=== PATIENT | male | born 1945 | race Caucasian/White ===

== ENCOUNTER → 2021-01-20 | Outpatient (CLI) | payer MEDICARE ==
--- NOTE | 2021-01-20 11:51 | CT ---
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 Patient has urine from re ctum during micturition. CT DLP: 577.1 mGycm. Automated Exposure Control for Dose Reduction was Utilized. TECHNIQUE: CT scan of the abdomen and pelvis is performed with oral but without IV contrast. IV cont rast could not be given due to diminished renal function. COMPARISON: NONE at this institution. FINDINGS: Within the limitations of a non-contrast study, the following observations are made. LUNG BASES: Tiny right greater than left pleural effusions. Mild linear scarring anterior bases right greater than left. Small pericardial effusion noted up to 14 mm in thickness. LIVER/GB: There is 2.3 cm thin-walled cyst left hepatic lobe axial image 16. Multiple small rim calci fied gallstone filled gallbladder lumen. No surrounding inflammatory change. PANCREAS: No significant abnormality is seen. SPLEEN: No significant abnormality is seen. ADRENALS: No significant abnormality is seen. KIDNEYS: Asymmetric diminished size and cortical thinning to the left kidney with scattered simple ap pearing thin-walled cysts. Moderate right-sided hydronephrosis and hydroureter. Bladder has moderate to severe abnormal wall thickening including large lobulated mass along the post erior wall. Some intraluminal calculi are present. This mass or neoplasm has lobulated superior exten ephraim up to axial image 103 in the presacral space. Scattered bilateral pelvic phleboliths. BOWEL: Oral contrast does not reach level of terminal ileum making evaluation of distal bowel subopti mal. No suspicious small or large bowel dilatation. There is indistinct fat plane from the mid sigmoi d colon left pelvis from the adjacent superior urinary bladder where there is lobulated mass or neopl asm best seen near axial image 111 and coronal image 47. This is likely site of fistulous communicati on. Some scattered sigmoid colonic diverticulosis. No free air. GENITAL ORGANS: Enlarged prostate gland consistent with BPH. LYMPH NODES: No definitive greater than 1cm abdominal or pelvic lymph nodes are appreciated. Slightly suboptimal evaluation without IV contrast. OSSEOUS STRUCTURES: Facet arthropathy lower lumbar levels. OTHER: No significant additional abnormality is seen. IMPRESSION: Suboptimal study. Large lobulated bladder mass or neoplasm. Indistinct fat plane from the mid sigmoid colon left pelvis likely site of fistulous communication. Moderate to severe right-sided hydronephrosis likely from obstruction right UVJ from known bladder mass or neoplasm.
== END | disposition home or self-care (01) ==
LOC: RADCTMAIN 09:21
PROVIDERS: ATTEND Urology
DX: C67.9 Malignant neoplasm of bladder, unspecified (principal); N13.30 Unspecified hydronephrosis
CPT/HCPCS: 74176; 82565; 84520

== ENCOUNTER 2021-06-03 13:21 | Inpatient (IN) | payer MEDICARE ==
[2021-06-03] MEDS ORDERED: SODIUM CHLORIDE 0.9% 1,000 ML IV STA (13:40)
[2021-06-03] MEDS ORDERED: cefTRIAXone IN SWFI 1,000 MG/10 ML SYRINGE IVP STA ×3 (13:40→19:23)
--- NOTE | 2021-06-03 13:49 | ED ---
General Adult HPI - General Chief complaint: Weakness Stated complaint: Weakness Time Seen by Provider: 06/03/21 13:25 Source: patient, EMS, RN notes reviewed, old records reviewed Mode of arrival: EMS Limitations: no limitations - History of Present Illness Initial comments: This is a 75-year-old male who presents emergency Department complaining of ge neralized weakness. Further history is that he was given an antibiotic for what is believed to be a urinary tract infection. Patient has a urostomy and a colonoscopy. Patient denies any fever chills per patient's chest pain difficulty breathing shortness of breath per patient denies palpitation. Patient denies abdominal pain patient denies nausea vomiting diarrhea. Patient denies any recent injury or trauma. - Related Data Home Medications Medication Instructions Recorded Confirmed Acetaminophen Tab [Tylenol Tab] 1,000 mg PO Q6HR PRN 06/03/21 06/03/21 Famotidine [Pepcid] 20 mg PO BID PRN 06/03/21 06/03/21 Levofloxacin [Levaquin] 500 mg PO DAILY 06/03/21 06/03/21 Allergies Allergy/AdvReac Type Severity Reaction Status Date / Time No Known Allergies Allergy Verified 06/03/21 15:55 Review of Systems ROS Statement: Those systems with pertinent positive or pertinent negative responses have been documented in the HPI. ROS Other: All systems not noted in ROS Statement are negative. 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 Patient is nontoxic and well- hydrated and is in mild distress. Patient does appear fairly tired ENT: Neck is soft and supple. No significant lymphadenopathy is noted. Oropharynx is clear. Moist mucous membranes. Neck has full range of motion without eliciting any pain. EYES: The sclera were anicteric and conjunctiva were pink and moist. Extraocular movements were intact and pupils were equal round and reactive to light. Eyelids were unremarkable. PULMONARY: Unlabored respirations. Good breath sounds bilaterally. No audible rales rhonchi or wheezing was noted. CARDIOVASCULAR: There is a regular rate and rhythm without any murmurs gallops or rubs. ABDOMEN: Soft and nontender with normal bowel sounds. SKIN: Skin is clear with no lesions or rashes and otherwise unremarkable. NEUROLOGIC: Patient is alert and oriented x3. Cranial nerves II through XII are grossly intact. Motor and sensory are also intact. Normal speech, volume and content. Symmetrical smile. MUSCULOSKELETAL: Normal extremities with adequate strength and full range of motion. No lower extremity swelling or edema. No calf tenderness. LYMPHATICS: No significant lymphadenopathy is noted PSYCHIATRIC: Normal psychiatric evaluation. Limitations: no limitations Course Vital Signs 06/03/21 06/03/21 06/03/21 13:25 14:40 15:19 Temperature 98.6 F Pulse Rate 130 H 112 H Respiratory 18 20 16 Rate Blood Pressure 78/52 77/49 O2 Sat by Pulse 94 L 97 Oximetry 06/03/21 06/03/21 06/03/21 15:27 16:21 17:47 Temperature Pulse Rate 108 H 103 H 102 H Respiratory 20 20 20 Rate Blood Pressure 78/50 75/42 77/46 O2 Sat by Pulse 97 93 L 97 Oximetry Procedures - Central Line Placement Right Femoral Consent Obtained: verbal consent Prep: mask, gown, gloves Central Line Prep: Chlorhexidine scrub Local Anesthesia Used: Lidocaine 1% Ultrasound Used for Placement: Yes Central Line Lumen Inserted: triple Bloods Obtained for Lab: No Central Line Position: good blood return, all ports aspirated, flushed, capped, sutured in place with nylon Dressing Applied: Tegaderm Patient Tolerated Procedure: well Complications: none - Sepsis Sepsis Focused Exam #1 Time Sepsis Criteria Met: 15:55 Sepsis Focused Exam Date: 06/03/21 Sepsis Focused Exam Time: 18:04 Sepsis Focused Exam Complete: Yes Vital Signs & RN Notes Reviewed: Yes Capillary Refill: < 2 Seconds: Fingers Peripheral Pulses: Weak: Radial (R) Skin Color: Normal for Patient Respiratory Exam: normal lung sounds Cardiovascular Exam: tachycardia (105) Medical Decision Making - Medical Decision Making EKG shows sinus tachycardia at 107 bpm IL interval 176 dresses 94 QT interval 3:30 QTC is 451. Patient's EKG shows no ST segment elevation or depression. Patient was noted to have a urinary tract infection or 4:00. Patient received 3 L of fluid and antibiotics at this point time. I spoke with Dr. Hurtado he came down and saw the patient in the room. I spoke with some physicians he agreed to admit the patient I admitted the patient wrote admitting orders. Patient has acute renal failure and is also septic with a urinary tract infection After central line was placed patient had already received 4 L of fluid 3 sodium bicarb and hydrocortisone and his pressure was still systolic in the 70s so I started Levophed. Patient will be admitted to the ICU. - Lab Data Result diagrams: 06/03/21 14:06 06/03/21 14:06 Lab Results 06/03/21 06/03/21 06/03/21 Range/Units 14:06 14:06 14:06 WBC 40.9 H (3.8-10.6) k/uL RBC 3.52 L (4.30-5.90) m/uL Hgb 11.3 L (13.0-17.5) gm/dL Hct 35.1 L (39.0-53.0) % MCV 99.8 (80.0-100.0) fL MCH 32.2 (25.0-35.0) pg MCHC 32.3 (31.0-37.0) g/dL RDW 15.6 H (11.5-15.5) % Plt Count 428 (150-450) k/uL MPV 7.5 Neutrophils % 96 % Lymphocytes % 1 % Monocytes % 3 % Eosinophils % 0 % Basophils % 0 % Neutrophils # 39.1 H (1.3-7.7) k/uL Lymphocytes # 0.3 L (1.0-4.8) k/uL Monocytes # 1.4 H (0-1.0) k/uL Eosinophils # 0.0 (0-0.7) k/uL Basophils # 0.1 (0-0.2) k/uL Macrocytosis Slight PT 12.7 H (9.0-12.0) sec INR 1.2 H (<1.2) APTT 35.3 H (22.0-30.0) sec Sample Site ABG pH (7.35-7.45) ABG pCO2 (35-45) mmHg ABG pO2 (83-108) mmHg ABG HCO3 (21-25) mmol/L ABG Total CO2 (19-24) mmol/L ABG O2 Saturation (94-97) % Evangelist Test FiO2 % Sodium 130 L (137-145) mmol/L Potassium 5.3 H (3.5-5.1) mmol/L Chloride 115 H (98-107) mmol/L Carbon Dioxide <5 L* (22-30) mmol/L Anion Gap mmol/L BUN 77 H (9-20) mg/dL Creatinine 5.38 H (0.66-1.25) mg/dL Est GFR (CKD-EPI)AfAm 11 (>60 ml/min/1.73 sqM) Est GFR (CKD-EPI)NonAf 10 (>60 ml/min/1.73 sqM) Glucose 126 H (74-99) mg/dL Lactic Ac Sepsis Rflx Plasma Lactic Acid Og (0.7-2.0) mmol/L Calcium 10.8 H (8.4-10.2) mg/dL Magnesium 1.9 (1.6-2.3) mg/dL Total Bilirubin 2.0 H (0.2-1.3) mg/dL AST 91 H (17-59) U/L ALT 79 H (4-49) U/L Alkaline Phosphatase 208 H (38-126) U/L Troponin I (0.000-0.034) ng/mL Total Protein 6.8 (6.3-8.2) g/dL Albumin 2.9 L (3.5-5.0) g/dL TSH (0.465-4.680) mIU/L Urine Color Urine Appearance (Clear) Urine pH (5.0-8.0) Ur Specific [place] (1.001-1.035) Urine Protein (Negative) Urine Glucose (UA) (Negative) Urine Ketones (Negative) Urine Blood (Negative) Urine Nitrite (Negative) Urine Bilirubin (Negative) Urine Urobilinogen (<2.0) mg/dL Ur Leukocyte Esterase (Negative) Urine RBC (0-5) /hpf Urine WBC (0-5) /hpf Ur Squamous Epith Cells (0-4) /hpf Urine Bacteria (None) /hpf Coronavirus (PCR) (Not Detectd) 06/03/21 06/03/21 06/03/21 Range/Units 14:06 14:06 14:06 WBC (3.8-10.6) k/uL RBC (4.30-5.90) m/uL Hgb (13.0-17.5) gm/dL Hct (39.0-53.0) % MCV (80.0-100.0) fL MCH (25.0-35.0) pg MCHC (31.0-37.0) g/dL RDW (11.5-15.5) % Plt Count (150-450) k/uL MPV Neutrophils % % Lymphocytes % % Monocytes % % Eosinophils % % Basophils % % Neutrophils # (1.3-7.7) k/uL Lymphocytes # (1.0-4.8) k/uL Monocytes # (0-1.0) k/uL Eosinophils # (0-0.7) k/uL Basophils # (0-0.2) k/uL Macrocytosis PT (9.0-12.0) sec INR (<1.2) APTT (22.0-30.0) sec Sample Site ABG pH (7.35-7.45) ABG pCO2 (35-45) mmHg ABG pO2 (83-108) mmHg ABG HCO3 (21-25) mmol/L ABG Total CO2 (19-24) mmol/L ABG O2 Saturation (94-97) % Evangelist Test FiO2 % Sodium (137-145) mmol/L Potassium (3.5-5.1) mmol/L Chloride (98-107) mmol/L Carbon Dioxide (22-30) mmol/L Anion Gap mmol/L BUN (9-20) mg/dL Creatinine (0.66-1.25) mg/dL Est GFR (CKD-EPI)AfAm (>60 ml/min/1.73 sqM) Est GFR (CKD-EPI)NonAf (>60 ml/min/1.73 sqM) Glucose (74-99) mg/dL Lactic Ac Sepsis Rflx Plasma Lactic Acid Og 2.7 H* (0.7-2.0) mmol/L Calcium (8.4-10.2) mg/dL Magnesium (1.6-2.3) mg/dL Total Bilirubin (0.2-1.3) mg/dL AST (17-59) U/L ALT (4-49) U/L Alkaline Phosphatase (38-126) U/L Troponin I 0.062 H* (0.000-0.034) ng/mL Total Protein (6.3-8.2) g/dL Albumin (3.5-5.0) g/dL TSH 12.000 H (0.465-4.680) mIU/L Urine Color Urine Appearance (Clear) Urine pH (5.0-8.0) Ur Specific [place] (1.001-1.035) Urine Protein (Negative) Urine Glucose (UA) (Negative) Urine Ketones (Negative) Urine Blood (Negative) Urine Nitrite (Negative) Urine Bilirubin (Negative) Urine Urobilinogen (<2.0) mg/dL Ur Leukocyte Esterase (Negative) Urine RBC (0-5) /hpf Urine WBC (0-5) /hpf Ur Squamous Epith Cells (0-4) /hpf Urine Bacteria (None) /hpf Coronavirus (PCR) (Not Detectd) 06/03/21 06/03/21 06/03/21 Range/Units 14:32 15:26 16:37 WBC (3.8-10.6) k/uL RBC (4.30-5.90) m/uL Hgb (13.0-17.5) gm/dL Hct (39.0-53.0) % MCV (80.0-100.0) fL MCH (25.0-35.0) pg MCHC (31.0-37.0) g/dL RDW (11.5-15.5) % Plt Count (150-450) k/uL MPV Neutrophils % % Lymphocytes % % Monocytes % % Eosinophils % % Basophils % % Neutrophils # (1.3-7.7) k/uL Lymphocytes # (1.0-4.8) k/uL Monocytes # (0-1.0) k/uL Eosinophils # (0-0.7) k/uL Basophils # (0-0.2) k/uL Macrocytosis PT (9.0-12.0) sec INR (<1.2) APTT (22.0-30.0) sec Sample Site Left Radial ABG pH 7.26 L (7.35-7.45) ABG pCO2 <15 L* (35-45) mmHg ABG pO2 110 H (83-108) mmHg ABG HCO3 9 L* (21-25) mmol/L ABG Total CO2 27 H (19-24) mmol/L ABG O2 Saturation 98.4 H (94-97) % Evangelist Test Yes FiO2 21 % Sodium (137-145) mmol/L Potassium (3.5-5.1) mmol/L Chloride (98-107) mmol/L Carbon Dioxide (22-30) mmol/L Anion Gap mmol/L BUN (9-20) mg/dL Creatinine (0.66-1.25) mg/dL Est GFR (CKD-EPI)AfAm (>60 ml/min/1.73 sqM) Est GFR (CKD-EPI)NonAf (>60 ml/min/1.73 sqM) Glucose (74-99) mg/dL Lactic Ac Sepsis Rflx Y Plasma Lactic Acid Og (0.7-2.0) mmol/L Calcium (8.4-10.2) mg/dL Magnesium (1.6-2.3) mg/dL Total Bilirubin (0.2-1.3) mg/dL AST (17-59) U/L ALT (4-49) U/L Alkaline Phosphatase (38-126) U/L Troponin I (0.000-0.034) ng/mL Total Protein (6.3-8.2) g/dL Albumin (3.5-5.0) g/dL TSH (0.465-4.680) mIU/L Urine Color Yellow Urine Appearance Turbid (Clear) Urine pH 6.5 (5.0-8.0) Ur Specific [place] 1.019 (1.001-1.035) Urine Protein 2+ H (Negative) Urine Glucose (UA) Negative (Negative) Urine Ketones Negative (Negative) Urine Blood Moderate H (Negative) Urine Nitrite Negative (Negative) Urine Bilirubin Negative (Negative) Urine Urobilinogen <2.0 (<2.0) mg/dL Ur Leukocyte Esterase Large H (Negative) Urine RBC >182 H (0-5) /hpf Urine WBC >182 H (0-5) /hpf Ur Squamous Epith Cells 4 (0-4) /hpf Urine Bacteria Many H (None) /hpf Coronavirus (PCR) (Not Detectd) 06/03/21 Range/Units 17:50 WBC (3.8-10.6) k/uL RBC (4.30-5.90) m/uL Hgb (13.0-17.5) gm/dL Hct (39.0-53.0) % MCV (80.0-100.0) fL MCH (25.0-35.0) pg MCHC (31.0-37.0) g/dL RDW (11.5-15.5) % Plt Count (150-450) k/uL MPV Neutrophils % % Lymphocytes % % Monocytes % % Eosinophils % % Basophils % % Neutrophils # (1.3-7.7) k/uL Lymphocytes # (1.0-4.8) k/uL Monocytes # (0-1.0) k/uL Eosinophils # (0-0.7) k/uL Basophils # (0-0.2) k/uL Macrocytosis PT (9.0-12.0) sec INR (<1.2) APTT (22.0-30.0) sec Sample Site ABG pH (7.35-7.45) ABG pCO2 (35-45) mmHg ABG pO2 (83-108) mmHg ABG HCO3 (21-25) mmol/L ABG Total CO2 (19-24) mmol/L ABG O2 Saturation (94-97) % Evangelist Test FiO2 % Sodium (137-145) mmol/L Potassium (3.5-5.1) mmol/L Chloride (98-107) mmol/L Carbon Dioxide (22-30) mmol/L Anion Gap mmol/L BUN (9-20) mg/dL Creatinine (0.66-1.25) mg/dL Est GFR (CKD-EPI)AfAm (>60 ml/min/1.73 sqM) Est GFR (CKD-EPI)NonAf (>60 ml/min/1.73 sqM) Glucose (74-99) mg/dL Lactic Ac Sepsis Rflx Plasma Lactic Acid Og (0.7-2.0) mmol/L Calcium (8.4-10.2) mg/dL Magnesium (1.6-2.3) mg/dL Total Bilirubin (0.2-1.3) mg/dL AST (17-59) U/L ALT (4-49) U/L Alkaline Phosphatase (38-126) U/L Troponin I (0.000-0.034) ng/mL Total Protein (6.3-8.2) g/dL Albumin (3.5-5.0) g/dL TSH (0.465-4.680) mIU/L Urine Color Urine Appearance (Clear) Urine pH (5.0-8.0) Ur Specific [place] (1.001-1.035) Urine Protein (Negative) Urine Glucose (UA) (Negative) Urine Ketones (Negative) Urine Blood (Negative) Urine Nitrite (Negative) Urine Bilirubin (Negative) Urine Urobilinogen (<2.0) mg/dL Ur Leukocyte Esterase (Negative) Urine RBC (0-5) /hpf Urine WBC (0-5) /hpf Ur Squamous Epith Cells (0-4) /hpf Urine Bacteria (None) /hpf Coronavirus (PCR) Not Detected (Not Detectd) Critical Care Time Critical Care Time: Yes Total Critical Care Time: 35 Disposition Clinical Impression: Septic shock, Urinary tract infection, Acute renal failure Disposition: ADMITTED IP TO THIS [facility] Referrals: Franc Bundy MD [Primary Care Provider] - 1-2 days Time of Disposition: 18:03
[2021-06-03 14:31] LABS: Basophils # (A) 0.1 k/uL (0-0.2); Basophils % (A) 0 %; Eosinophils % (A) 0 %; HCT 35.1 % (39.0-53.0); HGB 11.3 gm/dL (13.0-17.5); Lymphocytes # (A) 0.3 k/uL (1.0-4.8); Lymphocytes % (A) 1 %; MCH 32.2 pg (25.0-35.0); MCHC 32.3 g/dL (31.0-37.0); MCV 99.8 fL (80.0-100.0); Macrocytosis Slight; Mean Platelet Volume 7.5; Monocytes # (A) 1.4 k/uL (0-1.0); Monocytes % (A) 3 %; Neutrophils # (A) 39.1 k/uL (1.3-7.7); Neutrophils % (A) 96 %; Platelet Count 428 k/uL (150-450); RBC 3.52 m/uL (4.30-5.90); RDW 15.6 % (11.5-15.5); WBC 40.9 k/uL (3.8-10.6)
[2021-06-03 14:32] LABS: INR 1.2 (<1.2); Partial Thromboplastin Time 35.3 sec (22.0-30.0); Prothrombin Time 12.7 sec (9.0-12.0)
[2021-06-03 14:35] LABS: ALT 79 U/L (4-49); AST 91 U/L (17-59); African American GFR (CKD) 11 (>60 ml/min/1.73 sqM); Albumin 2.9 g/dL (3.5-5.0); Alkaline Phosphatase 208 U/L (38-126); Blood Urea Nitrogen 77 mg/dL (9-20); Calcium 10.8 mg/dL (8.4-10.2); Chloride 115 mmol/L (98-107); Glucose 126 mg/dL (74-99); Magnesium 1.9 mg/dL (1.6-2.3); Non-African American GFR(CKD) 10 (>60 ml/min/1.73 sqM); Potassium 5.3 mmol/L (3.5-5.1); Sodium 130 mmol/L (137-145); Total Protein 6.8 g/dL (6.3-8.2)
[2021-06-03 14:57] LABS: Carbon Dioxide <5 mmol/L (22-30)
[2021-06-03 15:49] LABS: Appearance,Urine Turbid (Clear); Bacteria,Urine Many /hpf; Bilirubin,Urine Negative (Negative); Blood,Urine Moderate (Negative); Color,Urine Yellow; Glucose,Urine (UA) Negative (Negative); Ketones,Urine Negative (Negative); Leukocyte Esterase,Urine Large (Negative); Nitrite,Urine Negative (Negative); PH, Urine 6.5 (5.0-8.0); Protein,Urine 2+ (Negative); RBC,Urine >182 /hpf (0-5); Specific Gravity,Urine 1.019 (1.001-1.035); Squamous Epithelial Cell,Urine 4 /hpf (0-4); Urobilinogen,Urine <2.0 mg/dL (<2.0); WBC,Urine >182 /hpf (0-5)
[2021-06-03 16:42] LABS: ABG Oxygen Saturation 98.4 % (94-97); ABG PH 7.26 (7.35-7.45); ABG PO2 110 mmHg (83-108); Allen Test Performed? Yes
[2021-06-03 16:44] LABS: ABG PCO2 <15 mmHg (35-45)
[2021-06-03 16:45] LABS: ABG HCO3 9 mmol/L (21-25); ABG TCO2 27 mmol/L (19-24)
[2021-06-03] MEDS ORDERED: SODIUM BICARB 8.4% 50 ML SYR (1 MEQ/ML) IV STA (17:12)
[2021-06-03] MEDS ORDERED: HYDROCORTISONE SUCCINATE 100 MG/2 ML VIAL IV STA (17:12)
[2021-06-03] MEDS ORDERED: SODIUM CHLORIDE 0.9% 1,000 ML IV ONE (17:25)
[2021-06-03] MEDS: DEXTROSE 5% IN WATER 1,000 ML with SODIUM BICARB (1 MEQ/ML) 150 ML IV SCH (18:13)
--- NOTE | 2021-06-03 18:21 | P.CNPUL ---
History of Present Illness Consult date: 06/03/21 Chief complaint: Generalized weakness History of present illness: 75-year-old male patient presented emergency department because of generalized weakness. His suspected UTI as the patient was found to have change in the color of the urine that was being collected in the urostomy bag. The urine was becoming more cloudy and the suspected UTI. The patient will be contacted the urologist. A dose of Levaquin which she took yesterday on outpatient basis. The patient came into the ED. The patient denied having any shortness of aurelio ath. He has significant abnormalities in his blood work. The patient had severe leukocytosis with a white count of 14. The patient has severe metabolic acidosis with a combination of anion and non-anion gap metabolic acidosis with a lactic acid level of 2.7. The patient had acute kidney injury. Creatinine was elevated at 5.4. The patient had some mild transaminitis. He was already given a total of 3 L of IV fluid in the systolic blood pressure was in the mid 70s. The patient was given 2 mg of IV Rocephin in the emergency department. Pulmonary three dimensional art instructor services were consulted accordingly. No nausea. No vomiting. No diarrhea. No abdominal pain. The patient has a colostomy which is functional. 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 This was done in 2020. At [facility]. Review of Systems Constitutional: Reports fatigue, Reports weakness Eyes: denies as per HPI, denies blurred vision, denies bulging eye, denies decreased vision, denies diplopia, denies discharge, denies dry eye, denies irritation, denies itching, denies pain, denies photophobia, denies loss of peripheral vision, denies loss of vision, denies tunnel vision/blind spots Ears: deny: decreased hearing, ear discharge, earache, tinnitus Ears, nose, mouth and throat: Reports as per HPI Breasts: absent: as per HPI, gynecomastia Cardiovascular: Reports as per HPI Respiratory: Reports as per HPI Gastrointestinal: Reports as per HPI Genitourinary: Reports as per HPI Musculoskeletal: absent: ankle pain, ankle stiffness, ankle swelling, as per HPI, elbow pain, elbow stiffness, elbow swelling, foot pain, foot stiffness, foot swelling, hand pain, hand stiffness, hand swelling, hip pain, hip stiffness, hip swelling, knee pain, knee stiffness, knee swelling, shoulder pain, shoulder stiffness, shoulder swelling, wrist pain, wrist stiffness, wrist swelling Integumentary: Reports as per HPI Neurological: Reports weakness Psychiatric: Reports as per HPI Endocrine: Reports as per HPI, Reports fatigue Hematologic/Lymphatic: Reports as per HPI Allergic/Immunologic: Reports as per HPI 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, post colectomy and colostomy and a cystectomy jan 2021 History of Any Multi-Drug Resistant Organisms: None Reported Past Surgical History: Bladder Surgery, Bowel Resection Additional Past Surgical History / Comment(s): December [address] [facility] patient had a bladder/colon fistula repair resulting in a double ostomy- urostomy and colostomy Past Psychological History: No Psychological Hx Reported Smoking Status: Former smoker Past Alcohol Use History: None Reported Past Drug Use History: None Reported Medications and Allergies Home Medications Medication Instructions Recorded Confirmed Type Acetaminophen Tab [Tylenol Tab] 1,000 mg PO Q6HR PRN 06/03/21 06/03/21 History Famotidine [Pepcid] 20 mg PO BID PRN 06/03/21 06/03/21 History Levofloxacin [Levaquin] 500 mg PO DAILY 06/03/21 06/03/21 History Allergies Allergy/AdvReac Type Severity Reaction Status Date / Time No Known Allergies Allergy Verified 06/03/21 15:55 Physical Exam Vitals: Vital Signs Temp Pulse Resp BP Pulse Ox 06/03/21 16:21 103 H 20 75/42 93 L 06/03/21 15:27 108 H 20 78/50 97 06/03/21 15:19 16 06/03/21 14:40 112 H 20 77/49 97 06/03/21 13:25 98.6 F 130 H 18 78/52 94 L Intake and Output 06/03/21 06/03/21 06/03/21 06:59 14:59 22:59 Other: Weight 99.79 kg Patient is well-developed and well-nourished. Patient is nontoxic and well- hydrated and is in mild distress. Patient does appear fairly tired HENT: Neck is soft and supple. No significant lymphadenopathy is noted. Oropharynx is clear. Moist mucous membranes. Neck has full range of motion without eliciting any pain. EYES: The sclera were anicteric and conjunctiva were pink and moist. Extraocular movements were intact and pupils were equal round and reactive to light. Eyelids were unremarkable. PULMONARY: Unlabored respirations. Good breath sounds bilaterally. No audible rales r honchi or wheezing was noted. CARDIOVASCULAR: There is a regular rate and rhythm without any murmurs gallops or rubs. ABDOMEN: Soft and nontender with normal bowel sounds. The patient has a functioning colostomy. The patient also has a urostomy in the right upper quadrant. Output from the urine is yellowish and cloudy. There is positive output of this point in time. No abdominal distention. No direct tenderness. No rebound tenderness. No guarding. SKIN: Skin is clear with no lesions or rashes and otherwise unremarkable. NEUROLOGIC: Patient is alert and oriented x3. Cranial nerves II through XII are grossly intact. Motor and sensory are also intact. Normal speech, volume and content. Symmetrical smile. MUSCULOSKELETAL: Normal extremities with adequate strength and full range of motion. No lower extremity swelling or edema. No calf tenderness. LYMPHATICS: No significant lymphadenopathy is noted PSYCHIATRIC: Normal psychiatric evaluation. Results - Laboratory Findings CBC and BMP: 06/03/21 14:06 06/03/21 14:06 ABG ABG pH 7.26 (7.35-7.45) L 06/03/21 16:37 ABG pCO2 <15 mmHg (35-45) L* 06/03/21 16:37 ABG pO2 110 mmHg (83-108) H 06/03/21 16:37 ABG O2 Saturation 98.4 % (94-97) H 06/03/21 16:37 PT/INR, D-dimer PT 12.7 sec (9.0-12.0) H 06/03/21 14:06 INR 1.2 (<1.2) H 06/03/21 14:06 Abnormal lab findings: Abnormal Labs 06/03/21 06/03/21 06/03/21 14:06 14:06 14:06 WBC 40.9 H RBC 3.52 L Hgb 11.3 L Hct 35.1 L RDW 15.6 H Neutrophils # 39.1 H Lymphocytes # 0.3 L Monocytes # 1.4 H PT 12.7 H INR 1.2 H APTT 35.3 H ABG pH ABG pCO2 ABG pO2 ABG HCO3 ABG Total CO2 ABG O2 Saturation Sodium 130 L Potassium 5.3 H Chloride 115 H Carbon Dioxide <5 L* BUN 77 H Creatinine 5.38 H Glucose 126 H Plasma Lactic Acid Og Calcium 10.8 H Total Bilirubin 2.0 H AST 91 H ALT 79 H Alkaline Phosphatase 208 H Troponin I Albumin 2.9 L Urine Protein Urine Blood Ur Leukocyte Esterase Urine RBC Urine WBC Urine Bacteria 06/03/21 06/03/21 06/03/21 14:06 14:06 15:26 WBC RBC Hgb Hct RDW Neutrophils # Lymphocytes # Monocytes # PT INR APTT ABG pH ABG pCO2 ABG pO2 ABG HCO3 ABG Total CO2 ABG O2 Saturation Sodium Potassium Chloride Carbon Dioxide BUN Creatinine Glucose Plasma Lactic Acid Og 2.7 H* Calcium Total Bilirubin AST ALT Alkaline Phosphatase Troponin I 0.062 H* Albumin Urine Protein 2+ H Urine Blood Moderate H Ur Leukocyte Esterase Large H Urine RBC >182 H Urine WBC >182 H Urine Bacteria Many H 06/03/21 16:37 WBC RBC Hgb Hct RDW Neutrophils # Lymphocytes # Monocytes # PT INR APTT ABG pH 7.26 L ABG pCO2 <15 L* ABG pO2 110 H ABG HCO3 9 L* ABG Total CO2 27 H ABG O2 Saturation 98.4 H Sodium Potassium Chloride Carbon Dioxide BUN Creatinine Glucose Plasma Lactic Acid Og Calcium Total Bilirubin AST ALT Alkaline Phosphatase Troponin I Albumin Urine Protein Urine Blood Ur Leukocyte Esterase Urine RBC Urine WBC Urine Bacteria - Diagnostic Findings Chest x-ray: image reviewed Assessment and Plan Plan: 1 Septic shock, secondary to a complicated urinary tract infection. Patient is currently hypotensive, received a total of 3 L of IV fluids in the emergency d epartment. He is currently receiving this for sleep and the patient will be started on a bicarb infusion and possibly pressors if no response on the blood pressure. The patient was also covered with 2 mg of IV Rocephin in the emergency department. 2 acute kidney injury 3 severe metabolic acidosis secondary to above. The serum bicarbonate less than 5. Lactic acid level initially was at 2.7. Note that there is also a component of non-anion gap metabolic acidosis. 4 acute leukocytosis 5 history of bladder cancer with a colovesicular fistula. The patient underwent a cystectomy and colectomy with diverging colostomy and urostomy 6 mild transaminitis, probably related to sepsis/shock. Plan The patient received a total of 3 L of IV fluids. We'll give the fourth liter with normal saline and following that we'll start the patient on a bicarb infusion at the rate of 150 mL an hour. I would also suggest giving the patient 2 doses of sodium bicarbonate 50 mEq IV push. continue fluid resuscitation and use pressors if needed. We'll utilize norepinephrine infusion to maintain a mean arterial pressure above 60. continue IV Rocephin 2 g every 24 hours Check urine cultures and blood cultures Obtain ultrasound the kidneys Obtain nephrology consultation Monitor electrolytes. Monitor urine output. The patient has a urostomy bag at this point in time. IV Protonix. Subcu heparin for DVT prophylaxis. COVID 19 testing by PCR for screening purposes Admitted to the patient that I see if needed especially if he continues to be hypotensive procal level cortisol Tsh, ft4 We'll continue to follow.
[2021-06-03] MEDS ORDERED: NOREPINEPHRINE 32 MG in SODIUM CHLORIDE 0.9% 218 ML IV ONE (19:17)
[2021-06-03] MEDS ORDERED: NALOXONE 0.4 MG/ML 1 ML VIAL IV PRN (19:21)
[2021-06-03 19:35] LABS: T4, Free (Free Thyroxine) 1.63 ng/dL (0.78-2.19)
[2021-06-03] MEDS: PANTOPRAZOLE 40 MG/10 ML VIAL IVP SCH (21:07)
[2021-06-03] MEDS: HEPARIN SODIUM,PORCINE/PF 5,000 UNIT/0.5 ML SYRINGE SQ SCH (21:10)
--- NOTE | 2021-06-03 22:18 | XR ---
EXAMINATION TYPE: XR chest 1V portable DATE OF EXAM: 06/03/2021 COMPARISON: NONE HISTORY: 75 years Male. STUDY INDICATION GIVEN: Short of breath . TECHNIQUE: Upright AP chest radiograph IMPRESSION: No focal airspace disease, pneumothorax or pleural effusion. Prominent bilateral central hilum may be indicative of central vascular congestion. The cardiomediastinal silhouette is normal in appearance. No acute osseous abnormalities seen. Bilateral AC joint osteoarthrosis.
[2021-06-04 00:29] LABS: Glucose,Whole Blood 126 mg/dL (75-99)
--- NOTE | 2021-06-04 00:41 | P.HPIM ---
History of Present Illness H&P Date: 06/03/21 Chief Complaint: weakness, decrease PO intake 75 year old male with bladder cancer complicated by fistula to the colon , treated with cystectomy, diverting colostomy and urostomy 2020 patient initially was unable to provide any meaningful history , and reported decrease po intake over 4 days along with changes in mental status and generalized weakness, suspected UTI as urine was becoming more cloudy no report of bleeding or fevers. no URI symptoms in the ED , he was having refractory severe septic shock , and was started on pressors , he was also given one dose of antibiotics at time of my evaluation 2029, patient was becoming more awake , he is currently alert, interactive, reporting no pain , no trouble breathing, no bleeding , he feels hungry and eager to eat, he feels way better than when he came in . he admits that he was getting sick for the past 4 days but was too stubborn to come to the hospital , he denies fevers, but reports chills, no URI symptoms no chest pain , no SOB, no abd pain .denies any sick contact patient vaccinated against covid blood work showed, anion gap metabolic acidosis with GISELA and lactic acidosis , and septic shock Review of Systems Pertinent positives as noted in HPI. All other systems were reviewed and are negative 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, post colectomy and colostomy and a cystectomy jan 2021 History of Any Multi-Drug Resistant Organisms: None Reported Past Surgical History: Bladder Surgery, Bowel Resection Additional Past Surgical History / Comment(s): December 2020 at [facility] patient had a bladder/colon fistula repair resulting in a double ostomy- urostomy and colostomy Past Psychological History: No Psychological Hx Reported Smoking Status: Former smoker Past Alcohol Use History: None Reported Past Drug Use History: None Reported - Past Family History family Family Medical History: No Reported History Medications and Allergies Home Medications Medication Instructions Recorded Confirmed Type Acetaminophen Tab [Tylenol Tab] 1,000 mg PO Q6HR PRN 06/03/21 06/03/21 History Famotidine [Pepcid] 20 mg PO BID PRN 06/03/21 06/03/21 History Levofloxacin [Levaquin] 500 mg PO DAILY 06/03/21 06/03/21 History Allergies Allergy/AdvReac Type Severity Reaction Status Date / Time No Known Allergies Allergy Verified 06/03/21 15:55 Physical Exam Vitals: Vital Signs Temp Pulse Resp BP Pulse Ox 06/03/21 22:04 97 20 94/60 100 06/03/21 21:21 108 H 20 86/56 100 06/03/21 20:48 98 20 90/61 99 06/03/21 19:44 99 20 85/56 100 06/03/21 17:47 102 H 20 77/46 97 06/03/21 16:21 103 H 20 75/42 93 L 06/03/21 15:27 108 H 20 78/50 97 06/03/21 15:19 16 06/03/21 14:40 112 H 20 77/49 97 06/03/21 13:25 98.6 F 130 H 18 78/52 94 L Intake and Output 06/03/21 06/03/21 06/04/21 14:59 22:59 06:59 Other: Weight 99.79 kg Constitutional: No acute distress, conversant, pleasant, following commands, making good eye contact, interactive, Per RN he looks way better than when he came in earlier Eyes: Anicteric sclerae, moist conjunctiva, Pupils equal round reactive to light ENMT: NC/AT Oropharynx clear, no erythema, or exudates Neck: Supple, no masses, or JVD No carotid bruits No thyromegaly Lungs: good breath sounds, basal inspiratory rales bilaterally Clear to percussion Normal respiratory effort, no accessory muscle use Cardiovascular: Heart regular in rate and rhythm, No murmurs, gallops, or rubs No peripheral edema Abdominal: Soft, colostomy with well formed stool, urostomy with anna colored urine however cloudy with debris Nontender, no guarding, rebound or rigidity Abdomen moving with respiration Normoactive bowel sounds No hepatomegaly, No splenomegaly No palpable mass No abdominal wall hernia noted Skin: area of blanching macular erythema over the coccyx no ulcers, otherwise Normal temperature, tone, texture, turgor Extremities: No digital cyanosis No clubbing Pedal pulses intact and symmetrical Radial pulses intact and symmetrical No calf tenderness Psychiatric: Alert and oriented to person, place and time Appropriate affect fair judgement Neuro Muscles Strength 4/5 in all 4 extremities Sensation to light touch grossly present throughout Cranial nerves II-XII grossly intact No focal sensory deficits Lymphatics: no palpable cervical or supraclavicular , or inguinal lymph nodes Results CBC & Chem 7: 06/03/21 14:06 06/03/21 14:06 Labs: Abnormal Lab Results - Last 24 Hours (Table) 06/03/21 06/03/21 06/03/21 Range/Units 14:06 14:06 14:06 WBC 40.9 H (3.8-10.6) k/uL RBC 3.52 L (4.30-5.90) m/uL Hgb 11.3 L (13.0-17.5) gm/dL Hct 35.1 L (39.0-53.0) % RDW 15.6 H (11.5-15.5) % Neutrophils # 39.1 H (1.3-7.7) k/uL Lymphocytes # 0.3 L (1.0-4.8) k/uL Monocytes # 1.4 H (0-1.0) k/uL PT 12.7 H (9.0-12.0) sec INR 1.2 H (<1.2) APTT 35.3 H (22.0-30.0) sec ABG pH (7.35-7.45) ABG pCO2 (35-45) mmHg ABG pO2 (83-108) mmHg ABG HCO3 (21-25) mmol/L ABG Total CO2 (19-24) mmol/L ABG O2 Saturation (94-97) % Sodium 130 L (137-145) mmol/L Potassium 5.3 H (3.5-5.1) mmol/L Chloride 115 H (98-107) mmol/L Carbon Dioxide <5 L* (22-30) mmol/L BUN 77 H (9-20) mg/dL Creatinine 5.38 H (0.66-1.25) mg/dL Glucose 126 H (74-99) mg/dL POC Glucose (mg/dL) (75-99) mg/dL Plasma Lactic Acid Og (0.7-2.0) mmol/L Calcium 10.8 H (8.4-10.2) mg/dL Total Bilirubin 2.0 H (0.2-1.3) mg/dL AST 91 H (17-59) U/L ALT 79 H (4-49) U/L Alkaline Phosphatase 208 H (38-126) U/L Troponin I (0.000-0.034) ng/mL Albumin 2.9 L (3.5-5.0) g/dL TSH (0.465-4.680) mIU/L Urine Protein (Negative) Urine Blood (Negative) Ur Leukocyte Esterase (Negative) Urine RBC (0-5) /hpf Urine WBC (0-5) /hpf Urine Bacteria (None) /hpf 06/03/21 06/03/21 06/03/21 Range/Units 14:06 14:06 14:06 WBC (3.8-10.6) k/uL RBC (4.30-5.90) m/uL Hgb (13.0-17.5) gm/dL Hct (39.0-53.0) % RDW (11.5-15.5) % Neutrophils # (1.3-7.7) k/uL Lymphocytes # (1.0-4.8) k/uL Monocytes # (0-1.0) k/uL PT (9.0-12.0) sec INR (<1.2) APTT (22.0-30.0) sec ABG pH (7.35-7.45) ABG pCO2 (35-45) mmHg ABG pO2 (83-108) mmHg ABG HCO3 (21-25) mmol/L ABG Total CO2 (19-24) mmol/L ABG O2 Saturation (94-97) % Sodium (137-145) mmol/L Potassium (3.5-5.1) mmol/L Chloride (98-107) mmol/L Carbon Dioxide (22-30) mmol/L BUN (9-20) mg/dL Creatinine (0.66-1.25) mg/dL Glucose (74-99) mg/dL POC Glucose (mg/dL) (75-99) mg/dL Plasma Lactic Acid Og 2.7 H* (0.7-2.0) mmol/L Calcium (8.4-10.2) mg/dL Total Bilirubin (0.2-1.3) mg/dL AST (17-59) U/L ALT (4-49) U/L Alkaline Phosphatase (38-126) U/L Troponin I 0.062 H* (0.000-0.034) ng/mL Albumin (3.5-5.0) g/dL TSH 12.000 H (0.465-4.680) mIU/L Urine Protein (Negative) Urine Blood (Negative) Ur Leukocyte Esterase (Negative) Urine RBC (0-5) /hpf Urine WBC (0-5) /hpf Urine Bacteria (None) /hpf 06/03/21 06/03/21 06/03/21 Range/Units 15:26 16:37 19:37 WBC (3.8-10.6) k/uL RBC (4.30-5.90) m/uL Hgb (13.0-17.5) gm/dL Hct (39.0-53.0) % RDW (11.5-15.5) % Neutrophils # (1.3-7.7) k/uL Lymphocytes # (1.0-4.8) k/uL Monocytes # (0-1.0) k/uL PT (9.0-12.0) sec INR (<1.2) APTT (22.0-30.0) sec ABG pH 7.26 L (7.35-7.45) ABG pCO2 <15 L* (35-45) mmHg ABG pO2 110 H (83-108) mmHg ABG HCO3 9 L* (21-25) mmol/L ABG Total CO2 27 H (19-24) mmol/L ABG O2 Saturation 98.4 H (94-97) % Sodium (137-145) mmol/L Potassium (3.5-5.1) mmol/L Chloride (98-107) mmol/L Carbon Dioxide (22-30) mmol/L BUN (9-20) mg/dL Creatinine (0.66-1.25) mg/dL Glucose (74-99) mg/dL POC Glucose (mg/dL) (75-99) mg/dL Plasma Lactic Acid Og 2.4 H* (0.7-2.0) mmol/L Calcium (8.4-10.2) mg/dL Total Bilirubin (0.2-1.3) mg/dL AST (17-59) U/L ALT (4-49) U/L Alkaline Phosphatase (38-126) U/L Troponin I (0.000-0.034) ng/mL Albumin (3.5-5.0) g/dL TSH (0.465-4.680) mIU/L Urine Protein 2+ H (Negative) Urine Blood Moderate H (Negative) Ur Leukocyte Esterase Large H (Negative) Urine RBC >182 H (0-5) /hpf Urine WBC >182 H (0-5) /hpf Urine Bacteria Many H (None) /hpf 06/03/21 06/04/21 Range/Units 23:10 00:27 WBC (3.8-10.6) k/uL RBC (4.30-5.90) m/uL Hgb (13.0-17.5) gm/dL Hct (39.0-53.0) % RDW (11.5-15.5) % Neutrophils # (1.3-7.7) k/uL Lymphocytes # (1.0-4.8) k/uL Monocytes # (0-1.0) k/uL PT (9.0-12.0) sec INR (<1.2) APTT (22.0-30.0) sec ABG pH (7.35-7.45) ABG pCO2 (35-45) mmHg ABG pO2 (83-108) mmHg ABG HCO3 (21-25) mmol/L ABG Total CO2 (19-24) mmol/L ABG O2 Saturation (94-97) % Sodium (137-145) mmol/L Potassium (3.5-5.1) mmol/L Chloride (98-107) mmol/L Carbon Dioxide (22-30) mmol/L BUN (9-20) mg/dL Creatinine (0.66-1.25) mg/dL Glucose (74-99) mg/dL POC Glucose (mg/dL) 126 H (75-99) mg/dL Plasma Lactic Acid Og 4.0 H* (0.7-2.0) mmol/L Calcium (8.4-10.2) mg/dL Total Bilirubin (0.2-1.3) mg/dL AST (17-59) U/L ALT (4-49) U/L Alkaline Phosphatase (38-126) U/L Troponin I (0.000-0.034) ng/mL Albumin (3.5-5.0) g/dL TSH (0.465-4.680) mIU/L Urine Protein (Negative) Urine Blood (Negative) Ur Leukocyte Esterase (Negative) Urine RBC (0-5) /hpf Urine WBC (0-5) /hpf Urine Bacteria (None) /hpf Microbiology - Last 24 Hours (Table) 06/03/21 15:26 Urine Culture - Preliminary Urine,Voided Assessment and Plan Assessment: severe refractory septic shock possible UTI GISELA anion gap metabolic acidosis lactic acidosis plan ICU admit s/p 4 L normal saline continue with bicarb drip initiate IV pressors due to refractory hypotension and worsening lactic acidosis follow up cultures s/p 2 g rocephine , continue daily supportive care monitor urine output monitor vital signs follow up lactic acid level follow up labs critical care consult nephro consult avoid nephrotoxic meds tylenol for fever elevated TSH , normal FT4, acute phase reactant follow up TSH mild transaminitis , monitor liver enzymes hypercalcemia , follow up after proper IVF hydration covid test negative GI PPX lovenox dvt ppx full code anticipated length of stay > 2 midnights
[2021-06-04] MEDS: HEPARIN SODIUM,PORCINE/PF 5,000 UNIT/0.5 ML SYRINGE SQ SCH ×3 (00:48→16:53)
[2021-06-04] MEDS: SODIUM CHLORIDE 0.9% 50 ML with VASOPRESSIN 20 UNIT IVPB SCH ×4 (05:13→13:05)
[2021-06-04 06:04] LABS: HCT 31.5 % (39.0-53.0); HGB 10.3 gm/dL (13.0-17.5); MCH 31.2 pg (25.0-35.0); MCHC 32.7 g/dL (31.0-37.0); MCV 95.4 fL (80.0-100.0); Mean Platelet Volume 8.3; Platelet Count 279 k/uL (150-450); RDW 15.3 % (11.5-15.5)
[2021-06-04 06:29] LABS: Albumin 2.6 g/dL (3.5-5.0); Calcium 9.8 mg/dL (8.4-10.2); Potassium 4.9 mmol/L (3.5-5.1); Total Bilirubin 1.4 mg/dL (0.2-1.3); Total Protein 5.9 g/dL (6.3-8.2)
[2021-06-04] MEDS: DEXTROSE 5% IN WATER 1,000 ML with SODIUM BICARB (1 MEQ/ML) 150 ML IV SCH ×3 (06:40→21:04)
[2021-06-04 06:44] LABS: Band Neutrophils % 7 %; Metamyelocytes # (M) 1.44 k/uL (0); Metamyelocytes % 3 %; Monocytes # (M) 0.48 k/uL (0-1.0); Neutrophils % (M) 84 %; Nucleated Red Blood Cells 0 /100 WBC (0-0); Poikilocytosis (M) Present; Total Cells Counted 100
--- NOTE | 2021-06-04 07:19 | P.PN ---
Subjective Progress Note Date: 06/04/21 75-year-old male patient presented emergency department because of generalized weakness. His suspected UTI as the patient was found to have change in the color of the urine that was being collected in the urostomy bag. The urine was becoming more cloudy and the suspected UTI. The patient will be contacted the urologist. A dose of Levaquin which she took yesterday on outpatient basis. The patient came into the ED. The patient denied having any shortness of aurelio ath. He has significant abnormalities in his blood work. The patient had severe leukocytosis with a white count of 14. The patient has severe metabolic acidosis with a combination of anion and non-anion gap metabolic acidosis with a lactic acid level of 2.7. The patient had acute kidney injury. Creatinine was elevated at 5.4. The patient had some mild transaminitis. He was already given a total of 3 L of IV fluid in the systolic blood pressure was in the mid 70s. The patient was given 2 mg of IV Rocephin in the emergency department. Pulmonary head batcher services were consulted accordingly. No nausea. No vomiting. No diarrhea. No abdominal pain. The patient has a colostomy which is functional. 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 This was done in 2020. At [facility]. His evaluation of 06/04/2021, the patient is being seen in follow-up in the intensive care unit. The patient got admitted to the ICU as the patient was quite hypotensive. He was in septic shock and he was seen in emergency department. He was resuscitated aggressively with IV fluids. He was given a total of 4 L of normal saline bolus and the patient was started on bicarb drip at the rate of 150 mL an hour. His urine output is improved. Creatinine is slightly improved compared to yesterday. Serum bicarbs up to 12. Lactic acid level is also improved. Cultures are still pending for now. Meanwhile, the patient remains on 2 g of IV Rocephin on a daily basis. Overnight, the passes were titrated. The patient was started on vasopressin drip physiologic dose of the 0.03 units / min. The patient is also on norepinephrine infusion running at 0.15 mcg/kg per minute. He is on room air oxygen. Is awake and alert. No signs of any respiratory distress. Cardiac rhythm is sinus. No nausea. No vomiting. No abdominal pain. No chest pain. No other significant events overnight otherwise. White cell count remains elevated and is up to 46. Objective - Vital Signs Vital signs: Vital Signs Temp 99 F 06/04/21 00:00 Pulse 98 06/04/21 06:00 Resp 18 06/04/21 06:00 BP 107/71 06/04/21 06:00 Pulse Ox 97 06/04/21 06:00 Intake & Output 06/03/21 06/04/21 06/04/21 18:59 06:59 18:59 Intake Total 1066.177 Output Total 480 Balance 586.177 Weight 99.79 kg 88.3 kg Intake: IV 1050 Dextrose 5% in Water 1, 1050 000 ml @ 150 mls/hr IV . Q7H40M ESMER with Sodium Bicarb (1 Meq/ml) 150 ml Rx#:[id number] Intake, IV Titration 16.177 Amount Norepinephrine 32 mg In 16.177 Sodium Chloride 0.9% 218 ml @ 0.05 MCG/KG/MIN 2. 339 mls/hr IV .Q24H ONE Rx#:[id number] Output: Urine 480 - Exam Patient is well-developed and well-nourished. Patient is nontoxic and well- hydrated and is in mild distress. Patient does appear fairly tired HENT: Neck is soft and supple. No significant lymphadenopathy is noted. Oropharynx is clear. Moist mucous membranes. Neck has full range of motion without eliciting any pain. EYES: The sclera were anicteric and conjunctiva were pink and moist. Extraocular movements were intact and pupils were equal round and reactive to light. Eyelids were unremarkable. PULMONARY: Unlabored respirations. Good breath sounds bilaterally. No audible rales rhon chi or wheezing was noted. CARDIOVASCULAR: There is a regular rate and rhythm without any murmurs gallops or rubs. ABDOMEN: Soft and nontender with normal bowel sounds. The patient has a functioning colostomy. The patient also has a urostomy in the right upper quadrant. Output from the urine is yellowish and cloudy. There is positive output of this point in time. No abdominal distention. No direct tenderness. No rebound tenderness. No guarding. SKIN: Skin is clear with no lesions or rashes and otherwise unremarkable. NEUROLOGIC: Patient is alert and oriented x3. Cranial nerves II through XII are grossly intact. Motor and sensory are also intact. Normal speech, volume and content. Symmetrical smile. MUSCULOSKELETAL: Normal extremities with adequate strength and full range of motion. No lower extremity swelling or edema. No calf tenderness. LYMPHATICS: No significant lymphadenopathy is noted PSYCHIATRIC: Normal psychiatric evaluation. - Labs CBC & Chem 7: 06/04/21 05:50 06/04/21 05:50 Labs: Abnormal Lab Results - Last 24 Hours (Table) 06/03/21 06/03/21 06/03/21 Range/Units 14:06 14:06 14:06 WBC 40.9 H (3.8-10.6) k/uL RBC 3.52 L (4.30-5.90) m/uL Hgb 11.3 L (13.0-17.5) gm/dL Hct 35.1 L (39.0-53.0) % RDW 15.6 H (11.5-15.5) % Neutrophils # 39.1 H (1.3-7.7) k/uL Neutrophils # (Manual) (1.3-7.7) k/uL Lymphocytes # 0.3 L (1.0-4.8) k/uL Monocytes # 1.4 H (0-1.0) k/uL Metamyelocytes # (Man) (0) k/uL PT 12.7 H (9.0-12.0) sec INR 1.2 H (<1.2) APTT 35.3 H (22.0-30.0) sec ABG pH (7.35-7.45) ABG pCO2 (35-45) mmHg ABG pO2 (83-108) mmHg ABG HCO3 (21-25) mmol/L ABG Total CO2 (19-24) mmol/L ABG O2 Saturation (94-97) % Sodium 130 L (137-145) mmol/L Potassium 5.3 H (3.5-5.1) mmol/L Chloride 115 H (98-107) mmol/L Carbon Dioxide <5 L* (22-30) mmol/L BUN 77 H (9-20) mg/dL Creatinine 5.38 H (0.66-1.25) mg/dL Glucose 126 H (74-99) mg/dL POC Glucose (mg/dL) (75-99) mg/dL Plasma Lactic Acid Og (0.7-2.0) mmol/L Calcium 10.8 H (8.4-10.2) mg/dL Total Bilirubin 2.0 H (0.2-1.3) mg/dL AST 91 H (17-59) U/L ALT 79 H (4-49) U/L Alkaline Phosphatase 208 H (38-126) U/L Troponin I (0.000-0.034) ng/mL Total Protein (6.3-8.2) g/dL Albumin 2.9 L (3.5-5.0) g/dL Procalcitonin (0.02-0.09) ng/mL TSH (0.465-4.680) mIU/L Urine Protein (Negative) Urine Blood (Negative) Ur Leukocyte Esterase (Negative) Urine RBC (0-5) /hpf Urine WBC (0-5) /hpf Urine Bacteria (None) /hpf 06/03/21 06/03/21 06/03/21 Range/Units 14:06 14:06 14:06 WBC (3.8-10.6) k/uL RBC (4.30-5.90) m/uL Hgb (13.0-17.5) gm/dL Hct (39.0-53.0) % RDW (11.5-15.5) % Neutrophils # (1.3-7.7) k/uL Neutrophils # (Manual) (1.3-7.7) k/uL Lymphocytes # (1.0-4.8) k/uL Monocytes # (0-1.0) k/uL Metamyelocytes # (Man) (0) k/uL PT (9.0-12.0) sec INR (<1.2) APTT (22.0-30.0) sec ABG pH (7.35-7.45) ABG pCO2 (35-45) mmHg ABG pO2 (83-108) mmHg ABG HCO3 (21-25) mmol/L ABG Total CO2 (19-24) mmol/L ABG O2 Saturation (94-97) % Sodium (137-145) mmol/L Potassium (3.5-5.1) mmol/L Chloride (98-107) mmol/L Carbon Dioxide (22-30) mmol/L BUN (9-20) mg/dL Creatinine (0.66-1.25) mg/dL Glucose (74-99) mg/dL POC Glucose (mg/dL) (75-99) mg/dL Plasma Lactic Acid Og 2.7 H* (0.7-2.0) mmol/L Calcium (8.4-10.2) mg/dL Total Bilirubin (0.2-1.3) mg/dL AST (17-59) U/L ALT (4-49) U/L Alkaline Phosphatase (38-126) U/L Troponin I 0.062 H* (0.000-0.034) ng/mL Total Protein (6.3-8.2) g/dL Albumin (3.5-5.0) g/dL Procalcitonin >100.00 H (0.02-0.09) ng/mL TSH (0.465-4.680) mIU/L Urine Protein (Negative) Urine Blood (Negative) Ur Leukocyte Esterase (Negative) Urine RBC (0-5) /hpf Urine WBC (0-5) /hpf Urine Bacteria (None) /hpf 06/03/21 06/03/21 06/03/21 Range/Units 14:06 15:26 16:37 WBC (3.8-10.6) k/uL RBC (4.30-5.90) m/uL Hgb (13.0-17.5) gm/dL Hct (39.0-53.0) % RDW (11.5-15.5) % Neutrophils # (1.3-7.7) k/uL Neutrophils # (Manual) (1.3-7.7) k/uL Lymphocytes # (1.0-4.8) k/uL Monocytes # (0-1.0) k/uL Metamyelocytes # (Man) (0) k/uL PT (9.0-12.0) sec INR (<1.2) APTT (22.0-30.0) sec ABG pH 7.26 L (7.35-7.45) ABG pCO2 <15 L* (35-45) mmHg ABG pO2 110 H (83-108) mmHg ABG HCO3 9 L* (21-25) mmol/L ABG Total CO2 27 H (19-24) mmol/L ABG O2 Saturation 98.4 H (94-97) % Sodium (137-145) mmol/L Potassium (3.5-5.1) mmol/L Chloride (98-107) mmol/L Carbon Dioxide (22-30) mmol/L BUN (9-20) mg/dL Creatinine (0.66-1.25) mg/dL Glucose (74-99) mg/dL POC Glucose (mg/dL) (75-99) mg/dL Plasma Lactic Acid Og (0.7-2.0) mmol/L Calcium (8.4-10.2) mg/dL Total Bilirubin (0.2-1.3) mg/dL AST (17-59) U/L ALT (4-49) U/L Alkaline Phosphatase (38-126) U/L Troponin I (0.000-0.034) ng/mL Total Protein (6.3-8.2) g/dL Albumin (3.5-5.0) g/dL Procalcitonin (0.02-0.09) ng/mL TSH 12.000 H (0.465-4.680) mIU/L Urine Protein 2+ H (Negative) Urine Blood Moderate H (Negative) Ur Leukocyte Esterase Large H (Negative) Urine RBC >182 H (0-5) /hpf Urine WBC >182 H (0-5) /hpf Urine Bacteria Many H (None) /hpf 06/03/21 06/03/21 06/04/21 Range/Units 19:37 23:10 00:27 WBC (3.8-10.6) k/uL RBC (4.30-5.90) m/uL Hgb (13.0-17.5) gm/dL Hct (39.0-53.0) % RDW (11.5-15.5) % Neutrophils # (1.3-7.7) k/uL Neutrophils # (Manual) (1.3-7.7) k/uL Lymphocytes # (1.0-4.8) k/uL Monocytes # (0-1.0) k/uL Metamyelocytes # (Man) (0) k/uL PT (9.0-12.0) sec INR (<1.2) APTT (22.0-30.0) sec ABG pH (7.35-7.45) ABG pCO2 (35-45) mmHg ABG pO2 (83-108) mmHg ABG HCO3 (21-25) mmol/L ABG Total CO2 (19-24) mmol/L ABG O2 Saturation (94-97) % Sodium (137-145) mmol/L Potassium (3.5-5.1) mmol/L Chloride (98-107) mmol/L Carbon Dioxide (22-30) mmol/L BUN (9-20) mg/dL Creatinine (0.66-1.25) mg/dL Glucose (74-99) mg/dL POC Glucose (mg/dL) 126 H (75-99) mg/dL Plasma Lactic Acid Og 2.4 H* 4.0 H* (0.7-2.0) mmol/L Calcium (8.4-10.2) mg/dL Total Bilirubin (0.2-1.3) mg/dL AST (17-59) U/L ALT (4-49) U/L Alkaline Phosphatase (38-126) U/L Troponin I (0.000-0.034) ng/mL Total Protein (6.3-8.2) g/dL Albumin (3.5-5.0) g/dL Procalcitonin (0.02-0.09) ng/mL TSH (0.465-4.680) mIU/L Urine Protein (Negative) Urine Blood (Negative) Ur Leukocyte Esterase (Negative) Urine RBC (0-5) /hpf Urine WBC (0-5) /hpf Urine Bacteria (None) /hpf 06/04/21 06/04/21 06/04/21 Range/Units 02:42 05:50 05:50 WBC 48.0 H (3.8-10.6) k/uL RBC 3.30 L (4.30-5.90) m/uL Hgb 10.3 L (13.0-17.5) gm/dL Hct 31.5 L (39.0-53.0) % RDW (11.5-15.5) % Neutrophils # (1.3-7.7) k/uL Neutrophils # (Manual) 43.60 H (1.3-7.7) k/uL Lymphocytes # (1.0-4.8) k/uL Monocytes # (0-1.0) k/uL Metamyelocytes # (Man) 1.44 H (0) k/uL PT (9.0-12.0) sec INR (<1.2) APTT (22.0-30.0) sec ABG pH (7.35-7.45) ABG pCO2 (35-45) mmHg ABG pO2 (83-108) mmHg ABG HCO3 (21-25) mmol/L ABG Total CO2 (19-24) mmol/L ABG O2 Saturation (94-97) % Sodium 135 L (137-145) mmol/L Potassium (3.5-5.1) mmol/L Chloride 110 H (98-107) mmol/L Carbon Dioxide 12 L (22-30) mmol/L BUN 81 H (9-20) mg/dL Creatinine 5.12 H (0.66-1.25) mg/dL Glucose 134 H (74-99) mg/dL POC Glucose (mg/dL) (75-99) mg/dL Plasma Lactic Acid Og 2.7 H* (0.7-2.0) mmol/L Calcium (8.4-10.2) mg/dL Total Bilirubin 1.4 H (0.2-1.3) mg/dL AST 77 H (17-59) U/L ALT 77 H (4-49) U/L Alkaline Phosphatase 151 H (38-126) U/L Troponin I (0.000-0.034) ng/mL Total Protein 5.9 L (6.3-8.2) g/dL Albumin 2.6 L (3.5-5.0) g/dL Procalcitonin (0.02-0.09) ng/mL TSH (0.465-4.680) mIU/L Urine Protein (Negative) Urine Blood (Negative) Ur Leukocyte Esterase (Negative) Urine RBC (0-5) /hpf Urine WBC (0-5) /hpf Urine Bacteria (None) /hpf 06/04/21 Range/Units 05:50 WBC (3.8-10.6) k/uL RBC (4.30-5.90) m/uL Hgb (13.0-17.5) gm/dL Hct (39.0-53.0) % RDW (11.5-15.5) % Neutrophils # (1.3-7.7) k/uL Neutrophils # (Manual) (1.3-7.7) k/uL Lymphocytes # (1.0-4.8) k/uL Monocytes # (0-1.0) k/uL Metamyelocytes # (Man) (0) k/uL PT (9.0-12.0) sec INR (<1.2) APTT (22.0-30.0) sec ABG pH (7.35-7.45) ABG pCO2 (35-45) mmHg ABG pO2 (83-108) mmHg ABG HCO3 (21-25) mmol/L ABG Total CO2 (19-24) mmol/L ABG O2 Saturation (94-97) % Sodium (137-145) mmol/L Potassium (3.5-5.1) mmol/L Chloride (98-107) mmol/L Carbon Dioxide (22-30) mmol/L BUN (9-20) mg/dL Creatinine (0.66-1.25) mg/dL Glucose (74-99) mg/dL POC Glucose (mg/dL) (75-99) mg/dL Plasma Lactic Acid Og 2.3 H* (0.7-2.0) mmol/L Calcium (8.4-10.2) mg/dL Total Bilirubin (0.2-1.3) mg/dL AST (17-59) U/L ALT (4-49) U/L Alkaline Phosphatase (38-126) U/L Troponin I (0.000-0.034) ng/mL Total Protein (6.3-8.2) g/dL Albumin (3.5-5.0) g/dL Procalcitonin (0.02-0.09) ng/mL TSH (0.465-4.680) mIU/L Urine Protein (Negative) Urine Blood (Negative) Ur Leukocyte Esterase (Negative) Urine RBC (0-5) /hpf Urine WBC (0-5) /hpf Urine Bacteria (None) /hpf Microbiology - Last 24 Hours (Table) 06/03/21 15:26 Urine Culture - Preliminary Urine,Voided Assessment and Plan Plan: 1 Septic shock, secondary to a complicated urinary tract infection. Patient is currently hypotensive, received a total of 4 L of IV fluids in the emergency department. He is currently receiving this for sleep and the patient will be started on a bicarb infusion and pressors the patient is currently on a combination of physiologic dose vasopressin and norepinephrine running at 0.15 mcg/kg per minute.. The patient is also on a bicarb infusion. The patient is on IV Rocephin 2 g every 24 hours pending further cultures. 2 acute kidney injury, renal function is improved slightly compared to yesterday, awaiting ultrasound the kidneys 3 severe metabolic acidosis secondary to above, improving on a bicarb infusion 4 acute leukocytosis 5 history of bladder cancer with a colovesicular fistula. The patient underwent a cystectomy and colectomy with diverging colostomy and urostomy 6 mild transaminitis, probably related to sepsis/shock. Plan The patient received a total of 4 L of IV fluids. bicarb infusion at the rate of 150 mL an hour. Vasopressin physiologic dose We'll utilize norepinephrine infusion to maintain a mean arterial pressure above 60. continue IV Rocephin 2 g every 24 hours Check urine cultures and blood cultures Obtain ultrasound the kidneys Obtain nephrology consultation Monitor electrolytes. Monitor urine output. The patient has a urostomy bag at this point in time. IV Protonix. Subcu heparin for DVT prophylaxis. COVID 19 testing by PCR for screening purposes, COVID 19 was negative procal level is high cortisol is high Tsh, ft4 noted We'll continue to follow.
[2021-06-04] MEDS: PANTOPRAZOLE 40 MG/10 ML VIAL IVP SCH (09:06)
--- NOTE | 2021-06-04 11:01 | P.PN ---
Subjective Progress Note Date: 06/04/21 Pt reports improvement from admission. Denies pain. WBC is still quite elevated. On ceftriaxone for UTI. Still with lactic acidosis and mild gap. PC was quite high > 100. TSH noted, FT4 within normal limits. Cortisol level > 123. Cr is improving but still quite elevated. Objective - Vital Signs Vital signs: Vital Signs Temp 97.5 F L 06/04/21 08:00 Pulse 90 06/04/21 10:00 Resp 17 06/04/21 10:00 BP 105/72 06/04/21 10:00 Pulse Ox 94 L 06/04/21 10:00 Intake & Output 06/03/21 06/04/21 06/04/21 18:59 06:59 18:59 Intake Total 1066.177 570 Output Total 480 100 Balance 586.177 470 Weight 99.79 kg 88.3 kg Intake: IV 1050 450 Dextrose 5% in Water 1, 1050 450 000 ml @ 150 mls/hr IV . Q7H40M ESMER with Sodium Bicarb (1 Meq/ml) 150 ml Rx#:[id number] Intake, IV Titration 16.177 Amount Norepinephrine 32 mg In 16.177 Sodium Chloride 0.9% 218 ml @ 0.05 MCG/KG/MIN 2. 339 mls/hr IV .Q24H ONE Rx#:[id number] Oral 120 Output: Urine 480 100 - Exam Gen: awake, alert HEENT: normocephalic, atraumatic, good hearing acuity, moist mucous membranes Resp: good air exchange, breathing comfortably with no accessory muscle use CVS: good distal perfusion x 4, GI: soft, NTTP, ND : no SPT, no CVAT, alvarenga catheter is present MSK: no pitting edema, no clubbing Neuro: non-focal, moving all extremities Psych: cooperative, euthymic mood - Labs CBC & Chem 7: 06/04/21 05:50 06/04/21 05:50 Labs: Abnormal Lab Results - Last 24 Hours (Table) 06/03/21 06/03/21 06/03/21 Range/Units 14:06 14:06 14:06 WBC 40.9 H (3.8-10.6) k/uL RBC 3.52 L (4.30-5.90) m/uL Hgb 11.3 L (13.0-17.5) gm/dL Hct 35.1 L (39.0-53.0) % RDW 15.6 H (11.5-15.5) % Neutrophils # 39.1 H (1.3-7.7) k/uL Neutrophils # (Manual) (1.3-7.7) k/uL Lymphocytes # 0.3 L (1.0-4.8) k/uL Monocytes # 1.4 H (0-1.0) k/uL Metamyelocytes # (Man) (0) k/uL PT 12.7 H (9.0-12.0) sec INR 1.2 H (<1.2) APTT 35.3 H (22.0-30.0) sec ABG pH (7.35-7.45) ABG pCO2 (35-45) mmHg ABG pO2 (83-108) mmHg ABG HCO3 (21-25) mmol/L ABG Total CO2 (19-24) mmol/L ABG O2 Saturation (94-97) % Sodium 130 L (137-145) mmol/L Potassium 5.3 H (3.5-5.1) mmol/L Chloride 115 H (98-107) mmol/L Carbon Dioxide <5 L* (22-30) mmol/L BUN 77 H (9-20) mg/dL Creatinine 5.38 H (0.66-1.25) mg/dL Glucose 126 H (74-99) mg/dL POC Glucose (mg/dL) (75-99) mg/dL Plasma Lactic Acid Og (0.7-2.0) mmol/L Calcium 10.8 H (8.4-10.2) mg/dL Total Bilirubin 2.0 H (0.2-1.3) mg/dL AST 91 H (17-59) U/L ALT 79 H (4-49) U/L Alkaline Phosphatase 208 H (38-126) U/L Troponin I (0.000-0.034) ng/mL Total Protein (6.3-8.2) g/dL Albumin 2.9 L (3.5-5.0) g/dL Procalcitonin (0.02-0.09) ng/mL TSH (0.465-4.680) mIU/L Urine Protein (Negative) Urine Blood (Negative) Ur Leukocyte Esterase (Negative) Urine RBC (0-5) /hpf Urine WBC (0-5) /hpf Urine Bacteria (None) /hpf 06/03/21 06/03/21 06/03/21 Range/Units 14:06 14:06 14:06 WBC (3.8-10.6) k/uL RBC (4.30-5.90) m/uL Hgb (13.0-17.5) gm/dL Hct (39.0-53.0) % RDW (11.5-15.5) % Neutrophils # (1.3-7.7) k/uL Neutrophils # (Manual) (1.3-7.7) k/uL Lymphocytes # (1.0-4.8) k/uL Monocytes # (0-1.0) k/uL Metamyelocytes # (Man) (0) k/uL PT (9.0-12.0) sec INR (<1.2) APTT (22.0-30.0) sec ABG pH (7.35-7.45) ABG pCO2 (35-45) mmHg ABG pO2 (83-108) mmHg ABG HCO3 (21-25) mmol/L ABG Total CO2 (19-24) mmol/L ABG O2 Saturation (94-97) % Sodium (137-145) mmol/L Potassium (3.5-5.1) mmol/L Chloride (98-107) mmol/L Carbon Dioxide (22-30) mmol/L BUN (9-20) mg/dL Creatinine (0.66-1.25) mg/dL Glucose (74-99) mg/dL POC Glucose (mg/dL) (75-99) mg/dL Plasma Lactic Acid Og 2.7 H* (0.7-2.0) mmol/L Calcium (8.4-10.2) mg/dL Total Bilirubin (0.2-1.3) mg/dL AST (17-59) U/L ALT (4-49) U/L Alkaline Phosphatase (38-126) U/L Troponin I 0.062 H* (0.000-0.034) ng/mL Total Protein (6.3-8.2) g/dL Albumin (3.5-5.0) g/dL Procalcitonin >100.00 H (0.02-0.09) ng/mL TSH (0.465-4.680) mIU/L Urine Protein (Negative) Urine Blood (Negative) Ur Leukocyte Esterase (Negative) Urine RBC (0-5) /hpf Urine WBC (0-5) /hpf Urine Bacteria (None) /hpf 06/03/21 06/03/21 06/03/21 Range/Units 14:06 15:26 16:37 WBC (3.8-10.6) k/uL RBC (4.30-5.90) m/uL Hgb (13.0-17.5) gm/dL Hct (39.0-53.0) % RDW (11.5-15.5) % Neutrophils # (1.3-7.7) k/uL Neutrophils # (Manual) (1.3-7.7) k/uL Lymphocytes # (1.0-4.8) k/uL Monocytes # (0-1.0) k/uL Metamyelocytes # (Man) (0) k/uL PT (9.0-12.0) sec INR (<1.2) APTT (22.0-30.0) sec ABG pH 7.26 L (7.35-7.45) ABG pCO2 <15 L* (35-45) mmHg ABG pO2 110 H (83-108) mmHg ABG HCO3 9 L* (21-25) mmol/L ABG Total CO2 27 H (19-24) mmol/L ABG O2 Saturation 98.4 H (94-97) % Sodium (137-145) mmol/L Potassium (3.5-5.1) mmol/L Chloride (98-107) mmol/L Carbon Dioxide (22-30) mmol/L BUN (9-20) mg/dL Creatinine (0.66-1.25) mg/dL Glucose (74-99) mg/dL POC Glucose (mg/dL) (75-99) mg/dL Plasma Lactic Acid Og (0.7-2.0) mmol/L Calcium (8.4-10.2) mg/dL Total Bilirubin (0.2-1.3) mg/dL AST (17-59) U/L ALT (4-49) U/L Alkaline Phosphatase (38-126) U/L Troponin I (0.000-0.034) ng/mL Total Protein (6.3-8.2) g/dL Albumin (3.5-5.0) g/dL Procalcitonin (0.02-0.09) ng/mL TSH 12.000 H (0.465-4.680) mIU/L Urine Protein 2+ H (Negative) Urine Blood Moderate H (Negative) Ur Leukocyte Esterase Large H (Negative) Urine RBC >182 H (0-5) /hpf Urine WBC >182 H (0-5) /hpf Urine Bacteria Many H (None) /hpf 06/03/21 06/03/21 06/04/21 Range/Units 19:37 23:10 00:27 WBC (3.8-10.6) k/uL RBC (4.30-5.90) m/uL Hgb (13.0-17.5) gm/dL Hct (39.0-53.0) % RDW (11.5-15.5) % Neutrophils # (1.3-7.7) k/uL Neutrophils # (Manual) (1.3-7.7) k/uL Lymphocytes # (1.0-4.8) k/uL Monocytes # (0-1.0) k/uL Metamyelocytes # (Man) (0) k/uL PT (9.0-12.0) sec INR (<1.2) APTT (22.0-30.0) sec ABG pH (7.35-7.45) ABG pCO2 (35-45) mmHg ABG pO2 (83-108) mmHg ABG HCO3 (21-25) mmol/L ABG Total CO2 (19-24) mmol/L ABG O2 Saturation (94-97) % Sodium (137-145) mmol/L Potassium (3.5-5.1) mmol/L Chloride (98-107) mmol/L Carbon Dioxide (22-30) mmol/L BUN (9-20) mg/dL Creatinine (0.66-1.25) mg/dL Glucose (74-99) mg/dL POC Glucose (mg/dL) 126 H (75-99) mg/dL Plasma Lactic Acid Og 2.4 H* 4.0 H* (0.7-2.0) mmol/L Calcium (8.4-10.2) mg/dL Total Bilirubin (0.2-1.3) mg/dL AST (17-59) U/L ALT (4-49) U/L Alkaline Phosphatase (38-126) U/L Troponin I (0.000-0.034) ng/mL Total Protein (6.3-8.2) g/dL Albumin (3.5-5.0) g/dL Procalcitonin (0.02-0.09) ng/mL TSH (0.465-4.680) mIU/L Urine Protein (Negative) Urine Blood (Negative) Ur Leukocyte Esterase (Negative) Urine RBC (0-5) /hpf Urine WBC (0-5) /hpf Urine Bacteria (None) /hpf 06/04/21 06/04/21 06/04/21 Range/Units 02:42 05:50 05:50 WBC 48.0 H (3.8-10.6) k/uL RBC 3.30 L (4.30-5.90) m/uL Hgb 10.3 L (13.0-17.5) gm/dL Hct 31.5 L (39.0-53.0) % RDW (11.5-15.5) % Neutrophils # (1.3-7.7) k/uL Neutrophils # (Manual) 43.60 H (1.3-7.7) k/uL Lymphocytes # (1.0-4.8) k/uL Monocytes # (0-1.0) k/uL Metamyelocytes # (Man) 1.44 H (0) k/uL PT (9.0-12.0) sec INR (<1.2) APTT (22.0-30.0) sec ABG pH (7.35-7.45) ABG pCO2 (35-45) mmHg ABG pO2 (83-108) mmHg ABG HCO3 (21-25) mmol/L ABG Total CO2 (19-24) mmol/L ABG O2 Saturation (94-97) % Sodium 135 L (137-145) mmol/L Potassium (3.5-5.1) mmol/L Chloride 110 H (98-107) mmol/L Carbon Dioxide 12 L (22-30) mmol/L BUN 81 H (9-20) mg/dL Creatinine 5.12 H (0.66-1.25) mg/dL Glucose 134 H (74-99) mg/dL POC Glucose (mg/dL) (75-99) mg/dL Plasma Lactic Acid Og 2.7 H* (0.7-2.0) mmol/L Calcium (8.4-10.2) mg/dL Total Bilirubin 1.4 H (0.2-1.3) mg/dL AST 77 H (17-59) U/L ALT 77 H (4-49) U/L Alkaline Phosphatase 151 H (38-126) U/L Troponin I (0.000-0.034) ng/mL Total Protein 5.9 L (6.3-8.2) g/dL Albumin 2.6 L (3.5-5.0) g/dL Procalcitonin (0.02-0.09) ng/mL TSH (0.465-4.680) mIU/L Urine Protein (Negative) Urine Blood (Negative) Ur Leukocyte Esterase (Negative) Urine RBC (0-5) /hpf Urine WBC (0-5) /hpf Urine Bacteria (None) /hpf 06/04/21 06/04/21 Range/Units 05:50 08:44 WBC (3.8-10.6) k/uL RBC (4.30-5.90) m/uL Hgb (13.0-17.5) gm/dL Hct (39.0-53.0) % RDW (11.5-15.5) % Neutrophils # (1.3-7.7) k/uL Neutrophils # (Manual) (1.3-7.7) k/uL Lymphocytes # (1.0-4.8) k/uL Monocytes # (0-1.0) k/uL Metamyelocytes # (Man) (0) k/uL PT (9.0-12.0) sec INR (<1.2) APTT (22.0-30.0) sec ABG pH (7.35-7.45) ABG pCO2 (35-45) mmHg ABG pO2 (83-108) mmHg ABG HCO3 (21-25) mmol/L ABG Total CO2 (19-24) mmol/L ABG O2 Saturation (94-97) % Sodium (137-145) mmol/L Potassium (3.5-5.1) mmol/L Chloride (98-107) mmol/L Carbon Dioxide (22-30) mmol/L BUN (9-20) mg/dL Creatinine (0.66-1.25) mg/dL Glucose (74-99) mg/dL POC Glucose (mg/dL) (75-99) mg/dL Plasma Lactic Acid Og 2.3 H* 2.4 H* (0.7-2.0) mmol/L Calcium (8.4-10.2) mg/dL Total Bilirubin (0.2-1.3) mg/dL AST (17-59) U/L ALT (4-49) U/L Alkaline Phosphatase (38-126) U/L Troponin I (0.000-0.034) ng/mL Total Protein (6.3-8.2) g/dL Albumin (3.5-5.0) g/dL Procalcitonin (0.02-0.09) ng/mL TSH (0.465-4.680) mIU/L Urine Protein (Negative) Urine Blood (Negative) Ur Leukocyte Esterase (Negative) Urine RBC (0-5) /hpf Urine WBC (0-5) /hpf Urine Bacteria (None) /hpf Microbiology - Last 24 Hours (Table) 06/03/21 15:26 Urine Culture - Preliminary Urine,Voided Assessment and Plan Assessment: Septic Shock Complicated UTI [facility] ICU admit, pulmonary consult s/p 4 L normal saline, now on bicarb drip nephrology consult on levophed and vasopressin ceftriaxone 2g daily f/u UCx, BCx pending renal US to rule out abscess strict ins and outs avoid nephrotoxins Subclinical Hypothyroidism No indication for levothyroxine at this time repeat labs once patient is more stable and sepsis resolves GI PPX lovenox dvt ppx full code anticipated length of stay > 2 midnights
--- NOTE | 2021-06-04 12:09 | US ---
EXAMINATION TYPE: US kidneys/renal and bladder DATE OF EXAM: 06/04/2021 COMPARISON: CT A&P 2020 CLINICAL HISTORY: UTI, GISELA, sepsis. EXAM MEASUREMENTS: Right Kidney: 13.3 x 6.3 x 6.8 cm Left Kidney: 9.8 x 5.4 x 4.6 cm Difficult exam due to patient immobility Right Kidney: Multiple cyst-like areas; probable peripelvic cysts measuring 4.5 cm and 4.4 cm. Left Kidney: Multiple cyst-like areas; largest measuring 2.5 x 2.0 x 2.0 cm. Bladder: Fisher catheter noted Persistent moderate to severe right-sided hydronephrosis with additional scattered partially exophyti c parapelvic cysts along the periphery. Left kidney less well seen. Cannot exclude mild hydronephrosi s at this level. Fisher catheter decompresses bladder making evaluation suboptimal IMPRESSION: Moderate to severe right-sided hydronephrosis remains present. Cannot exclude mild left-s ided hydronephrosis.
--- NOTE | 2021-06-04 17:02 | CONS ---
CONSULTATION REASON FOR CONSULT: Acute kidney injury. HISTORY OF PRESENT ILLNESS: The patient is a 75-year-old male who was admitted to the hospital yesterday with a history of increased weakness and confusion. He was found to be significantly hypotensive and in septic shock, currently maintained on pressors. He did receive IV fluid boluses initially. The patient's lactic acid was elevated as well. 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 Patient's serum creatinine was 5.38 on admission, it is now down to 5.1. Previous creatinine on 01/20/2021 was 2.27. Lactic acid peaked at 4.0 now down to 2.4. Currently maintained on Levophed which is now decreasing down to 0.03. The patient was also on vasopressin along with the Levophed and Levophed is currently almost off. He was acidotic and is maintained on a bicarb drip. CO2 was less than 5 and now it is at 12. Overall, patient is feeling better. No history of use of NSAIDs prior to admission. PAST MEDICAL HISTORY: Significant for bladder cancer status post cystectomy and colostomy as patient had a fistulous connection into the colon. PAST SURGICAL HISTORY: As mentioned bladder surgery, bowel resection, urostomy and colostomy. SOCIAL HISTORY: Patient is a former smoker. No history of drug abuse or alcohol abuse. MEDICATIONS: Medications prior to admission included Pepcid, Levaquin, Tylenol. ALLERGIES: None. PHYSICAL EXAMINATION: On examination today, the patient is awake, comfortable, he is not in any acute distress. Blood pressure was 103/71, heart rate 86 per minute, he is afebrile. Examination of the heart S1, S2. Examination of the lungs, decreased breath sounds at the bases. Abdomen is soft, nontender. Examination lower extremities shows no evidence of edema. HEALTH SERVICES MANAGER exam grossly intact. LAB: Show sodium 135, potassium 4.9, chloride 110, CO2 is 12, BUN 81, creatinine 5.1. Lactic acid 2.3-2.4. ALT, AST elevated at 77. UA shows 2+ protein, moderate blood, WBCs more than 182. Urine culture and blood cultures are all pending. Ultrasound of the kidneys shows left kidney 9.8, right kidney 13.3 cm, moderate to severe right hydronephrosis is noted with mild left hydronephrosis as well. ASSESSMENT: 1. Acute kidney injury, ATN as well as obstructive uropathy, currently with Fisher catheter with bilateral hydronephrosis noted. Will proceed with urology consult. Continue with the IV fluids in the meantime as well. Avoid nephrotoxic medications. Continue with the pressors, currently being weaned off. 2. Metabolic acidosis associated with GI fluid loss, lactic acidosis, worsening renal failure, currently improving. Continue with the bicarb drip. 3. History of chronic kidney disease. Previous creatinine was elevated at 2.2 in December of 2020. No other labs available. I am not sure if that was an acute kidney injury at that time. It is likely stage IV if it was not an acute kidney injury. 4. History of bladder cancer with fistulous connection, status post cystectomy and urostomy. 5. Hypotension secondary to sepsis from UTI. PLAN: Continue with the bicarb drip. Consult Urology. Repeat labs in a.m. Thank you for this consultation. Will continue to follow the patient with you during his hospitalization. MMODL / IJN: [id number] /
[2021-06-04] MEDS ORDERED: VANCOMYCIN IV PER PHARMACY 1 EACH MISC MISCELLANE PRN (18:58)
[2021-06-04] MEDS ORDERED: VANCOMYCIN 1,500 MG in SODIUM CHLORIDE 0.9% 250 ML IVPB ONE (20:00)
--- NOTE | 2021-06-04 20:27 | P.GSCN ---
History of Present Illness Consult date: 06/04/21 Reason for Consult: Hydronephrosis Requesting physician: Reina Johnson History of present illness: The patient is a 75-year-old white male well known to me. 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 This was demonstrated on computed tomography scan in December 2020, also revealing moderate to severe right hydronephrosis. He was referred to [facility] and underwent a radical cystoprostatectomy with en bloc resection of the colon 02/04/2021. Surgical margins were negative. He has recently experienced mental status changes and significant weakness, and his urine was noted to be malodorous. He was placed on oral antibiotics on June 02, but his condition worsened and he presented to the emergency room yesterday at which time he was noted to be in septic shock. He was treated with vasopressors, antibiotics, and fluid resuscitation. Review of Systems - Constitutional Reports fatigue, Reports weakness, Denies fever - Genitourinary Denies flank pain, Denies hematuria 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, post colectomy and colostomy and a cystectomy jan 2021 History of Any Multi-Drug Resistant Organisms: None Reported Past Surgical History: Bladder Surgery, Bowel Resection Additional Past Surgical History / Comment(s): December 2020 at [facility] patient had a bladder/colon fistula repair resulting in a double ostomy- urostomy and colostomy Past Anesthesia/Blood Transfusion Reactions: No Reported Reaction Additional Past Anesthesia/Blood Transfusion Reaction / Comm: No transfusion Past Psychological History: No Psychological Hx Reported Smoking Status: Former smoker Past Alcohol Use History: None Reported Past Drug Use History: None Reported - Past Family History family Family Medical History: No Reported History Medications and Allergies Home Medications Medication Instructions Recorded Confirmed Type Acetaminophen Tab [Tylenol Tab] 1,000 mg PO Q6HR PRN 06/03/21 06/03/21 History Famotidine [Pepcid] 20 mg PO BID PRN 06/03/21 06/03/21 History Levofloxacin [Levaquin] 500 mg PO DAILY 06/03/21 06/03/21 History Allergies Allergy/AdvReac Type Severity Reaction Status Date / Time No Known Allergies Allergy Verified 06/03/21 15:55 Surgical - Exam Vital Signs Temp Pulse Resp BP Pulse Ox 98.6 F 130 H 18 78/52 94 L 06/03/21 13:25 06/03/21 13:25 06/03/21 13:25 06/03/21 13:25 06/03/21 13:25 - General well developed, well nourished, no distress - Respiratory normal respiratory effort - Abdomen Soft, non-tender, non-distended. Right-sided urostomy, nicely budded. Left- sided colostomy. - Genitourinary Mucus and possibly pus is noted within the right groin at the scrotal neck. No areas of fluctuance or drainage are seen. Normal phallus and urethral meatus. Normal scrotum and testes. - Psychiatric oriented to time, oriented to person, oriented to place, speech is normal, memory intact Results - Labs 06/04/21 05:50 06/04/21 05:50 Abnormal Lab Results - Last 24 Hours (Table) 06/03/21 06/03/21 06/03/21 Range/Units 14:06 14:06 16:37 WBC (3.8-10.6) k/uL RBC (4.30-5.90) m/uL Hgb (13.0-17.5) gm/dL Hct (39.0-53.0) % Neutrophils # (Manual) (1.3-7.7) k/uL Metamyelocytes # (Man) (0) k/uL ABG pH 7.26 L (7.35-7.45) ABG pCO2 <15 L* (35-45) mmHg ABG pO2 110 H (83-108) mmHg ABG HCO3 9 L* (21-25) mmol/L ABG Total CO2 27 H (19-24) mmol/L ABG O2 Saturation 98.4 H (94-97) % Sodium (137-145) mmol/L Chloride (98-107) mmol/L Carbon Dioxide (22-30) mmol/L BUN (9-20) mg/dL Creatinine (0.66-1.25) mg/dL Glucose (74-99) mg/dL POC Glucose (mg/dL) (75-99) mg/dL Plasma Lactic Acid Og (0.7-2.0) mmol/L Total Bilirubin (0.2-1.3) mg/dL AST (17-59) U/L ALT (4-49) U/L Alkaline Phosphatase (38-126) U/L Total Protein (6.3-8.2) g/dL Albumin (3.5-5.0) g/dL Procalcitonin >100.00 H (0.02-0.09) ng/mL TSH 12.000 H (0.465-4.680) mIU/L 06/03/21 06/03/21 06/04/21 Range/Units 19:37 23:10 00:27 WBC (3.8-10.6) k/uL RBC (4.30-5.90) m/uL Hgb (13.0-17.5) gm/dL Hct (39.0-53.0) % Neutrophils # (Manual) (1.3-7.7) k/uL Metamyelocytes # (Man) (0) k/uL ABG pH (7.35-7.45) ABG pCO2 (35-45) mmHg ABG pO2 (83-108) mmHg ABG HCO3 (21-25) mmol/L ABG Total CO2 (19-24) mmol/L ABG O2 Saturation (94-97) % Sodium (137-145) mmol/L Chloride (98-107) mmol/L Carbon Dioxide (22-30) mmol/L BUN (9-20) mg/dL Creatinine (0.66-1.25) mg/dL Glucose (74-99) mg/dL POC Glucose (mg/dL) 126 H (75-99) mg/dL Plasma Lactic Acid Og 2.4 H* 4.0 H* (0.7-2.0) mmol/L Total Bilirubin (0.2-1.3) mg/dL AST (17-59) U/L ALT (4-49) U/L Alkaline Phosphatase (38-126) U/L Total Protein (6.3-8.2) g/dL Albumin (3.5-5.0) g/dL Procalcitonin (0.02-0.09) ng/mL TSH (0.465-4.680) mIU/L 06/04/21 06/04/21 06/04/21 Range/Units 02:42 05:50 05:50 WBC 48.0 H (3.8-10.6) k/uL RBC 3.30 L (4.30-5.90) m/uL Hgb 10.3 L (13.0-17.5) gm/dL Hct 31.5 L (39.0-53.0) % Neutrophils # (Manual) 43.60 H (1.3-7.7) k/uL Metamyelocytes # (Man) 1.44 H (0) k/uL ABG pH (7.35-7.45) ABG pCO2 (35-45) mmHg ABG pO2 (83-108) mmHg ABG HCO3 (21-25) mmol/L ABG Total CO2 (19-24) mmol/L ABG O2 Saturation (94-97) % Sodium 135 L (137-145) mmol/L Chloride 110 H (98-107) mmol/L Carbon Dioxide 12 L (22-30) mmol/L BUN 81 H (9-20) mg/dL Creatinine 5.12 H (0.66-1.25) mg/dL Glucose 134 H (74-99) mg/dL POC Glucose (mg/dL) (75-99) mg/dL Plasma Lactic Acid Og 2.7 H* (0.7-2.0) mmol/L Total Bilirubin 1.4 H (0.2-1.3) mg/dL AST 77 H (17-59) U/L ALT 77 H (4-49) U/L Alkaline Phosphatase 151 H (38-126) U/L Total Protein 5.9 L (6.3-8.2) g/dL Albumin 2.6 L (3.5-5.0) g/dL Procalcitonin (0.02-0.09) ng/mL TSH (0.465-4.680) mIU/L 06/04/21 06/04/21 Range/Units 05:50 08:44 WBC (3.8-10.6) k/uL RBC (4.30-5.90) m/uL Hgb (13.0-17.5) gm/dL Hct (39.0-53.0) % Neutrophils # (Manual) (1.3-7.7) k/uL Metamyelocytes # (Man) (0) k/uL ABG pH (7.35-7.45) ABG pCO2 (35-45) mmHg ABG pO2 (83-108) mmHg ABG HCO3 (21-25) mmol/L ABG Total CO2 (19-24) mmol/L ABG O2 Saturation (94-97) % Sodium (137-145) mmol/L Chloride (98-107) mmol/L Carbon Dioxide (22-30) mmol/L BUN (9-20) mg/dL Creatinine (0.66-1.25) mg/dL Glucose (74-99) mg/dL POC Glucose (mg/dL) (75-99) mg/dL Plasma Lactic Acid Og 2.3 H* 2.4 H* (0.7-2.0) mmol/L Total Bilirubin (0.2-1.3) mg/dL AST (17-59) U/L ALT (4-49) U/L Alkaline Phosphatase (38-126) U/L Total Protein (6.3-8.2) g/dL Albumin (3.5-5.0) g/dL Procalcitonin (0.02-0.09) ng/mL TSH (0.465-4.680) mIU/L Microbiology - Last 24 Hours (Table) 06/03/21 19:37 Blood Culture Gram Stain - Preliminary Blood 06/03/21 19:27 Blood Culture Gram Stain - Preliminary Blood 06/03/21 19:37 Blood Culture - Final Blood 06/03/21 19:37 Blood Culture - Final Blood 06/03/21 15:26 Urine Culture - Preliminary Urine,Voided Diabetes panel 06/04/21 Range/Units 05:50 Sodium 135 L (137-145) mmol/L Potassium 4.9 (3.5-5.1) mmol/L Chloride 110 H (98-107) mmol/L Carbon Dioxide 12 L (22-30) mmol/L BUN 81 H (9-20) mg/dL Creatinine 5.12 H (0.66-1.25) mg/dL Glucose 134 H (74-99) mg/dL Calcium 9.8 (8.4-10.2) mg/dL AST 77 H (17-59) U/L ALT 77 H (4-49) U/L Alkaline Phosphatase 151 H (38-126) U/L Total Protein 5.9 L (6.3-8.2) g/dL Albumin 2.6 L (3.5-5.0) g/dL Thyroid panel 06/03/21 Range/Units 14:06 TSH 12.000 H (0.465-4.680) mIU/L Calcium panel 06/04/21 Range/Units 05:50 Calcium 9.8 (8.4-10.2) mg/dL Albumin 2.6 L (3.5-5.0) g/dL Pituitary panel 06/03/21 06/04/21 Range/Units 14:06 05:50 Sodium 135 L (137-145) mmol/L Potassium 4.9 (3.5-5.1) mmol/L Chloride 110 H (98-107) mmol/L Carbon Dioxide 12 L (22-30) mmol/L BUN 81 H (9-20) mg/dL Creatinine 5.12 H (0.66-1.25) mg/dL Glucose 134 H (74-99) mg/dL Calcium 9.8 (8.4-10.2) mg/dL TSH 12.000 H (0.465-4.680) mIU/L Adrenal panel 06/04/21 Range/Units 05:50 Sodium 135 L (137-145) mmol/L Potassium 4.9 (3.5-5.1) mmol/L Chloride 110 H (98-107) mmol/L Carbon Dioxide 12 L (22-30) mmol/L BUN 81 H (9-20) mg/dL Creatinine 5.12 H (0.66-1.25) mg/dL Glucose 134 H (74-99) mg/dL Calcium 9.8 (8.4-10.2) mg/dL Total Bilirubin 1.4 H (0.2-1.3) mg/dL AST 77 H (17-59) U/L ALT 77 H (4-49) U/L Alkaline Phosphatase 151 H (38-126) U/L Total Protein 5.9 L (6.3-8.2) g/dL Albumin 2.6 L (3.5-5.0) g/dL - Imaging US - kidney/bladder: report reviewed Assessment and Plan (1) Unspecified hydronephrosis Current Visit: Yes Status: Acute Code(s): N13.30 - UNSPECIFIED HYDRONEPHROSIS SNOMED Code(s): 31640758 Plan: The patient appears to have sepsis of urinary origin. A urine culture performed at [facility] on 06/02/2021 showed multiple organisms. Renal ultrasound shows evidence of right hydronephrosis, which was present prior to the cystectomy due to the patient's bladder cancer and may be chronic. There is also evidence of mild left hydronephrosis, not uncommon in patients with an ileal conduit. I would recommend that he continue to be treated with broad- spectrum antibiotics. I do not feel that any intervention for the hydronephrosis is warranted at this time. Time with Patient: Greater than 30
[2021-06-05] MEDS: HEPARIN SODIUM,PORCINE/PF 5,000 UNIT/0.5 ML SYRINGE SQ SCH ×4 (04:55→22:46)
[2021-06-05] MEDS: SODIUM CHLORIDE 0.9% 50 ML with VASOPRESSIN 20 UNIT IVPB SCH ×4 (04:56→18:27)
[2021-06-05 05:07] LABS: HGB 9.5 gm/dL (13.0-17.5); MCH 31.9 pg (25.0-35.0); MCV 93.7 fL (80.0-100.0); Mean Platelet Volume 8.6; RBC 2.99 m/uL (4.30-5.90); RDW 15.3 % (11.5-15.5); WBC 37.8 k/uL (3.8-10.6)
[2021-06-05 05:13] LABS: Platelet Count 138 k/uL (150-450)
[2021-06-05 05:20] LABS: Albumin 2.2 g/dL (3.5-5.0); Calcium 8.9 mg/dL (8.4-10.2); Potassium 4.1 mmol/L (3.5-5.1); Total Bilirubin 0.6 mg/dL (0.2-1.3); Total Protein 5.4 g/dL (6.3-8.2)
[2021-06-05 06:19] LABS: Band Neutrophils % 9 %; Lymphocytes # (M) 3.02 k/uL (1.0-4.8); Monocytes # (M) 0.76 k/uL (0-1.0); Neutrophils % (M) 81 %; Nucleated Red Blood Cells 0 /100 WBC (0-0); Total Cells Counted 100
--- NOTE | 2021-06-05 08:32 | P.PN ---
Progress Note - Text Progress Note Date: 06/05/21 The patient is resting comfortably. He is afebrile, and his blood pressure is somewhat improved. His WBC count and serum creatinine level are both improved, 37.8 and 4.58 respectively. The urine culture shows mixed daniel. Blood cultures show staph epidermidis, the significance of which is unclear. I would suggest he continue to be treated with broad-spectrum antibiotics. My expectation is that his creatinine level will gradually improved to baseline. I will continue to follow him with you.
[2021-06-05] MEDS: PANTOPRAZOLE 40 MG/10 ML VIAL IVP SCH (08:35)
[2021-06-05] MEDS: DEXTROSE 5% IN WATER 1,000 ML with SODIUM BICARB (1 MEQ/ML) 150 ML IV SCH (08:44)
--- NOTE | 2021-06-05 09:01 | XR ---
EXAMINATION TYPE: XR chest 1V portable DATE OF EXAM: 06/05/2021 Comparison: 06/03/2021 Clinical History: 75-year-old male Central vascular congestion Findings: Heart normal size. Aorta and pulmonary vasculature within normal limits. Mild patchy density has deve loped at the left base. Lung volumes are slightly more diminished compared to prior exam. Impression: Interval development of some mild patchy atelectasis or early infiltrate at the left base. The former is favored given lower lung volumes compared to prior.
--- NOTE | 2021-06-05 09:14 | P.PN ---
Subjective Progress Note Date: 06/05/21 75-year-old male patient presented emergency department because of generalized weakness. His suspected UTI as the patient was found to have change in the color of the urine that was being collected in the urostomy bag. The urine was becoming more cloudy and the suspected UTI. The patient will be contacted the urologist. A dose of Levaquin which she took yesterday on outpatient basis. The patient came into the ED. The patient denied having any shortness of aurelio ath. He has significant abnormalities in his blood work. The patient had severe leukocytosis with a white count of 14. The patient has severe metabolic acidosis with a combination of anion and non-anion gap metabolic acidosis with a lactic acid level of 2.7. The patient had acute kidney injury. Creatinine was elevated at 5.4. The patient had some mild transaminitis. He was already given a total of 3 L of IV fluid in the systolic blood pressure was in the mid 70s. The patient was given 2 mg of IV Rocephin in the emergency department. Pulmonary mixer pigment services were consulted accordingly. No nausea. No vomiting. No diarrhea. No abdominal pain. The patient has a colostomy which is functional. 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 This was done in 2020. At [facility]. His evaluation of 06/04/2021, the patient is being seen in follow-up in the intensive care unit. The patient got admitted to the ICU as the patient was quite hypotensive. He was in septic shock and he was seen in emergency department. He was resuscitated aggressively with IV fluids. He was given a total of 4 L of normal saline bolus and the patient was started on bicarb drip at the rate of 150 mL an hour. His urine output is improved. Creatinine is slightly improved compared to yesterday. Serum bicarbs up to 12. Lactic acid level is also improved. Cultures are still pending for now. Meanwhile, the patient remains on 2 g of IV Rocephin on a daily basis. Overnight, the passes were titrated. The patient was started on vasopressin drip physiologic dose of the 0.03 units / min. The patient is also on norepinephrine infusion running at 0.15 mcg/kg per minute. He is on room air oxygen. Is awake and alert. No signs of any respiratory distress. Cardiac rhythm is sinus. No nausea. No vomiting. No abdominal pain. No chest pain. No other significant events overnight otherwise. White cell count remains elevated and is up to 46. On 06/05/2021, seeing the patient for a follow-up. The patient this morning is hemodynamically stable and the patient is currently off pressors. The patient was admitted to the ICU because of a septic shock that was thought to be related to a urinary tract infection. The cultures are still negative. I do have a blood culture that showed gram-positive cocci and for that reason vancomycin was added. Nevertheless, this ends up being a staph epidermidis. The patient remains on a combination of antibiotics that she remains on IV Rocephin 2 g every 24 hours and IV vancomycin pending further cultures. The patient is doing well. The patient is on room air oxygen. Chest x-rays clear. The white cell count today is at 37.8 which is improved compared to yesterday. Creatinine is also improving is down to 4.5 with a BUN of 89. Sodium is at 134 and a serum bicarb is 21. IV fluids are currently in the form of a bicarb infusion at the rate of 150 mL an hour and this will be switched to normal saline. No fever. No chills. He has a urostomy and she has also a diverting colostomy which is functional at this point in time. He is known to have bladder cancer. Objective - Vital Signs Vital signs: Vital Signs Temp 97.7 F 06/05/21 03:00 Pulse 93 06/05/21 07:00 Resp 17 06/05/21 07:00 BP 83/61 06/05/21 07:00 Pulse Ox 93 L 06/05/21 07:00 Intake & Output 06/04/21 06/05/21 06/05/21 18:59 06:59 18:59 Intake Total 2207.941 1900 150 Output Total 675 880 75 Balance 7310.961 8348 75 Weight 89.2 kg Intake: IV 1800 1900 150 Dextrose 5% in Water 1799 1650 150 000 ml @ 150 mls/hr IV . Q7H40M ESMRE with Sodium Bicarb (1 Meq/ml) 150 ml Rx#:[id number] Vancomycin 1,500 mg In 250 Sodium Chloride 0.9% 250 ml @ 125 mls/hr IVPB ONCE ONE Rx#:[id number] Intake, IV Titration 47.941 Amount Norepinephrine 32 mg In 47.941 Sodium Chloride 0.9% 218 ml @ 0.05 MCG/KG/MIN 2. 339 mls/hr IV .Q24H ONE Rx#:[id number] Oral 360 Output: Urine 675 880 75 Other: # Bowel Movements 1 - Exam Patient is well-developed and well-nourished. Patient is nontoxic and well- hydrated and is in mild distress. Patient does appear fairly tired HENT: Neck is soft and supple. No significant lymphadenopathy is noted. Oropharynx is clear. Moist mucous membranes. Neck has full range of motion without eliciting any pain. EYES: The sclera were anicteric and conjunctiva were pink and moist. Extraocular move ments were intact and pupils were equal round and reactive to light. Eyelids were unremarkable. PULMONARY: Unlabored respirations. Good breath sounds bilaterally. No audible rales rhonchi or wheezing was noted. CARDIOVASCULAR: There is a regular rate and rhythm without any murmurs gallops or rubs. ABDOMEN: Soft and nontender with normal bowel sounds. The patient has a functioning colostomy. The patient also has a urostomy in the right upper quadrant. Output from the urine is yellowish and cloudy. There is positive output of this point in time. No abdominal distention. No direct tenderness. No rebound tenderness. No guarding. SKIN: Skin is clear with no lesions or rashes and otherwise unremarkable. NEUROLOGIC: Patient is alert and oriented x3. Cranial nerves II through XII are grossly intact. Motor and sensory are also intact. Normal speech, volume and content. Symmetrical smile. MUSCULOSKELETAL: Normal extremities with adequate strength and full range of motion. No lower extremity swelling or edema. No calf tenderness. LYMPHATICS: No significant lymphadenopathy is noted PSYCHIATRIC: Normal psychiatric evaluation. - Labs CBC & Chem 7: 06/05/21 04:37 06/05/21 04:37 Labs: Abnormal Lab Results - Last 24 Hours (Table) 06/04/21 06/05/21 06/05/21 Range/Units 08:44 04:37 04:37 WBC 37.8 H (3.8-10.6) k/uL RBC 2.99 L (4.30-5.90) m/uL Hgb 9.5 L (13.0-17.5) gm/dL Hct 28.0 L (39.0-53.0) % Plt Count 138 L D (150-450) k/uL Neutrophils # (Manual) 34.00 H (1.3-7.7) k/uL Sodium 134 L (137-145) mmol/L Carbon Dioxide 21 L (22-30) mmol/L BUN 89 H (9-20) mg/dL Creatinine 4.58 H (0.66-1.25) mg/dL Glucose 110 H (74-99) mg/dL Plasma Lactic Acid Og 2.4 H* (0.7-2.0) mmol/L ALT 59 H (4-49) U/L Alkaline Phosphatase 137 H (38-126) U/L Total Protein 5.4 L (6.3-8.2) g/dL Albumin 2.2 L (3.5-5.0) g/dL Microbiology - Last 24 Hours (Table) 06/03/21 19:37 Blood Culture Gram Stain - Preliminary Blood Blood Culture - Preliminary Staphylococcus epidermidis 06/03/21 15:26 Urine Culture - Final Urine,Voided 06/03/21 19:27 Blood Culture Gram Stain - Preliminary Blood 06/03/21 19:37 Blood Culture - Final Blood 06/03/21 19:37 Blood Culture - Final Blood Assessment and Plan Plan: 1 Septic shock, secondary to a complicated urinary tract infection. Is profoundly hypotensive in shock state, resuscitated with IV fluids and pressors. The patient is currently off vasopressin and the patient is also off norepinephrine infusion. The patient is on bicarb infusion and the rest metabolic acidosis is improved. 2 acute kidney injury, renal function is improved slightly compared to yesterday, the renal function is improving and the patient is producing adequate amount of urine output. Ultrasound of the kidney showed moderate to severe right-sided hydronephrosis which was present in addition to possibility of a mild left-sided hydronephrosis. Nephrology is on the case. This is probably chronic and related to his previous bladder cancer. 3 severe metabolic acidosis secondary to above, improving on a bicarb infusion, improving 4 acute leukocytosis, improving 5 history of bladder cancer with a colovesicular fistula. The patient underwent a cystectomy and colectomy with diverging colostomy and urostomy 6 mild transaminitis, probably related to sepsis/shock. 7 coagulase-negative staph in the blood, staph epidermidis. Plan Change this patient a normal saline at the rate of 150 mL an hour for another 24 hours Continue vancomycin pending further cultures continue IV Rocephin 2 g every 24 hours Check urine cultures and blood cultures Obtain ultrasound the kidneys showing hydronephrosis, likely chronic Obtain nephrology consultation Monitor electrolytes. Monitor urine output. The patient has a urostomy bag at this point in time. IV Protonix. Subcu heparin for DVT prophylaxis. COVID 19 testing by PCR for screening purposes, COVID 19 was negative procal level is high cortisol is high Tsh, ft4 noted We'll continue to follow. Transfer outside the ICU
[2021-06-05] MEDS: SODIUM CHLORIDE 0.9% 1,000 ML IV SCH ×3 (09:42→22:46)
--- NOTE | 2021-06-05 10:58 | CDI ---
Documentation Clarification Form Date: 06/05/2021 10:45:12 AM From: Mandi WoodwardSalazarMACKENZIE sen, CCDS Admit Date: 06/03/2021 07:21:00 PM Patient Name: Trent Hung Visit Number: [id number] Discharge Date: ATTENTION: The Clinical Documentation Specialists (CDI) and [facility] Coding Staff appreciate your assistance in clarifying documentation. Please respond to the clarification below the line at the bottom and electronically sign. The CDI & [facility] Coding staff will review the response and follow-up if needed. Please note: Queries are made part of the Legal Health Record. If you have any questions, please contact the author of this message via ITS. Dr. Christian Bray or Dr. 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 The patient is admitted to ICU with Severe Sepsis with Septic Shock, UTI, GISELA and Metabolic and Lactic Acidosis. Per the 06/03 Pulmonary/Critical Care Consult, the 06/03 H/P and subsequent Progress Notes the patient is diagnosed with a Complicated UTI. Additional clarification regarding the etiology of the UTI is requested. 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 Clinical Indicators: Presented to the ED on 06/03 via EMS with generalized weakness, was previously given an antibiotic for a UTI. patient has a Urostomy & Colonoscopy. Admit with Septic Shock, UTI and GISELA. Central Line placed for Vasopressors, admitted to ICU. Infectious Disease has not been consulted. 06/03 UA: Turbid, 2+ Protein, Moderate Blood, Large Esterase, RBC >182, WBC >182 06/03 Urine Culture (final): negative 06/03 Blood Culture neg x3. Repeat Blood culture w/gram stain (Preliminary): Staphylococcus epidermidis Treatment 06/03: Central Line for Vasopressors, IV Rocephin, IV Na Cl 1,000 mls @ 999 mls/hr q1H x2, IV Solu-Cortef, IV NaBicarb, Heparin nsq, IV Protonix. IV Vancomycin started 06/04. Please clarify the etiology of the UTI, if known: [ ] UTI related to Urostomy [ ] UTI not related to Urostomy [ ] Other condition, please specify: [ ] Unable to determine (Template Last Revised: July 2020) UTI related to Urostomy MTDD
--- NOTE | 2021-06-05 11:14 | P.PN ---
Subjective Progress Note Date: 06/05/21 Principal diagnosis: Patient feels okay no chest pain no complaints of vomiting Constitutional: No acute distress, conversant, pleasant Eyes: Anicteric sclerae, moist conjunctiva, no lid-lag PERRLA ENMT: NC/AT Oropharynx clear, no erythema, exudates Neck: Supple, FROM, no masses, or JVD No carotid bruits No thyromegaly Lungs: Clear to auscultation Clear to percussion Normal respiratory effort, no accessory muscle use Cardiovascular: Heart regular in rate and rhythm, No murmurs, gallops, or rubs No peripheral edema Abdominal: Soft Nontender, no guarding, rebound or rigidity Abdomen moving with respiration Normoactive bowel sounds No hepatomegaly, No splenomegaly No palpa ble mass No abdominal wall hernia noted Skin: Normal temperature, tone, texture, turgor No induration No subcutaneous nodules No rash, lesions No ulcers Extremities: No digital cyanosis No clubbing Pedal pulses intact and symmetrical Radial pulses intact and symmetrical Normal gait and station No calf tenderness Psychiatric:Alert and oriented to person, place and time Appropriate affect Intact judgement Neuro: Muscles Strength 5/5 in all 4 extremities Sensation to light touch grossly present throughout Cranial nerves II-XII grossly intact No focal sensory deficits Septic Shock Complicated UTI GISELA ICU admit, pulmonary consult s/p 4 L normal saline, now on bicarb drip nephrology consult on levophed and vasopressin wean as ICU ceftriaxone 2g daily f/u UCx, BCx pending renal US to rule out abscess strict ins and outs avoid nephrotoxins Subclinical Hypothyroidism No indication for levothyroxine at this time repeat labs once patient is more stable and sepsis resolves Continue management as better ICU team overall appears to be stable Laboratory and objective meeting 45 GI PPX lovenox dvt ppx full code Objective - Vital Signs Vital signs: Vital Signs Temp 97.7 F 06/05/21 03:00 Pulse 85 06/05/21 10:00 Resp 13 06/05/21 10:00 BP 115/74 06/05/21 10:00 Pulse Ox 96 06/05/21 10:00 Intake & Output 06/04/21 06/05/21 06/05/21 18:59 06:59 18:59 Intake Total 2207.941 1900 1010 Output Total 675 880 325 Balance 9148.120 6719 685 Weight 89.2 kg Intake: IV 1800 1900 300 Dextrose 5% in Water 1, 1800 1650 300 000 ml @ 150 mls/hr IV . Q7H40M [facility] with Sodium Bicarb (1 Meq/ml) 150 ml Rx#:[id number] Vancomycin 1,500 mg In 250 Sodium Chloride 0.9% 250 ml @ 125 mls/hr IVPB ONCE ONE Rx#:[id number] Intake, IV Titration 47.941 350 Amount Norepinephrine 32 mg In 47.941 Sodium Chloride 0.9% 218 ml @ 0.05 MCG/KG/MIN 2. 339 mls/hr IV .Q24H ONE Rx#:[id number] Sodium Chloride 0.9% 1, 300 000 ml @ 150 mls/hr IV . Q6H40M [facility] Rx#:[id number] cefTRIAXone 2 gm In 50 Sodium Chloride 0.9% 50 ml @ 100 mls/hr IVPB Q24HR [facility] Rx#:[id number] Oral 360 360 Output: Urine 675 880 325 Other: # Bowel Movements 1 - Labs CBC & Chem 7: 06/05/21 04:37 06/05/21 04:37 Labs: Abnormal Lab Results - Last 24 Hours (Table) 06/05/21 06/05/21 Range/Units 04:37 04:37 WBC 37.8 H (3.8-10.6) k/uL RBC 2.99 L (4.30-5.90) m/uL Hgb 9.5 L (13.0-17.5) gm/dL Hct 28.0 L (39.0-53.0) % Plt Count 138 L D (150-450) k/uL Neutrophils # (Manual) 34.00 H (1.3-7.7) k/uL Sodium 134 L (137-145) mmol/L Carbon Dioxide 21 L (22-30) mmol/L BUN 89 H (9-20) mg/dL Creatinine 4.58 H (0.66-1.25) mg/dL Glucose 110 H (74-99) mg/dL ALT 59 H (4-49) U/L Alkaline Phosphatase 137 H (38-126) U/L Total Protein 5.4 L (6.3-8.2) g/dL Albumin 2.2 L (3.5-5.0) g/dL Microbiology - Last 24 Hours (Table) 06/03/21 19:27 Blood Culture Gram Stain - Preliminary Blood Blood Culture - Preliminary Coagulase Negative Staph 06/03/21 19:37 Blood Culture Gram Stain - Preliminary Blood Blood Culture - Preliminary Staphylococcus epidermidis 06/03/21 15:26 Urine Culture - Final Urine,Voided 06/03/21 19:37 Blood Culture - Final Blood 06/03/21 19:37 Blood Culture - Final Blood
--- NOTE | 2021-06-05 12:04 | PN ---
PROGRESS NOTE Patient is seen for followup for acute kidney injury. Patient's renal function has been improving. Urine output has improved. His creatinine is down to 4.4 today. He is currently off of pressors. IV fluids changed to sodium chloride. On examination today, blood pressure 88/59, heart rate 91 per minute. Patient is afebrile. EXAMINATION OF THE HEART: S1 and S2. EXAMINATION OF LUNGS: Bilateral breath sounds are heard. Decreased breath sounds at the bases. Abdomen is soft, non-tender. Examination of lower extremities shows no significant edema. Labs show sodium 134, potassium 4.1, chloride 103, BUN 89, creatinine 4.58, hemoglobin 9.5 g/dL. ASSESSMENT: 1. Acute kidney injury associated with hypotension, currently improving. Patient also has obstructive uropathy with bilateral hydronephrosis. 2. Chronic kidney disease with previous creatinine of 2.2 in December of 2020. Possibly this was an acute kidney injury at that time. We will continue to monitor renal function for further improvement. 3. History of bladder cancer with fistulous connection, status post cystectomy and urostomy. 4. Hypotension secondary to sepsis from urinary tract infection. 5. Metabolic acidosis associated with severe renal failure, lactic acidosis, gastrointestinal fluid loss, status post bicarb drip. PLAN: Continue with IV fluids. Repeat labs in a.m. Avoid nephrotoxic medications. MMODL / IJN: [id number] /
[2021-06-05] MEDS ORDERED: VANCOMYCIN 1,500 MG in SODIUM CHLORIDE 0.9% 250 ML IVPB ONE (20:00)
[2021-06-05] MEDS ORDERED: polyethylene glycoL 3350 17 GM POWD.PACK PO STA (23:18)
[2021-06-05] MEDS: MORPHINE SULFATE 4 MG/ML SYRINGE IVP PRN (23:29)
[2021-06-06] MEDS: MORPHINE SULFATE 4 MG/ML SYRINGE IVP PRN ×4 (05:01→23:29)
[2021-06-06] MEDS: SODIUM CHLORIDE 0.9% 1,000 ML IV SCH ×4 (05:02→23:30)
[2021-06-06] MEDS: HEPARIN SODIUM,PORCINE/PF 5,000 UNIT/0.5 ML SYRINGE SQ SCH ×3 (07:45→23:29)
[2021-06-06] MEDS: PANTOPRAZOLE 40 MG/10 ML VIAL IVP SCH (07:46)
[2021-06-06 07:59] LABS: Basophils % (A) 0 %; Eosinophils % (A) 0 %; HCT 33.9 % (39.0-53.0); HGB 10.9 gm/dL (13.0-17.5); Lymphocytes # (A) 0.8 k/uL (1.0-4.8); Lymphocytes % (A) 3 %; MCH 30.9 pg (25.0-35.0); MCHC 32.1 g/dL (31.0-37.0); Mean Platelet Volume 8.9; Monocytes # (A) 0.5 k/uL (0-1.0); Monocytes % (A) 2 %; Neutrophils # (A) 26.8 k/uL (1.3-7.7); Neutrophils % (A) 95 %; Platelet Count 137 k/uL (150-450); RBC 3.53 m/uL (4.30-5.90); WBC 28.4 k/uL (3.8-10.6)
--- NOTE | 2021-06-06 08:54 | P.PN ---
Progress Note - Text Progress Note Date: 06/06/21 Mr. Hung reports abdominal discomfort. His blood pressure has normalized, and his WBC count has decreased to 28.4. He may have a paralytic ileus as a result of his sepsis. Examination reveals the abdomen to be soft, non-distended, and non-tender. I anticipate continued improvement.
--- NOTE | 2021-06-06 09:16 | P.PN ---
Subjective Progress Note Date: 06/06/21 Patient commands of abdominal pain today Constitutional: No acute distress, conversant, pleasant Eyes: Anicteric sclerae, moist conjunctiva, no lid-lag PERRLA ENMT: NC/AT Oropharynx clear, no erythema, exudates Neck: Supple, FROM, no masses, or JVD No carotid bruits No thyromegaly Lungs: Clear to auscultation Clear to percussion Normal respiratory effort, no accessory muscle use Cardiovascular: Heart regular in rate and rhythm, No murmurs, gallops, or rubs No peripheral edema Abdominal: Soft Nontender, no guarding, rebound or rigidity Abdomen moving with respiration Normoactive bowel sounds No hepatomegaly, No splenomegaly No palpable mass No abdominal wall hernia noted Skin: Normal temperature, tone, texture, turgor No induration No subcutaneous nodules No rash, lesions No ulcers Extremities: No digital cyanosis No clubbing Pedal pulses intact and symmetrical Radial pulses intact and symmetrical Normal gait and station No calf tenderness Psychiatric:Alert and oriented to person, place and time Appropriate affect Intact judgement Neuro: Muscles Strength 5/5 in all 4 extremities Sensation to light touch grossly present throughout Cranial nerves II-XII grossly intact No focal sensory deficits Septic Shock Complicated UTI GISELA I s/p 4 L normal saline, now on bicarb drip nephrology consult on levophed and vasopressin wean as ICU ceftriaxone 2g daily f/u UCx, BCx pending renal US to rule out abscess strict ins and outs avoid nephrotoxins Subclinical Hypothyroidism No indication for levothyroxine at this time repeat labs once patient is more stable and sepsis resolves Continue management as better ICU team overall appears to be stable Overall slowly improving patient off pressors leukocytosis slowly improving Nonspecific abdominal pain currently stable no tenderness we'll consider computed tomography scan of the abdomen if the pain persists Laboratory and objective meeting 45 GI PPX lovenox dvt ppx full code Objective - Vital Signs Vital signs: Vital Signs Temp 97.8 F 06/06/21 04:47 Pulse 89 06/06/21 04:47 Resp 20 06/06/21 04:47 BP 127/73 06/06/21 04:47 Pulse Ox 96 06/06/21 04:47 Intake & Output 06/05/21 06/06/21 06/06/21 18:59 06:59 18:59 Intake Total 2390 Output Total 800 1000 Balance 1590 -1000 Intake: IV 300 Dextrose 5% in Water 1, 300 000 ml @ 150 mls/hr IV . Q7H40M [facility] with Sodium Bicarb (1 Meq/ml) 150 ml Rx#:[id number] Intake, IV Titration 1250 Amount Sodium Chloride 0.9% 1, 1200 000 ml @ 150 mls/hr IV . Q6H40M [facility] Rx#:[id number] cefTRIAXone 2 gm In 50 Sodium Chloride 0.9% 50 ml @ 100 mls/hr IVPB Q24HR [facility] Rx#:[id number] Oral 840 Output: Urine 800 1000 - Labs CBC & Chem 7: 06/06/21 07:11 06/05/21 04:37 Labs: Abnormal Lab Results - Last 24 Hours (Table) 06/06/21 Range/Units 07:11 WBC 28.4 H (3.8-10.6) k/uL RBC 3.53 L (4.30-5.90) m/uL Hgb 10.9 L (13.0-17.5) gm/dL Hct 33.9 L (39.0-53.0) % RDW 16.0 H (11.5-15.5) % Plt Count 137 L (150-450) k/uL Microbiology - Last 24 Hours (Table) 06/03/21 19:27 Blood Culture Gram Stain - Preliminary Blood Blood Culture - Preliminary Coagulase Negative Staph
[2021-06-06 11:04] LABS: African American GFR (CKD) 14.3 (60.0-200.0); Albumin 2.4 g/dL (3.8-4.9); Albumin/Globulin Ratio 0.86 (1.60-3.17); Anion Gap 11.8 mmol/L (10.00-18.00); BUN/Creat Ratio 19.7 Ratio (12.00-20.00); Blood Urea Nitrogen 86.7 mg/dL (9.0-27.0); Calcium 8.8 mg/dL (8.7-10.3); Carbon Dioxide 20.2 mmol/L (20.0-27.5); Globulin 2.8 g/dL (1.6-3.3); Non-African American GFR(CKD) 12.3 (60.0-200.0); Potassium 4.6 mmol/L (3.5-5.5); Total Bilirubin 0.3 mg/dL (0.30-1.20); Total Protein 5.2 g/dL (6.2-8.2)
--- NOTE | 2021-06-06 11:24 | XR ---
EXAMINATION TYPE: XR chest 1V portable DATE OF EXAM: 06/06/2021 COMPARISON: 06/05/2021 INDICATION: Vascular congestion TECHNIQUE: Single frontal view of the chest is obtained. FINDINGS: The heart size is normal. The pulmonary vasculature is normal. Left lower lobe infiltrate is improving. IMPRESSION: 1. Residual left lower lobe infiltrate. Follow-up can be performed.
[2021-06-06] MEDS: ACETAMINOPHEN TAB 500 MG TAB PO PRN ×2 (12:00→19:46)
--- NOTE | 2021-06-06 13:27 | P.PN ---
Subjective Progress Note Date: 06/06/21 75-year-old male patient presented emergency department because of generalized weakness. His suspected UTI as the patient was found to have change in the color of the urine that was being collected in the urostomy bag. The urine was becoming more cloudy and the suspected UTI. The patient will be contacted the urologist. A dose of Levaquin which she took yesterday on outpatient basis. The patient came into the ED. The patient denied having any shortness of breath. He has significant abnormalities in his blood work. The patient had severe leukocytosis with a white count of 14. The patient has severe metabolic acidosis with a combination of anion and non-anion gap metabolic acidosis with a lactic acid level of 2.7. The patient had acute kidney injury. Creatinine was elevated at 5.4. The patient had some mild transaminitis. He was already given a total of 3 L of IV fluid in the systolic blood pressure was in the mid 70s. The patient was given 2 mg of IV Rocephin in the emergency department. Pulmonary [employer] marker services were consulted accordingly. No nausea. No vomi ting. No diarrhea. No abdominal pain. The patient has a colostomy which is functional. 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 This was done in 2020. At [facility]. His evaluation of 06/04/2021, the patient is being seen in follow-up in the intensive care unit. The patient got admitted to the ICU as the patient was quite hypotensive. He was in septic shock and he was seen in emergency department. He was resuscitated aggressively with IV fluids. He was given a total of 4 L of normal saline bolus and the patient was started on bicarb drip at the rate of 150 mL an hour. His urine output is improved. Creatinine is slightly improved compared to yesterday. Serum bicarbs up to 12. Lactic acid level is also improved. Cultures are still pending for now. Meanwhile, the patient remains on 2 g of IV Rocephin on a daily basis. Overnight, the passes were titrated. The patient was started on vasopressin drip physiologic dose of the 0.03 units / min. The patient is also on norepinephrine infusion running at 0.15 mcg/kg per minute. He is on room air oxygen. Is awake and alert. No signs of any respiratory distress. Cardiac rhythm is sinus. No nausea. No vomiting. No abdominal pain. No chest pain. No other significant events overnight otherwise. White cell count remains elevated and is up to 46. On 06/05/2021, seeing the patient for a follow-up. The patient this morning is hemodynamically stable and the patient is currently off pressors. The patient was admitted to the ICU because of a septic shock that was thought to be related to a urinary tract infection. The cultures are still negative. I do have a blood culture that showed gram-positive cocci and for that reason vancomycin was added. Nevertheless, this ends up being a staph epidermidis. The patient remains on a combination of antibiotics that she remains on IV Rocephin 2 g every 24 hours and IV vancomycin pending further cultures. The patient is doing well. The patient is on room air oxygen. Chest x-rays clear. The white cell count today is at 37.8 which is improved compared to yesterday. Creatinine is also improving is down to 4.5 with a BUN of 89. Sodium is at 134 and a serum bicarb is 21. IV fluids are currently in the form of a bicarb infusion at the rate of 150 mL an hour and this will be switched to normal saline. No fever. No chills. He has a urostomy and she has also a diverting colostomy which is functional at this point in time. He is known to have bladder cancer. The patient is seen today 06/06/2021 in follow-up on the regular medical floor. He is currently resting comfortably in bed. No acute distress. Maintaining O2 saturations in the 90s on room air. He is afebrile. Hemodynamically stable. His x-ray reveals a residual left lower lobe infiltrate. Otherwise clear. White count 28.4. Hemoglobin 10.9. Platelet count 137. Sodium 136. Potassium 4.6. Creatinine 4.4. BUN 87. AST 49. ALT 70. Alk phos 154. He is continued on ceftriaxone. Heparin for DVT prophylaxis. Objective - Vital Signs Vital signs: Vital Signs Temp 97.3 F L 06/06/21 12:42 Pulse 86 06/06/21 12:42 Resp 17 06/06/21 12:42 BP 147/82 06/06/21 12:42 Pulse Ox 96 06/06/21 12:42 Intake & Output 06/05/21 06/06/21 06/06/21 18:59 06:59 18:59 Intake Total 2390 Output Total 800 1000 Balance 1590 -1000 Intake: IV 300 Dextrose 5% in Water 1, 300 000 ml @ 150 mls/hr IV . Q7H40M [facility] with Sodium Bicarb (1 Meq/ml) 150 ml Rx#:[id number] Intake, IV Titration 1250 Amount Sodium Chloride 0.9% 1, 1200 000 ml @ 150 mls/hr IV . Q6H40M [facility] Rx#:[id number] cefTRIAXone 2 gm In 50 Sodium Chloride 0.9% 50 ml @ 100 mls/hr IVPB Q24HR [facility] Rx#:[id number] Oral 840 Output: Urine 800 1000 Other: Voiding Method Indwelling Catheter - Exam The patient is well-developed and well-nourished 75-year-old male. Nontoxic and well-hydrated and is in mild distress. Patient does appear fairly tired HENT: Neck is soft and supple. No significant lymphadenopathy is noted. Oropharynx is clear. Moist mucous membranes. Neck has full range of motion without e liciting any pain. EYES: The sclera were anicteric and conjunctiva were pink and moist. Extraocular movements were intact and pupils were equal round and reactive to light. Eyelids were unremarkable. PULMONARY: Unlabored respirations. Good breath sounds bilaterally. Crackles in the left lung base. CARDIOVASCULAR: There is a regular rate and rhythm without any murmurs gallops or rubs. ABDOMEN: Soft and nontender with normal bowel sounds. The patient has a functioning colostomy. The patient also has a urostomy in the right upper quadrant. Output from the urine is yellowish and cloudy. There is positive output of this point in time. No abdominal distention. No direct tenderness. No rebound tenderness. No guarding. SKIN: Skin is clear with no lesions or rashes and otherwise unremarkable. NEUROLOGIC: Patient is alert and oriented x3. Cranial nerves II through XII are grossly intact. Motor and sensory are also intact. Normal speech, volume and content. Symmetrical smile. MUSCULOSKELETAL: Normal extremities with adequate strength and full range of motion. No lower extremity swelling or edema. No calf tenderness. LYMPHATICS: No significant lymphadenopathy is noted PSYCHIATRIC: Normal psychiatric evaluation. - Labs CBC & Chem 7: 01/14/22 07:11 06/06/21 07:11 Labs: Abnormal Lab Results - Last 24 Hours (Table) 06/06/21 06/06/21 Range/Units 07:11 07:11 WBC 28.4 H (3.8-10.6) k/uL RBC 3.53 L (4.30-5.90) m/uL Hgb 10.9 L (13.0-17.5) gm/dL Hct 33.9 L (39.0-53.0) % RDW 16.0 H (11.5-15.5) % Plt Count 137 L (150-450) k/uL Neutrophils # 26.8 H (1.3-7.7) k/uL Lymphocytes # 0.8 L (1.0-4.8) k/uL BUN 86.7 H (9.0-27.0) mg/dL Creatinine 4.4 H (0.6-1.5) mg/dL Est GFR (CKD-EPI)AfAm 14.3 L (60.0-200.0) Est GFR (CKD-EPI)NonAf 12.3 L (60.0-200.0) AST 49 H (14-35) U/L ALT 70 H (10-49) U/L Alkaline Phosphatase 154 H (41-126) U/L Total Protein 5.2 L (6.2-8.2) g/dL Albumin 2.4 L (3.8-4.9) g/dL Albumin/Globulin Ratio 0.86 L (1.60-3.17) g/dL Microbiology - Last 24 Hours (Table) 06/03/21 19:27 Blood Culture Gram Stain - Preliminary Blood Blood Culture - Preliminary Coagulase Negative Staph Assessment and Plan Assessment: 1 Septic shock, secondary to a complicated urinary tract infection. Treated wit h ceftriaxone. Recovered and seen on the regular medical floor. Hemodynamically stable. On room air oxygen. 2 acute kidney injury, renal function is improved slightly compared to yesterday, the renal function is improving and the patient is producing adequate amount of urine output. Ultrasound of the kidney showed moderate to severe right-sided hydronephrosis which was present in addition to possibility of a mild left-sided hydronephrosis. Nephrology is on the case. This is probably chronic and related to his previous bladder cancer. 3 severe metabolic acidosis secondary to above, improving on a bicarb infusion, improving 4 acute leukocytosis, improving 5 history of bladder cancer with a colovesicular fistula. The patient underwent a cystectomy and colectomy with diverging colostomy and urostomy 6 mild transaminitis, probably related to sepsis/shock. 7 coagulase-negative staph in the blood, staph epidermidis. Plan: The patient was seen and evaluated Chest x-ray and labs reviewed Stable from the pulmonary and critical care standpoint We will see as needed I, the cosigning physician, performed a history & physical examination of the patient. Lungs sounds crackles in the left lung base. Maintaining good O2 saturations in the 90s on room air. I discussed the assessment and plan of care with my nurse practitioner, Helena Bowen. I attest to the above note as dictated by her.
--- NOTE | 2021-06-06 18:44 | PN ---
PROGRESS NOTE Patient is seen for followup for acute kidney injury. Patient's renal function has improved since admission with creatinine down to 4.4, but not significantly further improved. His admission creatinine was 5.38 and prior to that creatinine was 2.27 in December of 2020. The patient had been profoundly hypotensive and in the ICU. Currently he is transferred out. He is off pressors, maintained on IV fluids. He is not currently eating much. Looks like patient received one dose of vancomycin. PHYSICAL EXAMINATION: On examination today, blood pressure is 147/82, heart rate 86 per minute, he is afebrile. Examination of the heart S1, S2. Examination of the lungs, bilateral breath sounds are heard. Abdomen is soft, nontender. Examination of lower extremities shows no significant edema. LAB: Show sodium of 136, potassium 4.6, chloride 104, CO2 is 20, BUN 86, and serum creatinine 4.4, hemoglobin 10.9 g/dL. ASSESSMENT: 1. Acute kidney injury secondary to hypotension, currently nonoliguric, ATN, slowly improving, although creatinine still remains quite elevated. 2. Severe metabolic acidosis associated with hypotension, sepsis. 3. Moderate to severe bilateral hydronephrosis, being followed by Urology, currently status post Fisher catheter. 4. History of bladder cancer with fistulous connection, status post cystectomy and urostomy. 5. CKD. Previous creatinine 2.2 in December of 2020, possibly acute kidney injury at that time. We do not have any other previous labs available for comparison. 6. Coagulase-negative Staph bacteremia. PLAN: Continue with IV fluids. Repeat labs in a.m. Avoid nephrotoxic agents. Continue Fisher catheter. MMODL / IJN: [id number] /
[2021-06-07] MEDS: MORPHINE SULFATE 4 MG/ML SYRINGE IVP PRN ×2 (04:45→19:41)
[2021-06-07] MEDS: SODIUM CHLORIDE 0.9% 1,000 ML IV SCH ×3 (04:46→19:42)
[2021-06-07 06:39] LABS: Basophils # (A) 0.1 k/uL (0-0.2); Basophils % (A) 0 %; Eosinophils # (A) 0.1 k/uL (0-0.7); Eosinophils % (A) 1 %; HCT 32.2 % (39.0-53.0); HGB 10.6 gm/dL (13.0-17.5); Lymphocytes # (A) 0.9 k/uL (1.0-4.8); Lymphocytes % (A) 4 %; MCH 31.8 pg (25.0-35.0); MCV 96.5 fL (80.0-100.0); Mean Platelet Volume 9.2; Monocytes # (A) 0.6 k/uL (0-1.0); Monocytes % (A) 3 %; Neutrophils # (A) 18.8 k/uL (1.3-7.7); Neutrophils % (A) 91 %; Platelet Count 98 k/uL (150-450); RBC 3.34 m/uL (4.30-5.90); RDW 15.7 % (11.5-15.5); WBC 20.8 k/uL (3.8-10.6)
--- NOTE | 2021-06-07 06:58 | XR ---
EXAMINATION TYPE: XR chest 1V portable DATE OF EXAM: 06/07/2021 COMPARISON: 06/06/2021 HISTORY: Shortness of breath TECHNIQUE: Single frontal view of the chest is obtained. FINDINGS: There has been interval development of a small bandlike opacity left lung base consistent with atelectasis. Remainder the lungs are clear. There is no pneumothorax or large pleural effusion. Heart size normal and the vasculature is not congested. The osseous structures are intact IMPRESSION: Interval development of mild left lower lobe atelectasis with no other significant abnor mality seen.
[2021-06-07] MEDS: HEPARIN SODIUM,PORCINE/PF 5,000 UNIT/0.5 ML SYRINGE SQ SCH ×3 (08:19→23:59)
[2021-06-07] MEDS: PANTOPRAZOLE 40 MG/10 ML VIAL IVP SCH (08:19)
[2021-06-07 09:27] LABS: African American GFR (CKD) 15.5 (60.0-200.0); Albumin 2.4 g/dL (3.8-4.9); Albumin/Globulin Ratio 0.86 (1.60-3.17); Anion Gap 5.2 mmol/L (10.00-18.00); BUN/Creat Ratio 18.85 Ratio (12.00-20.00); Blood Urea Nitrogen 77.3 mg/dL (9.0-27.0); Calcium 8.4 mg/dL (8.7-10.3); Carbon Dioxide 23.8 mmol/L (20.0-27.5); Globulin 2.8 g/dL (1.6-3.3); Non-African American GFR(CKD) 13.4 (60.0-200.0); Potassium 4.4 mmol/L (3.5-5.5); Total Bilirubin 0.3 mg/dL (0.30-1.20); Total Protein 5.2 g/dL (6.2-8.2)
--- NOTE | 2021-06-07 11:00 | P.PN ---
Progress Note - Text Progress Note Date: 06/07/21 Mr. Hung reports that his abdominal discomfort is improved. His WBC count continues to improve and today was 20.8. Likewise, his serum creatinine level is gradually improving (4.1). Impression: Overall condition improving. Plan: Continue current management.
--- NOTE | 2021-06-07 11:11 | P.PN ---
Subjective Progress Note Date: 06/07/21 Patient feels better Overall still having abdominal pain improved. Overall the condition of the patient improving leukocytosis improving we'll continue to monitor Patient commands of abdominal pain today Constitutional: No acute distress, conversant, pleasant Eyes: Anicteric sclerae, moist conjunctiva, no lid-lag PERRLA ENMT: NC/AT Oropharynx clear, no erythema, exudates Neck: Supple, FROM, no masses, or JVD No carotid bruits No thyromegaly Lungs: Clear to auscultation Clear to percussion Normal respiratory effort, no accessory muscle use Cardiovascular: Heart regular in rate and rhythm, No murmurs, gallops, or rubs No peripheral edema Abdominal: Soft Nontender, no guarding, rebound or rigidity Abdomen moving with respiration Normoactive bowel sounds No hepatomegaly, No splenomegaly No palpabl e mass No abdominal wall hernia noted Skin: Normal temperature, tone, texture, turgor No induration No subcutaneous nodules No rash, lesions No ulcers Extremities: No digital cyanosis No clubbing Pedal pulses intact and symmetrical Radial pulses intact and symmetrical Normal gait and station No calf tenderness Psychiatric:Alert and oriented to person, place and time Appropriate affect Intact judgement Neuro: Muscles Strength 5/5 in all 4 extremities Sensation to light touch grossly present throughout Cranial nerves II-XII grossly intact No focal sensory deficits Septic Shock Complicated UTI GISELA I s/p 4 L normal saline, now on bicarb drip nephrology consult on levophed and vasopressin wean as ICU ceftriaxone 2g daily f/u UCx, BCx pending renal US to rule out abscess strict ins and outs avoid nephrotoxins Subclinical Hypothyroidism No indication for levothyroxine at this time repeat labs once patient is more stable and sepsis resolves Continue management as better ICU team overall appears to be stable Overall slowly improving patient off pressors leukocytosis slowly improving Nonspecific abdominal pain currently stable no tenderness we'll consider computed tomography scan of the abdomen if the pain persists Laboratory and objective meeting 45 GI PPX lovenox dvt ppx full code Objective - Vital Signs Vital signs: Vital Signs Temp 98.4 F 06/07/21 04:48 Pulse 89 06/07/21 04:48 Resp 18 06/07/21 04:48 BP 156/86 06/07/21 04:48 Pulse Ox 96 06/07/21 04:48 Intake & Output 06/06/21 06/07/2106/07/22 18:59 06:59 18:59 Intake Total 2880 1800 Output Total 800 1000 Balance 2080 800 Intake: Intake, IV Titration 1700 1500 Amount Sodium Chloride 0.9% 1, 1650 1500 000 ml @ 150 mls/hr IV . [id number] [facility] Rx#:[id number] cefTRIAXone 2 gm In 50 Sodium Chloride 0.9% 50 ml @ 100 mls/hr IVPB Q24HR [facility] Rx#:[id number] Oral 1180 300 Output: Urine 800 1000 Other: Voiding Method Indwelling Catheter Indwelling Catheter Indwelling Catheter # Voids 1 - Labs CBC & Chem 7: 06/07/21 06:03 06/07/21 06:03 Labs: Abnormal Lab Results - Last 24 Hours (Table) 06/06/21 06/07/21 06/07/21 Range/Units 07:11 06:03 06:03 WBC 20.8 H (3.8-10.6) k/uL RBC 3.34 L (4.30-5.90) m/uL Hgb 10.6 L (13.0-17.5) gm/dL Hct 32.2 L (39.0-53.0) % RDW 15.7 H (11.5-15.5) % Plt Count 98 L (150-450) k/uL Neutrophils # 26.8 H 18.8 H (1.3-7.7) k/uL Lymphocytes # 0.8 L 0.9 L (1.0-4.8) k/uL Anion Gap 5.20 L (10.00-18.00) mmol/L BUN 77.3 H (9.0-27.0) mg/dL Creatinine 4.1 H (0.6-1.5) mg/dL Est GFR (CKD-EPI)AfAm 15.5 L (60.0-200.0) Est GFR (CKD-EPI)NonAf 13.4 L (60.0-200.0) Calcium 8.4 L (8.7-10.3) mg/dL Alkaline Phosphatase 137 H (41-126) U/L Total Protein 5.2 L (6.2-8.2) g/dL Albumin 2.4 L (3.8-4.9) g/dL Albumin/Globulin Ratio 0.86 L (1.60-3.17) g/dL Microbiology - Last 24 Hours (Table) 06/03/21 19:27 Blood Culture Gram Stain - Final Blood Blood Culture - Final Coagulase Negative Staph Coagulase Negative Staph#2 06/03/21 19:37 Blood Culture Gram Stain - Final Blood Blood Culture - Final Staphylococcus epidermidis Coagulase Negative Staph
--- NOTE | 2021-06-07 16:33 | PN ---
PROGRESS NOTE Patient is seen for followup for acute kidney injury. Renal function continues to improve, although slowly. Serum creatinine is down to 4.1 from 5.3 on initial admission. Previous creatinine 2.27 in December of 2020. The patient is currently comfortable, awake, states he is feeling much better. PHYSICAL EXAMINATION: Blood pressure 143/82, heart rate 92 per minute, he is afebrile. Examination of the heart S1, S2. Examination of the lungs, bilateral breath sounds are heard. Abdomen is soft, nontender. Examination of lower extremities shows no significant edema. AUDIOLOGY DIRECTOR exam grossly intact. LAB: Show sodium 135, potassium 4.4, chloride 106, BUN 77, creatinine 4.1, hemoglobin 10.6 g/dL. ASSESSMENT: 1. Acute kidney injury, ATN, associated with hypotension, sepsis, as well as obstructive uropathy, currently improving although slowly. 2. Chronic kidney disease, previous creatinine 2.2 in December of 2020. I am not sure this was an acute kidney injury. No other labs available for comparison. 3. History of bladder cancer with fistulous connections, status post cystectomy and urostomy. 4. Moderate to severe bilateral hydronephrosis, currently with indwelling Fisher catheter. 5. Coagulase-negative Staph bacteremia. PLAN: Continue to encourage increased oral intake. Decrease IV fluids. MMODL / IJN: [id number] /
[2021-06-07] MEDS: polyethylene glycoL 3350 17 GM POWD.PACK PO SCH (17:33)
[2021-06-08] MEDS: MORPHINE SULFATE 4 MG/ML SYRINGE IVP PRN ×3 (05:57→23:43)
[2021-06-08 07:03] LABS: Basophils % (A) 0 %; Eosinophils # (A) 0.1 k/uL (0-0.7); Eosinophils % (A) 1 %; HGB 10.4 gm/dL (13.0-17.5); Lymphocytes # (A) 0.6 k/uL (1.0-4.8); Lymphocytes % (A) 4 %; MCH 31.6 pg (25.0-35.0); MCHC 32.5 g/dL (31.0-37.0); MCV 97.2 fL (80.0-100.0); Mean Platelet Volume 8.7; Monocytes # (A) 0.9 k/uL (0-1.0); Monocytes % (A) 6 %; Neutrophils % (A) 87 %; Platelet Count 104 k/uL (150-450); RBC 3.29 m/uL (4.30-5.90); RDW 15.9 % (11.5-15.5); WBC 14.9 k/uL (3.8-10.6)
--- NOTE | 2021-06-08 07:58 | P.PN ---
Subjective Progress Note Date: 06/08/21 Patient feels better Complains ofsomeabdominalpainandspasmsalthoughimprovingr Patient commands of abdominal pain today Constitutional: No acute distress, conversant, pleasant Eyes: Anicteric sclerae, moist conjunctiva, no lid-lag PERRLA ENMT: NC/AT Oropharynx clear, no erythema, exudates Neck: Supple, FROM, no masses, or JVD No carotid bruits No thyromegaly Lungs: Clear to auscultation Clear to percussion Normal respiratory effort, no accessory muscle use Cardiovascular: Heart regular in rate and rhythm, No murmurs, gallops, or rubs No peripheral edema Abdominal: Soft Nontender, no guarding, rebound or rigidity Abdomen moving with respiration Normoactive bowel sounds No hepatomegaly, No splenomegaly No palpable mass No abdominal wall hernia noted Skin: Normal temperature, tone, texture, turgor No induration No subcutaneous nodules No rash, lesions No ulcers Extremities: No digital cyanosis No clubbing Pedal pulses intact and symmetrical Radial pulses intact and symmetrical Normal gait and station No calf tenderness Psychiatric:Alert and oriented to person, place and time Appropriate affect Intact judgement Neuro: Muscles Strength 5/5 in all 4 extremities Sensation to light touch grossly present throughout Cranial nerves II-XII grossly intact No focal sensory deficits Septic Shock Complicated UTI GISELA I s/p 4 L normal saline, now on bicarb drip nephrology consult on levophed and vasopressin wean as ICU ceftriaxone 2g daily f/u UCx, BCx pending renal US to rule out abscess strict ins and outs avoid nephrotoxins Subclinical Hypothyroidism Sepsis overall improving quite blood cells overall improving we'll continue IV antibiotics for a few days No indication for levothyroxine at this time repeat labs once patient is more stable and sepsis resolves Continue management as better ICU team overall appears to be stable Overall slowly improving patient off pressors leukocytosis slowly improving Nonspecific abdominal pain currently stable no tenderness we'll consider co mputed tomography scan of the abdomen if the pain persists Laboratory and objective meeting 45 GI PPX lovenox dvt ppx full code Objective - Vital Signs Vital signs: Vital Signs Temp 98.4 F 06/08/21 06:00 Pulse 102 H 06/08/21 06:00 Resp 20 06/08/21 06:00 BP 153/85 06/08/21 06:00 Pulse Ox 95 06/08/21 06:00 Intake & Output 06/07/21 06/08/21 06/08/21 18:59 06:59 18:59 Intake Total 900 600 Output Total 1000 1300 Balance -100 600 -1300 Intake: Intake, IV Titration 900 600 Amount Sodium Chloride 0.9% 1, 900 600 000 ml @ 75 mls/hr IV . [id number] [facility] Rx#:[id number] Output: Urine 1000 1300 Other: Voiding Method Indwelling Catheter Ileal Conduit (Right) - Labs CBC & Chem 7: 06/08/21 06:21 06/07/21 06:03 Labs: Abnormal Lab Results - Last 24 Hours (Table) 06/07/21 06/08/21 Range/Units 06:03 06:21 WBC 14.9 H (3.8-10.6) k/uL RBC 3.29 L (4.30-5.90) m/uL Hgb 10.4 L (13.0-17.5) gm/dL Hct 32.0 L (39.0-53.0) % RDW 15.9 H (11.5-15.5) % Plt Count 104 L (150-450) k/uL Neutrophils # 13.0 H (1.3-7.7) k/uL Lymphocytes # 0.6 L (1.0-4.8) k/uL Anion Gap 5.20 L (10.00-18.00) mmol/L BUN 77.3 H (9.0-27.0) mg/dL Creatinine 4.1 H (0.6-1.5) mg/dL Est GFR (CKD-EPI)AfAm 15.5 L (60.0-200.0) Est GFR (CKD-EPI)NonAf 13.4 L (60.0-200.0) Calcium 8.4 L (8.7-10.3) mg/dL Alkaline Phosphatase 137 H (41-126) U/L Total Protein 5.2 L (6.2-8.2) g/dL Albumin 2.4 L (3.8-4.9) g/dL Albumin/Globulin Ratio 0.86 L (1.60-3.17) g/dL
[2021-06-08] MEDS: PANTOPRAZOLE 40 MG/10 ML VIAL IVP SCH (08:45)
[2021-06-08] MEDS: HEPARIN SODIUM,PORCINE/PF 5,000 UNIT/0.5 ML SYRINGE SQ SCH ×3 (08:45→23:43)
[2021-06-08] MEDS: polyethylene glycoL 3350 17 GM POWD.PACK PO SCH (08:45)
[2021-06-08 09:13] LABS: Albumin 2.4 g/dL (3.8-4.9); Albumin/Globulin Ratio 0.8 (1.60-3.17); Anion Gap 12.7 mmol/L (10.00-18.00); BUN/Creat Ratio 17.75 Ratio (12.00-20.00); Calcium 8.5 mg/dL (8.7-10.3); Carbon Dioxide 15.3 mmol/L (20.0-27.5); Non-African American GFR(CKD) 13.8 (60.0-200.0); Potassium 4.7 mmol/L (3.5-5.5); Total Bilirubin 0.6 mg/dL (0.30-1.20); Total Protein 5.4 g/dL (6.2-8.2)
--- NOTE | 2021-06-08 10:31 | P.PN ---
Progress Note - Text Progress Note Date: 06/08/21 Mr. Hung reports that his abdominal discomfort is improved and occurs primarily after eating. His WBC count continues to improve and today was 14.9. His creatinine level continues to gradually improve (4.0). Impression: Overall condition improving. Plan: Continue current management.
[2021-06-08] MEDS: SODIUM CHLORIDE 0.9% 1,000 ML IV SCH (12:42)
[2021-06-08] MEDS: LACTATED RINGERS 1,000 ML IV SCH (12:48)
--- NOTE | 2021-06-08 13:46 | PN ---
PROGRESS NOTE The patient is seen for followup for acute kidney injury. The renal function has improved with creatinine down to 4.0 from 5.3 on initial admission. However, it is not significantly improved over the past 2-3 days. The patient's initial creatinine was 2.27 on 01/20/2021. He was admitted with significant hypotension, sepsis. The patient also has underlying obstructive uropathy and has an indwelling Fisher catheter. 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 PHYSICAL EXAMINATION: On examination today, blood pressure was 138/80, heart rate 92 per minute. He is afebrile. Examination of the heart S1, S2. Examination of the lungs, bilateral breath sounds are heard. Abdomen is soft, nontender. Examination of lower extremities shows no significant edema. ROLFER exam grossly intact. LAB: Show sodium 131, potassium 4.7, BUN of 71, creatinine 4.0, CO2 is 15.3, hemoglobin 10.4. ASSESSMENT: 1. Acute kidney injury ATN associated with severe hypotension and sepsis currently improving. 2. Bilateral hydronephrosis, being followed by Urology. 3. History of bladder cancer status post cystectomy. The patient had colovesical fistula as well. 4. Chronic kidney disease. Previous creatinine 2.2 NKF stage 3B to 4. I am not sure this is his baseline or another episode of acute kidney injury. 5. Coagulase-negative Staph bacteremia. 6. Metabolic acidosis. Add oral sodium bicarb. PLAN: Change IV fluids to Ringer lactate and add oral sodium bicarb. Repeat labs in a.m. MMODL / IJN: [id number] /
[2021-06-08] MEDS: SODIUM BICARBONATE TAB 650 MG TAB PO SCH (19:44)
[2021-06-09 06:55] LABS: Basophils % (A) 0 %; Eosinophils # (A) 0.2 k/uL (0-0.7); Eosinophils % (A) 1 %; HCT 29.9 % (39.0-53.0); HGB 9.9 gm/dL (13.0-17.5); Lymphocytes # (A) 0.9 k/uL (1.0-4.8); Lymphocytes % (A) 9 %; MCV 96.9 fL (80.0-100.0); Mean Platelet Volume 9.2; Monocytes # (A) 0.7 k/uL (0-1.0); Monocytes % (A) 7 %; Neutrophils # (A) 8.2 k/uL (1.3-7.7); Neutrophils % (A) 80 %; Platelet Count 104 k/uL (150-450); RBC 3.09 m/uL (4.30-5.90); RDW 15.5 % (11.5-15.5); WBC 10.3 k/uL (3.8-10.6)
--- NOTE | 2021-06-09 08:23 | P.PN ---
Subjective Patient is seen in follow-up for acute kidney injury on chronic kidney disease. Creatinine 4.0 yesterday. Nonoliguric. Oral intake fair. No vomiting or diarrhea. Vital signs are stable. General: The patient appeared well nourished and normally developed. HEENT: Head exam is unremarkable. LUNGS: Breath sounds decreased. HEART: Rate and Rhythm are regular. ABDOMEN: Soft, no distention. Urostomy noted. EXTREMITITES: No edema. Objective - Vital Signs Vital signs: Vital Signs Temp 98.6 F 06/09/21 05:04 Pulse 93 06/09/21 05:04 Resp 16 06/09/21 05:04 BP 133/71 06/09/21 05:04 Pulse Ox 97 06/09/21 05:04 Intake & Output 06/08/21 06/09/21 06/09/21 18:59 06:59 18:59 Intake Total 900 1400 Output Total 2700 1725 Balance -1800 -325 Intake: Intake, IV Titration 900 900 Amount Lactated Ringers 1,000 ml 900 900 @ 75 mls/hr IV .[id number] [facility] Rx#:[id number] Oral 500 Output: Urine 2700 1725 Other: Voiding Method Ileal Conduit (Right) Ileal Conduit (Right) - Labs CBC & Chem 7: 06/09/21 06:02 06/08/21 06:21 Labs: Abnormal Lab Results - Last 24 Hours (Table) 06/08/21 06/09/21 Range/Units 06:21 06:02 RBC 3.09 L (4.30-5.90) m/uL Hgb 9.9 L (13.0-17.5) gm/dL Hct 29.9 L (39.0-53.0) % Plt Count 104 L (150-450) k/uL Neutrophils # 8.2 H (1.3-7.7) k/uL Lymphocytes # 0.9 L (1.0-4.8) k/uL Sodium 131 L (135-145) mmol/L Carbon Dioxide 15.3 L (20.0-27.5) mmol/L BUN 71.0 H (9.0-27.0) mg/dL Creatinine 4.0 H (0.6-1.5) mg/dL Est GFR (CKD-EPI)AfAm 16.0 L (60.0-200.0) Est GFR (CKD-EPI)NonAf 13.8 L (60.0-200.0) Calcium 8.5 L (8.7-10.3) mg/dL Alkaline Phosphatase 134 H (41-126) U/L Total Protein 5.4 L (6.2-8.2) g/dL Albumin 2.4 L (3.8-4.9) g/dL Albumin/Globulin Ratio 0.80 L (1.60-3.17) g/dL Assessment and Plan Plan: Assessment: 1. Acute kidney injury secondary to ATN secondary to sepsis and obstructive uropathy. Creatinine 4.0 yesterday. 2. Bilateral hydronephrosis. Patient has a urostomy due to history of bladder cancer. Urology following. 3. Chronic kidney disease stage IIIB/4 with creatinine of 2.2 in December 2020. 4. Coag-negative staph bacteremia. 5. Metabolic acidosis secondary to acute kidney injury maintain on oral bicarbonate. Plan: Maintain IV fluids. Encouraged oral intake. Follow-up morning labs. Check magnesium level as well.
[2021-06-09] MEDS: polyethylene glycoL 3350 17 GM POWD.PACK PO SCH (08:32)
[2021-06-09] MEDS: PANTOPRAZOLE 40 MG/10 ML VIAL IVP SCH (08:32)
[2021-06-09] MEDS: HEPARIN SODIUM,PORCINE/PF 5,000 UNIT/0.5 ML SYRINGE SQ SCH ×2 (08:32→15:29)
[2021-06-09] MEDS: MORPHINE SULFATE 4 MG/ML SYRINGE IVP PRN (08:32)
[2021-06-09] MEDS: SODIUM BICARBONATE TAB 650 MG TAB PO SCH ×2 (08:32→21:16)
[2021-06-09] MEDS: LACTATED RINGERS 1,000 ML IV SCH ×2 (09:02→15:32)
[2021-06-09 09:18] LABS: African American GFR (CKD) 15.9 (60.0-200.0); Albumin 2.3 g/dL (3.8-4.9); Albumin/Globulin Ratio 0.85 (1.60-3.17); Anion Gap 10.1 mmol/L (10.00-18.00); BUN/Creat Ratio 16.73 Ratio (12.00-20.00); Blood Urea Nitrogen 66.9 mg/dL (9.0-27.0); Calcium 8.4 mg/dL (8.7-10.3); Carbon Dioxide 17.9 mmol/L (20.0-27.5); Globulin 2.7 g/dL (1.6-3.3); Non-African American GFR(CKD) 13.7 (60.0-200.0); Potassium 5.1 mmol/L (3.5-5.5); Total Bilirubin 0.6 mg/dL (0.30-1.20)
--- NOTE | 2021-06-09 12:55 | P.CON ---
Consult Note - . Assessment/Plan:: Complains ofsomeabdominalpainandspasmsalthoughimprovingr Patient commands of abdominal pain today Constitutional: No acute distress, conversant, pleasant Eyes: Anicteric sclerae, moist conjunctiva, no lid-lag PERRLA ENMT: NC/AT Oropharynx clear, no erythema, exudates Neck: Supple, FROM, no masses, or JVD No carotid bruits No thyromegaly Lungs: Clear to auscultation Clear to percussion Normal respiratory effort, no accessory muscle use Cardiovascular: Heart regular in rate and rhythm, No murmurs, gallops, or rubs No peripheral edema Abdominal: Soft Nontender, no guarding, rebound or rigidity Abdomen moving with respiration Normoactive bowel sounds No hepatomegaly, No splenomegaly No palpable mass No abdominal wall hernia noted Skin: Normal temperature, tone, texture, turgor No induration No subcutaneous nodules No rash, lesions No ulcers Extremities: No digital cyanosis No clubbing Pedal pulses intact and symmetrical Radial pulses intact and symmetrical Normal gait and station No calf tenderness Psychiatric:Alert and oriented to person, place and time Appropriate affect Intact judgement Neuro: Muscles Strength 5/5 in all 4 extremities Sensation to light touch grossly present throughout Cranial nerves II-XII grossly intact No focal sensory deficits Septic Shock Complicated UTI GISELA I s/p 4 L normal saline, now on bicarb drip nephrology consult on levophed and vasopressin wean as ICU ceftriaxone 2g daily f/u UCx, BCx pending renal US to rule out abscess strict ins and outs avoid nephrotoxins Subclinical Hypothyroidism Patient still complaining of abdominal pain and decreased output of this time he will consult surgery overall improving Sepsis overall improving quite blood cells overall improving we'll continue IV antibiotics for a few days No indication for levothyroxine at this time repeat labs once patient is more stable and sepsis resolves Continue management as better ICU team overall appears to be stable Overall slowly improving patient off pressors leukocytosis slowly improving Nonspecific abdominal pain currently stable no tenderness we'll consider computed tomography scan of the abdomen if the pain persists Laboratory and objective meeting 45 GI PPX lovenox dvt ppx full code
--- NOTE | 2021-06-09 13:38 | P.GSCN ---
<Emily Barba - Last Filed: 06/09/21 13:26> History of Present Illness Consult date: 06/09/21 Reason for Consult: Decreased output from colostomy Requesting physician: Faustina Roland History of present illness: CHIEF COMPLAINT: Urinary tract infection HISTORY OF PRESENT ILLNESS: This is 76-year-old male who presented to the emergency department on 06/03/2021 with complaints of generalized weakness and was recently given an antibiotic for a urinary tract infection. He was admitted with septic shock, complicated urinary tract infection and acute kidney injury. The patient has a history of bladder cancer with a large tumor which he underwent surgery in January 2021 at the [facility] with a colos bren and urostomy creation. Patient states he had a fistula and he underwent a bowel resection. He states he normally has good output however sometimes he will have decreased output depending on what he eats. He has not had much to eat states he has not been eating the food due to the taste. He states yesterday was the first time he really had anything to eat since his daughter brought him in a couple cheeseburgers. He denies any nausea or vomiting. Denies any blood in his stool. States he has had some lower abdominal pelvic pain which has been improving. He denies any bloating. He is passing gas. His been afebrile. 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 ALLERGIES: See list. SOCIAL HISTORY: No illicit drug use. REVIEW OF SYSTEMS: CONSTITUTIONAL: Denies fever or chills. HEENT: Denies blurred vision, vision changes, or eye pain. Denies hemoptysis CARDIOVASCULAR: Denies chest pain or pressure. RESPIRATORY: No shortness of breath. GASTROINTESTINAL: See HPI for pertinent findings HEMATOLOGIC: Denies bleeding disorders. GENITOURINARY: Denies any blood in urine or increased urinary frequency. SKIN: Denies pruitis. Denies rash. PHYSICAL EXAM: VITAL SIGNS: Reviewed GENERAL: Well-developed in no acute distress. HEENT: No sclera icterus. Extraocular movements grossly intact. Moist buccal mucosa. Head is atraumatic, normocephalic. No nasal drainage. ABDOMEN: Soft. Nontender. Nondistended. Urostomy right lower abdomen with clear yellow urine, left abdomen with colostomy with scant amount of brown stool. NEUROLOGIC: Alert and oriented. Cranial nerves II through XII grossly intact. LABORATORY DATA: WBC 10.3 hemoglobin 9.9 hematocrit 29 platelet count 104,000 Sodium 132 potassium 5.1 BUN 66.9 creatinine 4.0 glucose 86 Total bilirubin 0.6 AST 17 ALT 24 alk phos 124 total protein 5.0 albumin 2.3 IMAGING: Chest x-ray shows interval development of mild left lower lobe atelectasis with no other significant abnormality Ultrasound kidneys/renal and bladder shows moderate to severe right-sided hydronephrosis remains present. Cannot exclude mild left-sided hydronephrosis ASSESSMENT: PLAN: 1. Continue MiraLAX, may titrate up to twice a day 2. Encourage ambulation 3. Recommend discontinuing narcotics 4. Abdominal x-ray ordered 5. Further recommendations forthcoming per surgeon The impression and plan of care has been dictated as directed. Dr. Melendez I performed a history and examination of this patient, discussed the same with the dictator. I agree with the dictator's note ,documented as a scribe. Any additional findings or plans will be noted. 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, post colectomy and colostomy and a cystectomy jan 2021 History of Any Multi-Drug Resistant Organisms: None Reported Past Surgical History: Bladder Surgery, Bowel Resection Additional Past Surgical History / Comment(s): December 2020 at [facility] patient had a bladder/colon fistula repair resulting in a double ostomy- urostomy and colostomy Past Anesthesia/Blood Transfusion Reactions: No Reported Reaction Additional Past Anesthesia/Blood Transfusion Reaction / Comm: No transfusion Past Psychological History: No Psychological Hx Reported Smoking Status: Former smoker Past Alcohol Use History: None Reported Past Drug Use History: None Reported - Past Family History family Family Medical History: No Reported History Medications and Allergies Home Medications Medication Instructions Recorded Confirmed Type Acetaminophen Tab [Tylenol Tab] 1,000 mg PO Q6HR PRN 06/03/21 06/03/21 History Famotidine [Pepcid] 20 mg PO BID PRN 06/03/21 06/03/21 History Levofloxacin [Levaquin] 500 mg PO DAILY 06/03/21 06/03/21 History Allergies Allergy/AdvReac Type Severity Reaction Status Date / Time No Known Allergies Allergy Verified 06/03/21 15:55 Surgical - Exam Vital Signs Temp Pulse Resp BP Pulse Ox 98.6 F 130 H 18 78/52 94 L 06/03/21 13:25 06/03/21 13:25 06/03/21 13:25 06/03/21 13:25 06/03/21 13:25 Results - Labs 06/09/21 06:02 06/09/21 06:02 Abnormal Lab Results - Last 24 Hours (Table) 06/09/21 06/09/21 Range/Units 06:02 06:02 RBC 3.09 L (4.30-5.90) m/uL Hgb 9.9 L (13.0-17.5) gm/dL Hct 29.9 L (39.0-53.0) % Plt Count 104 L (150-450) k/uL Neutrophils # 8.2 H (1.3-7.7) k/uL Lymphocytes # 0.9 L (1.0-4.8) k/uL Sodium 132 L (135-145) mmol/L Carbon Dioxide 17.9 L (20.0-27.5) mmol/L BUN 66.9 H (9.0-27.0) mg/dL Creatinine 4.0 H (0.6-1.5) mg/dL Est GFR (CKD-EPI)AfAm 15.9 L (60.0-200.0) Est GFR (CKD-EPI)NonAf 13.7 L (60.0-200.0) Calcium 8.4 L (8.7-10.3) mg/dL Total Protein 5.0 L (6.2-8.2) g/dL Albumin 2.3 L (3.8-4.9) g/dL Albumin/Globulin Ratio 0.85 L (1.60-3.17) g/dL Diabetes panel 06/09/21 Range/Units 06:02 Sodium 132 L (135-145) mmol/L Potassium 5.1 (3.5-5.5) mmol/L Chloride 104 (96-109) mmol/L Carbon Dioxide 17.9 L (20.0-27.5) mmol/L BUN 66.9 H (9.0-27.0) mg/dL Creatinine 4.0 H (0.6-1.5) mg/dL Glucose 86 (70-110) mg/dL Calcium 8.4 L (8.7-10.3) mg/dL AST 17 (14-35) U/L ALT 24 (10-49) U/L Alkaline Phosphatase 124 (41-126) U/L Total Protein 5.0 L (6.2-8.2) g/dL Albumin 2.3 L (3.8-4.9) g/dL Calcium panel 06/09/21 Range/Units 06:02 Calcium 8.4 L (8.7-10.3) mg/dL Albumin 2.3 L (3.8-4.9) g/dL Pituitary panel 06/09/21 Range/Units 06:02 Sodium 132 L (135-145) mmol/L Potassium 5.1 (3.5-5.5) mmol/L Chloride 104 (96-109) mmol/L Carbon Dioxide 17.9 L (20.0-27.5) mmol/L BUN 66.9 H (9.0-27.0) mg/dL Creatinine 4.0 H (0.6-1.5) mg/dL Glucose 86 (70-110) mg/dL Calcium 8.4 L (8.7-10.3) mg/dL Adrenal panel 06/09/21 Range/Units 06:02 Sodium 132 L (135-145) mmol/L Potassium 5.1 (3.5-5.5) mmol/L Chloride 104 (96-109) mmol/L Carbon Dioxide 17.9 L (20.0-27.5) mmol/L BUN 66.9 H (9.0-27.0) mg/dL Creatinine 4.0 H (0.6-1.5) mg/dL Glucose 86 (70-110) mg/dL Calcium 8.4 L (8.7-10.3) mg/dL Total Bilirubin 0.60 (0.30-1.20) mg/dL AST 17 (14-35) U/L ALT 24 (10-49) U/L Alkaline Phosphatase 124 (41-126) U/L Total Protein 5.0 L (6.2-8.2) g/dL Albumin 2.3 L (3.8-4.9) g/dL <Markel Melendez - Last Filed: 06/09/21 15:59> History of Present Illness History of present illness: I have personally seen and examined the patient, reviewed the CALL CENTER SUPERVISOR /PAs history, exam and MDM and agree with the assessment and plan as written. Based on total visit time, I have performed more than 50% of the visit. As above. Patient describes anorexia and possibly some nausea prior to admission. Abdominal x-rays reviewed and shows some small bowel dilation. Will order CT abdomen and pelvis at this time to evaluate for ileus versus small dominic wel obstruction. This was discussed with the patient. He is not excited about the fact that he is having any further testing done however the patient would like to continue eating and I notified him that if an obstruction is present he is at risk for aspiration or further complications. Surgical - Exam Vital Signs Temp Pulse Resp BP Pulse Ox 98.6 F 130 H 18 78/52 94 L 06/03/21 13:25 06/03/21 13:25 06/03/21 13:25 06/03/21 13:25 06/03/21 13:25 Results - Labs 06/09/21 06:02 06/09/21 06:02 Abnormal Lab Results - Last 24 Hours (Table) 06/09/21 06/09/21 Range/Units 06:02 06:02 RBC 3.09 L (4.30-5.90) m/uL Hgb 9.9 L (13.0-17.5) gm/dL Hct 29.9 L (39.0-53.0) % Plt Count 104 L (150-450) k/uL Neutrophils # 8.2 H (1.3-7.7) k/uL Lymphocytes # 0.9 L (1.0-4.8) k/uL Sodium 132 L (135-145) mmol/L Carbon Dioxide 17.9 L (20.0-27.5) mmol/L BUN 66.9 H (9.0-27.0) mg/dL Creatinine 4.0 H (0.6-1.5) mg/dL Est GFR (CKD-EPI)AfAm 15.9 L (60.0-200.0) Est GFR (CKD-EPI)NonAf 13.7 L (60.0-200.0) Calcium 8.4 L (8.7-10.3) mg/dL Total Protein 5.0 L (6.2-8.2) g/dL Albumin 2.3 L (3.8-4.9) g/dL Albumin/Globulin Ratio 0.85 L (1.60-3.17) g/dL Diabetes panel 06/09/21 Range/Units 06:02 Sodium 132 L (135-145) mmol/L Potassium 5.1 (3.5-5.5) mmol/L Chloride 104 (96-109) mmol/L Carbon Dioxide 17.9 L (20.0-27.5) mmol/L BUN 66.9 H (9.0-27.0) mg/dL Creatinine 4.0 H (0.6-1.5) mg/dL Glucose 86 (70-110) mg/dL Calcium 8.4 L (8.7-10.3) mg/dL AST 17 (14-35) U/L ALT 24 (10-49) U/L Alkaline Phosphatase 124 (41-126) U/L Total Protein 5.0 L (6.2-8.2) g/dL Albumin 2.3 L (3.8-4.9) g/dL Calcium panel 06/09/21 Range/Units 06:02 Calcium 8.4 L (8.7-10.3) mg/dL Albumin 2.3 L (3.8-4.9) g/dL Pituitary panel 06/09/21 Range/Units 06:02 Sodium 132 L (135-145) mmol/L Potassium 5.1 (3.5-5.5) mmol/L Chloride 104 (96-109) mmol/L Carbon Dioxide 17.9 L (20.0-27.5) mmol/L BUN 66.9 H (9.0-27.0) mg/dL Creatinine 4.0 H (0.6-1.5) mg/dL Glucose 86 (70-110) mg/dL Calcium 8.4 L (8.7-10.3) mg/dL Adrenal panel 06/09/21 Range/Units 06:02 Sodium 132 L (135-145) mmol/L Potassium 5.1 (3.5-5.5) mmol/L Chloride 104 (96-109) mmol/L Carbon Dioxide 17.9 L (20.0-27.5) mmol/L BUN 66.9 H (9.0-27.0) mg/dL Creatinine 4.0 H (0.6-1.5) mg/dL Glucose 86 (70-110) mg/dL Calcium 8.4 L (8.7-10.3) mg/dL Total Bilirubin 0.60 (0.30-1.20) mg/dL AST 17 (14-35) U/L ALT 24 (10-49) U/L Alkaline Phosphatase 124 (41-126) U/L Total Protein 5.0 L (6.2-8.2) g/dL Albumin 2.3 L (3.8-4.9) g/dL
--- NOTE | 2021-06-09 14:05 | XR ---
EXAMINATION TYPE: XR abdomen 2V DATE OF EXAM: 06/09/2021 COMPARISON: None INDICATION: Abdomen pain TECHNIQUE: Abdomen is examined in the supine and upright views. FINDINGS: There are dilated small bowel loops within the mid and left mid abdomen. Air is within the stomach. C olonic bowel gas is not identified. Clinical consideration for obstruction is recommended. Ileus coul d be considered. Psoas margins are poorly visualized No organomegaly is present. Surgical sutures in the mid lower pelvis. Surgical clips in the right lower quadrant over the sacral alae. IMPRESSION: 1. Dilated air-filled small bowel loops in the left mid abdomen. Correlate for obstruction or ileus. Follow-up is recommended. A Red level critical message alert has been initiated for Emily Barba via the [employer] on 06/09/2021 2:03 PM. This message alert has been sent to Emily Barba via the preferences provided by the clinician for the receipt of Radiology Critical Findings. Message ID [id number].
[2021-06-09] MEDS: IOPAMIDOL CONTRAST (ORAL USE) VIAL PO PRN ×2 (14:22→15:29)
--- NOTE | 2021-06-09 16:37 | CT ---
EXAMINATION TYPE: CT abdomen pelvis wo con DATE OF EXAM: 06/09/2021 HISTORY: SBO and pain. CT DLP: 889.50 mGycm. Automated Exposure Control for Dose Reduction was Utilized. TECHNIQUE: CT scan of the abdomen and pelvis is performed with oral but without IV contrast. COMPARISON: CT abdomen and pelvis January 20, 2021. Abdominal x-ray 2 view earlier today. FINDINGS: Within the limitations of a non-contrast study, the following observations are made. LUNG BASES: Small left greater than right pleural effusions with associated compressive atelectasis i ncreased in size and more prominent from prior CT. Mild bibasilar linear scarring redemonstrated. Sma ll to moderate-sized pericardial effusion slightly larger from prior CT. LIVER/GB: Stable 2.0 cm lateral left hepatic dome lesion axial image 20 favored benign thin-walled cy st. New nonspecific vague 2.1 cm peripheral right hepatic lobe low dense lesion axial image 36 requir es follow-up. Multiple dependent small gallstones within gallbladder redemonstrated. No new surroundi ng fat stranding. PANCREAS: No significant abnormality is seen. SPLEEN: No significant abnormality is seen. ADRENALS: No significant abnormality is seen. KIDNEYS: Asymmetric diminished size and cortical thinning to the left kidney with scattered simple ap pearing thin-walled cysts. Moderate to severe right-sided hydronephrosis and hydroureter redemonstrated. [place] bladder not well visualized current study perhaps surgically absent or decompressed. Moderate amount of free fluid in the pelvis axial image 86 current study . Scattered bilateral pelvic phleboli ths redemonstrated. BOWEL: Oral contrast only reaches jejunal loops in the left mid abdomen making evaluation of bowel álvarez boptimal. Contrast mildly distended stomach current study. Contrast prominent duodenal sweep extends into dilated contrast filled jejunal loops. There are air-fluid levels in small bowel loops throughou t the abdomen. There is upper to mid left-sided colostomy on current study which is new from the prio r. There is new right mid sided ostomy suspect ileal conduit after bladder resection. Moderate fecal prominence throughout visualized colon nearly to site of ostomy. Distal colonic diverticula. A few fl uid-filled small bowel loops in the pelvis are less prominent in size. Fecal filled terminal ileum consistent with delayed passage of ingested material to colonic level GENITAL ORGANS: Prostate gland is prominent in size versus prior thought at least partially resected. LYMPH NODES: No definitive greater than 1cm abdominal or pelvic lymph nodes are appreciated. Suboptim al evaluation without IV contrast. OSSEOUS STRUCTURES: [id number] multilevel spurring in the spine. Facet arthropathy lower lumbar levels. OTHER: For calcified plaque of the aorta extends into branch vessels. IMPRESSION: Suboptimal study. Likely degree of ileus is present. Partial small bowel obstruction monika ot be excluded. Further details as noted above.
[2021-06-10] MEDS: HEPARIN SODIUM,PORCINE/PF 5,000 UNIT/0.5 ML SYRINGE SQ SCH ×3 (00:22→16:25)
[2021-06-10 06:54] LABS: Basophils % (A) 0 %; Eosinophils # (A) 0.2 k/uL (0-0.7); Eosinophils % (A) 2 %; HCT 29.5 % (39.0-53.0); HGB 9.9 gm/dL (13.0-17.5); Lymphocytes % (A) 10 %; MCH 32.1 pg (25.0-35.0); MCHC 33.6 g/dL (31.0-37.0); MCV 95.6 fL (80.0-100.0); Mean Platelet Volume 8.4; Monocytes # (A) 0.6 k/uL (0-1.0); Monocytes % (A) 6 %; Neutrophils # (A) 7.7 k/uL (1.3-7.7); Neutrophils % (A) 79 %; Platelet Count 155 k/uL (150-450); RBC 3.09 m/uL (4.30-5.90); RDW 15.7 % (11.5-15.5); WBC 9.8 k/uL (3.8-10.6)
[2021-06-10] MEDS: LACTATED RINGERS 1,000 ML IV SCH ×2 (07:40→21:46)
--- NOTE | 2021-06-10 08:29 | P.PN ---
Subjective Progress Note Date: 06/10/21 Principal diagnosis: Patient feels better today did have a bowel movement Complains ofsomeabdominalpainandspasmsalthoughimprovingr Patient commands of abdominal pain today Constitutional: No acute distress, conversant, pleasant Eyes: Anicteric sclerae, moist conjunctiva, no lid-lag PERRLA ENMT: NC/AT Oropharynx clear, no erythema, exudates Neck: Supple, FROM, no masses, or JVD No carotid bruits No thyromegaly Lungs: Clear to auscultation Clear to percussion Normal respiratory effort, no accessory muscle use Cardiovascular: Heart regular in rate and rhythm, No murmurs, gallops, or rubs No peripheral edema Abdominal: Soft Nontender, no guarding, rebound or rigidity Abdomen moving with respiration Normoactive bowel sounds No hepatomegaly, No splenomegaly No palpable mass No abdominal wall hernia noted Skin: Normal temperature, tone, texture, turgor No induration No subcutaneous nodules No rash, lesions No ulcers Extremities: No digital cyanosis No clubbing Pedal pulses intact and symmetrical Radial pulses intact and symmetrical Normal gait and station No calf tenderness Psychiatric:Alert and oriented to person, place and time Appropriate affect Intact judgement Neuro: Muscles Strength 5/5 in all 4 extremities Sensation to light touch grossly present throughout Cranial nerves II-XII grossly intact No focal sensory deficits Septic Shock Complicated UTI GISELA I s/p 4 L normal saline, now on bicarb drip nephrology consult on levophed and vasopressin wean as ICU ceftriaxone 2g daily f/u UCx, BCx pending renal US to rule out abscess strict ins and outs avoid nephrotoxins Subclinical Hypothyroidism Patient still complaining of abdominal pain Did have a bowel movement Continue following as per surgery consider computed tomography scan of the abdomen Sepsis overall improving quite blood cells overall improving we'll continue IV antibiotics for a few days No indication for levothyroxine at this time repeat labs once patient is more stable and sepsis resolves Continue management as better ICU team overall appears to be stable Overall slowly improving patient off pressors leukocytosis slowly improving Nonspecific abdominal pain currently stable no tenderness w GI PPX Objective - Vital Signs Vital signs: Vital Signs Temp 97.9 F 06/10/21 05:00 Pulse 90 06/10/21 05:00 Resp 16 06/10/21 05:00 BP 157/71 06/10/21 05:00 Pulse Ox 97 06/10/21 05:00 Intake & Output 06/09/21 06/10/21 06/10/21 18:59 06:59 18:59 Intake Total 900 Output Total 1500 Balance -600 Intake: Intake, IV Titration 900 Amount Lactated Ringers 1,000 ml 900 @ 75 mls/hr IV .[id number] [facility] Rx#:[id number] Output: Urine 1500 Other: Voiding Method Ileal Conduit (Right) Ileal Conduit (Right) - Labs CBC & Chem 7: 06/10/21 06:05 06/09/21 06:02 Labs: Abnormal Lab Results - Last 24 Hours (Table) 06/09/21 06/10/21 Range/Units 06:02 06:05 RBC 3.09 L (4.30-5.90) m/uL Hgb 9.9 L (13.0-17.5) gm/dL Hct 29.5 L (39.0-53.0) % RDW 15.7 H (11.5-15.5) % Sodium 132 L (135-145) mmol/L Carbon Dioxide 17.9 L (20.0-27.5) mmol/L BUN 66.9 H (9.0-27.0) mg/dL Creatinine 4.0 H (0.6-1.5) mg/dL Est GFR (CKD-EPI)AfAm 15.9 L (60.0-200.0) Est GFR (CKD-EPI)NonAf 13.7 L (60.0-200.0) Calcium 8.4 L (8.7-10.3) mg/dL Total Protein 5.0 L (6.2-8.2) g/dL Albumin 2.3 L (3.8-4.9) g/dL Albumin/Globulin Ratio 0.85 L (1.60-3.17) g/dL
[2021-06-10] MEDS: SODIUM BICARBONATE TAB 650 MG TAB PO SCH ×2 (08:42→21:44)
[2021-06-10] MEDS: polyethylene glycoL 3350 17 GM POWD.PACK PO SCH (08:44)
[2021-06-10 09:52] LABS: African American GFR (CKD) 15.4 (60.0-200.0); Albumin 2.3 g/dL (3.8-4.9); Albumin/Globulin Ratio 0.84 (1.60-3.17); Anion Gap 13.9 mmol/L (10.00-18.00); BUN/Creat Ratio 15.61 Ratio (12.00-20.00); Calcium 8.4 mg/dL (8.7-10.3); Carbon Dioxide 15.6 mmol/L (20.0-27.5); Globulin 2.8 g/dL (1.6-3.3); Magnesium 1.8 mg/dL (1.5-2.4); Non-African American GFR(CKD) 13.3 (60.0-200.0); Potassium 4.9 mmol/L (3.5-5.5); Total Bilirubin 0.6 mg/dL (0.30-1.20); Total Protein 5.1 g/dL (6.2-8.2)
--- NOTE | 2021-06-10 10:46 | P.PN ---
Subjective Patient is seen in follow-up for acute kidney injury on chronic kidney disease. Renal function stable. Nonoliguric. Oral intake fair. No vomiting. Low output from ostomy. Vital signs are stable. General: The patient appeared well nourished and normally developed. HEENT: Head exam is unremarkable. LUNGS: Breath sounds decreased. HEART: Rate and Rhythm are regular. ABDOMEN: Soft, no distention. Urostomy noted. EXTREMITITES: No edema. Objective - Vital Signs Vital signs: Vital Signs Temp 97.9 F 06/10/21 05:00 Pulse 90 06/10/21 05:00 Resp 16 06/10/21 05:00 BP 157/71 06/10/21 05:00 Pulse Ox 97 06/10/21 05:00 Intake & Output 06/09/21 06/10/21 06/10/21 18:59 06:59 18:59 Intake Total 900 Output Total 1500 300 Balance -600 -300 Intake: Intake, IV Titration 900 Amount Lactated Ringers 1,000 ml 900 @ 75 mls/hr IV .[id number] [facility] Rx#:[id number] Output: Urine 1500 Stool 300 Other: Voiding Method Ileal Conduit (Right) Ileal Conduit (Right) - Labs CBC & Chem 7: 06/10/21 06:05 06/10/21 06:05 Labs: Abnormal Lab Results - Last 24 Hours (Table) 06/10/21 06/10/21 Range/Units 06:05 06:05 RBC 3.09 L (4.30-5.90) m/uL Hgb 9.9 L (13.0-17.5) gm/dL Hct 29.5 L (39.0-53.0) % RDW 15.7 H (11.5-15.5) % Sodium 133 L (135-145) mmol/L Carbon Dioxide 15.6 L (20.0-27.5) mmol/L BUN 64.0 H (9.0-27.0) mg/dL Creatinine 4.1 H (0.6-1.5) mg/dL Est GFR (CKD-EPI)AfAm 15.4 L (60.0-200.0) Est GFR (CKD-EPI)NonAf 13.3 L (60.0-200.0) Calcium 8.4 L (8.7-10.3) mg/dL Total Protein 5.1 L (6.2-8.2) g/dL Albumin 2.3 L (3.8-4.9) g/dL Albumin/Globulin Ratio 0.84 L (1.60-3.17) g/dL Assessment and Plan Plan: Assessment: 1. Acute kidney injury secondary to ATN secondary to sepsis and obstructive uropathy. Creatinine stable at 4.1. Nonoliguric. 2. Bilateral hydronephrosis. Patient has a urostomy due to history of bladder cancer. Urology following. 3. Chronic kidney disease stage IIIB/4 with creatinine of 2.2 in December 2020. 4. Coag-negative staph bacteremia. 5. Metabolic acidosis secondary to acute kidney injury maintain on oral bicarbonate. 6. Abdominal pain. Ileus versus bowel obstruction. Surgery following. Plan: Patient currently doesn't have an IV access. Encouraged oral intake. Increase dose of oral bicarbonate. Avoid nephrotoxins. Continue to assess daily for need for renal replacement therapy. No urgency at this time. Follow-up outpatient 1 week post discharge.
[2021-06-10] MEDS: PANTOPRAZOLE 40 MG/10 ML VIAL IVP SCH (11:41)
--- NOTE | 2021-06-10 11:48 | P.PN ---
<Freda,Renee - Last Filed: 06/10/21 11:42> Subjective Progress Note Date: 06/10/21 CHIEF COMPLAINT: Urinary tract infection, decreased output from colostomy HISTORY OF PRESENT ILLNESS: This is 76-year-old male who was seen and evaluated today as a follow-up. Yesterday surgery was asked to see the patient regarding decreased output from his colostomy. An x-ray was obtained that showed dilated air-filled small bowel loops in the left mid abdomen. Correlate for obstruction or ileus. A CT of the abdomen and pelvis was ordered that shows there was likely degree of ileus present. Partial small bowel obstruction cannot be excluded. However the patient today has had 2 moderate size soft brown bowel movements through his ostomy. His ostomy bag was emptied once ready this morning. He is denying any abdominal pain, nausea, or vomiting. He is tolerating his regular diet. PHYSICAL EXAM: VITAL SIGNS: Reviewed. GENERAL: Well-developed in no acute distress. HEENT: No sclera icterus. Extraocular movements grossly intact. Moist buccal mucosa. Head is atraumatic, normocephalic. ABDOMEN: Soft. Nondistended. Nontender. NEUROLOGIC: Alert and oriented. Cranial nerves II through XII grossly intact. ASSESSMENT: 1. Decreased output from ostomy, x-ray and CT of abdomen showing likely degree of ileus. 2. Urinary tract infection 3. History of bladder cancer with tumor status post urostomy and colostomy creation January 2021 PLAN: 1. CT abdomen and pelvis reviewed 2. Continue regular diet 3. Patient is now having good colostomy output. At this time there is no tali cation for any surgical intervention. The impression and plan of care has been dictated as directed. Dr. Melendez I performed a history and examination of this patient, discussed the same with the dictator. I agree with the dictator's note ,documented as a scribe. Any additional findings or plans will be noted. Objective - Vital Signs Vital signs: Vital Signs Temp 97.9 F 06/10/21 05:00 Pulse 90 06/10/21 05:00 Resp 16 06/10/21 05:00 BP 157/71 06/10/21 05:00 Pulse Ox 97 06/10/21 05:00 Intake & Output 01/17/22 01/18/22 01/18/22 18:59 06:59 18:59 Intake Total 900 Output Total 1500 300 Balance -600 -300 Intake: Intake, IV Titration 900 Amount Lactated Ringers 1,000 ml 900 @ 75 mls/hr IV .[id number] [facility] Rx#:[id number] Output: Urine 1500 Stool 300 Other: Voiding Method Ileal Conduit (Right) Ileal Conduit (Right) - Labs CBC & Chem 7: 06/10/21 06:05 06/10/21 06:05 Labs: Abnormal Lab Results - Last 24 Hours (Table) 06/09/21 06/10/21 Range/Units 06:02 06:05 RBC 3.09 L (4.30-5.90) m/uL Hgb 9.9 L (13.0-17.5) gm/dL Hct 29.5 L (39.0-53.0) % RDW 15.7 H (11.5-15.5) % Sodium 132 L (135-145) mmol/L Carbon Dioxide 17.9 L (20.0-27.5) mmol/L BUN 66.9 H (9.0-27.0) mg/dL Creatinine 4.0 H (0.6-1.5) mg/dL Est GFR (CKD-EPI)AfAm 15.9 L (60.0-200.0) Est GFR (CKD-EPI)NonAf 13.7 L (60.0-200.0) Calcium 8.4 L (8.7-10.3) mg/dL Total Protein 5.0 L (6.2-8.2) g/dL Albumin 2.3 L (3.8-4.9) g/dL Albumin/Globulin Ratio 0.85 L (1.60-3.17) g/dL <Markel Melendez - Last Filed: 06/10/21 13:23> Subjective I have personally seen and examined the patient, reviewed the MOBILE APPLICATION ENGINEER /PAs history, exam and MDM and agree with the assessment and plan as written. Based on total visit time, I have performed more than 50% of the visit. As above. Patient with a large volume of stool overnight. Likely the oral contrast from CAT scan helped with this. Films reviewed. Cannot rule out a mild PSBO versus ileus. Continue regular diet but will switch to low fiber. Increase activity as tolerated. Will follow for now. Objective - Vital Signs Vital signs: Vital Signs Temp 97.7 F 06/10/21 11:28 Pulse 90 06/10/21 11:28 Resp 18 06/10/21 11:28 BP 135/71 06/10/21 11:28 Pulse Ox 98 06/10/21 11:28 Intake & Output 06/09/21 06/10/21 06/10/21 18:59 06:59 18:59 Intake Total 900 Output Total 1500 1200 Balance -600 -1200 Intake: Intake, IV Titration 900 Amount Lactated Ringers 1,000 ml 900 @ 75 mls/hr IV .[id number] [facility] Rx#:[id number] Output: Urine 1500 900 Stool 300 Other: Voiding Method Ileal Conduit (Right) Ileal Conduit (Right) Ileal Conduit (Right) - Labs CBC & Chem 7: 06/10/21 06:05 06/10/21 06:05 Labs: Abnormal Lab Results - Last 24 Hours (Table) 06/10/21 06/10/21 Range/Units 06:05 06:05 RBC 3.09 L (4.30-5.90) m/uL Hgb 9.9 L (13.0-17.5) gm/dL Hct 29.5 L (39.0-53.0) % RDW 15.7 H (11.5-15.5) % Sodium 133 L (135-145) mmol/L Carbon Dioxide 15.6 L (20.0-27.5) mmol/L BUN 64.0 H (9.0-27.0) mg/dL Creatinine 4.1 H (0.6-1.5) mg/dL Est GFR (CKD-EPI)AfAm 15.4 L (60.0-200.0) Est GFR (CKD-EPI)NonAf 13.3 L (60.0-200.0) Calcium 8.4 L (8.7-10.3) mg/dL Total Protein 5.1 L (6.2-8.2) g/dL Albumin 2.3 L (3.8-4.9) g/dL Albumin/Globulin Ratio 0.84 L (1.60-3.17) g/dL
[2021-06-10 13:45] VITALS: BMI 24.5
[2021-06-11] MEDS: HEPARIN SODIUM,PORCINE/PF 5,000 UNIT/0.5 ML SYRINGE SQ SCH ×4 (00:34→23:59)
[2021-06-11 06:21] LABS: Basophils % (A) 0 %; Eosinophils # (A) 0.2 k/uL (0-0.7); Eosinophils % (A) 2 %; HCT 29.1 % (39.0-53.0); HGB 9.5 gm/dL (13.0-17.5); Lymphocytes # (A) 0.9 k/uL (1.0-4.8); Lymphocytes % (A) 9 %; MCH 31.2 pg (25.0-35.0); MCHC 32.8 g/dL (31.0-37.0); MCV 95.2 fL (80.0-100.0); Mean Platelet Volume 8.6; Monocytes # (A) 0.5 k/uL (0-1.0); Monocytes % (A) 5 %; Neutrophils # (A) 8.8 k/uL (1.3-7.7); Neutrophils % (A) 84 %; Platelet Count 205 k/uL (150-450); RBC 3.06 m/uL (4.30-5.90); RDW 15.3 % (11.5-15.5); WBC 10.5 k/uL (3.8-10.6)
--- NOTE | 2021-06-11 09:48 | P.PN ---
Subjective Patient is seen in follow-up for acute kidney injury on chronic kidney disease. Renal function stable. Nonoliguric. Oral intake fair. No vomiting. Output from the ostomy also improved. Vital signs are stable. General: The patient appeared well nourished and normally developed. HEENT: Head exam is unremarkable. LUNGS: Breath sounds decreased. HEART: Rate and Rhythm are regular. ABDOMEN: Soft, no distention. Urostomy noted. EXTREMITITES: No edema. Objective - Vital Signs Vital signs: Vital Signs Temp 98.1 F 06/11/21 08:00 Pulse 91 06/11/21 08:00 Resp 18 06/11/21 08:00 BP 145/66 06/11/21 08:00 Pulse Ox 97 06/10/21 19:36 Intake & Output 06/10/21 06/11/21 06/11/21 18:59 06:59 18:59 Intake Total 900 Output Total 2500 2550 Balance -1600 -2550 Weight 89.2 kg Intake: Intake, IV Titration 900 Amount Lactated Ringers 1,000 ml 900 @ 75 mls/hr IV .[id number] [facility] Rx#:[id number] Output: Urine 1700 1800 Stool 800 750 Other: Voiding Method Ileal Conduit (Right) Ileal Conduit (Right) - Labs CBC & Chem 7: 06/11/21 05:19 06/10/21 06:05 Labs: Abnormal Lab Results - Last 24 Hours (Table) 06/10/21 06/11/21 Range/Units 06:05 05:19 RBC 3.06 L (4.30-5.90) m/uL Hgb 9.5 L (13.0-17.5) gm/dL Hct 29.1 L (39.0-53.0) % Neutrophils # 8.8 H (1.3-7.7) k/uL Lymphocytes # 0.9 L (1.0-4.8) k/uL Sodium 133 L (135-145) mmol/L Carbon Dioxide 15.6 L (20.0-27.5) mmol/L BUN 64.0 H (9.0-27.0) mg/dL Creatinine 4.1 H (0.6-1.5) mg/dL Est GFR (CKD-EPI)AfAm 15.4 L (60.0-200.0) Est GFR (CKD-EPI)NonAf 13.3 L (60.0-200.0) Calcium 8.4 L (8.7-10.3) mg/dL Total Protein 5.1 L (6.2-8.2) g/dL Albumin 2.3 L (3.8-4.9) g/dL Albumin/Globulin Ratio 0.84 L (1.60-3.17) g/dL Assessment and Plan Plan: Assessment: 1. Acute kidney injury secondary to ATN secondary to sepsis and obstructive uropathy. Creatinine stable at 4.1 yesterday. Nonoliguric. 2. Bilateral hydronephrosis. Patient has a urostomy due to history of bladder cancer. Urology following. 3. Chronic kidney disease stage IIIB/4 with creatinine of 2.2 in December 2020. 4. Coag-negative staph bacteremia. 5. Metabolic acidosis secondary to acute kidney injury maintain on oral bicarbonate. 6. Abdominal pain. Ileus versus bowel obstruction. Surgery following. Plan: Encouraged oral intake. Avoid nephrotoxins. Continue to assess daily for need for renal replacement therapy. No urgency at this time. Follow-up outpatient 1 week post discharge. Morning labs pending.
--- NOTE | 2021-06-11 10:24 | P.PN ---
Subjective Progress Note Date: 06/11/21 Principal diagnosis: Patient is still very weak Patient feels better today did have a bowel movement Complains ofsomeabdominalpainandspasmsalthoughimprovingr Patient commands of abdominal pain today Constitutional: No acute distress, conversant, pleasant Eyes: Anicteric sclerae, moist conjunctiva, no lid-lag PERRLA ENMT: NC/AT Oropharynx clear, no erythema, exudates Neck: Supple, FROM, no masses, or JVD No carotid bruits No thyromegaly Lungs: Clear to auscultation Clear to percussion Normal respiratory effort, no accessory muscle use Cardiovascular: Heart regular in rate and rhythm, No murmurs, gallops, or rubs No peripheral edema Abdominal: Soft Nontender, no guarding, rebound or rigidity Abdomen moving with respiration Normoactive bowel sounds No hepatomegaly, No splenomegaly No palpable mass No abdominal wall hernia noted Skin: Normal temperature, tone, texture, turgor No induration No subcutaneous nodules No rash, lesions No ulcers Extremities: No digital cyanosis No clubbing Pedal pulses intact and symmetrical Radial pulses intact and symmetrical Normal gait and station No calf tenderness Psychiatric:Alert and oriented to person, place and time Appropriate affect Intact judgement Neuro: Muscles Strength 5/5 in all 4 extremities Sensation to light touch grossly present throughout Cranial nerves II-XII grossly intact No focal sensory deficits Septic Shock Complicated UTI GISELA I s/p 4 L normal saline, now on bicarb drip nephrology consult on levophed and vasopressin wean as ICU ceftriaxone 2g daily f/u UCx, BCx pending renal US to rule out abscess strict ins and outs avoid nephrotoxins Subclinical Hypothyroidism Patient still complaining of abdominal pain Did have a bowel movement Sepsis overall improving quite blood cells overall improving we'll continue IV antibiotics for a few days No indication for levothyroxine at this time repeat labs once patient is more stable and sepsis resolves Continue management as better ICU team overall appears to be stable Overall slowly improving patient off pressors leukocytosis slowly improving Nonspecific abdominal pain currently stable no tenderness w No evidence of OBSTRUCTION PATIENT HAVING BETTER OUTPUT IN THE stoma Overall slowly improving hopefully senior care in a day or 2 Objective - Vital Signs Vital signs: Vital Signs Temp 98.1 F 06/11/21 08:00 Pulse 91 06/11/21 08:00 Resp 18 01/19/22 08:00 BP 145/66 06/11/21 08:00 Pulse Ox 97 06/10/21 19:36 Intake & Output 06/10/21 06/11/21 06/11/21 18:59 06:59 18:59 Intake Total 900 Output Total 2500 2550 Balance -1600 -2550 Weight 89.2 kg Intake: Intake, IV Titration 900 Amount Lactated Ringers 1,000 ml 900 @ 75 mls/hr IV .[id number] [facility] Rx#:[id number] Output: Urine 1700 1800 Stool 800 750 Other: Voiding Method Ileal Conduit (Right) Ileal Conduit (Right) - Labs CBC & Chem 7: 06/11/21 05:19 06/10/21 06:05 Labs: Abnormal Lab Results - Last 24 Hours (Table) 06/11/21 Range/Units 05:19 RBC 3.06 L (4.30-5.90) m/uL Hgb 9.5 L (13.0-17.5) gm/dL Hct 29.1 L (39.0-53.0) % Neutrophils # 8.8 H (1.3-7.7) k/uL Lymphocytes # 0.9 L (1.0-4.8) k/uL
[2021-06-11] MEDS: LACTATED RINGERS 1,000 ML IV SCH ×2 (10:30→22:28)
[2021-06-11] MEDS: PANTOPRAZOLE 40 MG/10 ML VIAL IVP SCH (11:03)
[2021-06-11] MEDS: polyethylene glycoL 3350 17 GM POWD.PACK PO SCH (11:05)
[2021-06-11] MEDS: SODIUM BICARBONATE TAB 650 MG TAB PO SCH ×2 (11:05→20:17)
[2021-06-11 11:36] LABS: African American GFR (CKD) 15.4 (60.0-200.0); Albumin 2.4 g/dL (3.8-4.9); Albumin/Globulin Ratio 0.86 (1.60-3.17); Anion Gap 11.1 mmol/L (10.00-18.00); BUN/Creat Ratio 14.61 Ratio (12.00-20.00); Blood Urea Nitrogen 59.9 mg/dL (9.0-27.0); Calcium 8.1 mg/dL (8.7-10.3); Carbon Dioxide 16.9 mmol/L (20.0-27.5); Globulin 2.8 g/dL (1.6-3.3); Non-African American GFR(CKD) 13.3 (60.0-200.0); Potassium 5.2 mmol/L (3.5-5.5); Total Bilirubin 0.4 mg/dL (0.30-1.20); Total Protein 5.2 g/dL (6.2-8.2)
--- NOTE | 2021-06-11 15:04 | FL ---
Loopogram HISTORY: Hydronephrosis 7 images were obtained documenting the procedure. 53 seconds fluoroscopy time. Following informed consent patient is ostomy site was prepped. 14 [place] Fisher catheter was introduce d without difficulty, the balloon was insufflated. Gentle hand-injection of contrast material was per formed. Spot images were obtained. Catheter was subsequently removed following deflation of the ballo on. Patient remained stable condition without complication. The patient's lobe shows diverticular changes. There is reflux noted on the left from the loop into t he proximal ureter on the left. No reflux is identified on the right however into the ureter. IMPRESSION: Unilateral ureteral filling on the left.
--- NOTE | 2021-06-11 15:26 | P.PN ---
<Emily Barba - Last Filed: 06/11/21 15:24> Subjective Progress Note Date: 06/11/21 CHIEF COMPLAINT: Urinary tract infection, decreased output from colostomy HISTORY OF PRESENT ILLNESS: This is 76-year-old male who was seen and evaluated today as a follow-up. Yesterday surgery was asked to see the patient regarding decreased output from his colostomy. An x-ray was obtained that showed dilated air-filled small bowel loops in the left mid abdomen. Correlate for obstruction or ileus. A CT of the abdomen and pelvis was ordered that shows there was likely degree of ileus present. Partial small bowel obstruction cannot be excluded. Patient was seen today as a follow-up. He denies any abdominal pain, nausea, or vomiting. He continues to tolerate a regular diet. He continues to have good output from his ostomy which is soft and brown. PHYSICAL EXAM: VITAL SIGNS: Reviewed. GENERAL: Well-developed in no acute distress. HEENT: No sclera icterus. Extraocular movements grossly intact. Moist buccal mucosa. Head is atraumatic, normocephalic. ABDOMEN: Soft. Nondistended. Nontender. Ostomy with good soft brown output. NEUROLOGIC: Alert and oriented. Cranial nerves II through XII grossly intact. ASSESSMENT: 1. Decreased output from ostomy, x-ray and CT of abdomen showing likely degree of ileus. Resolved. 2. Urinary tract infection 3. History of bladder cancer with tumor status post urostomy and colostomy creation January 2021 PLAN: 1. Continue regular diet 2. Patient is now having good colostomy output. At this time there is no indication for any surgical intervention 3. Patient is cleared by general surgery for discharge once otherwise medically stable. We will sign off at this time The impression and plan of care has been dictated as directed. Dr. Melendez I performed a history and examination of this patient, discussed the same with the dictator. I agree with the dictator's note ,documented as a scribe. Any additional findings or plans will be noted. Objective - Vital Signs Vital signs: Vital Signs Temp 97.7 F 06/11/21 12:58 Pulse 90 06/11/21 12:58 Resp 18 06/11/21 12:58 BP 145/74 06/11/21 12:58 Pulse Ox 97 06/10/21 19:36 Intake & Output 06/10/21 06/11/21 06/11/21 18:59 06:59 18:59 Intake Total 900 Output Total 2500 2550 50 Balance -1600 -2550 -50 Weight 89.2 kg Intake: Intake, IV Titration 900 Amount Lactated Ringers 1,000 ml 900 @ 75 mls/hr IV .[id number] [facility] Rx#:[id number] Output: Urine 1700 1800 50 Stool 800 750 Other: Voiding Method Ileal Conduit (Right) Ileal Conduit (Right) - Labs CBC & Chem 7: 06/11/21 05:19 06/11/21 05:19 Labs: Abnormal Lab Results - Last 24 Hours (Table) 06/11/21 06/11/21 Range/Units 05:19 05:19 RBC 3.06 L (4.30-5.90) m/uL Hgb 9.5 L (13.0-17.5) gm/dL Hct 29.1 L (39.0-53.0) % Neutrophils # 8.8 H (1.3-7.7) k/uL Lymphocytes # 0.9 L (1.0-4.8) k/uL Sodium 130 L (135-145) mmol/L Carbon Dioxide 16.9 L (20.0-27.5) mmol/L BUN 59.9 H (9.0-27.0) mg/dL Creatinine 4.1 H (0.6-1.5) mg/dL Est GFR (CKD-EPI)AfAm 15.4 L (60.0-200.0) Est GFR (CKD-EPI)NonAf 13.3 L (60.0-200.0) Calcium 8.1 L (8.7-10.3) mg/dL Total Protein 5.2 L (6.2-8.2) g/dL Albumin 2.4 L (3.8-4.9) g/dL Albumin/Globulin Ratio 0.86 L (1.60-3.17) g/dL <Markel Melendez - Last Filed: 06/11/21 19:18> Subjective I have personally seen and examined the patient, reviewed the WAD COMPRESSOR OPERATOR ADJUSTER /PAs history, exam and MDM and agree with the assessment and plan as written. Based on total visit time, I have performed more than 50% of the visit. As above. Patient doing better today. Tolerating diet. No nausea or vomiting. Good ostomy function. Continue low fiber diet. No further surgical plans. We'll sign off. Objective - Vital Signs Vital signs: Vital Signs Temp 97.7 F 06/11/21 12:58 Pulse 90 06/11/21 12:58 Resp 18 06/11/21 12:58 BP 145/74 06/11/21 12:58 Pulse Ox 97 06/10/21 19:36 Intake & Output 06/11/21 06/11/21 06/12/21 06:59 18:59 06:59 Intake Total 600 Output Total 2550 50 Balance -2550 550 Intake: Intake, IV Titration 600 Amount Lactated Ringers 1,000 ml 550 @ 50 mls/hr IV .Q20H [facility] Rx#:[id number] cefTRIAXone 2 gm In 50 Sodium Chloride 0.9% 50 ml @ 100 mls/hr IVPB Q24HR [facility] Rx#:[id number] Output: Urine 1800 50 Stool 750 Other: Voiding Method Ileal Conduit (Right) - Labs CBC & Chem 7: 06/11/21 05:19 06/11/21 05:19 Labs: Abnormal Lab Results - Last 24 Hours (Table) 06/11/21 06/11/21 Range/Units 05:19 05:19 RBC 3.06 L (4.30-5.90) m/uL Hgb 9.5 L (13.0-17.5) gm/dL Hct 29.1 L (39.0-53.0) % Neutrophils # 8.8 H (1.3-7.7) k/uL Lymphocytes # 0.9 L (1.0-4.8) k/uL Sodium 130 L (135-145) mmol/L Carbon Dioxide 16.9 L (20.0-27.5) mmol/L BUN 59.9 H (9.0-27.0) mg/dL Creatinine 4.1 H (0.6-1.5) mg/dL Est GFR (CKD-EPI)AfAm 15.4 L (60.0-200.0) Est GFR (CKD-EPI)NonAf 13.3 L (60.0-200.0) Calcium 8.1 L (8.7-10.3) mg/dL Total Protein 5.2 L (6.2-8.2) g/dL Albumin 2.4 L (3.8-4.9) g/dL Albumin/Globulin Ratio 0.86 L (1.60-3.17) g/dL
[2021-06-11] MEDS ORDERED: SODIUM BICARB 8.4% 50 ML SYR (1 MEQ/ML) IV STA (16:49)
--- NOTE | 2021-06-11 19:53 | P.PN ---
Subjective Progress Note Date: 06/11/21 Creat continue to be elevated at 4.1, denies any flank pain, Underwent loopgram which showed reflux on the left side, but no reflux on the right. Objective - Vital Signs Vital signs: Vital Signs Temp 97.7 F 06/11/21 12:58 Pulse 90 06/11/21 12:58 Resp 18 06/11/21 12:58 BP 145/74 06/11/21 12:58 Pulse Ox 97 06/10/21 19:36 Intake & Output 06/11/21 06/11/21 06/12/21 06:59 18:59 06:59 Intake Total 600 Output Total 2550 50 Balance -2550 550 Intake: Intake, IV Titration 600 Amount Lactated Ringers 1,000 ml 550 @ 50 mls/hr IV .Q20H [facility] Rx#:[id number] cefTRIAXone 2 gm In 50 Sodium Chloride 0.9% 50 ml @ 100 mls/hr IVPB Q24HR [facility] Rx#:[id number] Output: Urine 1800 50 Stool 750 Other: Voiding Method Ileal Conduit (Right) - Labs CBC & Chem 7: 06/11/21 05:19 06/11/21 05:19 Labs: Abnormal Lab Results - Last 24 Hours (Table) 06/11/21 06/11/21 Range/Units 05:19 05:19 RBC 3.06 L (4.30-5.90) m/uL Hgb 9.5 L (13.0-17.5) gm/dL Hct 29.1 L (39.0-53.0) % Neutrophils # 8.8 H (1.3-7.7) k/uL Lymphocytes # 0.9 L (1.0-4.8) k/uL Sodium 130 L (135-145) mmol/L Carbon Dioxide 16.9 L (20.0-27.5) mmol/L BUN 59.9 H (9.0-27.0) mg/dL Creatinine 4.1 H (0.6-1.5) mg/dL Est GFR (CKD-EPI)AfAm 15.4 L (60.0-200.0) Est GFR (CKD-EPI)NonAf 13.3 L (60.0-200.0) Calcium 8.1 L (8.7-10.3) mg/dL Total Protein 5.2 L (6.2-8.2) g/dL Albumin 2.4 L (3.8-4.9) g/dL Albumin/Globulin Ratio 0.86 L (1.60-3.17) g/dL Assessment and Plan Assessment: 75-year-old male patient of Dr Sanchez. Hx of bladder cancer S/P cystectomy in December 2020, Admitted to hospital with sepsis, slight improvement of creat with hydration. Creat now 4.1, creat was 2.2 in 12/2020. Underwent loopogram review of image showed reflux on left, but no reflux on the right. Given finding on loopgram right sided hydronephrosis most likely secondary to obstruction rather than reflux. Well discuss with him tomorrow option of right nephrostomy tube.
[2021-06-11] MEDS: ACETAMINOPHEN TAB 500 MG TAB PO PRN (20:17)
[2021-06-11] MEDS: MORPHINE SULFATE 4 MG/ML SYRINGE IVP PRN (22:22)
[2021-06-12 06:53] LABS: Basophils % (A) 0 %; Eosinophils # (A) 0.1 k/uL (0-0.7); Eosinophils % (A) 1 %; HCT 32.3 % (39.0-53.0); HGB 10.7 gm/dL (13.0-17.5); Lymphocytes # (A) 0.9 k/uL (1.0-4.8); Lymphocytes % (A) 6 %; MCH 31.5 pg (25.0-35.0); MCHC 33.1 g/dL (31.0-37.0); MCV 95.1 fL (80.0-100.0); Monocytes # (A) 0.6 k/uL (0-1.0); Monocytes % (A) 4 %; Neutrophils % (A) 88 %; Platelet Count 299 k/uL (150-450); RBC 3.39 m/uL (4.30-5.90); RDW 15.3 % (11.5-15.5); WBC 14.8 k/uL (3.8-10.6)
[2021-06-12] MEDS: PANTOPRAZOLE 40 MG/10 ML VIAL IVP SCH (09:10)
[2021-06-12] MEDS: HEPARIN SODIUM,PORCINE/PF 5,000 UNIT/0.5 ML SYRINGE SQ SCH ×3 (09:10→22:50)
[2021-06-12] MEDS: polyethylene glycoL 3350 17 GM POWD.PACK PO SCH (09:10)
[2021-06-12] MEDS: SODIUM BICARBONATE TAB 650 MG TAB PO SCH ×2 (09:10→20:59)
[2021-06-12] MEDS: MORPHINE SULFATE 4 MG/ML SYRINGE IVP PRN ×2 (09:14→21:00)
[2021-06-12] MEDS ORDERED: ONDANSETRON 4 MG/2 ML VIAL IVP PRN (09:24)
--- NOTE | 2021-06-12 10:25 | P.PN ---
Subjective Progress Note Date: 06/12/21 Principal diagnosis: Patient is complaining of nausea Patient is still very weak Patient feels better today did have a bowel movement Complains ofsomeabdominalpainandspasmsalthoughimprovingr Patient commands of abdominal pain today Constitutional: No acute distress, conversant, pleasant Eyes: Anicteric sclerae, moist conjunctiva, no lid-lag PERRLA ENMT: NC/AT Oropharynx clear, no erythema, exudates Neck: Supple, FROM, no masses, or JVD No carotid bruits No thyromegaly Lungs: Clear to auscultation Clear to percussion Normal respiratory effort, no accessory muscle use Cardiovascular: Heart regular in rate and rhythm, No murmurs, gallops, or rubs No peripheral edema Abdominal: Soft Nontender, no guarding, rebound or rigidity Abdomen moving with respiration Normoactive bowel sounds No hepatomegaly, No splenomegaly No palpable mass No abdominal wall hernia noted Skin: Normal temperature, tone, texture, turgor No induration No subcutaneous nodules No rash, lesions No ulcers Extremities: No digital cyanosis No clubbing Pedal pulses intact and symmetrical Radial pulses intact and symmetrical Normal gait and station No calf tenderness Psychiatric:Alert and oriented to person, place and time Appropriate affect Intact judgement Neuro: Muscles Strength 5/5 in all 4 extremities Sensation to light touch grossly present throughout Cranial nerves II-XII grossly intact No focal sensory deficits Septic Shock Complicated UTI GISELA I s/p 4 L normal saline, now on bicarb drip nephrology consult on levophed and vasopressin wean as ICU ceftriaxone 2g daily f/u UCx, BCx pending renal US to rule out abscess strict ins and outs avoid nephrotoxins Subclinical Hypothyroidism Patient still complaining of abdominal pain Did have a bowel movement Sepsis overall improving quite blood cells overall improving we'll continue IV antibiotics for a few days No indication for levothyroxine at this time repeat labs once patient is more stable and sepsis resolves Continue management as better ICU team overall appears to be stable Overall slowly improving patient off pressors leukocytosis slowly improving Nonspecific abdominal pain currently stable no tenderness w No evidence of OBSTRUCTION PATIENT HAVING BETTER OUTPUT IN THE stoma For possible nephrostomy placement Objective - Vital Signs Vital signs: Vital Signs Temp 98.1 F 06/12/21 05:45 Pulse 90 06/12/21 05:45 Resp 20 01/20/22 05:45 BP 134/53 06/12/21 05:45 Pulse Ox 96 06/12/21 09:20 Intake & Output 06/11/21 06/12/21 06/12/21 18:59 06:59 18:59 Intake Total 600 700 Output Total 50 1300 Balance 550 -600 Intake: Intake, IV Titration 600 700 Amount Lactated Ringers 1,000 ml 550 600 @ 50 mls/hr IV .Q20H [facility] Rx#:[id number] cefTRIAXone 2 gm In 50 100 Sodium Chloride 0.9% 50 ml @ 100 mls/hr IVPB Q24HR [facility] Rx#:[id number] Output: Urine 50 1300 Other: Voiding Method Ileal Conduit (Right) Ileal Conduit (Right) # Voids 3 # Bowel Movements 2 - Labs CBC & Chem 7: 06/12/21 06:31 06/11/21 05:19 Labs: Abnormal Lab Results - Last 24 Hours (Table) 06/11/21 06/12/21 Range/Units 05:19 06:31 WBC 14.8 H (3.8-10.6) k/uL RBC 3.39 L (4.30-5.90) m/uL Hgb 10.7 L (13.0-17.5) gm/dL Hct 32.3 L (39.0-53.0) % Neutrophils # 13.0 H (1.3-7.7) k/uL Lymphocytes # 0.9 L (1.0-4.8) k/uL Sodium 130 L (135-145) mmol/L Carbon Dioxide 16.9 L (20.0-27.5) mmol/L BUN 59.9 H (9.0-27.0) mg/dL Creatinine 4.1 H (0.6-1.5) mg/dL Est GFR (CKD-EPI)AfAm 15.4 L (60.0-200.0) Est GFR (CKD-EPI)NonAf 13.3 L (60.0-200.0) Calcium 8.1 L (8.7-10.3) mg/dL Total Protein 5.2 L (6.2-8.2) g/dL Albumin 2.4 L (3.8-4.9) g/dL Albumin/Globulin Ratio 0.86 L (1.60-3.17) g/dL
[2021-06-12 10:28] LABS: Albumin 2.6 g/dL (3.8-4.9); Albumin/Globulin Ratio 0.81 (1.60-3.17); Anion Gap 12.9 mmol/L (10.00-18.00); BUN/Creat Ratio 13.14 Ratio (12.00-20.00); Blood Urea Nitrogen 55.2 mg/dL (9.0-27.0); Calcium 8.5 mg/dL (8.7-10.3); Carbon Dioxide 20.1 mmol/L (20.0-27.5); Globulin 3.2 g/dL (1.6-3.3); Magnesium 1.8 mg/dL (1.5-2.4); Non-African American GFR(CKD) 12.9 (60.0-200.0); Total Bilirubin 0.4 mg/dL (0.30-1.20); Total Protein 5.8 g/dL (6.2-8.2)
--- NOTE | 2021-06-12 10:54 | P.PN ---
Subjective Patient is seen in follow-up for acute kidney injury on chronic kidney disease. Renal function stable. Nonoliguric. Oral intake fair. No vomiting. Output from the ostomy also improved. Vital signs are stable. General: The patient appeared well nourished and normally developed. HEENT: Head exam is unremarkable. LUNGS: Breath sounds decreased. HEART: Rate and Rhythm are regular. ABDOMEN: Soft, no distention. Urostomy noted. EXTREMITITES: No edema. Objective - Vital Signs Vital signs: Vital Signs Temp 98.1 F 06/12/21 05:45 Pulse 90 06/12/21 05:45 Resp 20 06/12/21 05:45 BP 134/53 06/12/21 05:45 Pulse Ox 96 06/12/21 09:20 Intake & Output 06/11/21 06/12/21 06/12/21 18:59 06:59 18:59 Intake Total 600 700 Output Total 50 1300 Balance 550 -600 Intake: Intake, IV Titration 600 700 Amount Lactated Ringers 1,000 ml 550 600 @ 50 mls/hr IV .Q20H [facility] Rx#:[id number] cefTRIAXone 2 gm In 50 100 Sodium Chloride 0.9% 50 ml @ 100 mls/hr IVPB Q24HR [facility] Rx#:[id number] Output: Urine 50 1300 Other: Voiding Method Ileal Conduit (Right) Ileal Conduit (Right) # Voids 3 # Bowel Movements 2 - Labs CBC & Chem 7: 06/12/21 06:31 06/12/21 06:31 Labs: Abnormal Lab Results - Last 24 Hours (Table) 06/11/21 06/12/21 06/12/21 Range/Units 05:19 06:31 06:31 WBC 14.8 H (3.8-10.6) k/uL RBC 3.39 L (4.30-5.90) m/uL Hgb 10.7 L (13.0-17.5) gm/dL Hct 32.3 L (39.0-53.0) % Neutrophils # 13.0 H (1.3-7.7) k/uL Lymphocytes # 0.9 L (1.0-4.8) k/uL Sodium 130 L (135-145) mmol/L Carbon Dioxide 16.9 L (20.0-27.5) mmol/L BUN 59.9 H 55.2 H (9.0-27.0) mg/dL Creatinine 4.1 H 4.2 H (0.6-1.5) mg/dL Est GFR (CKD-EPI)AfAm 15.4 L 15.0 L (60.0-200.0) Est GFR (CKD-EPI)NonAf 13.3 L 12.9 L (60.0-200.0) Calcium 8.1 L 8.5 L (8.7-10.3) mg/dL Alkaline Phosphatase 127 H (41-126) U/L Total Protein 5.2 L 5.8 L (6.2-8.2) g/dL Albumin 2.4 L 2.6 L (3.8-4.9) g/dL Albumin/Globulin Ratio 0.86 L 0.81 L (1.60-3.17) g/dL Assessment and Plan Plan: Assessment: 1. Acute kidney injury secondary to ATN secondary to sepsis and obstructive uropathy. Renal function stable. Nonoliguric. 2. Bilateral hydronephrosis. Patient has a urostomy due to history of bladder cancer. Urology following. Right nephrostomy tube being considered. 3. Chronic kidney disease stage IIIB/4 with creatinine of 2.2 in December 2020. 4. Coag-negative staph bacteremia. On antibiotics. 5. Metabolic acidosis secondary to acute kidney injury and GI losses maintained on oral bicarbonate. Improved. 6. Abdominal pain. Surgery following. Good output from the ostomy now. Plan: Encouraged oral intake. Avoid nephrotoxins. Continue to assess daily for need for renal replacement therapy. No urgency at this time. Possible right nephrostomy tube this admission. Follow-up outpatient 1 week post discharge.
[2021-06-12 11:51] LABS: Prothrombin Time 10.9 sec (9.0-12.0)
--- NOTE | 2021-06-12 12:51 | P.PN ---
Subjective Creat continue to be elevated at 4.2, denies any flank pain, Underwent loopgram which showed reflux on the left side, but no reflux on the right. Given this finding I recommend proceeding with the nephrostomy tube placement Objective - Vital Signs Vital signs: Vital Signs Temp 98.1 F 06/12/21 05:45 Pulse 90 06/12/21 05:45 Resp 20 06/12/21 05:45 BP 134/53 06/12/21 05:45 Pulse Ox 96 06/12/21 09:20 Intake & Output 06/11/21 06/12/21 06/12/21 18:59 06:59 18:59 Intake Total 600 700 Output Total 50 1300 Balance 550 -600 Intake: Intake, IV Titration 600 700 Amount Lactated Ringers 1,000 ml 550 600 @ 50 mls/hr IV .Q20H [facility] Rx#:[id number] cefTRIAXone 2 gm In 50 100 Sodium Chloride 0.9% 50 ml @ 100 mls/hr IVPB Q24HR [facility] Rx#:[id number] Output: Urine 50 1300 Other: Voiding Method Ileal Conduit (Right) Ileal Conduit (Right) # Voids 3 # Bowel Movements 2 - Labs CBC & Chem 7: 06/12/21 06:31 06/12/21 06:31 Labs: Abnormal Lab Results - Last 24 Hours (Table) 06/12/21 06/12/21 Range/Units 06:31 06:31 WBC 14.8 H (3.8-10.6) k/uL RBC 3.39 L (4.30-5.90) m/uL Hgb 10.7 L (13.0-17.5) gm/dL Hct 32.3 L (39.0-53.0) % Neutrophils # 13.0 H (1.3-7.7) k/uL Lymphocytes # 0.9 L (1.0-4.8) k/uL BUN 55.2 H (9.0-27.0) mg/dL Creatinine 4.2 H (0.6-1.5) mg/dL Est GFR (CKD-EPI)AfAm 15.0 L (60.0-200.0) Est GFR (CKD-EPI)NonAf 12.9 L (60.0-200.0) Calcium 8.5 L (8.7-10.3) mg/dL Alkaline Phosphatase 127 H (41-126) U/L Total Protein 5.8 L (6.2-8.2) g/dL Albumin 2.6 L (3.8-4.9) g/dL Albumin/Globulin Ratio 0.81 L (1.60-3.17) g/dL Assessment and Plan Assessment: 75-year-old male patient of Dr Sanchez. Hx of bladder cancer S/P cystectomy in December 2020, Admitted to hospital with sepsis, slight improvement of creat with hydration. Creat now 4.2, creat was 2.2 in 12/2020. Underwent loopogram review of image showed reflux on left, but no reflux on the right. Given finding on loopgram right sided hydronephrosis most likely secondary to obstruction rather than reflux. -NPO past MN -Well undergo right sided nephrostomy tube placement tomorrow with IR
[2021-06-12] MEDS: LACTATED RINGERS 1,000 ML IV SCH (20:59)
[2021-06-13] MEDS: MORPHINE SULFATE 4 MG/ML SYRINGE IVP PRN ×2 (01:21→20:01)
[2021-06-13 06:41] LABS: Basophils # (A) 0.1 k/uL (0-0.2); Basophils % (A) 0 %; Eosinophils # (A) 0.1 k/uL (0-0.7); Eosinophils % (A) 1 %; HCT 30.2 % (39.0-53.0); HGB 9.9 gm/dL (13.0-17.5); Lymphocytes % (A) 7 %; MCH 31.5 pg (25.0-35.0); MCHC 32.6 g/dL (31.0-37.0); MCV 96.3 fL (80.0-100.0); Monocytes # (A) 0.7 k/uL (0-1.0); Monocytes % (A) 5 %; Neutrophils # (A) 11.6 k/uL (1.3-7.7); Neutrophils % (A) 85 %; Platelet Count 360 k/uL (150-450); RBC 3.13 m/uL (4.30-5.90); RDW 15.9 % (11.5-15.5); WBC 13.8 k/uL (3.8-10.6)
[2021-06-13] MEDS: PANTOPRAZOLE 40 MG/10 ML VIAL IVP SCH (07:43)
[2021-06-13] MEDS ORDERED: ceFAZolin 1 GM in SODIUM CHLORIDE 0.9% 100 ML IVPB SCH (08:00)
[2021-06-13] MEDS ORDERED: IV FLUID CONTINUATION 700 ML IV ONE (09:05)
[2021-06-13] MEDS ORDERED: fentaNYL (PF) 50 MCG/ML 2 ML AMP IV ONE (09:10)
[2021-06-13] MEDS ORDERED: MIDAZOLAM 2 MG/2 ML VIAL IV ONE (09:10)
[2021-06-13] MEDS: HEPARIN SODIUM,PORCINE/PF 5,000 UNIT/0.5 ML SYRINGE SQ SCH ×3 (09:12→21:49)
[2021-06-13] MEDS ORDERED: LIDOCAINE 1% INJ 10MG/ML (20 ML MDV) SQ ONE (09:15)
[2021-06-13] MEDS ORDERED: IOPAMIDOL-250 50ML BTL IV ONE (09:39)
--- NOTE | 2021-06-13 10:08 | P.PN ---
Subjective Patient is seen in follow-up for acute kidney injury on chronic kidney disease. Renal function stable. Nonoliguric. Oral intake fair. No vomiting. Scheduled for nephrostomy tube placement today. Vital signs are stable. General: The patient appeared well nourished and normally developed. HEENT: Head exam is unremarkable. LUNGS: Breath sounds decreased. HEART: Rate and Rhythm are regular. ABDOMEN: Soft, no distention. Urostomy noted. EXTREMITITES: No edema. Objective - Vital Signs Vital signs: Vital Signs Temp 97.9 F 06/13/21 10:05 Pulse 92 06/13/21 08:23 Resp 17 06/13/21 10:05 BP 137/70 06/13/21 10:05 Pulse Ox 95 06/13/21 10:05 Intake & Output 06/12/21 06/13/21 06/13/21 18:59 06:59 18:59 Intake Total 500 600 75 Output Total 900 1500 Balance -400 -900 75 Intake: IV 75 Intake, IV Titration 600 Amount Lactated Ringers 1,000 ml 600 @ 50 mls/hr IV .Q20H [facility] Rx#:[id number] Oral 500 Output: Urine 900 1500 Other: Voiding Method Ileal Conduit (Right) Ileal Conduit (Right) Ileal Conduit (Right) # Bowel Movements 1 - Labs CBC & Chem 7: 06/13/21 06:10 06/12/21 06:31 Labs: Abnormal Lab Results - Last 24 Hours (Table) 06/12/21 06/13/21 Range/Units 06:31 06:10 WBC 13.8 H (3.8-10.6) k/uL RBC 3.13 L (4.30-5.90) m/uL Hgb 9.9 L (13.0-17.5) gm/dL Hct 30.2 L (39.0-53.0) % RDW 15.9 H (11.5-15.5) % Neutrophils # 11.6 H (1.3-7.7) k/uL BUN 55.2 H (9.0-27.0) mg/dL Creatinine 4.2 H (0.6-1.5) mg/dL Est GFR (CKD-EPI)AfAm 15.0 L (60.0-200.0) Est GFR (CKD-EPI)NonAf 12.9 L (60.0-200.0) Calcium 8.5 L (8.7-10.3) mg/dL Alkaline Phosphatase 127 H (41-126) U/L Total Protein 5.8 L (6.2-8.2) g/dL Albumin 2.6 L (3.8-4.9) g/dL Albumin/Globulin Ratio 0.81 L (1.60-3.17) g/dL Assessment and Plan Plan: Assessment: 1. Acute kidney injury secondary to ATN secondary to sepsis and obstructive uropathy. Renal function stable. Nonoliguric. 2. Bilateral hydronephrosis. Patient has a urostomy due to history of bladder cancer. Urology following. Right nephrostomy tube scheduled for today. 3. Chronic kidney disease stage IIIB/4 with creatinine of 2.2 in December 2020. 4. Coag-negative staph bacteremia. s/p antibiotics. 5. Metabolic acidosis secondary to acute kidney injury and GI losses maintained on oral bicarbonate. Improved. 6. Abdominal pain. Surgery following. Good output from the ostomy now. Plan: Encouraged oral intake. Avoid nephrotoxins. Continue to assess daily for need for renal replacement therapy. No urgency at this time. Nephrostomy tube placement scheduled for today. Follow-up outpatient 1 week post discharge.
[2021-06-13 10:16] LABS: African American GFR (CKD) 15.7 (60.0-200.0); Albumin 2.5 g/dL (3.8-4.9); Albumin/Globulin Ratio 0.83 (1.60-3.17); Anion Gap 9.8 mmol/L (10.00-18.00); BUN/Creat Ratio 13.46 Ratio (12.00-20.00); Blood Urea Nitrogen 54.5 mg/dL (9.0-27.0); Calcium 8.3 mg/dL (8.7-10.3); Carbon Dioxide 23.3 mmol/L (20.0-27.5); Non-African American GFR(CKD) 13.5 (60.0-200.0); Potassium 5.9 mmol/L (3.5-5.5); Total Bilirubin 0.4 mg/dL (0.30-1.20); Total Protein 5.4 g/dL (6.2-8.2)
--- NOTE | 2021-06-13 10:40 | P.PN ---
Subjective No acute overnight event taylor to undergo nephrostomy tube placement today. Objective - Vital Signs Vital signs: Vital Signs Temp 97.9 F 06/13/21 10:05 Pulse 92 06/13/21 08:23 Resp 17 06/13/21 10:05 BP 137/70 06/13/21 10:05 Pulse Ox 95 06/13/21 10:05 Intake & Output 06/12/21 06/13/21 06/13/21 18:59 06:59 18:59 Intake Total 500 600 75 Output Total 900 1500 Balance -400 -900 75 Intake: IV 75 Intake, IV Titration 600 Amount Lactated Ringers 1,000 ml 600 @ 50 mls/hr IV .Q20H [facility] Rx#:[id number] Oral 500 Output: Urine 900 1500 Other: Voiding Method Ileal Conduit (Right) Ileal Conduit (Right) Ileal Conduit (Right) # Bowel Movements 1 - Labs CBC & Chem 7: 06/13/21 06:10 06/13/21 06:10 Labs: Abnormal Lab Results - Last 24 Hours (Table) 06/13/21 06/13/21 Range/Units 06:10 06:10 WBC 13.8 H (3.8-10.6) k/uL RBC 3.13 L (4.30-5.90) m/uL Hgb 9.9 L (13.0-17.5) gm/dL Hct 30.2 L (39.0-53.0) % RDW 15.9 H (11.5-15.5) % Neutrophils # 11.6 H (1.3-7.7) k/uL Sodium 133 L (135-145) mmol/L Potassium 5.9 H (3.5-5.5) mmol/L Anion Gap 9.80 L (10.00-18.00) mmol/L BUN 54.5 H (9.0-27.0) mg/dL Creatinine 4.1 H (0.6-1.5) mg/dL Est GFR (CKD-EPI)AfAm 15.7 L (60.0-200.0) Est GFR (CKD-EPI)NonAf 13.5 L (60.0-200.0) Calcium 8.3 L (8.7-10.3) mg/dL Total Protein 5.4 L (6.2-8.2) g/dL Albumin 2.5 L (3.8-4.9) g/dL Albumin/Globulin Ratio 0.83 L (1.60-3.17) g/dL Assessment and Plan Assessment: 75-year-old male patient of Dr Sanchez. Hx of bladder cancer S/P cystectomy in December 2020, Admitted to hospital with sepsis, slight improvement of creat with hydration. Creat now 4.2, creat was 2.2 in 12/2020. Underwent loopogram review of image showed reflux on left, but no reflux on the right. Given finding on loopgram right sided hydronephrosis most likely secondary to obstruction rather than reflux. -Well undergo right sided nephrostomy tube placement today with IR
[2021-06-13] MEDS: SODIUM BICARBONATE TAB 650 MG TAB PO SCH ×2 (11:10→21:52)
[2021-06-13] MEDS: polyethylene glycoL 3350 17 GM POWD.PACK PO SCH (11:11)
--- NOTE | 2021-06-13 11:27 | P.PN ---
Subjective Progress Note Date: 06/13/21 Principal diagnosis: Feels okay no chest pain no shortness of breath Patient is still very weak Patient feels better today did have a bowel movement Complains ofsomeabdominalpainandspasmsalthoughimprovingr Patient commands of abdominal pain today Constitutional: No acute distress, conversant, pleasant Eyes: Anicteric sclerae, moist conjunctiva, no lid-lag PERRLA ENMT: NC/AT Oropharynx clear, no erythema, exudates Neck: Supple, FROM, no masses, or JVD No carotid bruits No thyromegaly Lungs: Clear to auscultation Clear to percussion Normal respiratory effort, no accessory muscle use Cardiovascular: Heart regular in rate and rhythm, No murmurs, gallops, or rubs No peripheral edema Abdominal: Soft Nontender, no guarding, rebound or rigidity Abdomen moving with respiration Normoactive bowel sounds No hepatomegaly, No splenomegaly No palpable mass No abdominal wall hernia noted Skin: Normal temperature, tone, texture, turgor No induration No subcutaneous nodules No rash, lesions No ulcers Extremities: No digital cyanosis No clubbing Pedal pulses intact and symmetrical Radial pulses intact and symmetrical Normal gait and station No calf tenderness Psychiatric:Alert and oriented to person, place and time Appropriate affect Intact judgement Neuro: Muscles Strength 5/5 in all 4 extremities Sensation to light touch grossly present throughout Cranial nerves II-XII grossly intact No focal sensory deficits Septic Shock Complicated UTI GISELA I s/p 4 L normal saline, now on bicarb drip nephrology consult on levophed and vasopressin wean as ICU ceftriaxone 2g daily f/u UCx, BCx pending renal US to rule out abscess strict ins and outs avoid nephrotoxins Subclinical Hypothyroidism Patient still complaining of abdominal pain Did have a bowel movement Sepsis overall improving quite blood cells overall improving we'll continue IV antibiotics for a few days No indication for levothyroxine at this time repeat labs once patient is more stable and sepsis resolves Continue management as better ICU team overall appears to be stable Overall slowly improving patient off pressors leukocytosis slowly improving Nonspecific abdominal pain currently stable no tenderness w No evidence of OBSTRUCTION PATIENT HAVING BETTER OUTPUT IN THE stoma Status post nephrostomy will continue to monitor will continue to monitor creatinine closely Objective - Vital Signs Vital signs: Vital Signs Temp 97.9 F 06/13/21 10:05 Pulse 92 06/13/21 08:23 Resp 17 06/13/21 10:05 BP 137/70 06/13/21 10:05 Pulse Ox 95 06/13/21 10:05 Intake & Output 06/12/21 06/13/21 06/13/21 18:59 06:59 18:59 Intake Total 500 600 75 Output Total 900 1500 700 Balance -400 -900 -625 Intake: IV 75 Intake, IV Titration 600 Amount Lactated Ringers 1,000 ml 600 @ 50 mls/hr IV .Q20H [facility] Rx#:[id number] Oral 500 Output: Urine 900 1500 700 Other: Voiding Method Ileal Conduit (Right) Ileal Conduit (Right) Ileal Conduit (Right) # Bowel Movements 1 - Labs CBC & Chem 7: 06/13/21 06:10 06/13/21 06:10 Labs: Abnormal Lab Results - Last 24 Hours (Table) 06/13/21 06/13/21 Range/Units 06:10 06:10 WBC 13.8 H (3.8-10.6) k/uL RBC 3.13 L (4.30-5.90) m/uL Hgb 9.9 L (13.0-17.5) gm/dL Hct 30.2 L (39.0-53.0) % RDW 15.9 H (11.5-15.5) % Neutrophils # 11.6 H (1.3-7.7) k/uL Sodium 133 L (135-145) mmol/L Potassium 5.9 H (3.5-5.5) mmol/L Anion Gap 9.80 L (10.00-18.00) mmol/L BUN 54.5 H (9.0-27.0) mg/dL Creatinine 4.1 H (0.6-1.5) mg/dL Est GFR (CKD-EPI)AfAm 15.7 L (60.0-200.0) Est GFR (CKD-EPI)NonAf 13.5 L (60.0-200.0) Calcium 8.3 L (8.7-10.3) mg/dL Total Protein 5.4 L (6.2-8.2) g/dL Albumin 2.5 L (3.8-4.9) g/dL Albumin/Globulin Ratio 0.83 L (1.60-3.17) g/dL
--- NOTE | 2021-06-13 12:30 | US ---
EXAMINATION TYPE: US guidance for procedure, IR nephrostomy DATE OF EXAM: 06/13/2021 COMPARISON: CT scan 06/09/2021, M1 2021 HISTORY: Hydronephrosis, ureteral obstruction PROCEDURE: Maximal barrier technique was utilized. The skin overlying the right kidney was localized using ultrasound and the overlying skin prepped and draped. Ultrasound was utilized with sterile te chnique. Lidocaine used for local anesthesia. Skin zeny was made with a scalpel. Access was gained under ultrasound with a 21-gauge needle to the posterior right kidney. Urine, cloudy layne in charact er returned in the hub of the needle. 0.018 inch wire was advanced. The access site was dilated and subsequently an 8.5 Portuguese catheter was advanced over wire in the renal pelvis and fixed in place. Herotainment hand-injection of contrast material verified placement within the renal collecting system. Urine returned in the hub of the catheter. Catheter was fixed to the skin with 2-0 silk and a sterile dalton ssing was placed. The patient remained in stable condition without complication. The patient was di scharged to observation. Catheter was attached to gravity drainage. 26 minutes of conscious sedation time was supplied by 18 independent trained observer. 5.5 minutes fl uoroscopy time. 384 intraoperative C-arm images document the procedure. IMPRESSION: STATUS post right NEPHROSTOMY TUBE PLACEMENT WITH ULTRASOUND AND FLUOROSCOPIC GUIDANCE. THIS PROCEDURE WAS PERFORMED BY THE UNDERSIGNED.
[2021-06-13] MEDS ORDERED: DEXTROSE 50% SYRINGE 50 ML IVP STA (14:00)
[2021-06-13] MEDS ORDERED: SODIUM ZIRCONIUM CYCLOSILICATE 10 GM PACKET PO ONE (14:00)
[2021-06-13] MEDS ORDERED: INSULIN REGULAR 100 UNIT/ML VIAL (IV) IV ONE (14:00)
[2021-06-13] MEDS: LACTATED RINGERS 1,000 ML IV SCH (15:20)
[2021-06-13 15:45] LABS: Glucose,Whole Blood 90 mg/dL (75-99)
[2021-06-14] MEDS ORDERED: SODIUM ZIRCONIUM CYCLOSILICATE 10 GM PACKET PO ONE (00:23)
[2021-06-14] MEDS: MORPHINE SULFATE 4 MG/ML SYRINGE IVP PRN ×3 (01:25→23:33)
[2021-06-14 08:59] LABS: African American GFR (CKD) 16.9 (60.0-200.0); Albumin 2.4 g/dL (3.8-4.9); Albumin/Globulin Ratio 0.8 (1.60-3.17); Anion Gap 9.7 mmol/L (10.00-18.00); BUN/Creat Ratio 12.63 Ratio (12.00-20.00); Calcium 8.7 mg/dL (8.7-10.3); Carbon Dioxide 22.3 mmol/L (20.0-27.5); Magnesium 1.8 mg/dL (1.5-2.4); Non-African American GFR(CKD) 14.6 (60.0-200.0); Potassium 5.3 mmol/L (3.5-5.5); Total Bilirubin 0.4 mg/dL (0.30-1.20); Total Protein 5.4 g/dL (6.2-8.2)
[2021-06-14 09:09] LABS: Basophils # (A) 0.09 X 10*3/uL (0.00-0.10); Basophils % (A) 0.6 %; Eosinophils # (A) 0.15 X 10*3/uL (0.04-0.35); Eosinophils % (A) 1.1 %; HCT 27.1 % (39.6-50.0); HGB 8.7 g/dL (13.0-17.0); Lymphocytes # (A) 1.25 X 10*3/uL (0.90-5.00); Lymphocytes % (A) 8.9 %; MCH 30.6 pg (27.0-32.0); MCHC 32.1 g/dL (32.0-37.0); MCV 95.4 fL (80.0-97.0); Mean Platelet Volume 10.5 fL (9.5-12.2); Monocytes # (A) 1.06 X 10*3/uL (0.20-1.00); Monocytes % (A) 7.6 %; Neutrophils % (A) 81.3 %; Platelet Count 351 X 10*3/uL (140-440); RBC 2.84 X 10*6/uL (4.40-5.60); RDW 15.3 % (11.5-14.5); WBC 14.02 X 10*3/uL (4.50-10.00)
--- NOTE | 2021-06-14 09:19 | P.PN ---
Subjective Progress Note Date: 06/14/21 Principal diagnosis: No chest pain feels okay Feels okay no chest pain no shortness of breath Patient is still very weak Patient feels better today did have a bowel movement Complains ofsomeabdominalpainandspasmsalthoughimprovingr Patient commands of abdominal pain today Constitutional: No acute distress, conversant, pleasant Eyes: Anicteric sclerae, moist conjunctiva, no lid-lag PERRLA ENMT: NC/AT Oropharynx clear, no erythema, exudates Neck: Supple, FROM, no masses, or JVD No carotid bruits No thyromegaly Lungs: Clear to auscultation Clear to percussion Normal respiratory effort, no accessory muscle use Cardiovascular: Heart regular in rate and rhythm, No murmurs, gallops, or rubs No peripheral edema Abdominal: Soft Nontender, no guarding, rebound or rigidity Abdomen moving with respiration Normoactive bowel sounds No hepatomegaly, No splenomegaly No palpable mass No abdominal wall hernia noted Skin: Normal temperature, tone, texture, turgor No induration No subcutaneous nodules No rash, lesions No ulcers Extremities: No digital cyanosis No clubbing Pedal pulses intact and symmetrical Radial pulses intact and symmetrical Normal gait and station No calf tenderness Psychiatric:Alert and oriented to person, place and time Appropriate affect Intact judgement Neuro: Muscles Strength 5/5 in all 4 extremities Sensation to light touch grossly present throughout Cranial nerves II-XII grossly intact No focal sensory deficits Septic Shock Complicated UTI GISELA I s/p 4 L normal saline, now on bicarb drip nephrology consult on levophed and vasopressin wean as ICU ceftriaxone 2g daily f/u UCx, BCx pending renal US to rule out abscess strict ins and outs avoid nephrotoxins Subclinical Hypothyroidism Patient still complaining of abdominal pain Did have a bowel movement Sepsis overall improving quite blood cells overall improving we'll continue IV antibiotics for a few days No indication for levothyroxine at this time repeat labs once patient is more stable and sepsis resolves Continue management as better ICU team overall appears to be stable Overall slowly improving patient off pressors leukocytosis slowly improving Nonspecific abdominal pain currently stable no tenderness w No evidence of OBSTRUCTION PATIENT HAVING BETTER OUTPUT IN THE stoma Status post nephrostomy will continue to monitor will continue to monitor creatinine closely Creatinine continues to improve today Patient is on a to go to a rehab hopefully Wednesday or Wednesday Objective - Vital Signs Vital signs: Vital Signs Temp 98.3 F 06/14/21 05:00 Pulse 84 06/14/21 05:00 Resp 18 06/14/21 05:00 BP 127/76 06/14/21 05:00 Pulse Ox 97 06/14/21 05:00 Intake & Output 06/13/21 06/14/21 06/14/21 18:59 06:59 18:59 Intake Total 75 Output Total 700 2701 Balance -181 -2705 Intake: IV 75 Output: Drainage 1200 Right 1200 Urine 700 1500 Stool 1 Other: Voiding Method Ileal Conduit (Right) Ileal Conduit (Right) # Bowel Movements 1 - Labs CBC & Chem 7: 06/14/21 06:22 06/14/21 06:22 Labs: Abnormal Lab Results - Last 24 Hours (Table) 06/13/21 06/13/21 06/14/21 Range/Units 06:10 17:15 06:22 WBC (4.50-10.00) X 10*3/uL RBC (4.40-5.60) X 10*6/uL Hgb (13.0-17.0) g/dL Hct (39.6-50.0) % RDW (11.5-14.5) % Immature Gran # (0.00-0.04) X 10*3/uL Neutrophils # (1.80-7.70) X 10*3/uL Monocytes # (0.20-1.00) X 10*3/uL Sodium 133 L 131 L (135-145) mmol/L Potassium 5.9 H 5.7 H (3.5-5.5) mmol/L Anion Gap 9.80 L 9.70 L (10.00-18.00) mmol/L BUN 54.5 H 48.0 H (9.0-27.0) mg/dL Creatinine 4.1 H 3.8 H (0.6-1.5) mg/dL Est GFR (CKD-EPI)AfAm 15.7 L 16.9 L (60.0-200.0) Est GFR (CKD-EPI)NonAf 13.5 L 14.6 L (60.0-200.0) Calcium 8.3 L (8.7-10.3) mg/dL AST 12 L (14-35) U/L Total Protein 5.4 L 5.4 L (6.2-8.2) g/dL Albumin 2.5 L 2.4 L (3.8-4.9) g/dL Albumin/Globulin Ratio 0.83 L 0.80 L (1.60-3.17) g/dL 06/14/21 Range/Units 06:22 WBC 14.02 H (4.50-10.00) X 10*3/uL RBC 2.84 L (4.40-5.60) X 10*6/uL Hgb 8.7 L (13.0-17.0) g/dL Hct 27.1 L (39.6-50.0) % RDW 15.3 H (11.5-14.5) % Immature Gran # 0.07 H (0.00-0.04) X 10*3/uL Neutrophils # 11.40 H (1.80-7.70) X 10*3/uL Monocytes # 1.06 H (0.20-1.00) X 10*3/uL Sodium (135-145) mmol/L Potassium (3.5-5.5) mmol/L Anion Gap (10.00-18.00) mmol/L BUN (9.0-27.0) mg/dL Creatinine (0.6-1.5) mg/dL Est GFR (CKD-EPI)AfAm (60.0-200.0) Est GFR (CKD-EPI)NonAf (60.0-200.0) Calcium (8.7-10.3) mg/dL AST (14-35) U/L Total Protein (6.2-8.2) g/dL Albumin (3.8-4.9) g/dL Albumin/Globulin Ratio (1.60-3.17) g/dL Microbiology - Last 24 Hours (Table) 06/13/21 09:35 Urine Culture - Preliminary Urine,Catheterized
[2021-06-14] MEDS: PANTOPRAZOLE 40 MG/10 ML VIAL IVP SCH (09:20)
[2021-06-14] MEDS: HEPARIN SODIUM,PORCINE/PF 5,000 UNIT/0.5 ML SYRINGE SQ SCH ×3 (09:20→23:33)
[2021-06-14] MEDS: polyethylene glycoL 3350 17 GM POWD.PACK PO SCH (09:20)
[2021-06-14] MEDS: SODIUM BICARBONATE TAB 650 MG TAB PO SCH ×2 (09:20→20:41)
--- NOTE | 2021-06-14 16:32 | P.PN ---
Subjective Progress Note Date: 06/14/21 Follow for acute kidney injury. Had nephrostomy tube placed yesterday. Objective - Vital Signs Vital signs: Vital Signs Temp 98.3 F 06/14/21 05:00 Pulse 80 06/14/21 13:00 Resp 18 06/14/21 08:35 BP 124/80 06/14/21 13:00 Pulse Ox 97 06/14/21 05:00 Intake & Output 06/13/21 06/14/21 06/14/21 18:59 06:59 18:59 Intake Total 75 500 Output Total 700 9806 9912 Balance -083 -4731 -0626 Intake: IV 75 Oral 500 Output: Drainage 1200 400 Right 1200 400 Urine 700 1500 1950 Stool 1 2 Other: Voiding Method Ileal Conduit (Right) Ileal Conduit (Right) Ileal Conduit (Right) # Voids 3 # Bowel Movements 1 - Exam No acute distress S1-S2 heard Decreased breath sounds Trace edema - Labs CBC & Chem 7: 06/14/21 06:22 06/14/21 06:22 Labs: Abnormal Lab Results - Last 24 Hours (Table) 06/13/21 06/14/21 06/14/21 Range/Units 17:15 06:22 06:22 WBC 14.02 H (4.50-10.00) X 10*3/uL RBC 2.84 L (4.40-5.60) X 10*6/uL Hgb 8.7 L (13.0-17.0) g/dL Hct 27.1 L (39.6-50.0) % RDW 15.3 H (11.5-14.5) % Immature Gran # 0.07 H (0.00-0.04) X 10*3/uL Neutrophils # 11.40 H (1.80-7.70) X 10*3/uL Monocytes # 1.06 H (0.20-1.00) X 10*3/uL Sodium 131 L (135-145) mmol/L Potassium 5.7 H (3.5-5.1) mmol/L Anion Gap 9.70 L (10.00-18.00) mmol/L BUN 48.0 H (9.0-27.0) mg/dL Creatinine 3.8 H (0.6-1.5) mg/dL Est GFR (CKD-EPI)AfAm 16.9 L (60.0-200.0) Est GFR (CKD-EPI)NonAf 14.6 L (60.0-200.0) AST 12 L (14-35) U/L Total Protein 5.4 L (6.2-8.2) g/dL Albumin 2.4 L (3.8-4.9) g/dL Albumin/Globulin Ratio 0.80 L (1.60-3.17) g/dL Microbiology - Last 24 Hours (Table) 06/13/21 09:35 Urine Culture - Final Urine,Catheterized Assessment and Plan Assessment: #1 acute kidney injury nonoliguric secondary to hemodynamic ATN and obstructive uropathy. #2 bilateral hydronephrosis status post nephrostomy tube on the right side. #3 chronic kidney disease stage IIIB/4 with a baseline creatinine of 2.2 MG per DL. #4 metabolic acidosis secondary to acute kidney injury #5 hyperkalemia secondary to obstructive uropathy/acute kidney injury, better Plan: #1 renal function still high. Continue to monitor. #2 no acute indication for [employer] at this time. #3 daily labs
[2021-06-15] MEDS: PANTOPRAZOLE 40 MG/10 ML VIAL IVP SCH (09:12)
[2021-06-15] MEDS: SODIUM BICARBONATE TAB 650 MG TAB PO SCH ×2 (09:12→20:09)
[2021-06-15] MEDS: polyethylene glycoL 3350 17 GM POWD.PACK PO SCH (09:12)
[2021-06-15] MEDS: HEPARIN SODIUM,PORCINE/PF 5,000 UNIT/0.5 ML SYRINGE SQ SCH ×2 (09:12→15:35)
[2021-06-15 11:16] LABS: Basophils % (A) 0.9 %; Eosinophils # (A) 0.15 X 10*3/uL (0.04-0.35); Eosinophils % (A) 1.3 %; HCT 26.6 % (39.6-50.0); HGB 8.4 g/dL (13.0-17.0); Lymphocytes # (A) 1.12 X 10*3/uL (0.90-5.00); Lymphocytes % (A) 9.9 %; MCH 30.2 pg (27.0-32.0); MCHC 31.6 g/dL (32.0-37.0); MCV 95.7 fL (80.0-97.0); Mean Platelet Volume 10.1 fL (9.5-12.2); Monocytes # (A) 0.81 X 10*3/uL (0.20-1.00); Monocytes % (A) 7.1 %; Neutrophils # (A) 9.11 X 10*3/uL (1.80-7.70); Neutrophils % (A) 80.3 %; Platelet Count 370 X 10*3/uL (140-440); RBC 2.78 X 10*6/uL (4.40-5.60); RDW 15.2 % (11.5-14.5); WBC 11.35 X 10*3/uL (4.50-10.00)
[2021-06-15 11:22] LABS: African American GFR (CKD) 18.2 (60.0-200.0); Albumin 2.5 g/dL (3.8-4.9); Albumin/Globulin Ratio 0.85 (1.60-3.17); Anion Gap 10.7 mmol/L (10.00-18.00); BUN/Creat Ratio 11.68 Ratio (12.00-20.00); Blood Urea Nitrogen 41.7 mg/dL (9.0-27.0); Calcium 8.8 mg/dL (8.7-10.3); Carbon Dioxide 22.8 mmol/L (20.0-27.5); Globulin 2.9 g/dL (1.6-3.3); Non-African American GFR(CKD) 15.7 (60.0-200.0); Potassium 5.3 mmol/L (3.5-5.5); Total Bilirubin 0.4 mg/dL (0.30-1.20); Total Protein 5.4 g/dL (6.2-8.2)
--- NOTE | 2021-06-15 12:29 | P.PN ---
Subjective Progress Note Date: 06/15/21 Pt reports improvement from admission. Denies pain. WBC is almost returned to normal. Completed ceftriaxone for UTI. Cr still elevated but improving. Objective - Vital Signs Vital signs: Vital Signs Temp 98.2 F 06/15/21 04:00 Pulse 92 06/15/21 08:50 Resp 16 06/15/21 08:50 BP 115/65 06/15/21 04:00 Pulse Ox 95 06/15/21 04:00 Intake & Output 06/14/21 06/15/21 06/15/21 18:59 06:59 18:59 Intake Total 500 Output Total 3152 2501 1 Balance -2652 -2501 -1 Intake: Oral 500 Output: Drainage 700 1300 Right 700 1300 Urine 2450 1200 Stool 2 1 1 Other: Voiding Method Ileal Conduit (Right) Ileal Conduit (Right) Ileal Conduit (Right) # Voids 3 - Exam Gen: awake, alert HEENT: normocephalic, atraumatic, good hearing acuity, moist mucous membranes Resp: good air exchange, breathing comfortably with no accessory muscle use CVS: good distal perfusion x 4, GI: soft, NTTP, ND : no SPT, no CVAT, alvarenga catheter is present MSK: no pitting edema, no clubbing Neuro: non-focal, moving all extremities Psych: cooperative, euthymic mood - Labs CBC & Chem 7: 06/15/21 07:32 06/15/21 07:32 Labs: Abnormal Lab Results - Last 24 Hours (Table) 06/15/21 06/15/21 Range/Units 07:32 07:32 WBC 11.35 H (4.50-10.00) X 10*3/uL RBC 2.78 L (4.40-5.60) X 10*6/uL Hgb 8.4 L (13.0-17.0) g/dL Hct 26.6 L (39.6-50.0) % MCHC 31.6 L (32.0-37.0) g/dL RDW 15.2 H (11.5-14.5) % Immature Gran # 0.06 H (0.00-0.04) X 10*3/uL Neutrophils # 9.11 H (1.80-7.70) X 10*3/uL Sodium 134 L (135-145) mmol/L BUN 41.7 H (9.0-27.0) mg/dL Creatinine 3.6 H (0.6-1.5) mg/dL Est GFR (CKD-EPI)AfAm 18.2 L (60.0-200.0) Est GFR (CKD-EPI)NonAf 15.7 L (60.0-200.0) BUN/Creatinine Ratio 11.68 L (12.00-20.00) Ratio AST 11 L (14-35) U/L Total Protein 5.4 L (6.2-8.2) g/dL Albumin 2.5 L (3.8-4.9) g/dL Albumin/Globulin Ratio 0.85 L (1.60-3.17) g/dL Microbiology - Last 24 Hours (Table) 06/13/21 09:35 Urine Culture - Final Urine,Catheterized Assessment and Plan Assessment: Septic Shock Complicated UTI GISELA superimposed on CKD III ICU admit, pulmonary consult, downgraded to floor 06/05 nephrology consult f/u UCx were NGTD, BCx grew CoNS renal US showed hydronephrosis, had loopogram with urology on 06/11, subsequently had nephrostomy inserted 06/13 strict ins and outs avoid nephrotoxins Subclinical Hypothyroidism No indication for levothyroxine at this time repeat labs outpatient GI PPX lovenox dvt ppx full code anticipated length of stay > 2 midnights
--- NOTE | 2021-06-15 13:14 | P.PN ---
Subjective Progress Note Date: 06/15/21 Follow for acute kidney injury. Good urine output. 5.6 L of urine output in the last 24 hours. Objective - Vital Signs Vital signs: Vital Signs Temp 98.2 F 06/15/21 04:00 Pulse 92 06/15/21 08:50 Resp 16 06/15/21 08:50 BP 115/65 06/15/21 04:00 Pulse Ox 95 06/15/21 04:00 Intake & Output 06/14/21 06/15/21 06/15/21 18:59 06:59 18:59 Intake Total 500 Output Total 3152 2501 1 Balance -2652 -2501 -1 Intake: Oral 500 Output: Drainage 700 1300 Right 700 1300 Urine 2450 1200 Stool 2 1 1 Other: Voiding Method Ileal Conduit (Right) Ileal Conduit (Right) Ileal Conduit (Right) # Voids 3 - Exam No acute distress S1-S2 heard Decreased breath sounds Trace edema Right nephrostomy tube, right lower quadrant urostomy bag - Labs CBC & Chem 7: 06/15/21 07:32 06/15/21 07:32 Labs: Abnormal Lab Results - Last 24 Hours (Table) 06/15/21 06/15/21 Range/Units 07:32 07:32 WBC 11.35 H (4.50-10.00) X 10*3/uL RBC 2.78 L (4.40-5.60) X 10*6/uL Hgb 8.4 L (13.0-17.0) g/dL Hct 26.6 L (39.6-50.0) % MCHC 31.6 L (32.0-37.0) g/dL RDW 15.2 H (11.5-14.5) % Immature Gran # 0.06 H (0.00-0.04) X 10*3/uL Neutrophils # 9.11 H (1.80-7.70) X 10*3/uL Sodium 134 L (135-145) mmol/L BUN 41.7 H (9.0-27.0) mg/dL Creatinine 3.6 H (0.6-1.5) mg/dL Est GFR (CKD-EPI)AfAm 18.2 L (60.0-200.0) Est GFR (CKD-EPI)NonAf 15.7 L (60.0-200.0) BUN/Creatinine Ratio 11.68 L (12.00-20.00) Ratio AST 11 L (14-35) U/L Total Protein 5.4 L (6.2-8.2) g/dL Albumin 2.5 L (3.8-4.9) g/dL Albumin/Globulin Ratio 0.85 L (1.60-3.17) g/dL Microbiology - Last 24 Hours (Table) 06/13/21 09:35 Urine Culture - Final Urine,Catheterized Assessment and Plan Assessment: #1 acute kidney injury nonoliguric secondary to hemodynamic ATN and obstructive uropathy. #2 bilateral hydronephrosis status post nephrostomy tube on the right side. #3 chronic kidney disease stage IIIB/4 with a baseline creatinine of 2.2 MG per DL. #4 metabolic acidosis secondary to acute kidney injury #5 hyperkalemia secondary to obstructive uropathy/acute kidney injury, better Plan: #1 renal function stable, improving. #2 no acute indication for INTERVENTION SPECIALIST at this time. #3 daily labs #4 stable from nephrology for discharge to be followed up in the office in 2 weeks.
[2021-06-15] MEDS: MORPHINE SULFATE 4 MG/ML SYRINGE IVP PRN (15:36)
--- NOTE | 2021-06-15 18:30 | P.PN ---
Subjective Progress Note Date: 06/15/21 No acute overnight Creat 3.6 post PCN placement Objective - Vital Signs Vital signs: Vital Signs Temp 98.5 F 06/15/21 12:00 Pulse 95 06/15/21 12:00 Resp 17 06/15/21 12:00 BP 121/73 06/15/21 12:00 Pulse Ox 95 06/15/21 12:00 Intake & Output 06/14/21 06/15/21 06/15/21 18:59 06:59 18:59 Intake Total 500 Output Total 3152 2501 1 Balance -2652 -2501 -1 Intake: Oral 500 Output: Drainage 700 1300 Right 700 1300 Urine 2450 1200 Stool 2 1 1 Other: Voiding Method Ileal Conduit (Right) Ileal Conduit (Right) Ileal Conduit (Right) # Voids 3 - Constitutional General appearance: Present: no acute distress - Psychiatric Psychiatric: Present: A&O x's 3 - Labs CBC & Chem 7: 06/15/21 07:32 06/15/21 07:32 Labs: Abnormal Lab Results - Last 24 Hours (Table) 06/15/21 06/15/21 Range/Units 07:32 07:32 WBC 11.35 H (4.50-10.00) X 10*3/uL RBC 2.78 L (4.40-5.60) X 10*6/uL Hgb 8.4 L (13.0-17.0) g/dL Hct 26.6 L (39.6-50.0) % MCHC 31.6 L (32.0-37.0) g/dL RDW 15.2 H (11.5-14.5) % Immature Gran # 0.06 H (0.00-0.04) X 10*3/uL Neutrophils # 9.11 H (1.80-7.70) X 10*3/uL Sodium 134 L (135-145) mmol/L BUN 41.7 H (9.0-27.0) mg/dL Creatinine 3.6 H (0.6-1.5) mg/dL Est GFR (CKD-EPI)AfAm 18.2 L (60.0-200.0) Est GFR (CKD-EPI)NonAf 15.7 L (60.0-200.0) BUN/Creatinine Ratio 11.68 L (12.00-20.00) Ratio AST 11 L (14-35) U/L Total Protein 5.4 L (6.2-8.2) g/dL Albumin 2.5 L (3.8-4.9) g/dL Albumin/Globulin Ratio 0.85 L (1.60-3.17) g/dL Microbiology - Last 24 Hours (Table) 06/13/21 09:35 Urine Culture - Final Urine,Catheterized Assessment and Plan Assessment: 75-year-old male patient of Dr Sanchez. Hx of bladder cancer S/P cystectomy in December 2020, Admitted to hospital with sepsis, slight improvement of creat with hydration. Creat down to 3.6 from 4.1 post PCN placement - Ok for discharge from urology standpoint -Can f/u 2 weeks as an outpatient with Dr Sanchez
[2021-06-16] MEDS: HEPARIN SODIUM,PORCINE/PF 5,000 UNIT/0.5 ML SYRINGE SQ SCH ×2 (01:01→08:07)
[2021-06-16] MEDS: MORPHINE SULFATE 4 MG/ML SYRINGE IVP PRN (01:23)
[2021-06-16] MEDS: polyethylene glycoL 3350 17 GM POWD.PACK PO SCH (08:07)
[2021-06-16] MEDS: SODIUM BICARBONATE TAB 650 MG TAB PO SCH (08:07)
[2021-06-16] MEDS: PANTOPRAZOLE 40 MG/10 ML VIAL IVP SCH (08:08)
[2021-06-16 09:24] LABS: Basophils % (A) 0.8 %; Eosinophils # (A) 0.14 X 10*3/uL (0.04-0.35); Eosinophils % (A) 1.1 %; HCT 28.7 % (39.6-50.0); HGB 9.2 g/dL (13.0-17.0); Lymphocytes # (A) 1.27 X 10*3/uL (0.90-5.00); MCH 31.1 pg (27.0-32.0); MCHC 32.1 g/dL (32.0-37.0); Monocytes # (A) 0.95 X 10*3/uL (0.20-1.00); Monocytes % (A) 7.5 %; Neutrophils # (A) 10.14 X 10*3/uL (1.80-7.70); Neutrophils % (A) 80.1 %; Platelet Count 421 X 10*3/uL (140-440); RBC 2.96 X 10*6/uL (4.40-5.60); RDW 15.1 % (11.5-14.5); WBC 12.66 X 10*3/uL (4.50-10.00)
[2021-06-16 09:39] LABS: African American GFR (CKD) 19.9 (60.0-200.0); Anion Gap 10.6 mmol/L (10.00-18.00); BUN/Creat Ratio 11.23 Ratio (12.00-20.00); Blood Urea Nitrogen 37.3 mg/dL (9.0-27.0); Calcium 9.1 mg/dL (8.7-10.3); Carbon Dioxide 24.9 mmol/L (20.0-27.5); Magnesium 1.6 mg/dL (1.5-2.4); Non-African American GFR(CKD) 17.2 (60.0-200.0); Potassium 5.1 mmol/L (3.5-5.5)
--- NOTE | 2021-06-16 10:18 | P.DS ---
Providers Date of admission: 06/03/21 19:21 Expected date of discharge: 06/16/21 Attending physician: Emile Sin MD Consults: 06/03/21 19:21 Consult Physician Routine Consulting Provider: Reina Johnson Consult Reason/Comments: Acute renal failure Do you want consulting provider notified?: Yes Consult Physician Stat Consulting Provider: Jasmin Hurtado Consult Reason/Comments: Critical care management Do you want consulting provider notified?: Yes 06/04/21 15:09 Consult Physician Routine Consulting Provider: Allen Sanchez Consult Reason/Comments: bilateral hydro Do you want consulting provider notified?: Yes Primary care physician: Franc Rodrigues [facility] Course: Septic Shock Complicated UTI GISELA superimposed on CKD III Patient was admitted to the ICU initially with septic shock, pulmonary consulted, and he was eventually downgraded to floor 06/05, then discharged on 06/16. Initial lab work returned concerning for UTI causing septic shock requiring pressors and acute kidney injury. Bladder/Renal US demonstrated b/l hydronephrosis. Nephrology and Urology engaged in the patient's care at this point. Pt underwent loopogram with urology on 06/11 which demonstrated reflux into the left ureter. Patient was subsequently taken to interventional suite and IR placed a nephrostomy tube on 06/13. During the course of hospitalization, patient had completed a course of ceftriaxone for UTI, and patient's kidney function gradually improved, and was improving still on day of discharge, with a not yet determined new baseline. He will be followed up by nephrology in clinic. Pt was evaluated by PT who recommended SNF for rehab. He will f/u with urology and PCP as well. Subclinical Hypothyroidism No indication for levothyroxine at this time repeat labs outpatient in 6 weeks. I spent 45 minutes coordinating this complex discharge. Patient Condition at Discharge: Good Plan - Discharge Summary Discharge Rx Participant: Yes New Discharge Prescriptions: New Pantoprazole [Protonix] 40 mg PO DAILY #30 tab polyethylene glycoL 3350 [Miralax] 17 gm PO DAILY packet Sodium Bicarbonate Tab 1,300 mg PO BID tab Continue Famotidine [Pepcid] 20 mg PO BID PRN PRN Reason: ACID REFLUX Acetaminophen Tab [Tylenol] 1,000 mg PO Q6HR PRN PRN Reason: Pain Or Fever > 100.5 Discontinued Levofloxacin [Levaquin] 500 mg PO DAILY Discharge Medication List Acetaminophen Tab [Tylenol] 1,000 mg PO Q6HR PRN 06/03/21 [History] Famotidine [Pepcid] 20 mg PO BID PRN 06/03/21 [History] Pantoprazole [Protonix] 40 mg PO DAILY #30 tab 06/16/21 [Rx] Sodium Bicarbonate Tab 1,300 mg PO BID tab 06/16/21 [Rx] polyethylene glycoL 3350 [Miralax] 17 gm PO DAILY packet 06/16/21 [Rx] Follow up Appointment(s)/Referral(s): Allen Sanchez MD [STAFF PHYSICIAN] - 4 Weeks Franc Bundy MD [Primary Care Provider] - 1-2 days Patient Instructions/Handouts: Pantoprazole (By mouth), Acute Kidney Injury (DC), Urinary Tract Infection in Men (DC), Sepsis (GEN) Discharge Disposition: TRANSFER TO SNF/ECF
[2021-06-16 11:42] VITALS: BP 102/63; PULSE 125; RESP 18; TEMP 98.3
--- NOTE | 2021-06-16 15:00 | P.PN ---
Subjective Principal diagnosis: Pt is seen for f/u for GISELA. Renal function has improved. Cr however remains elevated at 3.3 mg/dL Good UOP. No complaints. Objective - Vital Signs Vital signs: Vital Signs Temp 98.3 F 06/16/21 11:27 Pulse 125 H 06/16/21 11:27 Resp 18 06/16/21 11:27 BP 102/63 06/16/21 11:27 Pulse Ox 95 06/16/21 11:27 Intake & Output 06/15/21 06/16/21 06/16/21 18:59 06:59 18:59 Intake Total 240 Output Total 1301 1100 400 Balance -1301 -860 -400 Intake: Oral 240 Output: Drainage 600 500 400 Right 600 500 400 Urine 700 600 Stool 1 Other: Voiding Method Ileal Conduit (Right) Ileal Conduit (Right) Ileal Conduit (Right) # Bowel Movements 300 - Exam Awake, comfortable. No acute distress. Lugs are clear. CVS S1 and S2 Examination of the lower extremities shows no edema [employer] exam is grossly inact Right nephrostomy Urostomy is intact. - Labs CBC & Chem 7: 06/16/21 06:58 06/16/21 06:58 Labs: Abnormal Lab Results - Last 24 Hours (Table) 06/16/21 06/16/21 Range/Units 06:58 06:58 WBC 12.66 H (4.50-10.00) X 10*3/uL RBC 2.96 L (4.40-5.60) X 10*6/uL Hgb 9.2 L (13.0-17.0) g/dL Hct 28.7 L (39.6-50.0) % RDW 15.1 H (11.5-14.5) % Immature Gran # 0.06 H (0.00-0.04) X 10*3/uL Neutrophils # 10.14 H (1.80-7.70) X 10*3/uL BUN 37.3 H (9.0-27.0) mg/dL Creatinine 3.3 H (0.6-1.5) mg/dL Est GFR (CKD-EPI)AfAm 19.9 L (60.0-200.0) Est GFR (CKD-EPI)NonAf 17.2 L (60.0-200.0) BUN/Creatinine Ratio 11.23 L (12.00-20.00) Ratio Assessment and Plan Assessment: #1 acute kidney injury nonoliguric secondary to hemodynamic ATN and obstructive uropathy. #2 bilateral hydronephrosis status post nephrostomy tube on the right side. #3 chronic kidney disease stage IIIB/4 with a baseline creatinine of 2.2 MG per DL. #4 metabolic acidosis secondary to acute kidney injury #5 hyperkalemia secondary to obstructive uropathy/acute kidney injury, better Plan: F/u as out pt in 1 week post discharge. F/u with urology as well.
== END 2021-06-16 13:39 | DRG 698 ==
LOC: EC 13:21 → 2SICU 19:21 → 5NMEDONC 06-05 17:02
PROVIDERS: ADMIT Internal Medicine; ATTEND Internal Medicine
PROC: 06HM33Z Insertion of Infusion Device into Right Femoral Vein, Percutaneous Approach (ICD-10-PCS; principal; 2021-06-03)
PROC: 3E043XZ Introduction of Vasopressor into Central Vein, Percutaneous Approach (ICD-10-PCS; 2021-06-03)
PROC: 05HB33Z Insertion of Infusion Device into Right Basilic Vein, Percutaneous Approach (ICD-10-PCS; 2021-06-10)
PROC: 0T9030Z Drainage of Right Kidney with Drainage Device, Percutaneous Approach (ICD-10-PCS; 2021-06-13)
DX: T83.598A Infection and inflammatory reaction due to other prosthetic device, implant and graft in urinary system, initial encounter (principal); R65.21 Severe sepsis with septic shock; N17.0 Acute kidney failure with tubular necrosis; A41.9 Sepsis, unspecified organism; E87.2 Acidosis; N13.6 Pyonephrosis; K56.7 Ileus, unspecified; N13.70 Vesicoureteral-reflux, unspecified; Z43.3 Encounter for attention to colostomy; N18.32 Chronic kidney disease, stage 3b; Z20.822 Contact with and (suspected) exposure to COVID-19; Z90.6 Acquired absence of other parts of urinary tract; E03.8 Other specified hypothyroidism; E83.52 Hypercalcemia; E87.5 Hyperkalemia; E86.9 Volume depletion, unspecified; R74.01 Elevation of levels of liver transaminase levels; R91.8 Other nonspecific abnormal finding of lung field; Z79.899 Other long term (current) drug therapy; Z87.891 Personal history of nicotine dependence; Z90.49 Acquired absence of other specified parts of digestive tract; Z87.19 Personal history of other diseases of the digestive system; Z87.448 Personal history of other diseases of urinary system; Y83.3 Surgical operation with formation of external stoma as the cause of abnormal reaction of the patient, or of later complication, without mention of misadventure at the time of the procedure; Z98.890 Other specified postprocedural states; Z85.51 Personal history of malignant neoplasm of bladder
CPT/HCPCS: 36410; 36415; 36556; 50431; 50432; 71045; 74019; 74176; 76770; 76937; 76942; 80048; 80053; 81001; 82533; 82805; 83605; 83735; 84132; 84145; 84439; 84443; 84484; 85025; 85610; 85730; 87040; 87086; 87635; 93005; 94760; 96361; 96374; 96375; 96376; 99291

== ENCOUNTER 2021-07-10 14:16 | Inpatient (IN) | payer MEDICARE ==
[2021-07-10] MEDS ORDERED: SODIUM CHLORIDE 0.9% 500 ML 500 ML IV STA (14:55)
[2021-07-10 15:50] LABS: Basophils # (A) 0.1 k/uL (0-0.2); Basophils % (A) 0 %; Eosinophils # (A) 0.1 k/uL (0-0.7); Eosinophils % (A) 1 %; HCT 27.6 % (39.0-53.0); HGB 9.9 gm/dL (13.0-17.5); Lymphocytes # (A) 0.8 k/uL (1.0-4.8); Lymphocytes % (A) 5 %; MCH 35.8 pg (25.0-35.0); MCHC 35.9 g/dL (31.0-37.0); MCV 99.6 fL (80.0-100.0); Macrocytosis Slight; Mean Platelet Volume 6.9; Monocytes # (A) 0.4 k/uL (0-1.0); Monocytes % (A) 3 %; Neutrophils # (A) 12.8 k/uL (1.3-7.7); Neutrophils % (A) 90 %; Platelet Count 460 k/uL (150-450); RBC 2.77 m/uL (4.30-5.90); RDW 15.4 % (11.5-15.5); WBC 14.2 k/uL (3.8-10.6)
[2021-07-10 15:54] LABS: Albumin 3.7 g/dL (3.5-5.0); Calcium 9.9 mg/dL (8.4-10.2); Potassium 4.9 mmol/L (3.5-5.1); Total Bilirubin 0.9 mg/dL (0.2-1.3); Total Protein 7.4 g/dL (6.3-8.2)
--- NOTE | 2021-07-10 16:58 | ED ---
Abdominal Pain HPI - General Source: patient, family Mode of arrival: wheelchair Limitations: no limitations <Jacklyn Quintero - Last Filed: 07/10/21 16:55> <Kem Cadet - Last Filed: 07/10/21 18:05> - General Chief Complaint: Abdominal Pain Stated Complaint: C diff and infection Time Seen by Provider: 07/10/21 14:43 - History of Present Illness Initial Comments: 76-year-old male patient who has colostomy and urostomy after surgery in January for bladder cancer presents for evaluation of increased abdominal pain and decreased output from his colostomy. Patient states that he was recently admitted for several days for urinary tract infection and C. difficile infection. Patient states his abdominal pain feels similar to when he had C. diff. Denies any fever or chills. States he did have some mild nausea yesterday. Denies any vomiting. CT has been able to eat and drink without difficulty. States he did decrease the amount of MiraLAX he been taking which could be contributing to the decreased output from his colostomy. He was seen at recently with [facility] and put on antibiotics for urinary tract infection again. He did have CT of the abdomen which showed partial bowel obstruction. Patient was discharged home but returns here because he is having worsening symptoms. Patient denies any recent rash, cough, shortness of breath, chest pain, back pain, numbness, tingling, dizziness, weakness, headache, visual changes, or any other complaints. (Jacklyn Quintero) - Related Data Home Medications Medication Instructions Recorded Confirmed Acetaminophen Tab [Tylenol] 1,000 mg PO Q6HR PRN 06/03/21 07/10/21 Famotidine [Pepcid] 20 mg PO BID PRN 06/03/21 07/10/21 Cephalexin [Keflex] 500 mg PO TID 07/10/21 07/10/21 Mag Hydrox/Aluminum Hyd/Simeth 10 - 20 ml PO TID PRN 07/10/21 07/10/21 [Mylanta Maximum Strength Liq] polyethylene glycoL 3350 [Miralax] 17 gm PO DAILY PRN 07/10/21 07/10/21 Previous Rx's Medication Instructions Recorded Pantoprazole [Protonix] 40 mg PO DAILY #30 tab 06/16/21 Sodium Bicarbonate Tab 1,300 mg PO BID tab 06/16/21 Allergies Allergy/AdvReac Type Severity Reaction Status Date / Time No Known Allergies Allergy Verified 07/10/21 16:07 Review of Systems ROS Other: All systems not noted in ROS Statement are negative. <Jacklyn Quintero - Last Filed: 07/10/21 16:55> ROS Other: All systems not noted in ROS Statement are negative. <HelioKem Opal - Last Filed: 07/10/21 18:05> ROS Statement: Those systems with pertinent positive or pertinent negative responses have been documented in the HPI. 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, post colectomy and colostomy and a cystectomy jan 2021 History of Any Multi-Drug Resistant Organisms: C-DIFF Date of last positivie culture/infection: 07/15 MDRO Source:: stool Past Surgical History: Bladder Surgery, Bowel Resection Additional Past Surgical History / Comment(s): December 2020 at [facility] patient had a bladder/colon fistula repair resulting in a double ostomy- urostomy and colostomy Past Anesthesia/Blood Transfusion Reactions: No Reported Reaction Additional Past Anesthesia/Blood Transfusion Reaction / Comment(s): No transfusion Past Psychological History: No Psychological Hx Reported Smoking Status: Former smoker Past Alcohol Use History: None Reported Past Drug Use History: None Reported - Past Family History family Family Medical History: No Reported History <Jacklyn Quintero - Last Filed: 07/10/21 16:55> General Exam Limitations: no limitations General appearance: alert, in no apparent distress, other (This is a well- developed, well-nourished adult male in no acute distress.) ENT exam: Present: normal exam, normal oropharynx, mucous membranes moist Respiratory exam: Present: normal lung sounds bilaterally. Absent: respiratory distress, wheezes, rales, rhonchi, stridor Cardiovascular Exam: Present: normal rhythm, tachycardia, normal heart sounds. Absent: systolic murmur, diastolic murmur, rubs, gallop, clicks GI/Abdominal exam: Present: soft, tenderness (Suprapubic abdominal tenderness), normal bowel sounds. Absent: distended, guarding, rebound, rigid Neurological exam: Present: alert, oriented X3, CN II-XII intact Psychiatric exam: Present: normal affect, normal mood Skin exam: Present: warm, dry, intact, normal color. Absent: rash <Jacklyn Quintero - Last Filed: 07/10/21 16:55> Course Vital Signs 07/10/21 14:27 Temperature 98.9 F Pulse Rate 111 H Respiratory 22 Rate Blood Pressure 109/76 O2 Sat by Pulse 100 Oximetry Medical Decision Making - Lab Data Result diagrams: 07/10/21 15:16 07/10/21 15:16 <Jacklyn Quintero - Last Filed: 07/10/21 16:55> - Lab Data Result diagrams: 07/10/21 15:16 07/10/21 15:16 <Kem Cadet - Last Filed: 07/10/21 18:05> - Medical Decision Making 76-year-old male presenting for evaluation of abdominal pain. Patient has previous history of bladder cancer status post urostomy, and colostomy. He's had decreased stool output through his colostomy over the past several days. He was seen at outside hospital and told that he had likely developing bowel obstruction. He continues to have abdominal pain and decreased output. Additionally he was started on antibiotics for suspected UTI. Patty Canas is hemodynamically stable. Workup was initiated by physician assistant pressman awaiting CT imaging. CT imaging does show small bowel obstruction. NG tube will be placed in the emergency department. Patient will be kept nothing by mouth. IV antibiotics, pain medication and IV fluids will be continued. He will be admitted to [facility] emergency department physician group, case discussed with Dr. Roland. Who will accept admission. I did also discuss case with Dr. Sanchez who is familiar with this patient. (Kem Cadet) - Lab Data Lab Results 07/10/21 07/10/21 07/10/21 Range/Units 15:16 15:16 15:16 WBC 14.2 H (3.8-10.6) k/uL RBC 2.77 L (4.30-5.90) m/uL Hgb 9.9 L (13.0-17.5) gm/dL Hct 27.6 L (39.0-53.0) % MCV 99.6 (80.0-100.0) fL MCH 35.8 H (25.0-35.0) pg MCHC 35.9 (31.0-37.0) g/dL RDW 15.4 (11.5-15.5) % Plt Count 460 H (150-450) k/uL MPV 6.9 Neutrophils % 90 % Lymphocytes % 5 % Monocytes % 3 % Eosinophils % 1 % Basophils % 0 % Neutrophils # 12.8 H (1.3-7.7) k/uL Lymphocytes # 0.8 L (1.0-4.8) k/uL Monocytes # 0.4 (0-1.0) k/uL Eosinophils # 0.1 (0-0.7) k/uL Basophils # 0.1 (0-0.2) k/uL Macrocytosis Slight Sodium 137 (137-145) mmol/L Potassium 4.9 (3.5-5.1) mmol/L Chloride 105 (98-107) mmol/L Carbon Dioxide 20 L (22-30) mmol/L Anion Gap 12 mmol/L BUN 36 H (9-20) mg/dL Creatinine 1.92 H (0.66-1.25) mg/dL Est GFR (CKD-EPI)AfAm 39 (>60 ml/min/1.73 sqM) Est GFR (CKD-EPI)NonAf 33 (>60 ml/min/1.73 sqM) Glucose 113 H (74-99) mg/dL Plasma Lactic Acid Og 1.0 (0.7-2.0) mmol/L Calcium 9.9 (8.4-10.2) mg/dL Total Bilirubin 0.9 (0.2-1.3) mg/dL AST 19 (17-59) U/L ALT 15 (4-49) U/L Alkaline Phosphatase 100 (38-126) U/L Total Protein 7.4 (6.3-8.2) g/dL Albumin 3.7 (3.5-5.0) g/dL Lipase 68 (23-300) U/L Disposition <Jacklyn Quintero - Last Filed: 07/10/21 16:55> Is patient prescribed a controlled substance at d/c from ED?: No Decision to Admit Reason: Admit from EC Decision Date: 07/10/21 Decision Time: 18:05 <Kem Cadet - Last Filed: 07/10/21 18:05> Clinical Impression: SBO (small bowel obstruction), Bladder cancer Disposition: ADMITTED IP TO THIS HOSP Condition: Stable Referrals: Franc Bundy MD [Primary Care Provider] - 1-2 days
--- NOTE | 2021-07-10 17:10 | CT ---
EXAMINATION TYPE: CT abdomen pelvis wo con CT DLP: 701.2 mGycm, Automated exposure control for dose reduction was used. DATE OF EXAM: 07/10/2021 4:37 PM COMPARISON: CT abdomen pelvis most recent from 06/09/2021. CLINICAL INDICATION:Male, 76 years old with history of abdominal pain; Abdominal pain, history of UTI and c diff. TECHNIQUE: Standard CT of the abdomen and pelvis without IV or oral contrast. Lack of IV or oral co ntrast limits evaluation of solid and hollow organ viscera. Coronal and sagittal reformats were perfo rmed. FINDINGS: LOWER CHEST: Atherosclerosis of the coronary arteries ABDOMEN LIVER: Unremarkable GALLBLADDER AND BILE DUCTS: Layering increased densities within the lumen consistent with gallstones are present. PANCREAS: Unremarkable. SPLEEN: Unremarkable. ADRENAL GLANDS: Unremarkable. KIDNEYS AND URETERS: Right venous nephrostomy tube with pigtail in the right renal sinus. Bilateral r enal cysts as seen on prior. No evidence of obstructive uropathy. Gas seen within the right renal col lecting system likely secondary to percutaneous nephrostomy tube placement. Ileal conduit changes wit h right abdominal ostomy. PELVIS BLADDER: Ileal conduit changes. REPRODUCTIVE: Unremarkable. ABDOMEN & PELVIS STOMACH AND BOWEL: Ill-defined masslike area in the right lower quadrant measuring roughly 74 x 84 mm multiple surrounding loops of small bowel. Dilated small bowel loops are seen throughout the abdomen with relative nondistention of the right lower quadrant bowel loops and near the left upper quadrant ostomy. Small bowel dilation up to 4 mm. Least 2 ostomy sites in the anterior abdominal wall. Surgic al clips are seen in the right lower quadrant. PERITONEUM: No evidence of pneumoperitoneum or free fluid. VASCULATURE: Mild atherosclerotic calcifications are present throughout the abdominal aorta and its b ranches. MUSCULOSKELETAL: Mild disc degeneration changes are present throughout the thoracolumbar spine. LYMPH NODES: No gross evidence for lymphadenopathy. SOFT TISSUE/ABDOMINAL WALL: New anterior abdominal wall ostomies. IMPRESSION: 1. Findings suspicious for partial bowel obstruction versus early complete bowel obstruction with dil ated loops of small bowel throughout the abdomen. Ill-defined masslike area in the right lower abdome n/pelvis is suboptimally evaluated given lack of IV and oral contrast could represent location of obs truction. Given history of bladder cancer this may represent recurrent disease. Consider dedicated all bowel follow-through help rule out obstruction. 2. Nephrostomy tube pigtail tip in appropriate position. 3. Status post Cystectomy with ileal conduit. 4. Cholelithiasis.
[2021-07-10] MEDS ORDERED: PIPERACILLIN-TAZOBACTAM 3.375 GM in SODIUM CHLORIDE 0.9% 100 ML IVPB STA (17:55)
[2021-07-10] MEDS ORDERED: PANTOPRAZOLE 40 MG/10 ML VIAL IVP STA (17:55)
[2021-07-10] MEDS ORDERED: HYDROmorphone 1 MG/ML 1 ML SYRINGE IVP STA (17:55)
[2021-07-10] MEDS ORDERED: NALOXONE 0.4 MG/ML 1 ML VIAL IV PRN (18:00)
[2021-07-10] MEDS ORDERED: HYDROmorphone 1 MG/ML 1 ML SYRINGE IVP PRN (18:00)
[2021-07-10] MEDS: HYDROmorphone 1 MG/ML 1 ML SYRINGE IVP PRN (18:35)
[2021-07-10] MEDS: PANTOPRAZOLE 40 MG/10 ML VIAL IV SCH (18:36)
[2021-07-10] MEDS: ONDANSETRON 4 MG/2 ML VIAL IVP PRN (22:00)
[2021-07-10] MEDS: SODIUM CHLORIDE 0.9% 1,000 ML IV SCH (22:00)
[2021-07-11] MEDS: HYDROmorphone 1 MG/ML 1 ML SYRINGE IVP PRN ×7 (03:51→23:33)
--- NOTE | 2021-07-11 04:06 | P.HPIM ---
History of Present Illness H&P Date: 07/11/21 Patient is a 76-year-old male with a PMH of bladder cancer status post colostomy and urostomy placement (January 2021), chronic kidney disease, status post right nephrostomy tube placement one month ago, who presents to the emergency room with complaints of abdominal pain. The patient was recently admitted to the hospital on 06/03/21 for urosepsis with shock requiring pressors. The patient was subsequently discharged to a rehab facility where he reports being diagnosed with C. diff after several days of abdominal pain and diarrhea. The patient reports that he completed a course of oral antibiotics for the C. diff after which his diarrhea resolved. He notes that he was also seen at [facility] a few days ago where he underwent a computed tomography scan of the abdomen which revealed partial small bowel obstruction. The patient was also diagnosed with UTI and started on oral antibiotics (Keflex). The patient reports however that he continued having abdominal pain and thereby returned now to the emergency room. He reports the pain is 7 out of 10 in intensity, intermittent, radiating throughout his abdomen, without any alleviating or exacerbating features. He reports at the time of his interview that the pain had improved after receiving IV pain medications. He denied any additional complaints. Denied fever, chills, cough, nausea, vomiting. CT abdomen and pel vis revealed findings suspicious for partial small bowel obstruction. Laboratory evaluation revealed leukocytosis of 14.2, hemoglobin 9.9, platelets 460, BUN 36, creatinine 1.92. Review of systems: Pertinent positives and negatives as discussed in HPI, a complete review of systems was performed and all other systems are negative. Physical examination: General: non toxic, no distress, appears at stated age, normal weight Derm: no unusual rashes/lesions no unusual ecchymoses, warm, dry Head: atraumatic, normocephalic, symmetric Eyes: EOMI, no lid lag, anicteric sclera, pupils equal round reactive to light ENT: Nose and ears atraumatic, no thrush, no pharyngeal erythema Neck: No thyromegaly, no cervical lymphadenopathy, trachea midline, supple Mouth: no lip lesion, mucus membranes moist Cardiovascular: S1S2 reg, no murmur, positive posterior tibial pulse bilateral, no edema, capillary refill less than 2 seconds Lungs: CTA bilateral, no rhonchi, no rales , no accessory muscle use Abdominal: soft, minimal tenderness to palpation, no guarding, and she colostomy bag, urostomy bag with translucent yellow urine, no appreciable organomegaly, normal bowel sounds Ext: no gross muscle atrophy, muscle strength 5 out of 5 in all 4 extremities grossly, no contractures, Neuro: CN II-XI grossly intact, light touch intact all 4 extremities, finger to nose within normal limits, Psych: Alert, oriented, appropriate affect Assessment/plan Partial small bowel obstruction -Surgery consulted -Nothing by mouth for now -Multiple attempts were made to insert NGT which were unsuccessful -IV fluids UTI -Continue IV antibiotics -Follow cultures -Urology consult due to nephrostomy tube in place for over 30 days DVT prophylaxis -Lovenox The patient is admitted with an anticipated greater than 2 midnight stay for evaluation of SBO CODE STATUS: Full Code Discussed with: Patient Anticipated discharge date: 2-[address]: Home 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, post colectomy and colostomy and a cystectomy jan 2021 History of Any Multi-Drug Resistant Organisms: C-DIFF Date of last positivie culture/infection: 07/15 MDRO Source:: stool Past Surgical History: Bladder Surgery, Bowel Resection Additional Past Surgical History / Comment(s): December 2020 at [facility] patient had a bladder/colon fistula repair resulting in a double ostomy- urostomy and colostomy Past Anesthesia/Blood Transfusion Reactions: No Reported Reaction Additional Past Anesthesia/Blood Transfusion Reaction / Comment(s): No transfusion Past Psychological History: No Psychological Hx Reported Smoking Status: Former smoker Past Alcohol Use History: None Reported Past Drug Use History: None Reported - Past Family History family Family Medical History: No Reported History Medications and Allergies Home Medications Medication Instructions Recorded Confirmed Type Acetaminophen Tab [Tylenol] 1,000 mg PO Q6HR PRN 06/03/21 07/10/21 History Famotidine [Pepcid] 20 mg PO BID PRN 06/03/21 07/10/21 History Pantoprazole [Protonix] 40 mg PO DAILY #30 tab 06/16/21 07/10/21 Rx Sodium Bicarbonate Tab 1,300 mg PO BID tab 06/16/21 07/10/21 Rx Cephalexin [Keflex] 500 mg PO TID 07/10/21 07/10/21 History Mag Hydrox/Aluminum Hyd/Simeth 10 - 20 ml PO TID PRN 07/10/21 07/10/21 History [Mylanta Maximum Strength Liq] polyethylene glycoL 3350 [Miralax] 17 gm PO DAILY PRN 07/10/21 07/10/21 History Allergies Allergy/AdvReac Type Severity Reaction Status Date / Time No Known Allergies Allergy Verified 07/10/21 16:07 Physical Exam Vitals: Vital Signs Temp Pulse Pulse Resp BP BP Pulse Ox 07/10/21 20:00 98.7 F 95 18 132/63 98 07/10/21 18:59 68 18 119/87 99 07/10/21 14:27 98.9 F 111 H 22 109/76 100 Intake and Output 07/10/21 07/10/21 07/11/21 14:59 22:59 06:59 Other: Weight 81.647 kg 81.647 kg Results CBC & Chem 7: 07/10/21 15:16 07/10/21 15:16 Labs: Abnormal Lab Results - Last 24 Hours (Table) 07/10/21 07/10/21 Range/Units 15:16 15:16 WBC 14.2 H (3.8-10.6) k/uL RBC 2.77 L (4.30-5.90) m/uL Hgb 9.9 L (13.0-17.5) gm/dL Hct 27.6 L (39.0-53.0) % MCH 35.8 H (25.0-35.0) pg Plt Count 460 H (150-450) k/uL Neutrophils # 12.8 H (1.3-7.7) k/uL Lymphocytes # 0.8 L (1.0-4.8) k/uL Carbon Dioxide 20 L (22-30) mmol/L BUN 36 H (9-20) mg/dL Creatinine 1.92 H (0.66-1.25) mg/dL Glucose 113 H (74-99) mg/dL Thrombosis Risk Factor Assmnt - Choose All That Apply Any of the Below Risk Factors Present?: No Each Risk Factor Represents 2 Points: Age 61-74 years Thrombosis Risk Factor Assessment Total Risk Factor Score: 2 Thrombosis Risk Factor Assessment Level: Low Risk
[2021-07-11] MEDS: PIPERACILLIN-TAZOBACTAM 3.375 GM in SODIUM CHLORIDE 0.9% 100 ML IVPB SCH ×3 (05:10→21:39)
[2021-07-11] MEDS: SODIUM CHLORIDE 0.9% 1,000 ML IV SCH ×3 (05:11→23:37)
[2021-07-11] MEDS: ONDANSETRON 4 MG/2 ML VIAL IVP PRN (07:25)
[2021-07-11] MEDS: PANTOPRAZOLE 40 MG/10 ML VIAL IV SCH (07:25)
[2021-07-11 08:17] LABS: Appearance,Urine Clear (Clear); Bacteria,Urine Occasional /hpf; Bilirubin,Urine Negative (Negative); Blood,Urine Negative (Negative); Color,Urine Yellow; Glucose,Urine (UA) Negative (Negative); Ketones,Urine Negative (Negative); Leukocyte Esterase,Urine Large (Negative); Mucus,Urine Rare /hpf; Nitrite,Urine Positive (Negative); Protein,Urine Trace (Negative); RBC,Urine 3 /hpf (0-5); Specific Gravity,Urine 1.012 (1.001-1.035); Squamous Epithelial Cell,Urine <1 /hpf (0-4); Urobilinogen,Urine <2.0 mg/dL (<2.0); WBC,Urine 49 /hpf (0-5)
[2021-07-11 10:51] LABS: Basophils # (A) 0.05 X 10*3/uL (0.00-0.10); Basophils % (A) 0.5 %; Eosinophils # (A) 0.15 X 10*3/uL (0.04-0.35); Eosinophils % (A) 1.4 %; HGB 9.4 g/dL (13.0-17.0); Immature Grans, Automated 0.3 %; Lymphocytes # (A) 0.75 X 10*3/uL (0.90-5.00); Lymphocytes % (A) 6.8 %; MCH 31.8 pg (27.0-32.0); MCHC 31.3 g/dL (32.0-37.0); MCV 101.4 fL (80.0-97.0); Mean Platelet Volume 8.9 fL (9.5-12.2); Monocytes # (A) 0.64 X 10*3/uL (0.20-1.00); Monocytes % (A) 5.8 %; NRBC Per 100 WBC 0 /100 WBCS (0.0-0.0); Neutrophils # (A) 9.35 X 10*3/uL (1.80-7.70); Neutrophils % (A) 85.2 %; Platelet Count 449 X 10*3/uL (140-440); RBC 2.96 X 10*6/uL (4.40-5.60); WBC 10.97 X 10*3/uL (4.50-10.00)
--- NOTE | 2021-07-11 10:54 | P.GSCN ---
History of Present Illness Consult date: 07/11/21 Reason for Consult: Small bowel obstruction History of present illness: 76-year-old male known to our service. Patient was seen approximately 1 month ago. Patient was in the hospital and noticed decreased ostomy output. Patient has a history of bladder cancer. Had previous bladder resection with colostomy and urostomy. Since his discharge patient states he has been tolerating diet well and has had good ostomy function up until 2 days ago. Describes crampy abdominal pain. He has been belching a lot. No vomiting. Some nausea and d ecreased appetite. He had a CAT scan performed on admission which shows small bowel obstruction. The patient has a right lower abdominal mass seen on CAT scan as well. He has a right sided nephrostomy tube in place. White blood cell count was 14. Is improved today at 10. Attempts at nasogastric tube placement were unsuccessful yesterday. 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, post colectomy and colostomy and a cystectomy jan 2021 History of Any Multi-Drug Resistant Organisms: C-DIFF Year Discovered:: 07/15 MDRO Source:: stool Past Surgical History: Bladder Surgery, Bowel Resection Additional Past Surgical History / Comment(s): December 2020 at [facility] patient had a bladder/colon fistula repair resulting in a double ostomy- ur ostomy and colostomy Past Anesthesia/Blood Transfusion Reactions: No Reported Reaction Additional Past Anesthesia/Blood Transfusion Reaction / Comm: No transfusion Past Psychological History: No Psychological Hx Reported Smoking Status: Former smoker Past Alcohol Use History: None Reported Past Drug Use History: None Reported - Past Family History family Family Medical History: No Reported History Medications and Allergies Home Medications Medication Instructions Recorded Confirmed Type Acetaminophen Tab [Tylenol] 1,000 mg PO Q6HR PRN 06/03/21 07/10/21 History Famotidine [Pepcid] 20 mg PO BID PRN 06/03/21 07/10/21 History Pantoprazole [Protonix] 40 mg PO DAILY #30 tab 06/16/21 07/10/21 Rx Sodium Bicarbonate Tab 1,300 mg PO BID tab 06/16/21 07/10/21 Rx Cephalexin [Keflex] 500 mg PO TID 07/10/21 07/10/21 History Mag Hydrox/Aluminum Hyd/Simeth 10 - 20 ml PO TID PRN 07/10/21 07/10/21 History [Mylanta Maximum Strength Liq] polyethylene glycoL 3350 [Miralax] 17 gm PO DAILY PRN 07/10/21 07/10/21 History Allergies Allergy/AdvReac Type Severity Reaction Status Date / Time No Known Allergies Allergy Verified 07/10/21 16:07 Surgical - Exam Vital Signs Temp Pulse Resp BP Pulse Ox 98.9 F 111 H 22 109/76 100 07/10/21 14:27 07/10/21 14:27 07/10/21 14:27 07/10/21 14:27 07/10/21 14:27 Physical exam: General: Well-developed, well-nourished HEENT: Normocephalic, sclerae nonicteric Abdomen: Nontender, mild distention, right-sided urostomy, left-sided colostomy without any output, no palpable hernias Extremities: No edema Neuro: Alert and oriented Results - Labs 07/10/21 15:16 07/10/21 15:16 Abnormal Lab Results - Last 24 Hours (Table) 07/10/21 07/10/21 07/11/21 Range/Units 15:16 15:16 07:35 WBC 14.2 H (3.8-10.6) k/uL RBC 2.77 L (4.30-5.90) m/uL Hgb 9.9 L (13.0-17.5) gm/dL Hct 27.6 L (39.0-53.0) % MCH 35.8 H (25.0-35.0) pg Plt Count 460 H (150-450) k/uL Neutrophils # 12.8 H (1.3-7.7) k/uL Lymphocytes # 0.8 L (1.0-4.8) k/uL Carbon Dioxide 20 L (22-30) mmol/L BUN 36 H (9-20) mg/dL Creatinine 1.92 H (0.66-1.25) mg/dL Glucose 113 H (74-99) mg/dL Urine Protein Trace H (Negative) Ur Leukocyte Esterase Large H (Negative) Urine WBC 49 H (0-5) /hpf Urine Bacteria Occasional H (None) /hpf Urine Mucus Rare H (None) /hpf Diabetes panel 07/10/21 Range/Units 15:16 Sodium 137 (137-145) mmol/L Potassium 4.9 (3.5-5.1) mmol/L Chloride 105 (98-107) mmol/L Carbon Dioxide 20 L (22-30) mmol/L BUN 36 H (9-20) mg/dL Creatinine 1.92 H (0.66-1.25) mg/dL Glucose 113 H (74-99) mg/dL Calcium 9.9 (8.4-10.2) mg/dL AST 19 (17-59) U/L ALT 15 (4-49) U/L Alkaline Phosphatase 100 (38-126) U/L Total Protein 7.4 (6.3-8.2) g/dL Albumin 3.7 (3.5-5.0) g/dL Calcium panel 07/10/21 Range/Units 15:16 Calcium 9.9 (8.4-10.2) mg/dL Albumin 3.7 (3.5-5.0) g/dL Pituitary panel 07/10/21 Range/Units 15:16 Sodium 137 (137-145) mmol/L Potassium 4.9 (3.5-5.1) mmol/L Chloride 105 (98-107) mmol/L Carbon Dioxide 20 L (22-30) mmol/L BUN 36 H (9-20) mg/dL Creatinine 1.92 H (0.66-1.25) mg/dL Glucose 113 H (74-99) mg/dL Calcium 9.9 (8.4-10.2) mg/dL Adrenal panel 07/10/21 Range/Units 15:16 Sodium 137 (137-145) mmol/L Potassium 4.9 (3.5-5.1) mmol/L Chloride 105 (98-107) mmol/L Carbon Dioxide 20 L (22-30) mmol/L BUN 36 H (9-20) mg/dL Creatinine 1.92 H (0.66-1.25) mg/dL Glucose 113 H (74-99) mg/dL Calcium 9.9 (8.4-10.2) mg/dL Total Bilirubin 0.9 (0.2-1.3) mg/dL AST 19 (17-59) U/L ALT 15 (4-49) U/L Alkaline Phosphatase 100 (38-126) U/L Total Protein 7.4 (6.3-8.2) g/dL Albumin 3.7 (3.5-5.0) g/dL Assessment and Plan (1) SBO (small bowel obstruction) Narrative/Plan: 76-year-old male with small bowel obstruction on CAT scan. Patient with history of bladder cancer and currently has both colostomy and urostomy. Options reviewed with patient. We'll again try conservative measures in this case. Attempts at nasogastric tube placement will be made once again. Keep nothing by mouth. Repeat x-rays tomorrow. Current Visit: Yes Status: Acute Code(s): K56.609 - UNSP INTESTNL OBST, UNSP TO PARTIAL VERSUS COMPLETE OBST SNOMED Code(s): 212610931
[2021-07-11 11:02] LABS: African American GFR (CKD) 39.6 (60.0-200.0); Albumin 3.5 g/dL (3.8-4.9); Albumin/Globulin Ratio 1.14 (1.60-3.17); Anion Gap 13.2 mmol/L (10.00-18.00); BUN/Creat Ratio 17.18 Ratio (12.00-20.00); Blood Urea Nitrogen 32.3 mg/dL (9.0-27.0); Calcium 9.7 mg/dL (8.7-10.3); Carbon Dioxide 21.3 mmol/L (20.0-27.5); Globulin 3.1 g/dL (1.6-3.3); Non-African American GFR(CKD) 34.2 (60.0-200.0); Potassium 4.7 mmol/L (3.5-5.5); Total Bilirubin 0.7 mg/dL (0.30-1.20); Total Protein 6.6 g/dL (6.2-8.2)
--- NOTE | 2021-07-11 13:00 | FL ---
EXAMINATION TYPE: FL urography antegrade DATE OF EXAM: 07/11/2021 COMPARISON: NONE HISTORY: Right hydronephrosis TECHNIQUE: Fluoroscopy. FINDINGS: Decreased ostomy output, hx bladder CA, fistula into colon, bladder resection with ostomy 56 sec FL IMPRESSION: As Above.
--- NOTE | 2021-07-11 13:14 | P.PN ---
Subjective Progress Note Date: 07/11/21 Patient still have some abdominal pain today no chest pain no shortness of breath Patient is a 76-year-old male with a PMH of bladder cancer status post colostomy and urostomy placement (January 2021), chronic kidney disease, status post right nephrostomy tube placement one month ago, who presents to the emergency room with complaints of abdominal pain. The patient was recently admitted to the hospital on 06/03/21 for urosepsis with shock requiring pressors. The patient was subsequently discharged to a rehab facility where he reports being diagnosed with C. diff after several days of abdominal pain and diarrhea. The patient reports that he completed a course of oral antibiotics for the C. diff after which his diarrhea resolved. He notes that he was also seen at [facility] a few days ago where he underwent a computed tomography scan of the abdomen which revealed partial small bowel obstruction. The patient was also diagnosed with UTI and started on oral antibiotics (Keflex). The patient reports however that he continued having abdominal pain and thereby returned now to the emergency room. He reports the pain is 7 out of 10 in intensity, intermittent, radiating throughout his abdomen, without any alleviating or exacerbating features. He reports at the time of his interview that the pain had improved after receiving IV pain medications. He denied any additional comp laints. Denied fever, chills, cough, nausea, vomiting. CT abdomen and pelvis revealed findings suspicious for partial small bowel obstruction. Laboratory evaluation revealed leukocytosis of 14.2, hemoglobin 9.9, platelets 460, BUN 36, creatinine 1.92. Review of systems: Pertinent positives and negatives as discussed in HPI, a complete review of systems was performed and all other systems are negative. Physical examination: General: non toxic, no distress, appears at stated age, normal weight Derm: no unusual rashes/lesions no unusual ecchymoses, warm, dry Head: atraumatic, normocephalic, symmetric Eyes: EOMI, no lid lag, anicteric sclera, pupils equal round reactive to light ENT: Nose and ears atraumatic, no thrush, no pharyngeal erythema Neck: No thyromegaly, no cervical lymphadenopathy, trachea midline, supple Mouth: no lip lesion, mucus membranes moist Cardiovascular: S1S2 reg, no murmur, positive posterior tibial pulse bilateral, no edema, capillary refill less than 2 seconds Lungs: CTA bilateral, no rhonchi, no rales , no accessory muscle use Abdominal: soft, minimal tenderness to palpation, no guarding, and she colostomy bag, urostomy bag with translucent yellow urine, no appreciable organomegaly, normal bowel sounds Ext: no gross muscle atrophy, muscle strength 5 out of 5 in all 4 extremities grossly, no contractures, Neuro: CN II-XI grossly intact, light touch intact all 4 extremities, finger to nose within normal limits, Psych: Alert, oriented, appropriate affect Assessment/plan Partial small bowel obstruction -Surgery consulted -Nothing by mouth for now -Multiple attempts were made to insert NGT which were unsuccessful -IV fluids Continue management as per surgery overall stable continue UTI -Continue IV antibiotics -Follow cultures -Urology consult due to nephrostomy tube in place Overall appears to be stable continue management for obstructive Objective - Vital Signs Vital signs: Vital Signs Temp 98.2 F 07/11/21 11:31 Pulse 93 07/11/21 11:31 Resp 16 07/11/21 11:31 BP 103/70 07/11/21 11:31 Pulse Ox 94 L 07/11/21 11:31 Intake & Output 07/10/21 07/11/21 07/11/21 18:59 06:59 18:59 Output Total 2150 Balance -2150 Weight 81.647 kg 81.647 kg Output: Gastric Drainage 1100 Drainage 150 Right Back 150 Urine 900 Right Upper Abdomen 150 Other: Voiding Method Ileal Conduit (Right) Ileal Conduit (Right) - Labs CBC & Chem 7: 07/11/21 05:32 07/11/21 05:32 Labs: Abnormal Lab Results - Last 24 Hours (Table) 07/10/21 07/10/21 07/11/21 Range/Units 15:16 15:16 05:32 WBC 14.2 H 10.97 H (3.8-10.6) k/uL RBC 2.77 L 2.96 L (4.30-5.90) m/uL Hgb 9.9 L 9.4 L (13.0-17.5) gm/dL Hct 27.6 L 30.0 L (39.0-53.0) % MCV 101.4 H (80.0-97.0) fL MCH 35.8 H (25.0-35.0) pg MCHC 31.3 L (32.0-37.0) g/dL RDW 16.0 H (11.5-14.5) % Plt Count 460 H 449 H (150-450) k/uL MPV 8.9 L (9.5-12.2) fL Neutrophils # 12.8 H 9.35 H (1.3-7.7) k/uL Lymphocytes # 0.8 L 0.75 L (1.0-4.8) k/uL Carbon Dioxide 20 L (22-30) mmol/L BUN 36 H (9-20) mg/dL Creatinine 1.92 H (0.66-1.25) mg/dL Est GFR (CKD-EPI)AfAm (60.0-200.0) Est GFR (CKD-EPI)NonAf (60.0-200.0) Glucose 113 H (74-99) mg/dL AST (14-35) U/L Albumin (3.8-4.9) g/dL Albumin/Globulin Ratio (1.60-3.17) g/dL Urine Protein (Negative) Ur Leukocyte Esterase (Negative) Urine WBC (0-5) /hpf Urine Bacteria (None) /hpf Urine Mucus (None) /hpf 07/11/21/ Range/Units 05:32 07:35 WBC (3.8-10.6) k/uL RBC (4.30-5.90) m/uL Hgb (13.0-17.5) gm/dL Hct (39.0-53.0) % MCV (80.0-97.0) fL MCH (25.0-35.0) pg MCHC (32.0-37.0) g/dL RDW (11.5-14.5) % Plt Count (150-450) k/uL MPV (9.5-12.2) fL Neutrophils # (1.3-7.7) k/uL Lymphocytes # (1.0-4.8) k/uL Carbon Dioxide (22-30) mmol/L BUN 32.3 H (9-20) mg/dL Creatinine 1.9 H (0.66-1.25) mg/dL Est GFR (CKD-EPI)AfAm 39.6 L (60.0-200.0) Est GFR (CKD-EPI)NonAf 34.2 L (60.0-200.0) Glucose (74-99) mg/dL AST 13 L (14-35) U/L Albumin 3.5 L (3.8-4.9) g/dL Albumin/Globulin Ratio 1.14 L (1.60-3.17) g/dL Urine Protein Trace H (Negative) Ur Leukocyte Esterase Large H (Negative) Urine WBC 49 H (0-5) /hpf Urine Bacteria Occasional H (None) /hpf Urine Mucus Rare H (None) /hpf
--- NOTE | 2021-07-11 14:01 | P.GSCN ---
History of Present Illness Consult date: 07/11/21 Reason for Consult: Right hydronephrosis Requesting physician: Faustina Roland History of present illness: The patient is a 76-year-old white male well known to me. 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 This was demonstrated on CT scan in December 2020, also revealing moderate to severe right hydronephrosis. He was referred to [facility] and underwent a radical cystoprostatectomy with en bloc resection of the colon 02/04/2021. Surgical margins were negative. He was hospitalized last month with presumed sepsis of urinary origin. His serum creatinine level was noted to be elevated, and he was found to have hydronephrosis. A loopogram showed reflux of contrast into the left kidney, but none on the right. Therefore, he underwent placement of a left percutaneous nephrostomy tube. This week he has experienced nausea, diminished appetite, and decreased colostomy output. He was evaluated in the emergency room and felt to have a possible bowel obstruction, for which he was admitted. Review of Systems - Constitutional Denies chills, Denies fever - Gastrointestinal Reports loss of appetite, Reports nausea, Denies vomiting - Genitourinary Denies flank pain 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, post colectomy and colostomy and a cystectomy jan 2021 History of Any Multi-Drug Resistant Organisms: C-DIFF Year Discovered:: 07/15 MDRO Source:: stool Past Surgical History: Bladder Surgery, Bowel Resection Additional Past Surgical History / Comment(s): December 2020 at [facility] patient had a bladder/colon fistula repair resulting in a double ostomy- urostomy and colostomy Past Anesthesia/Blood Transfusion Reactions: No Reported Reaction Additional Past Anesthesia/Blood Transfusion Reaction / Comm: No transfusion Past Psychological History: No Psychological Hx Reported Smoking Status: Former smoker Past Alcohol Use History: None Reported Past Drug Use History: None Reported - Past Family History family Family Medical History: No Reported History Medications and Allergies Home Medications Medication Instructions Recorded Confirmed Type Acetaminophen Tab [Tylenol] 1,000 mg PO Q6HR PRN 06/03/21 07/10/21 History Famotidine [Pepcid] 20 mg PO BID PRN 06/03/21 07/10/21 History Pantoprazole [Protonix] 40 mg PO DAILY #30 tab 06/16/21 07/10/21 Rx Sodium Bicarbonate Tab 1,300 mg PO BID tab 06/16/21 07/10/21 Rx Cephalexin [Keflex] 500 mg PO TID 07/10/21 07/10/21 History Mag Hydrox/Aluminum Hyd/Simeth 10 - 20 ml PO TID PRN 07/10/21 07/10/21 History [Mylanta Maximum Strength Liq] polyethylene glycoL 3350 [Miralax] 17 gm PO DAILY PRN 07/10/21 07/10/21 History Allergies Allergy/AdvReac Type Severity Reaction Status Date / Time No Known Allergies Allergy Verified 07/10/21 16:07 Surgical - Exam Vital Signs Temp Pulse Resp BP Pulse Ox 98.9 F 111 H 22 109/76 100 07/10/21 14:27 07/10/21 14:27 07/10/21 14:27 07/10/21 14:27 07/10/21 14:27 - General well developed, well nourished, no distress - Neck no masses, trachea midline - Respiratory normal respiratory effort - Abdomen Soft, non-tender, mildly distended, no masses, no hernia. The colostomy stoma on the left and the urostomy stoma on the right are both adequately budded. The colostomy bag is empty. - Genitourinary normal penis with no external lesions, testicles non-tender - Psychiatric oriented to time, oriented to person, oriented to place, speech is normal, memory intact Results - Labs 07/11/21 05:32 07/11/21 05:32 Abnormal Lab Results - Last 24 Hours (Table) 07/10/21 07/10/21 07/11/21 Range/Units 15:16 15:16 05:32 WBC 14.2 H 10.97 H (3.8-10.6) k/uL RBC 2.77 L 2.96 L (4.30-5.90) m/uL Hgb 9.9 L 9.4 L (13.0-17.5) gm/dL Hct 27.6 L 30.0 L (39.0-53.0) % MCV 101.4 H (80.0-97.0) fL MCH 35.8 H (25.0-35.0) pg MCHC 31.3 L (32.0-37.0) g/dL RDW 16.0 H (11.5-14.5) % Plt Count 460 H 449 H (150-450) k/uL MPV 8.9 L (9.5-12.2) fL Neutrophils # 12.8 H 9.35 H (1.3-7.7) k/uL Lymphocytes # 0.8 L 0.75 L (1.0-4.8) k/uL Carbon Dioxide 20 L (22-30) mmol/L BUN 36 H (9-20) mg/dL Creatinine 1.92 H (0.66-1.25) mg/dL Est GFR (CKD-EPI)AfAm (60.0-200.0) Est GFR (CKD-EPI)NonAf (60.0-200.0) Glucose 113 H (74-99) mg/dL AST (14-35) U/L Albumin (3.8-4.9) g/dL Albumin/Globulin Ratio (1.60-3.17) g/dL Urine Protein (Negative) Ur Leukocyte Esterase (Negative) Urine WBC (0-5) /hpf Urine Bacteria (None) /hpf Urine Mucus (None) /hpf 07/11/21 07/11/21 Range/Units 05:32 07:35 WBC (3.8-10.6) k/uL RBC (4.30-5.90) m/uL Hgb (13.0-17.5) gm/dL Hct (39.0-53.0) % MCV (80.0-97.0) fL MCH (25.0-35.0) pg MCHC (32.0-37.0) g/dL RDW (11.5-14.5) % Plt Count (150-450) k/uL MPV (9.5-12.2) fL Neutrophils # (1.3-7.7) k/uL Lymphocytes # (1.0-4.8) k/uL Carbon Dioxide (22-30) mmol/L BUN 32.3 H (9-20) mg/dL Creatinine 1.9 H (0.66-1.25) mg/dL Est GFR (CKD-EPI)AfAm 39.6 L (60.0-200.0) Est GFR (CKD-EPI)NonAf 34.2 L (60.0-200.0) Glucose (74-99) mg/dL AST 13 L (14-35) U/L Albumin 3.5 L (3.8-4.9) g/dL Albumin/Globulin Ratio 1.14 L (1.60-3.17) g/dL Urine Protein Trace H (Negative) Ur Leukocyte Esterase Large H (Negative) Urine WBC 49 H (0-5) /hpf Urine Bacteria Occasional H (None) /hpf Urine Mucus Rare H (None) /hpf Diabetes panel 07/10/21 07/11/21 Range/Units 15:16 05:32 Sodium 137 137 (137-145) mmol/L Potassium 4.9 4.7 (3.5-5.1) mmol/L Chloride 105 103 (98-107) mmol/L Carbon Dioxide 20 L 21.3 (22-30) mmol/L BUN 36 H 32.3 H (9-20) mg/dL Creatinine 1.92 H 1.9 H (0.66-1.25) mg/dL Glucose 113 H 106 (74-99) mg/dL Calcium 9.9 9.7 (8.4-10.2) mg/dL AST 19 13 L (17-59) U/L ALT 15 14 (4-49) U/L Alkaline Phosphatase 100 89 (38-126) U/L Total Protein 7.4 6.6 (6.3-8.2) g/dL Albumin 3.7 3.5 L (3.5-5.0) g/dL Calcium panel 07/10/21 07/11/21 Range/Units 15:16 05:32 Calcium 9.9 9.7 (8.4-10.2) mg/dL Albumin 3.7 3.5 L (3.5-5.0) g/dL Pituitary panel 07/10/21 07/11/21 Range/Units 15:16 05:32 Sodium 137 137 (137-145) mmol/L Potassium 4.9 4.7 (3.5-5.1) mmol/L Chloride 105 103 (98-107) mmol/L Carbon Dioxide 20 L 21.3 (22-30) mmol/L BUN 36 H 32.3 H (9-20) mg/dL Creatinine 1.92 H 1.9 H (0.66-1.25) mg/dL Glucose 113 H 106 (74-99) mg/dL Calcium 9.9 9.7 (8.4-10.2) mg/dL Adrenal panel 07/10/21 07/11/21 Range/Units 15:16 05:32 Sodium 137 137 (137-145) mmol/L Potassium 4.9 4.7 (3.5-5.1) mmol/L Chloride 105 103 (98-107) mmol/L Carbon Dioxide 20 L 21.3 (22-30) mmol/L BUN 36 H 32.3 H (9-20) mg/dL Creatinine 1.92 H 1.9 H (0.66-1.25) mg/dL Glucose 113 H 106 (74-99) mg/dL Calcium 9.9 9.7 (8.4-10.2) mg/dL Total Bilirubin 0.9 0.70 (0.2-1.3) mg/dL AST 19 13 L (17-59) U/L ALT 15 14 (4-49) U/L Alkaline Phosphatase 100 89 (38-126) U/L Total Protein 7.4 6.6 (6.3-8.2) g/dL Albumin 3.7 3.5 L (3.5-5.0) g/dL Assessment and Plan (1) Unspecified hydronephrosis Current Visit: No Status: Acute Code(s): N13.30 - UNSPECIFIED HYDRONEPHROSIS SNOMED Code(s): 46089289 (2) Bladder cancer Current Visit: Yes Status: Acute Code(s): C67.9 - MALIGNANT NEOPLASM OF BLADDER, UNSPECIFIED SNOMED Code(s): 704959411 Plan: The CT scan shows no evidence of left hydronephrosis. A right nephrostogram was performed to determine whether or not the patient has a right ureteroileal anastomotic stricture. It appears that contrast does in fact passed into the ileal conduit, but I will await a final radiology report.
[2021-07-12] MEDS: HYDROmorphone 1 MG/ML 1 ML SYRINGE IVP PRN ×7 (02:37→21:29)
[2021-07-12] MEDS: PIPERACILLIN-TAZOBACTAM 3.375 GM in SODIUM CHLORIDE 0.9% 100 ML IVPB SCH ×3 (04:25→19:27)
[2021-07-12 08:58] LABS: Basophils # (A) 0.04 X 10*3/uL (0.00-0.10); Basophils % (A) 0.5 %; Eosinophils # (A) 0.27 X 10*3/uL (0.04-0.35); Eosinophils % (A) 3.5 %; HCT 25.6 % (39.6-50.0); HGB 7.9 g/dL (13.0-17.0); Immature Grans, Automated 0.3 %; Lymphocytes # (A) 1.29 X 10*3/uL (0.90-5.00); Lymphocytes % (A) 16.7 %; MCH 31.2 pg (27.0-32.0); MCHC 30.9 g/dL (32.0-37.0); MCV 101.2 fL (80.0-97.0); Mean Platelet Volume 8.8 fL (9.5-12.2); Monocytes # (A) 0.68 X 10*3/uL (0.20-1.00); Monocytes % (A) 8.8 %; NRBC Per 100 WBC 0 /100 WBCS (0.0-0.0); Neutrophils # (A) 5.41 X 10*3/uL (1.80-7.70); Neutrophils % (A) 70.2 %; Platelet Count 363 X 10*3/uL (140-440); RBC 2.53 X 10*6/uL (4.40-5.60); RDW 16.2 % (11.5-14.5); WBC 7.71 X 10*3/uL (4.50-10.00)
[2021-07-12 09:06] LABS: African American GFR (CKD) 34.6 (60.0-200.0); Albumin 3.3 g/dL (3.8-4.9); Albumin/Globulin Ratio 1.22 (1.60-3.17); Anion Gap 12.1 mmol/L (10.00-18.00); BUN/Creat Ratio 13.43 Ratio (12.00-20.00); Blood Urea Nitrogen 28.2 mg/dL (9.0-27.0); Calcium 9.1 mg/dL (8.7-10.3); Carbon Dioxide 21.9 mmol/L (20.0-27.5); Globulin 2.7 g/dL (1.6-3.3); Non-African American GFR(CKD) 29.9 (60.0-200.0); Total Bilirubin 0.7 mg/dL (0.30-1.20)
--- NOTE | 2021-07-12 09:38 | XR ---
EXAMINATION TYPE: XR abdomen 2V DATE OF EXAM: 07/12/2021 COMPARISON: 06/09/2021 HISTORY: 76 years Male. STUDY INDICATION GIVEN: Follow-up bowel obstruction . TECHNIQUE: Supine and upright abdominal radiographs IMPRESSION: Enteric tube courses into the stomach. Right-sided nephrostomy tube is now seen. Mild to moderate dilatation of multiple bowel loops. Multiple Air-fluid level seen on the upright daniel dy. No definite free air seen. Findings concerning for bowel obstruction with no significant change in appearance compared to CT. P lease refer to dedicated CT dated 07/10/2021 for further detail.
--- NOTE | 2021-07-12 10:58 | P.PN ---
Progress Note - Text Progress Note Date: 07/12/21 Mr. Hung is feeling somewhat better. He was contacted by [facility], stating that he had a positive blood culture. I have asked his nurse to have him sign a records release form so that those records can be faxed to us. 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 The right nephrostomy tube was placed on 06/13/2021. His renal function has gradually improved since that time. I have offered Mr. Hung 3 options: 1) Continue nephrostomy tube drainage, and change the nephrostomy tube every 3 months. 2) Attempt antegrade right ureteral stent insertion, in which case the ureteral stent can be changed every 3 months through the ileal conduit. 3) Percutaneous or open repair of the stricture. He prefers to undergo antegrade stent placement if possible. Appropriate arrangements will be made.
[2021-07-12] MEDS: SODIUM CHLORIDE 0.9% 1,000 ML IV SCH ×3 (12:02→21:27)
--- NOTE | 2021-07-12 13:31 | P.PN ---
Subjective Progress Note Date: 07/12/21 Principal diagnosis: Patient still feels weak no chest pain no shortness of breath Patient still have some abdominal pain today no chest pain no shortness of breath Patient is a 76-year-old male with a PMH of bladder cancer status post colostomy and urostomy placement (January 2021), chronic kidney disease, status post right nephrostomy tube placement one month ago, who presents to the emergency room with complaints of abdominal pain. The patient was recently admitted to [facility] on 06/03/21 for urosepsis with shock requiring pressors. The patient was subsequently discharged to a rehab facility where he reports being diagnosed with C. diff after several days of abdominal pain and diarrhea. The patient reports that he completed a course of oral antibiotics for the C. diff after which his diarrhea resolved. He notes that he was also seen at [facility] a few days ago where he underwent a computed tomography scan of the abdomen which revealed partial small bowel obstruction. The patient was also diagnosed with UTI and started on oral antibiotics (Keflex). The patient reports however that he continued having abdominal pain and thereby returned now to the emergency room. He reports the pain is 7 out of 10 in intensity, intermittent, radiating throughout his abdomen, without any alleviating or exacerbating features. He reports at the time of his interview that the pain had improved after receiving IV pain medications. He denied any additional complaints. Denied fever, chills, cough, nausea, vomiting. CT abdomen and pelvis revealed findings suspicious for partial small bowel obstruction. Laboratory evaluation revealed leukocytosis of 14.2, hemoglobin 9.9, platelets 460, BUN 36, creatinine 1.92. Review of systems: Pertinent positives and negatives as discussed in HPI, a complete review of systems was performed and all other systems are negative. Physical examination: General: non toxic, no distress, appears at stated age, normal weight Derm: no unusual rashes/lesions no unusual ecchymoses, warm, dry Head: atraumatic, normocephalic, symmetric Eyes: EOMI, no lid lag, anicteric sclera, pupils equal round reactive to light ENT: Nose and ears atraumatic, no thrush, no pharyngeal erythema Neck: No thyromegaly, no cervical lymphadenopathy, trachea midline, supple Mouth: no lip lesion, mucus membranes moist Cardiovascular: S1S2 reg, no murmur, positive posterior tibial pulse bilateral, no edema, capillary refill less than 2 seconds Lungs: CTA bilateral, no rhonchi, no rales , no accessory muscle use Abdominal: soft, minimal tenderness to palpation, no guarding, and she colostomy bag, urostomy bag with translucent yellow urine, no appreciable organomegaly, normal bowel sounds Ext: no gross muscle atrophy, muscle strength 5 out of 5 in all 4 extremities grossly, no contractures, Neuro: CN II-XI grossly intact, light touch intact all 4 extremities, finger to nose within normal limits, Psych: Alert, oriented, appropriate affect Assessment/plan NG tube placed we'll continue to monitor Partial small bowel obstruction -Surgery consulted -Nothing by mouth for now -Multiple attempts were made to insert NGT which were unsuccessful -IV fluids Continue management as per surgery overall stable continue UTI -Continue IV antibiotics -Follow cultures -Urology consult due to nephrostomy tube in place Overall appears to be stable continue management for obstructive Objective - Vital Signs Vital signs: Vital Signs Temp 98.3 F 07/12/21 13:00 Pulse 87 07/12/21 13:00 Resp 17 07/12/21 13:00 BP 118/65 07/12/21 13:00 Pulse Ox 96 07/12/21 13:00 Intake & Output 07/11/21 07/12/21 07/12/21 18:59 06:59 18:59 Intake Total 1300 Output Total 2850 1550 150 Balance -1550 -1550 -150 Intake: Intake, IV Titration 1300 Amount Piperacillin-Tazobactam 3 100 .375 gm In Sodium Chloride 0.9% 100 ml @ 25 mls/hr IVPB Q8H [facility] Rx#: [id number] Sodium Chloride 0.9% 1, 1200 000 ml @ 100 mls/hr IV . Q10H [facility] Rx#:[id number] Output: Gastric Drainage 1800 Drainage 150 700 150 Right Back 150 700 150 Urine 900 850 Right Upper Abdomen 150 200 Other: Voiding Method Ileal Conduit (Right) Ileal Conduit (Right) Ileal Conduit (Right) - Labs CBC & Chem 7: 07/12/21 06:16 07/12/21 06:16 Labs: Abnormal Lab Results - Last 24 Hours (Table) 07/12/21 07/12/21 Range/Units 06:16 06:16 RBC 2.53 L (4.40-5.60) X 10*6/uL Hgb 7.9 L (13.0-17.0) g/dL Hct 25.6 L (39.6-50.0) % MCV 101.2 H (80.0-97.0) fL MCHC 30.9 L (32.0-37.0) g/dL RDW 16.2 H (11.5-14.5) % MPV 8.8 L (9.5-12.2) fL BUN 28.2 H (9.0-27.0) mg/dL Creatinine 2.1 H (0.6-1.5) mg/dL Est GFR (CKD-EPI)AfAm 34.6 L (60.0-200.0) Est GFR (CKD-EPI)NonAf 29.9 L (60.0-200.0) AST 10 L (14-35) U/L Total Protein 6.0 L (6.2-8.2) g/dL Albumin 3.3 L (3.8-4.9) g/dL Albumin/Globulin Ratio 1.22 L (1.60-3.17) g/dL Microbiology - Last 24 Hours (Table) 07/11/21 07:35 Urine Culture - Preliminary Urine,Clean Catch
--- NOTE | 2021-07-12 15:29 | P.PN ---
Subjective Progress Note Date: 07/12/21 CHIEF COMPLAINT: Bowel obstruction HISTORY OF PRESENT ILLNESS: The patient is a 76-year-old male with prior history of urostomy including laparotomy presents with bowel obstruction. Nasogastric tube present. He reports his abdominal pain is unchanged. He reports this is his first event of bowel obstruction. ROS: No fevers or chills. No new chest pain. PHYSICAL EXAM: VITAL SIGNS: Reviewed CONSTITUTIONAL: Well developed and in no acute distress. EYES: Conjuctivae without sclera icterus. Extraocular movements grossly intact. HEAD, EARS, NOSE, THROAT: Moist buccal mucosa. Head is atraumatic, normocephalic. Hears conversational speech. No nasal drainage. RESPIRATORY: Non-labored respirations and equal bilateral excursions. CARDIOVASCULAR: Palpable 2+ radial pulses. ABDOMEN: Urostomy present. No peritonitis. Colostomy present with no flatus or stool. MUSCULOSKELETAL: No gross deformity of the lower extremities noted. No clubbing. No cyanosis. SKIN: Good skin turgor. Well perfused. NEUROLOGIC: Cranial nerves II through XII grossly intact. No focal or lateralizing signs. PSYCH: Appropriate affect. Alert and oriented to person, place and time. CLINICAL LABS: Reviewed. WBC normal 7.7. Hemoglobin down 9.4-7.9 with anemia. Creatinine elevated 1.9-2.1 STUDIES: Abdominal x-ray review demonstrates multiple air-fluid levels including nasogastric tube within the stomach. This is my independent interpretation. ASSESSMENT: 1. Bowel obstruction due to adhesions 2. Colostomy present 3. Urostomy present PLAN: 1. Continue nasogastric tube. 2. Ambulation encouraged 3. May need additional studies of small bowel follow through due to complicated surgical history. Objective - Vital Signs Vital signs: Vital Signs Temp 98.3 F 07/12/21 13:00 Pulse 87 07/12/21 13:00 Resp 17 07/12/21 13:00 BP 118/65 07/12/21 13:00 Pulse Ox 96 07/12/21 13:00 Intake & Output 07/11/21 07/12/21 07/12/21 18:59 06:59 18:59 Intake Total 1300 Output Total 2850 1550 150 Balance -1550 -1550 -150 Intake: Intake, IV Titration 1300 Amount Piperacillin-Tazobactam 3 100 .375 gm In Sodium Chloride 0.9% 100 ml @ 25 mls/hr IVPB Q8H [facility] Rx#: [id number] Sodium Chloride 0.9% 1, 1200 000 ml @ 100 mls/hr IV . Q10H [facility] Rx#:[id number] Output: Gastric Drainage 1800 Drainage 150 700 150 Right Back 150 700 150 Urine 900 850 Right Upper Abdomen 150 200 Other: Voiding Method Ileal Conduit (Right) Ileal Conduit (Right) Ileal Conduit (Right) - Labs CBC & Chem 7: 07/12/21 06:16 07/12/21 06:16 Labs: Abnormal Lab Results - Last 24 Hours (Table) 07/12/21 07/12/21 Range/Units 06:16 06:16 RBC 2.53 L (4.40-5.60) X 10*6/uL Hgb 7.9 L (13.0-17.0) g/dL Hct 25.6 L (39.6-50.0) % MCV 101.2 H (80.0-97.0) fL MCHC 30.9 L (32.0-37.0) g/dL RDW 16.2 H (11.5-14.5) % MPV 8.8 L (9.5-12.2) fL BUN 28.2 H (9.0-27.0) mg/dL Creatinine 2.1 H (0.6-1.5) mg/dL Est GFR (CKD-EPI)AfAm 34.6 L (60.0-200.0) Est GFR (CKD-EPI)NonAf 29.9 L (60.0-200.0) AST 10 L (14-35) U/L Total Protein 6.0 L (6.2-8.2) g/dL Albumin 3.3 L (3.8-4.9) g/dL Albumin/Globulin Ratio 1.22 L (1.60-3.17) g/dL Microbiology - Last 24 Hours (Table) 07/11/21 07:35 Urine Culture - Preliminary Urine,Clean Catch
[2021-07-13] MEDS: HYDROmorphone 1 MG/ML 1 ML SYRINGE IVP PRN ×9 (00:30→23:49)
[2021-07-13] MEDS: PIPERACILLIN-TAZOBACTAM 3.375 GM in SODIUM CHLORIDE 0.9% 100 ML IVPB SCH ×3 (03:51→19:01)
[2021-07-13] MEDS: SODIUM CHLORIDE 0.9% 1,000 ML IV SCH ×2 (08:38→16:35)
[2021-07-13] MEDS: PANTOPRAZOLE 40 MG/10 ML VIAL IV SCH (08:45)
[2021-07-13 10:57] LABS: Basophils # (A) 0.06 X 10*3/uL (0.00-0.10); Basophils % (A) 0.5 %; Eosinophils % (A) 2.6 %; HGB 8.7 g/dL (13.0-17.0); Immature Grans, Automated 0.6 %; Lymphocytes # (A) 1.14 X 10*3/uL (0.90-5.00); Lymphocytes % (A) 9.7 %; MCH 31.9 pg (27.0-32.0); MCHC 31.1 g/dL (32.0-37.0); MCV 102.6 fL (80.0-97.0); Monocytes # (A) 0.75 X 10*3/uL (0.20-1.00); Monocytes % (A) 6.4 %; NRBC Per 100 WBC 0 /100 WBCS (0.0-0.0); Neutrophils # (A) 9.39 X 10*3/uL (1.80-7.70); Neutrophils % (A) 80.2 %; Platelet Count 387 X 10*3/uL (140-440); RBC 2.73 X 10*6/uL (4.40-5.60); RDW 16.3 % (11.5-14.5); WBC 11.71 X 10*3/uL (4.50-10.00)
--- NOTE | 2021-07-13 11:18 | P.PN ---
Subjective Progress Note Date: 07/13/21 Principal diagnosis: Continues to have abdominal pain Patient still feels weak no chest pain no shortness of breath Patient still have some abdominal pain today no chest pain no shortness of breath Patient is a 76-year-old male with a PMH of bladder cancer status post colostomy and urostomy placement (January 2021), chronic kidney disease, status post right nephrostomy tube placement one month ago, who presents to the emergency room with complaints of abdominal pain. The patient was recently admitted to the hospital on 06/03/21 for urosepsis with shock requiring pressors. The patient was subsequently discharged to a rehab facility where he reports being diagnosed with C. diff after several days of abdominal pain and diarrhea. The patient reports that he completed a course of oral antibiotics for the C. diff after which his diarrhea resolved. He notes that he was also seen at [facility] a few days ago where he underwent a computed tomography scan of the abdomen which revealed partial small bowel obstruction. The patient was also diagnosed with UTI and started on oral antibiotics (Keflex). The patient reports however that he continued having abdominal pain and thereby returned now to the emergency room. He reports the pain is 7 out of 10 in intensity, intermittent, radiating throughout his abdomen, without any alleviating or exacerbating features. He reports at the time of his interview that the pain had improved after receiving IV pain medications. He denied any additional complaints. Denied fever, chills, cough, nausea, vomiting. CT abdomen and pelvis revealed findings suspicious for partial small bowel obstruction. Laboratory evaluation revealed leukocytosis of 14.2, hemoglobin 9.9, platelets 460, BUN 36, creatinine 1.92. Review of systems: Pertinent positives and negatives as discussed in HPI, a complete review of systems was performed and all other systems are negative. Physical examination: General: non toxic, no distress, appears at stated age, normal weight Derm: no unusual rashes/lesions no unusual ecchymoses, warm, dry Head: atraumatic, normocephalic, symmetric Eyes: EOMI, no lid lag, anicteric sclera, pupils equal round reactive to light ENT: Nose and ears atraumatic, no thrush, no pharyngeal erythema Neck: No thyromegaly, no cervical lymphadenopathy, trachea midline, supple Mouth: no lip lesion, mucus membranes moist Cardiovascular: S1S2 reg, no murmur, positive posterior tibial pulse bilateral, no edema, capillary refill less than 2 seconds Lungs: CTA bilateral, no rhonchi, no rales , no accessory muscle use Abdominal: soft, minimal tenderness to palpation, no guarding, and she colostomy bag, urostomy bag with translucent yellow urine, no appreciable organomegaly, normal bowel sounds Ext: no gross muscle atrophy, muscle strength 5 out of 5 in all 4 extremities grossly, no contractures, Neuro: CN II-XI grossly intact, light touch intact all 4 extremities, finger to nose within normal limits, Psych: Alert, oriented, appropriate affect Assessment/plan NG tube placed we'll continue to monitor Partial small bowel obstruction -Surgery consulted -Nothing by mouth for now -Multiple attempts were made to insert NGT which were unsuccessful -IV fluids Continue management as per surgery overall stable continue UTI -Continue IV antibiotics -Follow cultures -Urology consult due to nephrostomy tube in place Overall stable bowel obstruction due to adhesions Objective - Vital Signs Vital signs: Vital Signs Temp 98.8 F 07/13/21 04:50 Pulse 88 07/13/21 04:50 Resp 16 07/13/21 04:50 BP 111/65 07/13/21 04:50 Pulse Ox 96 07/13/21 04:50 Intake & Output 07/12/21 07/13/21 07/13/21 18:59 06:59 18:59 Intake Total 1300 1200 Output Total 600 200 700 Balance 700 1000 -700 Intake: Intake, IV Titration 1300 1200 Amount Piperacillin-Tazobactam 3 100 .375 gm In Sodium Chloride 0.9% 100 ml @ 25 mls/hr IVPB Q8H [facility] Rx#: [id number] Sodium Chloride 0.9% 1, 1200 1200 000 ml @ 100 mls/hr IV . Q10H [facility] Rx#:[id number] Output: Gastric Drainage 200 Drainage 350 Right Back 350 Urine 250 700 Right Upper Abdomen 250 Other: Voiding Method Ileal Conduit (Right) Ileal Conduit (Right) # Voids 2 - Labs CBC & Chem 7: 07/13/21 07:27 07/12/21 06:16 Labs: Abnormal Lab Results - Last 24 Hours (Table) 07/13/21 Range/Units 07:27 WBC 11.71 H (4.50-10.00) X 10*3/uL RBC 2.73 L (4.40-5.60) X 10*6/uL Hgb 8.7 L (13.0-17.0) g/dL Hct 28.0 L (39.6-50.0) % MCV 102.6 H (80.0-97.0) fL MCHC 31.1 L (32.0-37.0) g/dL RDW 16.3 H (11.5-14.5) % MPV 9.0 L (9.5-12.2) fL Immature Gran # 0.07 H (0.00-0.04) X 10*3/uL Neutrophils # 9.39 H (1.80-7.70) X 10*3/uL Microbiology - Last 24 Hours (Table) 07/11/21 07:35 Urine Culture - Preliminary Urine,Clean Catch Group D Enterococcus
[2021-07-13 11:55] LABS: African American GFR (CKD) 35.7 (60.0-200.0); Albumin 3.5 g/dL (3.8-4.9); Albumin/Globulin Ratio 1.1 (1.60-3.17); Anion Gap 20.6 mmol/L (10.00-18.00); BUN/Creat Ratio 11.76 Ratio (12.00-20.00); Blood Urea Nitrogen 24.1 mg/dL (9.0-27.0); Calcium 9.6 mg/dL (8.7-10.3); Carbon Dioxide 13.8 mmol/L (20.0-27.5); Globulin 3.2 g/dL (1.6-3.3); Non-African American GFR(CKD) 30.8 (60.0-200.0); Potassium 4.5 mmol/L (3.5-5.5); Total Bilirubin 0.6 mg/dL (0.30-1.20); Total Protein 6.7 g/dL (6.2-8.2)
--- NOTE | 2021-07-13 14:45 | P.PN ---
Subjective Progress Note Date: 07/13/21 CHIEF COMPLAINT: Bowel obstruction HISTORY OF PRESENT ILLNESS: The patient is a 76-year-old male with prior history of urostomy including laparotomy presents with bowel obstruction. Nasogastric tube present. He is tolerating ice chips. "I feel the same." He reports no new changes or output in his colostomy. ROS: No fevers or chills. No new chest pain. PHYSICAL EXAM: VITAL SIGNS: Reviewed CONSTITUTIONAL: Well developed and in no acute distress. EYES: Conjuctivae without sclera icterus. Extraocular movements grossly intact. HEAD, EARS, NOSE, THROAT: Moist buccal mucosa. Head is atraumatic, normocephalic. Hears conversational speech. No nasal drainage. RESPIRATORY: Non-labored respirations and equal bilateral excursions. CARDIOVASCULAR: 2+ radial pulses. ABDOMEN: Urostomy present. No peritonitis. Colostomy present with no flatus or stool. MUSCULOSKELETAL: No gross deformity of the lower extremities noted. No clubbing. No cyanosis. SKIN: Good skin turgor. Well perfused. NEUROLOGIC: Cranial nerves II through XII grossly intact. No focal or lateralizing signs. PSYCH: Appropriate affect. Alert and oriented to person, place and time. CLINICAL LABS: Reviewed. WBC 7.7, now elevated 11.7 ASSESSMENT: 1. Bowel obstruction due to adhesions 2. Colostomy present 3. Urostomy present PLAN: 1. He has had multiple abdominal surgeries where he is elevated risk for complications with a laparotomy. Additional diagnostic studies such as small bowel follow through may be of benefit. 2. Abdominal xray ordered for tomorrow. Objective - Vital Signs Vital signs: Vital Signs Temp 98.2 F 07/13/21 13:00 Pulse 84 07/13/21 13:00 Resp 17 07/13/21 13:00 BP 134/76 07/13/21 13:00 Pulse Ox 97 07/13/21 13:00 Intake & Output 07/12/21 07/13/21 07/13/21 18:59 06:59 18:59 Intake Total 1300 1200 Output Total 600 200 700 Balance 700 1000 -700 Intake: Intake, IV Titration 1300 1200 Amount Piperacillin-Tazobactam 3 100 .375 gm In Sodium Chloride 0.9% 100 ml @ 25 mls/hr IVPB Q8H [facility] Rx#: [id number] Sodium Chloride 0.9% 1, 1200 1200 000 ml @ 100 mls/hr IV . Q10H [facility] Rx#:[id number] Output: Gastric Drainage 200 Drainage 350 Right Back 350 Urine 250 700 Right Upper Abdomen 250 Other: Voiding Method Ileal Conduit (Right) Ileal Conduit (Right) # Voids 2 - Labs CBC & Chem 7: 07/13/21 07:27 07/13/21 07:27 Labs: Abnormal Lab Results - Last 24 Hours (Table) 07/13/21 07/13/21 Range/Units 07:27 07:27 WBC 11.71 H (4.50-10.00) X 10*3/uL RBC 2.73 L (4.40-5.60) X 10*6/uL Hgb 8.7 L (13.0-17.0) g/dL Hct 28.0 L (39.6-50.0) % MCV 102.6 H (80.0-97.0) fL MCHC 31.1 L (32.0-37.0) g/dL RDW 16.3 H (11.5-14.5) % MPV 9.0 L (9.5-12.2) fL Immature Gran # 0.07 H (0.00-0.04) X 10*3/uL Neutrophils # 9.39 H (1.80-7.70) X 10*3/uL Carbon Dioxide 13.8 L (20.0-27.5) mmol/L Anion Gap 20.60 H (10.00-18.00) mmol/L Creatinine 2.1 H (0.6-1.5) mg/dL Est GFR (CKD-EPI)AfAm 35.7 L (60.0-200.0) Est GFR (CKD-EPI)NonAf 30.8 L (60.0-200.0) BUN/Creatinine Ratio 11.76 L (12.00-20.00) Ratio Glucose 67 L (70-110) mg/dL AST 10 L (14-35) U/L Albumin 3.5 L (3.8-4.9) g/dL Albumin/Globulin Ratio 1.10 L (1.60-3.17) g/dL Microbiology - Last 24 Hours (Table) 07/11/21 07:35 Urine Culture - Preliminary Urine,Clean Catch Group D Enterococcus Assessment and Plan (1) Presence of urostomy Current Visit: Yes Status: Acute Code(s): Z93.6 - OTHER ARTIFICIAL OPENINGS OF URINARY TRACT STATUS SNOMED Code(s): 330039070 (2) Colostomy present Current Visit: Yes Status: Acute Code(s): Z93.3 - COLOSTOMY STATUS SNOMED Code(s): 229530283 (3) Bladder cancer Current Visit: Yes Status: Acute Code(s): C67.9 - MALIGNANT NEOPLASM OF BLADDER, UNSPECIFIED SNOMED Code(s): 358455385 (4) SBO (small bowel obstruction) Current Visit: Yes Status: Acute Code(s): K56.609 - UNSP INTESTNL OBST, UNSP TO PARTIAL VERSUS COMPLETE OBST SNOMED Code(s): 358702967
[2021-07-14] MEDS: SODIUM CHLORIDE 0.9% 1,000 ML IV SCH ×3 (01:50→20:28)
[2021-07-14] MEDS: HYDROmorphone 1 MG/ML 1 ML SYRINGE IVP PRN ×7 (01:50→23:42)
[2021-07-14] MEDS: PIPERACILLIN-TAZOBACTAM 3.375 GM in SODIUM CHLORIDE 0.9% 100 ML IVPB SCH ×3 (04:12→20:27)
[2021-07-14] MEDS: PANTOPRAZOLE 40 MG/10 ML VIAL IV SCH (08:05)
--- NOTE | 2021-07-14 08:14 | XR ---
EXAMINATION TYPE: XR abdomen 2V DATE OF EXAM: 07/14/2021 COMPARISON: 07/12/2021 INDICATION: Bowel obstruction TECHNIQUE: 2 view abdomen frontal projection upright and supine views FINDINGS: Air-fluid levels and differential air-fluid levels are within the left mid abdomen and central upper pelvis. Findings are compatible with small bowel obstruction. The bowel dilatation may be slightly di minished over the interval. Nasogastric tube is present with the tip in the left upper quadrant of th e abdomen. A drainage catheter is present on the right. Psoas margins are normal. Organomegaly is not evident. Free air is not identified. Right pleural effu ephraim is suspected. IMPRESSION: 1. Findings suggest small bowel obstruction within the mid pelvis. Bowel dilatation may have slightly increased over the interval.
[2021-07-14 10:19] LABS: Basophils # (A) 0.04 X 10*3/uL (0.00-0.10); Basophils % (A) 0.4 %; Eosinophils # (A) 0.42 X 10*3/uL (0.04-0.35); Eosinophils % (A) 3.8 %; HCT 26.8 % (39.6-50.0); HGB 8.2 g/dL (13.0-17.0); Immature Grans, Automated 0.4 %; Lymphocytes # (A) 1.36 X 10*3/uL (0.90-5.00); Lymphocytes % (A) 12.4 %; MCH 31.8 pg (27.0-32.0); MCHC 30.6 g/dL (32.0-37.0); MCV 103.9 fL (80.0-97.0); Mean Platelet Volume 9.2 fL (9.5-12.2); Monocytes # (A) 0.83 X 10*3/uL (0.20-1.00); Monocytes % (A) 7.5 %; NRBC Per 100 WBC 0 /100 WBCS (0.0-0.0); Neutrophils # (A) 8.32 X 10*3/uL (1.80-7.70); Neutrophils % (A) 75.5 %; Platelet Count 359 X 10*3/uL (140-440); RBC 2.58 X 10*6/uL (4.40-5.60); RDW 16.5 % (11.5-14.5); WBC 11.01 X 10*3/uL (4.50-10.00)
[2021-07-14 10:24] LABS: African American GFR (CKD) 34.6 (60.0-200.0); Albumin 3.3 g/dL (3.8-4.9); Albumin/Globulin Ratio 1.14 (1.60-3.17); Anion Gap 16.3 mmol/L (10.00-18.00); BUN/Creat Ratio 10.24 Ratio (12.00-20.00); Blood Urea Nitrogen 21.5 mg/dL (9.0-27.0); Calcium 9.6 mg/dL (8.7-10.3); Carbon Dioxide 17.7 mmol/L (20.0-27.5); Globulin 2.9 g/dL (1.6-3.3); Non-African American GFR(CKD) 29.9 (60.0-200.0); Potassium 4.8 mmol/L (3.5-5.5); Total Bilirubin 0.5 mg/dL (0.30-1.20); Total Protein 6.2 g/dL (6.2-8.2)
--- NOTE | 2021-07-14 12:02 | P.PN ---
<Mary Napier - Last Filed: 07/14/21 11:56> Subjective Progress Note Date: 07/14/21 CHIEF COMPLAINT: Small bowel obstruction HISTORY OF PRESENT ILLNESS: Patient hospice for small bowel obstruction. He is still having abdominal pain and requiring IV Dilaudid. Denies any output through his ostomy or air. Abdominal x-ray findings suggest small bowel obstruction within the mid pelvis. Bowel dilatation may have slightly increased over the interval. Patient has NG tube in place with about 400 mL of bile output. He denies any nausea. Afebrile. WBC is 11.01 hemoglobin 8.2 creatinine 2.1 PHYSICAL EXAM: VITAL SIGNS: Reviewed. GENERAL: Well-developed in no acute distress. HEENT: No sclera icterus. Extraocular movements grossly intact. Moist buccal mucosa. Head is atraumatic, normocephalic. ABDOMEN: mildly distended. Has urostomy on the right. colostomy on the left stoma pink. No air or stool present NEUROLOGIC: Alert and oriented. Cranial nerves II through XII grossly intact. ASSESSMENT: 1. Small bowel obstruction PLAN: -Further recommendations forthcoming per surgeon -Continue NG tube for decompression -Keep patient nothing by mouth except ice chips -Continue pain medication as needed Physician Logistics Tech note has been reviewed by physician. Signing provider agrees with the documented findings, assessment, and plan of care. Objective - Vital Signs Vital signs: Vital Signs Temp 98.1 F 07/14/21 04:48 Pulse 85 07/14/21 04:48 Resp 16 07/14/21 04:48 BP 142/71 07/14/21 04:48 Pulse Ox 95 07/14/21 04:48 Intake & Output 07/13/21 07/14/21 07/14/21 18:59 06:59 18:59 Intake Total 1300 1400 Output Total 2200 900 1200 Balance -900 500 -1200 Intake: Intake, IV Titration 1300 1400 Amount Piperacillin-Tazobactam 3 100 200 .375 gm In Sodium Chloride 0.9% 100 ml @ 25 mls/hr IVPB Q8H [facility] Rx#: [id number] Sodium Chloride 0.9% 1, 1200 1200 000 ml @ 100 mls/hr IV . Q10H [facility] Rx#:[id number] Output: Gastric Drainage 700 900 Drainage 600 Right Back 600 Urine 1500 600 Other: Voiding Method Ileal Conduit (Right) Ileal Conduit (Right) - Labs CBC & Chem 7: 07/14/21 05:33 07/14/21 05:33 Labs: Abnormal Lab Results - Last 24 Hours (Table) 07/14/21 07/14/21 Range/Units 05:33 05:33 WBC 11.01 H (4.50-10.00) X 10*3/uL RBC 2.58 L (4.40-5.60) X 10*6/uL Hgb 8.2 L (13.0-17.0) g/dL Hct 26.8 L (39.6-50.0) % MCV 103.9 H (80.0-97.0) fL MCHC 30.6 L (32.0-37.0) g/dL RDW 16.5 H (11.5-14.5) % MPV 9.2 L (9.5-12.2) fL Neutrophils # 8.32 H (1.80-7.70) X 10*3/uL Eosinophils # 0.42 H (0.04-0.35) X 10*3/uL Sodium 146 H (135-145) mmol/L Chloride 112 H (96-109) mmol/L Carbon Dioxide 17.7 L (20.0-27.5) mmol/L Creatinine 2.1 H (0.6-1.5) mg/dL Est GFR (CKD-EPI)AfAm 34.6 L (60.0-200.0) Est GFR (CKD-EPI)NonAf 29.9 L (60.0-200.0) BUN/Creatinine Ratio 10.24 L (12.00-20.00) Ratio Glucose 68 L (70-110) mg/dL AST 9 L (14-35) U/L ALT 9 L (10-49) U/L Albumin 3.3 L (3.8-4.9) g/dL Albumin/Globulin Ratio 1.14 L (1.60-3.17) g/dL Microbiology - Last 24 Hours (Table) 07/11/21 07:35 Urine Culture - Final Urine,Clean Catch Enterococcus faecium VRE <Markel Melendez - Last Filed: 07/14/21 16:38> Subjective I have personally seen and examined the patient, reviewed the RARE/ENDANGERED SPECIES SPECIALIST /PAs history, exam and MDM and agree with the assessment and plan as written. Based on total visit time, I have performed more than 50% of the visit. As above: Still no ostomy function. We'll order a small bowel series for tomorrow. Keep nasogastric tube in place. Objective - Vital Signs Vital signs: Vital Signs Temp 98.1 F 07/14/21 13:00 Pulse 88 07/14/21 13:00 Resp 16 07/14/21 13:00 BP 146/79 07/14/21 13:00 Pulse Ox 94 L 07/14/21 13:00 Intake & Output 07/13/21 07/14/21 07/14/21 18:59 06:59 18:59 Intake Total 1300 1400 Output Total 2200 900 2375 Balance -900 500 -2375 Intake: Intake, IV Titration 1300 1400 Amount Piperacillin-Tazobactam 3 100 200 .375 gm In Sodium Chloride 0.9% 100 ml @ 25 mls/hr IVPB Q8H [facility] Rx#: [id number] Sodium Chloride 0.9% 1, 1200 1200 000 ml @ 100 mls/hr IV . Q10H [facility] Rx#:[id number] Output: Gastric Drainage 700 900 600 Drainage 1175 Right Back 1175 Urine 1500 600 Other: Voiding Method Ileal Conduit (Right) Ileal Conduit (Right) Ileal Conduit (Right) - Labs CBC & Chem 7: 07/14/21 05:33 07/14/21 05:33 Labs: Abnormal Lab Results - Last 24 Hours (Table) 07/14/21 07/14/21 Range/Units 05:33 05:33 WBC 11.01 H (4.50-10.00) X 10*3/uL RBC 2.58 L (4.40-5.60) X 10*6/uL Hgb 8.2 L (13.0-17.0) g/dL Hct 26.8 L (39.6-50.0) % MCV 103.9 H (80.0-97.0) fL MCHC 30.6 L (32.0-37.0) g/dL RDW 16.5 H (11.5-14.5) % MPV 9.2 L (9.5-12.2) fL Neutrophils # 8.32 H (1.80-7.70) X 10*3/uL Eosinophils # 0.42 H (0.04-0.35) X 10*3/uL Sodium 146 H (135-145) mmol/L Chloride 112 H (96-109) mmol/L Carbon Dioxide 17.7 L (20.0-27.5) mmol/L Creatinine 2.1 H (0.6-1.5) mg/dL Est GFR (CKD-EPI)AfAm 34.6 L (60.0-200.0) Est GFR (CKD-EPI)NonAf 29.9 L (60.0-200.0) BUN/Creatinine Ratio 10.24 L (12.00-20.00) Ratio Glucose 68 L (70-110) mg/dL AST 9 L (14-35) U/L ALT 9 L (10-49) U/L Albumin 3.3 L (3.8-4.9) g/dL Albumin/Globulin Ratio 1.14 L (1.60-3.17) g/dL Microbiology - Last 24 Hours (Table) 07/11/21 07:35 Urine Culture - Final Urine,Clean Catch Enterococcus faecium VRE Assessment and Plan (1) SBO (small bowel obstruction) Current Visit: Yes Status: Acute Code(s): K56.609 - UNSP INTESTNL OBST, UNSP TO PARTIAL VERSUS COMPLETE OBST SNOMED Code(s): 767055105
--- NOTE | 2021-07-14 13:33 | P.PN ---
Subjective Progress Note Date: 07/14/21 Principal diagnosis: No chest pain no shortness of breath Continues to have abdominal pain Patient still feels weak no chest pain no shortness of breath Patient still have some abdominal pain today no chest pain no shortness of breath Patient is a 76-year-old male with a PMH of bladder cancer status post colostomy and urostomy placement (January 2021), chronic kidney disease, status post right nephrostomy tube placement one month ago, who presents to the emergency room with complaints of abdominal pain. The patient was recently admitted to the hospital on 06/03/21 for urosepsis with shock requiring pressors. The patient was subsequently discharged to a rehab facility where he reports being diagnosed with C. diff after several days of abdominal pain and diarrhea. The patient reports that he completed a course of oral antibiotics for the C. diff after which his diarrhea resolved. He notes that he was also seen at [facility] a few days ago where he underwent a computed tomography scan of the abdomen which revealed partial small bowel obstruction. The patient was also diagnosed with UTI and started on oral antibiotics (Keflex). The patient reports however that he continued having abdominal pain and thereby returned now to the emergency room. He reports the pain is 7 out of 10 in intensity, intermittent, radiating throughout his abdomen, without any alleviating or exacerbating features. He reports at the time of his interview that the pain h ad improved after receiving IV pain medications. He denied any additional complaints. Denied fever, chills, cough, nausea, vomiting. CT abdomen and pelvis revealed findings suspicious for partial small bowel obstruction. Laboratory evaluation revealed leukocytosis of 14.2, hemoglobin 9.9, platelets 460, BUN 36, creatinine 1.92. Review of systems: Pertinent positives and negatives as discussed in HPI, a complete review of systems was performed and all other systems are negative. Physical examination: General: non toxic, no distress, appears at stated age, normal weight Derm: no unusual rashes/lesions no unusual ecchymoses, warm, dry Head: atraumatic, normocephalic, symmetric Eyes: EOMI, no lid lag, anicteric sclera, pupils equal round reactive to light ENT: Nose and ears atraumatic, no thrush, no pharyngeal erythema Neck: No thyromegaly, no cervical lymphadenopathy, trachea midline, supple Mouth: no lip lesion, mucus membranes moist Cardiovascular: S1S2 reg, no murmur, positive posterior tibial pulse bilateral, no edema, capillary refill less than 2 seconds Lungs: CTA bilateral, no rhonchi, no rales , no accessory muscle use Abdominal: soft, minimal tenderness to palpation, no guarding, and she colostomy bag, urostomy bag with translucent yellow urine, no appreciable organ omegaly, normal bowel sounds Ext: no gross muscle atrophy, muscle strength 5 out of 5 in all 4 extremities grossly, no contractures, Neuro: CN II-XI grossly intact, light touch intact all 4 extremities, finger to nose within normal limits, Psych: Alert, oriented, appropriate affect Assessment/plan NG tube placed we'll continue to monitor Partial small bowel obstruction -Surgery consulted -Nothing by mouth for now - -IV fluids Continue management as per surgery overall stable continue UTI -Continue IV antibiotics -Follow cultures -Urology consult due to nephrostomy tube in place Overall stable bowel obstruction due to adhesions Patient continues to have the NG tube today continue to management Objective - Vital Signs Vital signs: Vital Signs Temp 98.1 F 07/14/21 13:00 Pulse 88 07/14/21 13:00 Resp 16 07/14/21 13:00 BP 146/79 07/14/21 13:00 Pulse Ox 94 L 07/14/21 13:00 Intake & Output 07/13/21 07/14/21 07/14/21 18:59 06:59 18:59 Intake Total 1300 1400 Output Total 2200 900 1200 Balance -900 500 -1200 Intake: Intake, IV Titration 1300 1400 Amount Piperacillin-Tazobactam 3 100 200 .375 gm In Sodium Chloride 0.9% 100 ml @ 25 mls/hr IVPB Q8H [facility] Rx#: [id number] Sodium Chloride 0.9% 1, 1200 1200 000 ml @ 100 mls/hr IV . Q10H [facility] Rx#:[id number] Output: Gastric Drainage 700 900 Drainage 600 Right Back 600 Urine 1500 600 Other: Voiding Method Ileal Conduit (Right) Ileal Conduit (Right) Ileal Conduit (Right) - Labs CBC & Chem 7: 07/14/21 05:33 07/14/21 05:33 Labs: Abnormal Lab Results - Last 24 Hours (Table) 07/14/21 07/14/21 Range/Units 05:33 05:33 WBC 11.01 H (4.50-10.00) X 10*3/uL RBC 2.58 L (4.40-5.60) X 10*6/uL Hgb 8.2 L (13.0-17.0) g/dL Hct 26.8 L (39.6-50.0) % MCV 103.9 H (80.0-97.0) fL MCHC 30.6 L (32.0-37.0) g/dL RDW 16.5 H (11.5-14.5) % MPV 9.2 L (9.5-12.2) fL Neutrophils # 8.32 H (1.80-7.70) X 10*3/uL Eosinophils # 0.42 H (0.04-0.35) X 10*3/uL Sodium 146 H (135-145) mmol/L Chloride 112 H (96-109) mmol/L Carbon Dioxide 17.7 L (20.0-27.5) mmol/L Creatinine 2.1 H (0.6-1.5) mg/dL Est GFR (CKD-EPI)AfAm 34.6 L (60.0-200.0) Est GFR (CKD-EPI)NonAf 29.9 L (60.0-200.0) BUN/Creatinine Ratio 10.24 L (12.00-20.00) Ratio Glucose 68 L (70-110) mg/dL AST 9 L (14-35) U/L ALT 9 L (10-49) U/L Albumin 3.3 L (3.8-4.9) g/dL Albumin/Globulin Ratio 1.14 L (1.60-3.17) g/dL Microbiology - Last 24 Hours (Table) 07/11/21 07:35 Urine Culture - Final Urine,Clean Catch Enterococcus faecium VRE
[2021-07-14 16:42] LABS: Appearance,Urine Clear (Clear); Bacteria,Urine Occasional /hpf; Bilirubin,Urine Negative (Negative); Blood,Urine Trace (Negative); Color,Urine Light Yellow; Glucose,Urine (UA) Negative (Negative); Ketones,Urine 2+ (Negative); Leukocyte Esterase,Urine Small (Negative); Nitrite,Urine Negative (Negative); Protein,Urine Trace (Negative); RBC,Urine 2 /hpf (0-5); Specific Gravity,Urine 1.009 (1.001-1.035); Urobilinogen,Urine <2.0 mg/dL (<2.0); WBC,Urine 9 /hpf (0-5)
[2021-07-14] MEDS: DAPTOmycin 350 MG in SODIUM CHLORIDE 0.9% 50 ML IVPB SCH (16:50)
--- NOTE | 2021-07-14 21:40 | P.CONS ---
History of Present Illness - Reason for Consult Consult date: 07/14/21 VRE UTI Requesting physician: Faustina Roland - Chief Complaint abdominal pain x 2 days - History of Present Illness History of Present Illness : Patient is 76-year-old male with a past medical history significant for bladder cancer in this patient who is status post urostomy and colostomy with recent admission to the hospital for a bowel obstruction patient is presenting to the hospital 4 days ago on 07/10/2021 for evaluation of abdominal pain and decreased output from his colostomy with the symptom getting worse for 2 days before presentation to the hospital patient described his abdominal pain to be crampy intensity almost 7-8 out of 10 no radiation patient did have associated nausea and decreased intake but no vomiting patient did have a CT of abdominal pelvis on admission which did show some findings suspicious for partial small bowel obstruction nephrostomy tube pigtail tip in appropriate position status post cystectomy and ileal conduit patient is afebrile during this hospital stay he did have mild elevated white count with a left shift creatinine has been elevated urine did show some large ascites 2040 WBC and urine culture been finalized with Enterococcus faecium VRE more than 100,000 colonies that has prompted this infectious disease consultation patient has been treated medically for small bowel obstruction with the NG decompression and the patient is feeling slightly better as far as abdominal symptoms are concerned, patient has also been evaluated by urology and in view of his a right nephrostogram revealed right distal ureteral stricture with the plan for antegrade stent placement Review of system: CONSTITUTIONAL: Positive for weakness denies high-grade fever. EYES: No complaint. ENT: No complaint. RESPIRATORY: No complaint. CARDIOVASCULAR: No complaint. GENITOURINARY: As per history of present illness. GASTROINTESTINAL: As per history of present illness. MUSCULOSKELETAL: No complaint. INTEGUMENTARY : No complaint. PSYCHOLOGIC: No complaint. ENDOCRINE: No complaint. NEUROLOGIC: No complaint. Past medical history : Reviewed, documented below Past surgical history : Reviewed, documented below Social history: Reviewed, documented below Medications: Reviewed, as documented below EXAMINATION: Vital sigans= Reviewed and documented below GENERAL DESCRIPTION: Elderly male lying in bed, no distress. No tachypnea or accessory muscle of respiration use. HEENT: Shows Pallor , no scleral icterus. Oral mucous membrane is dry. NECK: Trachea central, no thyromegaly. LUNGS: Unlabored breathing. Clear to auscultation anteriorly. No wheeze or crackle. HEART: S1, S2, regular rate and rhythm. ABDOMEN: Soft, no tenderness , guarding or rigidity EXTREMITIES: No edema feet SKIN: No rash, no masses palpable. NEUROLOGICAL: The patient is awake, alert, oriented x3, mood and affect normal. LABS AND RADIOLOGY: Reviewed results see below Assessment : Patient with a positive urine culture with VRE in this patient who did have a complicated urological history with a history of bladder cancer status post cystectomy and ileal conduit did have a right-sided hydronephrosis with the distal ureteral stricture and a complicated UTI Plan: 1-we will start the patient on daptomycin 4 mg/kg daily 2-repeat urine culture 3-gentle IV fluid We will follow on clinical condition and cultures to further adjust medication if needed Thank you for this consultation we will follow the patient along with you 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, post colectomy and colostomy and a cystectomy jan 2021 History of Any Multi-Drug Resistant Organisms: C-DIFF Year Discovered:: 07/15 MDRO Source:: stool Past Surgical History: Bladder Surgery, Bowel Resection Additional Past Surgical History / Comment(s): December 2020 at [facility] patient had a bladder/colon fistula repair resulting in a double ostomy- urostomy and colostomy Past Anesthesia/Blood Transfusion Reactions: No Reported Reaction Additional Past Anesthesia/Blood Transfusion Reaction / Comm: No transfusion Past Psychological History: No Psychological Hx Reported Smoking Status: Former smoker Past Alcohol Use History: None Reported Past Drug Use History: None Reported - Past Family History family Family Medical History: No Reported History Medications and Allergies Home Medications Medication Instructions Recorded Confirmed Type Acetaminophen Tab [Tylenol] 1,000 mg PO Q6HR PRN 06/03/21 07/10/21 History Famotidine [Pepcid] 20 mg PO BID PRN 06/03/21 07/10/21 History Pantoprazole [Protonix] 40 mg PO DAILY #30 tab 06/16/21 07/10/21 Rx Sodium Bicarbonate Tab 1,300 mg PO BID tab 06/16/21 07/10/21 Rx Cephalexin [Keflex] 500 mg PO TID 07/10/21 07/10/21 History Mag Hydrox/Aluminum Hyd/Simeth 10 - 20 ml PO TID PRN 07/10/21 07/10/21 History [Mylanta Maximum Strength Liq] polyethylene glycoL 3350 [Miralax] 17 gm PO DAILY PRN 07/10/21 07/10/21 History Allergies Allergy/AdvReac Type Severity Reaction Status Date / Time No Known Allergies Allergy Verified 07/10/21 16:07 Physical Exam Vitals: Vital Signs Temp Pulse Resp BP Pulse Ox 07/14/21 13:00 98.1 F 88 16 146/79 94 L 07/14/21 04:48 98.1 F 85 16 142/71 95 07/13/21 19:37 97.8 F 91 18 143/77 97 Intake and Output 07/13/21 07/14/21 07/14/21 22:59 06:59 14:59 Intake Total 1300 1400 Output Total 8253 197 1586 Balance -200 500 -1200 Intake: Intake, IV Titration 1300 1400 Amount Piperacillin-Tazobactam 3 100 200 .375 gm In Sodium Chloride 0.9% 100 ml @ 25 mls/hr IVPB Q8H [facility] Rx#: [id number] Sodium Chloride 0.9% 1, 1200 1200 000 ml @ 100 mls/hr IV . Q10H [facility] Rx#:[id number] Output: Gastric Drainage 700 900 Drainage 600 Right Back 600 Urine 800 600 Other: Voiding Method Ileal Conduit (Right) Ileal Conduit (Right) Results CBC & Chem 7: 07/14/21 05:33 07/14/21 05:33 Labs: Abnormal Lab Results - Last 24 Hours (Table) 07/14/21 07/14/21 Range/Units 05:33 05:33 WBC 11.01 H (4.50-10.00) X 10*3/uL RBC 2.58 L (4.40-5.60) X 10*6/uL Hgb 8.2 L (13.0-17.0) g/dL Hct 26.8 L (39.6-50.0) % MCV 103.9 H (80.0-97.0) fL MCHC 30.6 L (32.0-37.0) g/dL RDW 16.5 H (11.5-14.5) % MPV 9.2 L (9.5-12.2) fL Neutrophils # 8.32 H (1.80-7.70) X 10*3/uL Eosinophils # 0.42 H (0.04-0.35) X 10*3/uL Sodium 146 H (135-145) mmol/L Chloride 112 H (96-109) mmol/L Carbon Dioxide 17.7 L (20.0-27.5) mmol/L Creatinine 2.1 H (0.6-1.5) mg/dL Est GFR (CKD-EPI)AfAm 34.6 L (60.0-200.0) Est GFR (CKD-EPI)NonAf 29.9 L (60.0-200.0) BUN/Creatinine Ratio 10.24 L (12.00-20.00) Ratio Glucose 68 L (70-110) mg/dL AST 9 L (14-35) U/L ALT 9 L (10-49) U/L Albumin 3.3 L (3.8-4.9) g/dL Albumin/Globulin Ratio 1.14 L (1.60-3.17) g/dL Microbiology - Last 24 Hours (Table) 07/11/21 07:35 Urine Culture - Final Urine,Clean Catch Enterococcus faecium VRE
[2021-07-15] MEDS: HYDROmorphone 1 MG/ML 1 ML SYRINGE IVP PRN ×5 (04:59→14:14)
[2021-07-15] MEDS: PIPERACILLIN-TAZOBACTAM 3.375 GM in SODIUM CHLORIDE 0.9% 100 ML IVPB SCH ×2 (05:00→13:16)
[2021-07-15] MEDS ORDERED: LACTATED RINGERS 1,000 ML IV SCH (09:15)
[2021-07-15] MEDS: SODIUM CHLORIDE 0.9% 1,000 ML IV SCH (09:36)
[2021-07-15 11:27] LABS: Basophils # (A) 0.06 X 10*3/uL (0.00-0.10); Basophils % (A) 0.6 %; Eosinophils # (A) 0.31 X 10*3/uL (0.04-0.35); Eosinophils % (A) 2.9 %; HCT 27.7 % (39.6-50.0); HGB 8.8 g/dL (13.0-17.0); Immature Grans, Automated 0.5 %; Lymphocytes # (A) 1.13 X 10*3/uL (0.90-5.00); Lymphocytes % (A) 10.6 %; MCH 32.1 pg (27.0-32.0); MCHC 31.8 g/dL (32.0-37.0); MCV 101.1 fL (80.0-97.0); Mean Platelet Volume 9.2 fL (9.5-12.2); Monocytes # (A) 0.61 X 10*3/uL (0.20-1.00); Monocytes % (A) 5.7 %; NRBC Per 100 WBC 0 /100 WBCS (0.0-0.0); Neutrophils # (A) 8.53 X 10*3/uL (1.80-7.70); Neutrophils % (A) 79.7 %; Platelet Count 344 X 10*3/uL (140-440); RBC 2.74 X 10*6/uL (4.40-5.60); RDW 16.6 % (11.5-14.5); WBC 10.69 X 10*3/uL (4.50-10.00)
[2021-07-15] MEDS: PANTOPRAZOLE 40 MG/10 ML VIAL IV SCH (11:28)
--- NOTE | 2021-07-15 12:51 | P.PN ---
<Mary Napier - Last Filed: 07/15/21 12:48> Subjective Progress Note Date: 07/15/21 CHIEF COMPLAINT: Small bowel obstruction HISTORY OF PRESENT ILLNESS: Patient has small bowel obstruction. Patient reports abdominal pain is controlled with pain medication. Denies any nausea. Has NG tube in place with 600 mL bilious output through the night. No air or stool through ostomy. Patient is undergoing small bowel follow-through x-ray series. Afebrile. WBC 10.69 hemoglobin 8.8 platelets 344 PHYSICAL EXAM: VITAL SIGNS: Reviewed. GENERAL: Well-developed in no acute distress. HEENT: No sclera icterus. Extraocular movements grossly intact. Moist buccal mucosa. Head is atraumatic, normocephalic. ABDOMEN: Distended. Has urostomy on the right. colostomy on the left stoma pink. No air or stool present NEUROLOGIC: Alert and oriented. Cranial nerves II through XII grossly intact. ASSESSMENT: 1. Small bowel obstruction PLAN: -Small bowel follow-through x-ray being completed today -Further recommendations forthcoming per surgeon -Continue NG tube for decompression -Keep patient nothing by mouth -Continue pain medication as needed Physician Electric Motor Winder note has been reviewed by physician. Signing provider agrees with the documented findings, assessment, and plan of care. Objective - Vital Signs Vital signs: Vital Signs Temp 98.4 F 07/15/21 07:48 Pulse 78 07/15/21 07:48 Resp 18 07/15/21 07:48 BP 147/79 07/15/21 07:48 Pulse Ox 95 07/15/21 07:48 Intake & Output 07/14/21 07/15/21 07/15/21 18:59 06:59 18:59 Output Total 2375 700 Balance -2375 -700 Output: Gastric Drainage 600 Drainage 1175 150 Right Back 1175 150 Urine 600 550 Other: Voiding Method Ileal Conduit (Right) Ileal Conduit (Right) Ileal Conduit (Right) - Labs CBC & Chem 7: 07/15/21 07:21 07/14/21 05:33 Labs: Abnormal Lab Results - Last 24 Hours (Table) 07/14/21 Range/Units 14:00 Urine Protein Trace H (Negative) Urine Ketones 2+ H (Negative) Urine Blood Trace H (Negative) Ur Leukocyte Esterase Small H (Negative) Urine WBC 9 H (0-5) /hpf Urine Bacteria Occasional H (None) /hpf <Markel Melendez - Last Filed: 07/15/21 16:45> Subjective I have personally seen and examined the patient, reviewed the LOOM WINDER TENDER /PAs history, exam and MDM and agree with the assessment and plan as written. Based on total visit time, I have performed more than 50% of the visit. As above: Small bowel series still underway however findings suggest persistent obstruction. We'll repeat abdominal x-rays in the morning. Keep nothing by m outh with nasogastric tube to suction for now. Discussed again with the patient that surgical intervention may be required based on the findings of this study. Patient is reluctant stating that all of his surgeries before have been performed at the [facility]. I did offer the option of transfer if bowel obstruction confirmed on small bowel series. He will consider and notify me of his decision tomorrow. Objective - Vital Signs Vital signs: Vital Signs Temp 98 F 07/15/21 13:17 Pulse 114 H 07/15/21 13:17 Resp 16 07/15/21 13:17 BP 160/85 07/15/21 13:17 Pulse Ox 98 07/15/21 13:17 Intake & Output 07/14/21 07/15/21 07/15/21 18:59 06:59 18:59 Output Total 2375 700 250 Balance -2375 -700 -250 Weight 81.647 kg Output: Gastric Drainage 600 Drainage 1175 150 100 Right Back 1175 150 100 Urine 600 550 150 Other: Voiding Method Ileal Conduit (Right) Ileal Conduit (Right) Ileal Conduit (Right) - Labs CBC & Chem 7: 07/15/21 07:21 07/15/21 07:21 Labs: Abnormal Lab Results - Last 24 Hours (Table) 07/15/21 07/15/21 Range/Units 07:21 07:21 WBC 10.69 H (4.50-10.00) X 10*3/uL RBC 2.74 L (4.40-5.60) X 10*6/uL Hgb 8.8 L (13.0-17.0) g/dL Hct 27.7 L (39.6-50.0) % MCV 101.1 H (80.0-97.0) fL MCH 32.1 H (27.0-32.0) pg MCHC 31.8 L (32.0-37.0) g/dL RDW 16.6 H (11.5-14.5) % MPV 9.2 L (9.5-12.2) fL Immature Gran # 0.05 H (0.00-0.04) X 10*3/uL Neutrophils # 8.53 H (1.80-7.70) X 10*3/uL Sodium 148 H (135-145) mmol/L Chloride 113 H (96-109) mmol/L Carbon Dioxide 14.9 L (20.0-27.5) mmol/L Anion Gap 20.70 H (10.00-18.00) mmol/L Creatinine 2.2 H (0.6-1.5) mg/dL Est GFR (CKD-EPI)AfAm 32.8 L (60.0-200.0) Est GFR (CKD-EPI)NonAf 28.3 L (60.0-200.0) BUN/Creatinine Ratio 9.36 L (12.00-20.00) Ratio AST 13 L (14-35) U/L ALT 7 L (10-49) U/L Albumin 3.4 L (3.8-4.9) g/dL Albumin/Globulin Ratio 1.10 L (1.60-3.17) g/dL Assessment and Plan (1) SBO (small bowel obstruction) Current Visit: Yes Status: Acute Code(s): K56.609 - UNSP INTESTNL OBST, UNSP TO PARTIAL VERSUS COMPLETE OBST SNOMED Code(s): 415025789
[2021-07-15 13:00] LABS: African American GFR (CKD) 32.8 (60.0-200.0); Albumin 3.4 g/dL (3.8-4.9); Albumin/Globulin Ratio 1.1 (1.60-3.17); Anion Gap 20.7 mmol/L (10.00-18.00); BUN/Creat Ratio 9.36 Ratio (12.00-20.00); Blood Urea Nitrogen 20.6 mg/dL (9.0-27.0); Calcium 10.1 mg/dL (8.7-10.3); Carbon Dioxide 14.9 mmol/L (20.0-27.5); Globulin 3.1 g/dL (1.6-3.3); Non-African American GFR(CKD) 28.3 (60.0-200.0); Potassium 4.1 mmol/L (3.5-5.5); Total Bilirubin 0.6 mg/dL (0.30-1.20); Total Protein 6.4 g/dL (6.2-8.2)
[2021-07-15 13:16] VITALS: BMI 22.8
[2021-07-15] MEDS: DAPTOmycin 350 MG in SODIUM CHLORIDE 0.9% 50 ML IVPB SCH (14:58)
[2021-07-15] MEDS ORDERED: KETOROLAC 30 MG/ML 1 ML VIAL IVP PRN (15:07)
--- NOTE | 2021-07-15 15:12 | P.PN ---
Subjective Progress Note Date: 07/15/21 Principal diagnosis: CC: Cramping sensation in lower abdomen Patient says that he is having cramping pain in the lower abdomen. Patient stated that he is passing gas through his mouth. Patient denies any bowel movement. Objective - Vital Signs Vital signs: Vital Signs Temp 98 F 07/15/21 13:17 Pulse 114 H 07/15/21 13:17 Resp 16 07/15/21 13:17 BP 160/85 07/15/21 13:17 Pulse Ox 98 07/15/21 13:17 Intake & Output 07/14/21 07/15/21 07/15/21 18:59 06:59 18:59 Output Total 2375 700 250 Balance -2375 -700 -250 Weight 81.647 kg Output: Gastric Drainage 600 Drainage 1175 150 100 Right Back 1175 150 100 Urine 600 550 150 Other: Voiding Method Ileal Conduit (Right) Ileal Conduit (Right) Ileal Conduit (Right) - Exam General examination - Alert and Oriented 3 in NAD, appears chronically debilitated Heart - + S1S2 no murmurs Lungs - Clear to auscultation Abdomen soft tenderness to palpate in the lower abdomen ND diminished bowel sounds, NG tube, urostomy, colostomy, nephrostomy tube Extremities - No edema PRESS 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 - Moving all 4 extremities spontaneously Psych - Calm and cooperative - Labs CBC & Chem 7: 07/15/21 07:21 07/15/21 07:21 Labs: Abnormal Lab Results - Last 24 Hours (Table) 07/14/21 07/15/21 07/15/21 Range/Units 14:00 07:21 07:21 WBC 10.69 H (4.50-10.00) X 10*3/uL RBC 2.74 L (4.40-5.60) X 10*6/uL Hgb 8.8 L (13.0-17.0) g/dL Hct 27.7 L (39.6-50.0) % MCV 101.1 H (80.0-97.0) fL MCH 32.1 H (27.0-32.0) pg MCHC 31.8 L (32.0-37.0) g/dL RDW 16.6 H (11.5-14.5) % MPV 9.2 L (9.5-12.2) fL Immature Gran # 0.05 H (0.00-0.04) X 10*3/uL Neutrophils # 8.53 H (1.80-7.70) X 10*3/uL Sodium 148 H (135-145) mmol/L Chloride 113 H (96-109) mmol/L Carbon Dioxide 14.9 L (20.0-27.5) mmol/L Anion Gap 20.70 H (10.00-18.00) mmol/L Creatinine 2.2 H (0.6-1.5) mg/dL Est GFR (CKD-EPI)AfAm 32.8 L (60.0-200.0) Est GFR (CKD-EPI)NonAf 28.3 L (60.0-200.0) BUN/Creatinine Ratio 9.36 L (12.00-20.00) Ratio AST 13 L (14-35) U/L ALT 7 L (10-49) U/L Albumin 3.4 L (3.8-4.9) g/dL Albumin/Globulin Ratio 1.10 L (1.60-3.17) g/dL Urine Protein Trace H (Negative) Urine Ketones 2+ H (Negative) Urine Blood Trace H (Negative) Ur Leukocyte Esterase Small H (Negative) Urine WBC 9 H (0-5) /hpf Urine Bacteria Occasional H (None) /hpf Assessment and Plan Assessment: #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 Normal saline to lactated Ringer's #UTI -Patient has a urostomy and a nephrostomy tube -Urine culture grew VRE -Resume daptomycin as per infectious disease -May switch to oral linezolid on discharge -Per urology patient will need nephrostomy tube exchange every 3 months #History of bladder cancer status post colostomy and urostomy -Follow-up at [facility] #CK D -Creatinine at baseline #Recent admission for UTI with septic shock #Recently treated for C. diff CODE STATUS:full code DVT prophylaxis: Subcu heparin Anticipated length of stay : Depending on hospital course Anticipated discharge place: Home versus penitentiary facility
[2021-07-15] MEDS: MORPHINE SULFATE 2 MG/ML SYRINGE IVP PRN ×2 (16:53→20:58)
[2021-07-15] MEDS: DEXTROSE 5% IN WATER 1,000 ML with SODIUM BICARB (1 MEQ/ML) 100 ML IV SCH (17:48)
[2021-07-15] MEDS: HEPARIN SODIUM,PORCINE/PF 5,000 UNIT/0.5 ML SYRINGE SQ SCH (21:00)
[2021-07-15] MEDS ORDERED: SODIUM BICARBONATE TAB 650 MG TAB PO SCH (21:00)
[2021-07-16] MEDS: MORPHINE SULFATE 2 MG/ML SYRINGE IVP PRN ×4 (04:32→21:17)
[2021-07-16] MEDS: PANTOPRAZOLE 40 MG/10 ML VIAL IV SCH (07:58)
[2021-07-16] MEDS: HEPARIN SODIUM,PORCINE/PF 5,000 UNIT/0.5 ML SYRINGE SQ SCH ×2 (07:59→19:52)
--- NOTE | 2021-07-16 09:17 | FL ---
EXAMINATION TYPE: FL small bowel follow through DATE OF EXAM: 07/16/2021 CLINICAL HISTORY: Small bowel obstruction TECHNIQUE: A single contrast small bowel follow through is performed utilizing Gastrografin. COMPARISON: CT dated 07/10/2021 FINDINGS: Clinical Services Consultant images demonstrated dilated small bowel loops mainly the jejunal loops measuring up to 5.7 cm. NG tube is seen in the stomach. There is also a right nephrostomy tube. A total of 480 mL of Gastrografin was given orally and through the NG tube. 0, 15 and 30 minutes x-ra ys were taken and demonstrate passage of the contrast from the stomach into the proximal jejunal loop s. The small bowel loops are dilated measuring up to 4.7 cm. The patient was sent back to the floor a nd suction was performed evacuating all the administered Gastrografin. Additional Gastrografin was th en administered as per the referring physician, and serial images at 30 minutes, 90 minutes, 5 hours and 7 hours with persistent very slow progression of the contrast to the small bowel loops in the pel vis. An additional x-ray was performed after 24 hours demonstrating contrast in the small bowel loops in t he pelvis yet not reaching the terminal ileum or the colon. This is consistent with small bowel obstr uction. On retrospect review of the previous recent CT scan, a large mass is seen in the right side o f the pelvis, possibly invading the adjacent small bowel and could be the underlying etiology for the bowel obstruction. IMPRESSION: Small bowel obstruction likely secondary to the right pelvic mass seen on the previous CT scan as pavan cribed above.
[2021-07-16] MEDS: DEXTROSE 5% IN WATER 1,000 ML with SODIUM BICARB (1 MEQ/ML) 100 ML IV SCH (09:50)
[2021-07-16] MEDS ORDERED: LIDOCAINE 1% INJ 10MG/ML (20 ML MDV) ONE (09:51)
[2021-07-16] MEDS ORDERED: fentaNYL (PF) 50 MCG/ML 2 ML AMP ONE (09:51)
[2021-07-16] MEDS ORDERED: SODIUM CHLORIDE 0.9% 500 ML 500 ML IV ONE (09:55)
[2021-07-16] MEDS ORDERED: IOPAMIDOL-370 100ML BTL INJ ONE (10:11)
[2021-07-16 11:03] LABS: HCT 32.4 % (39.6-50.0); HGB 10.2 g/dL (13.0-17.0); MCH 31.5 pg (27.0-32.0); MCHC 31.5 g/dL (32.0-37.0); Mean Platelet Volume 9.4 fL (9.5-12.2); NRBC Per 100 WBC 0 /100 WBCS (0.0-0.0); Platelet Count 427 X 10*3/uL (140-440); RBC 3.24 X 10*6/uL (4.40-5.60); WBC 12.73 X 10*3/uL (4.50-10.00)
[2021-07-16 11:20] LABS: African American GFR (CKD) 30.4 (60.0-200.0); Anion Gap 23.6 mmol/L (10.00-18.00); BUN/Creat Ratio 9.32 Ratio (12.00-20.00); Blood Urea Nitrogen 21.8 mg/dL (9.0-27.0); Calcium 11.5 mg/dL (8.7-10.3); Carbon Dioxide 15.9 mmol/L (20.0-27.5); Magnesium 2.2 mg/dL (1.5-2.4); Non-African American GFR(CKD) 26.2 (60.0-200.0); Potassium 4.1 mmol/L (3.5-5.5)
--- NOTE | 2021-07-16 11:46 | IR ---
Fluoroscopic-guided ureteral stent placement with antegrade nephrostogram DATE OF EXAM: 07/16/2021 CLINICAL HISTORY: Severe stricture distal ureter The procedure was discussed with the patient. The risks, complications, benefits, and alternatives we re discussed and any questions were answered. Informed consent was obtained. The patient was placed supine on the ultrasound table and prepped and draped in the usual sterile fas hion. All elements of maximal barrier and sterile technique were utilized. Antegrade nephrostogram was performed which demonstrated the complete obstruction of the distal urete r on today's exam. Contrast could not be passed into the small bowel. Therefore guidewire and stent c ould not be placed. The patient was stable throughout the procedure and remained stable upon discharg e from Department of Radiology. IMPRESSION: 1. Complete obstruction of the distal ureter. Ureteral stent could not be placed..
--- NOTE | 2021-07-16 12:38 | P.PN ---
Subjective Progress Note Date: 07/16/21 Principal diagnosis: e now Some of this or just in [place] test negative, home as I said I said I got a trip to [place] this coming month and on light advise has positive I, there may be coming out and I really do not know what he felt still here bowel obstruction Patient feels about the same today. No vomiting. He is quite thirsty. Denies pain. No ostomy function. Small bowel series confirms presence of high-grade small bowel obstruction. Site of obstruction thought to be related to the mass present in the right hemipelvis. Objective - Vital Signs Vital signs: Vital Signs Temp 97.8 F 07/16/21 05:00 Pulse 99 07/16/21 05:00 Resp 20 07/16/21 05:00 BP 162/88 07/16/21 05:00 Pulse Ox 96 07/16/21 05:00 Intake & Output 07/15/21 07/16/21 07/16/21 18:59 06:59 18:59 Intake Total 600 900 50 Output Total 1450 450 300 Balance -850 450 -250 Weight 81.647 kg Intake: IV 50 Intake, IV Titration 600 900 Amount Lactated Ringers 1,000 ml 600 900 @ 75 mls/hr IV .[id number] [facility] Rx#:[id number] Output: Gastric Drainage 1200 Drainage 100 250 100 Right Back 100 250 100 Urine 150 200 200 Other: Voiding Method Ileal Conduit (Right) Ileal Conduit (Right) Ileal Conduit (Right) - Exam Abdomen: Soft, nondistended, nontender, no ostomy function - Labs CBC & Chem 7: 07/16/21 07:48 07/16/21 07:48 Labs: Abnormal Lab Results - Last 24 Hours (Table) 07/15/21 07/16/21 07/16/21 Range/Units 07:21 07:48 07:48 WBC 12.73 H (4.50-10.00) X 10*3/uL RBC 3.24 L (4.40-5.60) X 10*6/uL Hgb 10.2 L (13.0-17.0) g/dL Hct 32.4 L (39.6-50.0) % MCV 100.0 H (80.0-97.0) fL MCHC 31.5 L (32.0-37.0) g/dL RDW 17.0 H (11.5-14.5) % MPV 9.4 L (9.5-12.2) fL Sodium 148 H 150 H (135-145) mmol/L Chloride 113 H 111 H (96-109) mmol/L Carbon Dioxide 14.9 L 15.9 L (20.0-27.5) mmol/L Anion Gap 20.70 H 23.60 H (10.00-18.00) mmol/L Creatinine 2.2 H 2.3 H (0.6-1.5) mg/dL Est GFR (CKD-EPI)AfAm 32.8 L 30.4 L (60.0-200.0) Est GFR (CKD-EPI)NonAf 28.3 L 26.2 L (60.0-200.0) BUN/Creatinine Ratio 9.36 L 9.32 L (12.00-20.00) Ratio Calcium 11.5 H (8.7-10.3) mg/dL AST 13 L (14-35) U/L ALT 7 L (10-49) U/L Albumin 3.4 L (3.8-4.9) g/dL Albumin/Globulin Ratio 1.10 L (1.60-3.17) g/dL Assessment and Plan (1) SBO (small bowel obstruction) Narrative/Plan: 76-year-old male with small bowel obstruction likely related to abdominal recurrence of his bladder tumor. Case discussed with the patient in detail. I also discussed his case with his urologist. Offered to the patient to proceed with exploratory laparotomy with possible bowel resection or bypass of the malignant segment. Also discussed the options of transfer back to [facility] where he has had his previous surgeries. Patient will consider and notify me of his decision. Current Visit: Yes Status: Acute Code(s): K56.609 - UNSP INTESTNL OBST, UNSP TO PARTIAL VERSUS COMPLETE OBST SNOMED Code(s): 127153478
--- NOTE | 2021-07-16 13:14 | P.PN ---
Subjective Progress Note Date: 07/15/21 Principal diagnosis: Complicated urinary tract infection with VRE Patient is a 76-year male with a past medical history significant for bladder cancer in this patient with status post cystectomy, urostomy and colostomy admitted to hospital with bowel obstruction and also have a positive urine culture with VRE and the patient did have a possible obstructive uropathy. On today's evaluation that is 07/15/2021, the patient denies having any fever or any chills, denies any abdominal pain still have the NG in did have some output in his colostomy Objective - Vital Signs Vital signs: Vital Signs Temp 97.8 F 07/15/21 21:00 Pulse 86 07/15/21 21:00 Resp 18 07/15/21 21:00 BP 165/85 07/15/21 21:00 Pulse Ox 97 07/15/21 21:00 Intake & Output 07/15/21 07/15/21 07/16/21 06:59 18:59 06:59 Intake Total 600 Output Total 700 1450 Balance -700 -850 Weight 81.647 kg Intake: Intake, IV Titration 600 Amount Lactated Ringers 1,000 ml 600 @ 75 mls/hr IV .[id number] [facility] Rx#:[id number] Output: Gastric Drainage 1200 Drainage 150 100 Right Back 150 100 Urine 550 150 Other: Voiding Method Ileal Conduit (Right) Ileal Conduit (Right) - Exam GENERAL DESCRIPTION: Elderly male lying in bed, no distress. No tachypnea or accessory muscle of respiration use. LUNGS: Unlabored breathing. Clear to auscultation anteriorly. No wheeze or crackle. HEART: S1, S2, regular rate and rhythm. No loud murmur ABDOMEN: Soft, no tenderness , guarding or rigidity, no organomegaly EXTREMITIES: No edema of feet. - Labs CBC & Chem 7: 07/16/21 07:48 07/16/21 07:48 Labs: Abnormal Lab Results - Last 24 Hours (Table) 07/15/21 07/15/21 Range/Units 07:21 07:21 WBC 10.69 H (4.50-10.00) X 10*3/uL RBC 2.74 L (4.40-5.60) X 10*6/uL Hgb 8.8 L (13.0-17.0) g/dL Hct 27.7 L (39.6-50.0) % MCV 101.1 H (80.0-97.0) fL MCH 32.1 H (27.0-32.0) pg MCHC 31.8 L (32.0-37.0) g/dL RDW 16.6 H (11.5-14.5) % MPV 9.2 L (9.5-12.2) fL Immature Gran # 0.05 H (0.00-0.04) X 10*3/uL Neutrophils # 8.53 H (1.80-7.70) X 10*3/uL Sodium 148 H (135-145) mmol/L Chloride 113 H (96-109) mmol/L Carbon Dioxide 14.9 L (20.0-27.5) mmol/L Anion Gap 20.70 H (10.00-18.00) mmol/L Creatinine 2.2 H (0.6-1.5) mg/dL Est GFR (CKD-EPI)AfAm 32.8 L (60.0-200.0) Est GFR (CKD-EPI)NonAf 28.3 L (60.0-200.0) BUN/Creatinine Ratio 9.36 L (12.00-20.00) Ratio AST 13 L (14-35) U/L ALT 7 L (10-49) U/L Albumin 3.4 L (3.8-4.9) g/dL Albumin/Globulin Ratio 1.10 L (1.60-3.17) g/dL Assessment and Plan (1) Urinary tract infection Current Visit: No Status: Acute Code(s): N39.0 - URINARY TRACT INFECTION, SITE NOT SPECIFIED SNOMED Code(s): 11537705 Plan: Patient with a complicated urinary tract infection in this patient urine is showing a VRE patient did have a history of bladder cancer status post cystectomy ileal conduit and urostomy in this patient now with evidence of obstructed ureter patient to continue with the daptomycin and monitor clinical course closely Time with Patient: Less than 30
[2021-07-16 13:29] LABS: Acanthocytes 2+; Basophils # (A) 0.09 X 10*3/uL (0.00-0.10); Basophils % (A) 0.7 %; Eosinophils # (A) 0.16 X 10*3/uL (0.04-0.35); Eosinophils % (A) 1.3 %; Immature Grans, Automated 0.5 %; Lymphocytes % (A) 13.4 %; Monocytes # (A) 0.54 X 10*3/uL (0.20-1.00); Monocytes % (A) 4.2 %; Neutrophils # (A) 10.17 X 10*3/uL (1.80-7.70); Neutrophils % (A) 79.9 %
--- NOTE | 2021-07-16 13:46 | P.PN ---
Subjective Progress Note Date: 07/16/21 Principal diagnosis: CC: Cramping sensation in lower abdomen Patient states that he still having abdominal pain. He has no stool from the ostomy. Patient's abdominal x-ray series consistent with bowel obstruction likely due to pelvic mass. I encouraged the patient to ambulate. I also discussed this with the nurse. I also discussed with surgery. Patient will speak with his and that is known if he wants surgery here or at [facility] Objective - Vital Signs Vital signs: Vital Signs Temp 97.8 F 07/16/21 05:00 Pulse 99 07/16/21 05:00 Resp 20 07/16/21 05:00 BP 162/88 07/16/21 05:00 Pulse Ox 96 07/16/21 05:00 Intake & Output 07/15/21 07/16/21 07/16/21 18:59 06:59 18:59 Intake Total 600 900 50 Output Total 1450 450 300 Balance -850 450 -250 Weight 81.647 kg Intake: IV 50 Intake, IV Titration 600 900 Amount Lactated Ringers 1,000 ml 600 900 @ 75 mls/hr IV .[id number] [facility] Rx#:[id number] Output: Gastric Drainage 1200 Drainage 100 250 100 Right Back 100 250 100 Urine 150 200 200 Other: Voiding Method Ileal Conduit (Right) Ileal Conduit (Right) Ileal Conduit (Right) - Exam General examination - Alert and Oriented 3 in NAD, appears chronically debilitated Heart - + S1S2 no murmurs Lungs - Clear to auscultation Abdomen soft tenderness to palpate in the lower abdomen ND diminished bowel sounds, NG tube, urostomy, colostomy, nephrostomy tube Extremities - No edema 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 Psych - Calm and cooperative - Labs CBC & Chem 7: 07/16/21 07:48 07/16/21 07:48 Labs: Abnormal Lab Results - Last 24 Hours (Table) 07/16/21 07/16/21 Range/Units 07:48 07:48 WBC 12.73 H (4.50-10.00) X 10*3/uL RBC 3.24 L (4.40-5.60) X 10*6/uL Hgb 10.2 L (13.0-17.0) g/dL Hct 32.4 L (39.6-50.0) % MCV 100.0 H (80.0-97.0) fL MCHC 31.5 L (32.0-37.0) g/dL RDW 17.0 H (11.5-14.5) % MPV 9.4 L (9.5-12.2) fL Immature Gran # 0.07 H (0.00-0.04) X 10*3/uL Neutrophils # 10.17 H (1.80-7.70) X 10*3/uL Sodium 150 H (135-145) mmol/L Chloride 111 H (96-109) mmol/L Carbon Dioxide 15.9 L (20.0-27.5) mmol/L Anion Gap 23.60 H (10.00-18.00) mmol/L Creatinine 2.3 H (0.6-1.5) mg/dL Est GFR (CKD-EPI)AfAm 30.4 L (60.0-200.0) Est GFR (CKD-EPI)NonAf 26.2 L (60.0-200.0) BUN/Creatinine Ratio 9.32 L (12.00-20.00) Ratio Calcium 11.5 H (8.7-10.3) mg/dL Assessment and Plan Assessment: #small bowel obstruction secondary to pelvic mass -NG tube as per general surgery -Diet as per general surgery -IV morphine for pain -Patient has significant output from the NG tube and is still symptomatic -IV fluids. -I discussed with general surgery who said the patient will need surgery. 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 We'll start patient on sodium bicarbonate drip while he is nothing by mouth #hypernatremia -We'll consult nephrology and to be managed by dry cell tester #Recent admission for UTI with septic shock #Recently treated for C. diff CODE STATUS:full code DVT prophylaxis: Subcu heparin Anticipated length of stay : Depending on hospital course Anticipated discharge place: Home versus halfway facility
[2021-07-16] MEDS: DAPTOmycin 350 MG in SODIUM CHLORIDE 0.9% 50 ML IVPB SCH (14:27)
--- NOTE | 2021-07-16 18:20 | P.NPCON ---
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 Patient was hospitalized in May with severe urosepsis and shock. He had developed acute kidney injury with serum creatinine as high as 5.38 mg/dL. Patient was found to have significant right hydronephrosis and had right nephrostomy tube placed on 06/13/2021. Renal function had improved with serum creatinine down to 3.3 mg/dL at discharge and subsequently further decreased to about 1.9. In this admission patient is admitted with complaints of abdominal pain. He was recently diagnosed and treated for C. diff colitis prior to admission. Diarrhea has improved however patient was diagnosed with small bowel obstruction. Currently with an NG tube in place Patient needs PICC line for TPN as he cannot have oral intake. Serum sodium was 150 today with creatinine of 2.3 and CO2 15.9 Currently has output from urostomy and patient states that his nephrostomy site also leaks patient is being followed by urology. There are plans for antegrade right ureteral stent placement down the road. Review of Systems As per HPI. Other systems negative 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, post colectomy and colostomy and a cystectomy jan 2021 History of Any Multi-Drug Resistant Organisms: VRE Date of last positivie culture/infection: 07/11/21 MDRO Source:: VRE URINE Past Surgical History: Bladder Surgery, Bowel Resection Additional Past Surgical History / Comment(s): December 2020 at [facility] patient had a bladder/colon fistula repair resulting in a double ostomy- urost marylu and colostomy Past Anesthesia/Blood Transfusion Reactions: No Reported Reaction Additional Past Anesthesia/Blood Transfusion Reaction / Comment(s): No transfusion Past Psychological History: No Psychological Hx Reported Smoking Status: Former smoker Past Alcohol Use History: None Reported Past Drug Use History: None Reported - Past Family History family Family Medical History: No Reported History Medications and Allergies Home Medications Medication Instructions Recorded Confirmed Type Acetaminophen Tab [Tylenol] 1,000 mg PO Q6HR PRN 06/03/21 07/10/21 History Famotidine [Pepcid] 20 mg PO BID PRN 06/03/21 07/10/21 History Pantoprazole [Protonix] 40 mg PO DAILY #30 tab 06/16/21 07/10/21 Rx Sodium Bicarbonate Tab 1,300 mg PO BID tab 06/16/21 07/10/21 Rx Cephalexin [Keflex] 500 mg PO TID 07/10/21 07/10/21 History Mag Hydrox/Aluminum Hyd/Simeth 10 - 20 ml PO TID PRN 07/10/21 07/10/21 History [Mylanta Maximum Strength Liq] polyethylene glycoL 3350 [Miralax] 17 gm PO DAILY PRN 07/10/21 07/10/21 History Allergies Allergy/AdvReac Type Severity Reaction Status Date / Time No Known Allergies Allergy Verified 07/10/21 16:07 Physical Exam Vitals: Vital Signs Temp Pulse Pulse Resp BP Pulse Ox 07/16/21 11:22 98.1 F 94 20 144/79 98 07/16/21 05:00 97.8 F 99 20 162/88 96 07/15/21 21:00 97.8 F 86 18 165/85 97 07/15/21 20:00 86 18 Intake and Output 07/16/21 07/16/21 07/16/21 06:59 14:59 22:59 Intake Total 900 50 900 Output Total 450 300 950 Balance 450 -250 -50 Intake: IV 50 900 Dextrose 5% in Water 1, 900 000 ml @ 75 mls/hr IV . [id number] ESMER with Sodium Bicarb (1 Meq/ml) 100 ml Rx#:[id number] Intake, IV Titration 900 Amount Lactated Ringers 1,000 ml 900 @ 75 mls/hr IV .[id number] ESMER Rx#:[id number] Output: Drainage 250 100 50 Right Back 250 100 50 Urine 200 200 900 Other: Voiding Method Ileal Conduit (Right) Patient is awake, comfortable. Not in any acute distress. Alert and oriented 3. Examination of the heart S1 and S2 Examination lungs bilateral breath sounds are heard Abdomen is soft nontender urostomy is intact. Colostomy is intact as well. Examination lower extremity shows no evidence of edema. Results - Lab Results Most recent lab results Calcium 11.5 mg/dL (8.7-10.3) H 07/16/21 07:48 Magnesium 2.2 mg/dL (1.5-2.4) 07/16/21 07:48 07/16/21 07:48 07/16/21 07:48 Assessment and Plan Assessment: 1. Acute kidney injury secondary to ATN and obstructive uropathy from last admission in May with peak creatinine at 5.3 currently down to 1.9. Patient is status post right nephrostomy tube placement on 06/13/2021 currently with severe right ureteral stricture and there are plans for antegrade right ureteral stent placement down the road 2. Stable bladder cancer status post prostatectomy with history of colovesical fistula as well with resultant colostomy and urostomy. 3. Right hydronephrosis with plans for right antegrade ureteral stent placement currently with a right nephrostomy 4. C. diff colitis status post treatment as outpatient 5. Small bowel obstruction currently with NG do 6. Hypernatremia associated with free water deficit 7. Metabolic acidosis associated with diarrhea, GI fluid loss as well as cute kidney injury 8. History of recent septic shock and UTI. Current urine culture growing VRE Plan: Continue IV bicarb with 100 mEq of sodium bicarb in D5W Repeat sodium this evening Repeat labs in a.m. Okay to proceed with PICC line placement for TPN. Can use dominant arm
[2021-07-17] MEDS: MORPHINE SULFATE 2 MG/ML SYRINGE IVP PRN ×2 (01:22→09:52)
[2021-07-17] MEDS: DEXTROSE 5% IN WATER 1,000 ML with SODIUM BICARB (1 MEQ/ML) 100 ML IV SCH (01:22)
[2021-07-17 07:24] VITALS: PULSE 73; RESP 16
[2021-07-17] MEDS: PANTOPRAZOLE 40 MG/10 ML VIAL IV SCH (08:21)
[2021-07-17] MEDS: HEPARIN SODIUM,PORCINE/PF 5,000 UNIT/0.5 ML SYRINGE SQ SCH (08:21)
[2021-07-17 09:28] LABS: Basophils # (A) 0.08 X 10*3/uL (0.00-0.10); Basophils % (A) 0.8 %; Eosinophils # (A) 0.29 X 10*3/uL (0.04-0.35); Eosinophils % (A) 2.9 %; HCT 27.3 % (39.6-50.0); HGB 8.7 g/dL (13.0-17.0); Immature Grans, Automated 0.5 %; Lymphocytes # (A) 1.42 X 10*3/uL (0.90-5.00); Lymphocytes % (A) 14.1 %; MCH 31.5 pg (27.0-32.0); MCHC 31.9 g/dL (32.0-37.0); MCV 98.9 fL (80.0-97.0); Mean Platelet Volume 9.2 fL (9.5-12.2); Monocytes # (A) 0.66 X 10*3/uL (0.20-1.00); Monocytes % (A) 6.5 %; NRBC Per 100 WBC 0 /100 WBCS (0.0-0.0); Neutrophils # (A) 7.58 X 10*3/uL (1.80-7.70); Neutrophils % (A) 75.2 %; Platelet Count 327 X 10*3/uL (140-440); RBC 2.76 X 10*6/uL (4.40-5.60); RDW 16.5 % (11.5-14.5); WBC 10.08 X 10*3/uL (4.50-10.00)
[2021-07-17 10:07] LABS: African American GFR (CKD) 37.4 (60.0-200.0); Anion Gap 15.6 mmol/L (10.00-18.00); BUN/Creat Ratio 9.9 Ratio (12.00-20.00); Blood Urea Nitrogen 19.5 mg/dL (9.0-27.0); Calcium 10.6 mg/dL (8.7-10.3); Magnesium 2.1 mg/dL (1.5-2.4); Non-African American GFR(CKD) 32.3 (60.0-200.0); Potassium 3.4 mmol/L (3.5-5.5)
[2021-07-17] MEDS ORDERED: POTASSIUM CHLORIDE 20 MEQ in WATER FOR INJECTION 1 100ML.BAG IVPB STA (10:51)
[2021-07-17] MEDS ORDERED: LIDOCAINE 1% INJ 10MG/ML (20 ML MDV) SQ ONE ×2 (11:00→11:01)
--- NOTE | 2021-07-17 12:39 | P.PN ---
Progress Note - Text Progress Note Date: 07/17/21 underwent attempted antegrade stent yesterday with Dr. Robbins. Unable to advance the stent due to complete obstruction at the level of the ureterointestinal anastomosis. Discussed with him at this point I recommend continuing with nephrostomy tube. CT on admission showed a mass concerning for recurrence of his bladder cancer. He indicated he's planning on following up with [facility], and is a potential of him being transferred there. I advised him he can follow-up with his urologist over there to discuss treatment option for his obstruction. is a complete obstruction could be secondary to tumor recurrence at the anastomosis Versus a stricture
[2021-07-17 12:52] VITALS: BP 150/85; TEMP 97.8
--- NOTE | 2021-07-17 13:33 | IR ---
EXAMINATION TYPE: IR cvc insert >=5 years DATE OF EXAM: 07/17/2021 COMPARISON: NONE CLINICAL HISTORY: Needs long-term intravenous access for total parenteral nutrition. PROCEDURE: Hand hygiene obtained with soap and water and alcohol-based hand rub. After informed consent, the skin overlying the right basilic vein was localized with ultrasound and n oted to be compressible and patent. An ultrasound image was obtained and submitted on the patient's chart. The overlying skin was prepped and draped and Lidocaine was used for local anesthesia. A ski n zeny was made with a scalpel. Access was gained to the vein under ultrasound guidance with a 21 ga uge needle and a 0.018 inch wire was advanced. Access site was dilated with Peel-Away sheath and cat heter tailored to the appropriate length and advanced such that the distal tip is at the cavoatrial j unction. Spot image was obtained verifying placement. Catheter was fixed to the skin and a sterile dressing was placed following hemostasis. Catheter was aspirated and flushed with saline. Patient w as discharged in stable condition without complication.Maximal barrier technique is utilized. Ultras ound image is documented on the chart. Ultrasound used with sterile technique. Fluoro time and fluoroscopic images submitted to document procedure: 31 intraoperative C-arm images, 0.5 minutes fluoroscopy time IMPRESSION: STATUS POST ULTRASOUND AND FLUOROSCOPIC GUIDED PICC LINE PLACEMENT, READY FOR USE. THIS PROCEDURE WAS PERFORMED BY THE UNDERSIGNED.
--- NOTE | 2021-07-17 13:35 | P.DS ---
Providers Date of admission: 07/10/21 18:01 Expected date of discharge: 07/17/21 Attending physician: Faustina Roland MD Consults: 07/10/21 18:01 Consult Physician Routine Consulting Provider: Allen Sanchez Consult Reason/Comments: Hydronephrosis status post nephrostomy Do you want consulting provider notified?: Yes Consult Physician Routine Consulting Provider: Markel Melendez Consult Reason/Comments: Small bowel obstruction Do you want consulting provider notified?: Yes 07/11/21 04:05 Consult Physician Urgent Consulting Provider: Allen Sanchez Consult Reason/Comments: Nephrostopmy and Urostomy with UTI Do you want consulting provider notified?: Yes 07/14/21 13:58 Consult Physician Routine Consulting Provider: Kristine Lugo Consult Reason/Comments: vre in urine Do you want consulting provider notified?: Yes 07/16/21 11:30 Consult Physician Routine Consulting Provider: Reina Johnson Consult Reason/Comments: hypernatremia, metabolic acidosis Do you want consulting provider notified?: Yes Primary care physician: Franc Lilia [facility] Hospital Course: Discharge Diagnosis: Small bowel obstruction secondary to pelvic mass UTI with urostomy Right ureter strictures status post nephrostomy tube History of bladder cancer status post colostomy and urostomy CK D with metabolic acidosis Hyponatremia Recent admission for UTI with septic shock Recently treated for C. diff Hospital Course: Patient is a 76-year-old male with a PMH of bladder cancer status post colostomy and urostomy placement (January 2021), chronic kidney disease, status post right nephrostomy tube placement one month ago, who presents to the emergency room with complaints of abdominal pain. The patient was recently admitted to the hospital on 06/03/21 for urosepsis with shock requiring pressors. The patient was subsequently discharged to a rehab facility where he reports being diagnosed with C. diff after several days of abdominal pain and diarrhea. The patient reports that he completed a course of oral antibiotics for the C. diff after which his diarrhea resolved. He notes that he was also seen at [facility] a few days ago where he underwent a computed tomography scan of the abdomen which revealed partial small bowel obstruction. The patient was also diagnosed with UTI and started on oral antibiotics (Keflex). The patient reports however that he continued having abdominal pain and thereby returned now to the emergency room. Patient had a computed tomography scan of his abdomen done in our ED that showed small bowel obstruction and also a pelvic mass. Patient had a NG tube placed and he was started on IV fluids. General surgery was following the patient. Unfortunately patient failed conservative treatment. He had no stool output from his ostomy and still had high output from his NG tube. He was given the option for surgery. Patient requested to be transferred to [facility] where he had his previous abdominal surgeries done. Patient has been accepted at the [facility]. Patient had a PICC line placed on 07/17/2021 for TPN. Patient's urine culture grew VRE. Infectious disease was following the patient. He was started on daptomycin. Mandi also sensitive to Zyvox. Patient is also on bicarb drip for metabolic acidosis. Bicarb is improving. Patient also seen by urology regarding the pelvic mass that is likely causing the ureter stricture. Urology attempted to put in a stent however were unsuccessful. Patient currently has a nephrostomy tube. Urology recommended to change nephrostomy tube every 3 months Patient was seen at the time of discharge. He states that he still has abdominal pain. He reports no output from his ostomy. I encouraged the patient to ambulate as much as possible. Patient seen and examined at bedside.[] General examination - Alert and Oriented 3 in NAD, patient appears chronically debilitated Heart - + S1S2 no murmurs Lungs - Clear to auscultation Abdomen tenderness bowel sounds, tenderness to palpate in the lower abdomen, + colostomy with no stool output + urostomy + nephrostomy tube, + NG tube Extremities - No edema AIRDOX FITTER - Moving all 4 extremities spontaneously Psych - Calm and cooperative A total of [40] minutes of time were spent preparing this complex discharge summary . Patient Condition at Discharge: Poor Plan - Discharge Summary New Discharge Prescriptions: No Action Pantoprazole [Protonix] 40 mg PO DAILY #30 tab Mag Hydrox/Aluminum Hyd/Simeth [Mylanta Maximum Strength Liq] 10 - 20 ml PO TID PRN PRN Reason: Gi Upset polyethylene glycoL 3350 [Miralax] 17 gm PO DAILY PRN PRN Reason: Constipation Famotidine [Pepcid] 20 mg PO BID PRN PRN Reason: ACID REFLUX Acetaminophen Tab [Tylenol] 1,000 mg PO Q6HR PRN PRN Reason: Pain Or Fever > 100.5 Sodium Bicarbonate Tab 1,300 mg PO BID tab Cephalexin [Keflex] 500 mg PO TID Discharge Medication List Acetaminophen Tab [Tylenol] 1,000 mg PO Q6HR PRN 06/03/21 [History] Famotidine [Pepcid] 20 mg PO BID PRN 06/03/21 [History] Pantoprazole [Protonix] 40 mg PO DAILY #30 tab 06/16/21 [Rx] Sodium Bicarbonate Tab 1,300 mg PO BID tab 06/16/21 [Rx] Cephalexin [Keflex] 500 mg PO TID 07/10/21 [History] Mag Hydrox/Aluminum Hyd/Simeth [Mylanta Maximum Strength Liq] 10 - 20 ml PO TID PRN 07/10/21 [History] polyethylene glycoL 3350 [Miralax] 17 gm PO DAILY PRN 07/10/21 [History] Follow up Appointment(s)/Referral(s): Franc Bundy MD [Primary Care Provider] - 1-2 days Activity/Diet/Wound Care/Special Instructions: *Right nephrostomy dressing change done on Wednesday07/11/21 by application packaging specialist ---Evaluate and Manage drainage tube catheter with dressing change every 7 days and/or PRN. Call Radiology Nurse at Ext. #[phone] to set up initial follow-up appointment prior to discharge.--- Discharge Disposition: OTHER INSTITUTION NOT DEFINED
--- NOTE | 2021-07-17 15:17 | P.PN ---
Subjective Progress Note Date: 07/17/21 Principal diagnosis: e now Some of this or just in [place] test negative, home as I said I said I got a trip to [place] this coming month and on light advise has positive I, there may be coming out and I really do not know what he felt still here bowel obstruction Patient doing about the same. Currently undergoing transfer to [facility] per the patient's request. Case was discussed with Dr. Sanchez yesterday by phone. He also is in favor of the patient being transferred to the [facility] given the recurrent mass in the pelvis. Objective - Vital Signs Vital signs: Vital Signs Temp 97.8 F 07/17/21 12:51 Pulse 73 07/17/21 07:24 Resp 16 07/17/21 14:32 BP 150/85 07/17/21 12:51 Pulse Ox 96 07/17/21 12:51 Intake & Output 07/16/21 07/17/21 07/17/21 18:59 06:59 18:59 Intake Total 950 900 Output Total 1250 700 360 Balance -300 200 -360 Intake: IV 950 Dextrose 5% in Water 1, 900 000 ml @ 75 mls/hr IV . [id number] ESMER with Sodium Bicarb (1 Meq/ml) 100 ml Rx#:[id number] Intake, IV Titration 900 Amount Dextrose 5% in Water 1, 900 000 ml @ 75 mls/hr IV . [id number] ESMER with Sodium Bicarb (1 Meq/ml) 100 ml Rx#:[id number] Output: Drainage 150 350 260 Right Abdomen 120 Right Back 150 350 140 Urine 1100 350 100 Other: Voiding Method Ileal Conduit (Right) Ileal Conduit (Right) Ileal Conduit (Right) - Exam Abdomen: Soft, minimal distention, nontender - Labs CBC & Chem 7: 07/17/21 06:43 07/17/21 06:43 Labs: Abnormal Lab Results - Last 24 Hours (Table) 07/17/21 07/17/21 Range/Units 06:43 06:43 WBC 10.08 H (4.50-10.00) X 10*3/uL RBC 2.76 L (4.40-5.60) X 10*6/uL Hgb 8.7 L (13.0-17.0) g/dL Hct 27.3 L (39.6-50.0) % MCV 98.9 H (80.0-97.0) fL MCHC 31.9 L (32.0-37.0) g/dL RDW 16.5 H (11.5-14.5) % MPV 9.2 L (9.5-12.2) fL Immature Gran # 0.05 H (0.00-0.04) X 10*3/uL Sodium 147 H (135-145) mmol/L Potassium 3.4 L (3.5-5.5) mmol/L Creatinine 2.0 H (0.6-1.5) mg/dL Est GFR (CKD-EPI)AfAm 37.4 L (60.0-200.0) Est GFR (CKD-EPI)NonAf 32.3 L (60.0-200.0) BUN/Creatinine Ratio 9.90 L (12.00-20.00) Ratio Calcium 10.6 H (8.7-10.3) mg/dL Assessment and Plan (1) SBO (small bowel obstruction) Narrative/Plan: Continue nasogastric tube to suction. Agree with plans for transfer. Current Visit: Yes Status: Acute Code(s): K56.609 - UNSP INTESTNL OBST, UNSP TO PARTIAL VERSUS COMPLETE OBST SNOMED Code(s): 162098618
--- NOTE | 2021-07-17 20:32 | P.PN ---
Subjective Patient is seen for follow-up for acute kidney injury which is recovering from his previous admission. There are plans for transfer to [facility] today. Currently maintained on bicarb drip with improvement in metabolic acidosis and serum sodium has improved as well. Good urine output from the urostomy and right nephrostomy. Serum creatinine down to 2.0. Objective - Vital Signs Vital signs: Vital Signs Temp 97.8 F 07/17/21 12:51 Pulse 73 07/17/21 07:24 Resp 16 07/17/21 14:32 BP 150/85 07/17/21 12:51 Pulse Ox 96 07/17/21 12:51 Intake & Output 07/17/21 07/17/21 07/18/21 06:59 18:59 06:59 Intake Total 900 Output Total 700 360 Balance 200 -360 Intake: Intake, IV Titration 900 Amount Dextrose 5% in Water 1, 900 000 ml @ 75 mls/hr IV . [id number] ESMER with Sodium Bicarb (1 Meq/ml) 100 ml Rx#:[id number] Output: Drainage 350 260 Right Abdomen 120 Right Back 350 140 Urine 350 100 Other: Voiding Method Ileal Conduit (Right) Ileal Conduit (Right) - Exam Patient is comfortable awake. He is not in any acute distress. Alert and oriented 3. Examination of the heart S1 and S2 Examination lungs bilateral breath sounds are heard Abdomen is soft nontender, urostomy is intact, colostomy is intact as well Examination of lower extremities shows no evidence of edema AUDIOMETRIST exam grossly intact - Labs CBC & Chem 7: 07/17/21 06:43 07/17/21 06:43 Labs: Abnormal Lab Results - Last 24 Hours (Table) 07/17/21 07/17/21 Range/Units 06:43 06:43 WBC 10.08 H (4.50-10.00) X 10*3/uL RBC 2.76 L (4.40-5.60) X 10*6/uL Hgb 8.7 L (13.0-17.0) g/dL Hct 27.3 L (39.6-50.0) % MCV 98.9 H (80.0-97.0) fL MCHC 31.9 L (32.0-37.0) g/dL RDW 16.5 H (11.5-14.5) % MPV 9.2 L (9.5-12.2) fL Immature Gran # 0.05 H (0.00-0.04) X 10*3/uL Sodium 147 H (135-145) mmol/L Potassium 3.4 L (3.5-5.5) mmol/L Creatinine 2.0 H (0.6-1.5) mg/dL Est GFR (CKD-EPI)AfAm 37.4 L (60.0-200.0) Est GFR (CKD-EPI)NonAf 32.3 L (60.0-200.0) BUN/Creatinine Ratio 9.90 L (12.00-20.00) Ratio Calcium 10.6 H (8.7-10.3) mg/dL Assessment and Plan Assessment: 1. Acute kidney injury secondary to ATN and obstructive uropathy from last admission in May with peak creatinine at 5.3 currently down to 1.9. Patient is status post right nephrostomy tube placement on 06/13/2021 currently with severe right ureteral stricture and there are plans for antegrade right ureteral stent placement down the road 2. History of bladder cancer status post prostatectomy with history of colovesical fistula as well with resultant colostomy and urostomy. Now with ma ss in the right lower abdomen suggestive of possible recurrence. 3. Right hydronephrosis with plans for right antegrade ureteral stent placement currently with a right nephrostomy 4. C. diff colitis status post treatment as outpatient 5. Small bowel obstruction currently with NG do 6. Hypernatremia associated with free water deficit 7. Metabolic acidosis associated with diarrhea, GI fluid loss as well as cute kidney injury 8. History of recent septic shock and UTI. Current urine culture growing VRE Plan: Continue IV bicarb with 100 mEq of sodium bicarb in D5W Repeat labs in a.m. Replace potassium
== END 2021-07-17 14:55 | disposition short-term general hospital (02) | DRG 389 ==
LOC: EC 14:16 → 5NMEDONC 18:01
PROVIDERS: ADMIT Internal Medicine; ATTEND Internal Medicine
PROC: BT111ZZ Fluoroscopy of Right Kidney using Low Osmolar Contrast (ICD-10-PCS; 2021-07-16)
PROC: 02HV33Z Insertion of Infusion Device into Superior Vena Cava, Percutaneous Approach (ICD-10-PCS; principal; 2021-07-17 08:25)
PROC: 3E0436Z Introduction of Nutritional Substance into Central Vein, Percutaneous Approach (ICD-10-PCS; principal; 2021-07-17 08:25)
DX: K56.51 Intestinal adhesions [bands], with partial obstruction (principal); E87.0 Hyperosmolality and hypernatremia; E87.2 Acidosis; N13.6 Pyonephrosis; N17.9 Acute kidney failure, unspecified; Z16.21 Resistance to vancomycin; N18.9 Chronic kidney disease, unspecified; R19.7 Diarrhea, unspecified; Z79.899 Other long term (current) drug therapy; Z85.51 Personal history of malignant neoplasm of bladder; Z86.19 Personal history of other infectious and parasitic diseases; Z87.891 Personal history of nicotine dependence; B95.2 Enterococcus as the cause of diseases classified elsewhere; C67.9 Malignant neoplasm of bladder, unspecified; E86.9 Volume depletion, unspecified; Z90.6 Acquired absence of other parts of urinary tract; Z93.3 Colostomy status; Z93.6 Other artificial openings of urinary tract status; Z90.79 Acquired absence of other genital organ(s); Z87.440 Personal history of urinary (tract) infections; Z53.8 Procedure and treatment not carried out for other reasons; Z98.890 Other specified postprocedural states; Z20.822 Contact with and (suspected) exposure to COVID-19; Z90.49 Acquired absence of other specified parts of digestive tract
CPT/HCPCS: 36415; 36573; 74019; 74176; 74250; 74425; 80048; 80053; 81001; 83605; 83690; 83735; 85025; 85610; 87077; 87086; 87186; 87635; 99285